=== PATIENT | female | born 1945 | race Caucasian/White ===

== ENCOUNTER → 2018-11-20 | Outpatient (CLI) | payer MEDICARE, BC ==
[~2018-11-20] MED LIST: NAPROXEN500 MG PO
== END ==
LOC: MAMMO 09:15
PROVIDERS: ATTEND Internal Medicine
DX: Z12.31 Encounter for screening mammogram for malignant neoplasm of breast (principal)
CPT/HCPCS: 77067

== ENCOUNTER 2020-04-09 15:13 | Observation (INO) | payer MEDICARE, BC, OTHER ==
[~2020-04-09] VITALS: Ht 154.9 cm; Wt 66.2 kg
[2020-04-09] MEDS ORDERED: HYDROCODONE/APAP 7.5MG-325MG 1 EA TAB PO ONE (15:30)
--- OUTSIDE RECORDS SUMMARY | 2020-04-09 16:25 | XMS REPORT | Clinical Summary ---
Author Author [facility] Address Unknown Phone Unavailable Care Team Providers Care Adobe Flex Developer Name Role Phone Sumaya Vasquez MD PCP Allergies No Known Allergies Medications End Date Status Medication Sig Dispensed Refills Start Date Active fluticasone (FLONASE) 50 USE 2 SPRAYS 0 11/08 mcg/actuation nasal spray IEN BID 9 11/11/2019 omeprazole (PriLOSEC) 10 Take 4 30 capsule 4 0 MG capsule capsules (40 9 mg total) by mouth daily. Active Problems Problem Noted Date Acute pancreatitis 06/10/2018 Diarrhea 05/29/2018 Bronchitis 05/27/2018 Immunizations Name Administration Dates Next Due FLUCELVAX QUAD PF 06/12/2018 Family History Medical History Relation Name Comments Hypertension Father Arthritis Mother Asthma Mother Hyperlipidemia Mother Hypertension Mother Relation Name Status Comments Father Mother Social History Date Tobacco Use Types Packs/Day Years Used Never Smoker Smokeless Tobacco: Never Used Drinks/Week oz/Week Comments Alcohol Use 1 Cans of beer 1.0 maybe one drink a month or 2 Yes Sex Assigned at Date Recorded Not on file Industry Job Start Date Occupation Not on file Not on file Not on file Travel End Travel History Travel Start No recent travel history available. Last Filed Vital Signs Not on file Plan of Treatment Health Maintenance Due Date Last Done Comments BREAST CANCER SCREENING 1996 COLONOSCOPY SCREENING 1996 SHINGLES VACCINES (#1) 1996 65+ PNEUMOCOCCAL VACCINE 2011 (1 of 2 - PCV13) INFLUENZA VACCINE 04/03/2020 06/12/2018 Results Not on fileafter 04/09/2019 Insurance Type Payer Benefit Subscriber ID Effective Phone Address Plan / Dates Group Medicare MEDICARE MEDICARE xxxxxxxxxxx 2011-P CHENG, PART A AND resent [place] B Indemnity BCBS BCBS xxxxxxxxxxxx 2015-P PAR/TRAD resent PLAN [id number] Advance Directives For more information, please contact: [phone] Patient Installations Inspector Explanation Type Date Recorded Advance Directives, 05/27/2018 11:59 AM Living Will and Medical Power of Octave Board Racker Date Inactivated Comments Code Status Date Activated 06/12/2018 7:11 PM Full Code 06/11/2018 7:56 AM Code Status decision reached by: Patient
--- OUTSIDE RECORDS SUMMARY | 2020-04-09 16:26 | XMS REPORT | CCD ---
Author Author [employer] [facility] Address Unknown Phone Unavailable Care Team Providers Care Web Services Manager Name Role Phone Jean Donaldson CP Allergies, Adverse Reactions, Alerts Substance Reaction Status NKDA Active Problem List Condition Effective Dates Status Acute interstitial pneumonia Active HT - Hypertension Active Medications Medication Instructions Start Date End Date Status pneumococcal 0.5 ml, Route: IM, Drug Form: INJ, 02/29/2012 Completed 23-valent vaccine Start date: 02/29/12 9:00:0 0, Stop date: 02/29/12 9:00:00 Flexeril 10 mg, Route: PO, ONCE, Dosing 08/08/2012 08/08/20 12 Completed Weight 69.545, kg, Priority: STAT, Start date: 08/08/12 20:05:00, Stop date: 08/08/12 20:05:00 Flexeril 10 mg oral 10 mg, PO, TID, PRN, 30 tab, Muscle 08/0808/18/2012 Ordered tablet Spasm, Substitution Allowed [place] 5/325 oral 1-2 tab, PO, Q4-6H, PRN, 15 tab, 08/08/2012 1 10/14/2011 Ordered tablet Pain, Substitution Allowed, Maintenance morphine Sulfate 2 mg, 1 mL, Route: IVP, Drug form: 08/08/2012 08/08/2012 Completed INJ, ONCE, Dosing Weight 69.545, kg, Priority: STAT, Start date: 08/08/12 19:14:00, Stop date: 08/08/12 19:14:00 ondansetron 4 mg, 2 mL, Route: IVP, Drug form: 08/08/201202/2012 Completed INJ, ONCE, Dosing Weight 69.545, kg, Priority: STAT, Start date: 08/08/12 19:14:00, Stop date: 08/08/12 19:14:00 Saline Flush 0.9% 5 mL, Route: IVP, Drug Form: INJ, 08/08/2012 08/08/2012 Discontinued Dosing Weight 69.545, kg, PRN, PRN Line Flush, Start date: 08/08/12 19:14:00, Duration: 24 hr, Stop date: 08/09/12 19:13:00 Sodium Chloride 0.9% 500 mL, 500 ml/hr, Route: IV, Drug 08/0808/08/2012 Completed (Bolus) IV Form: INJ, Dosing Weight 69 .545, kg, ONCE, Bolus at 1,000 ml/hr, STAT, Start date: 08/08/12 19:14:00, Stop date: 08/08/12 19:14:00 Immunizations Vaccine Date Status pneumococcal 23-valent vaccine 02/29/2012 Auth (V erified) Vital Signs Most recent to oldest [Reference Range]: 1 Height 154.94 cm (08/08/2012 18:05:00) Weight 69.545 kg (08/08/2012 18:05:00) Results CHEMISTRY Most recent to oldest [Reference Range]: 1 Sodium Lvl [135-145 mEq/L] 142 mEq/L (08/08/2012 20:05:00) Potassium Lvl [3.5-5.1 mEq/L] 4.0 mEq/L (08/08/2012 20:05:00) Chloride Lvl [95-109 mEq/L] 107 mEq/L (08/08/2012 20:05:00) CO2 [24-32 mEq/L] 25 mEq/L (08/08/2012 20:05:00) AGAP [10.0-20.0 mEq/L] 14.0 mEq/L (08/08/2012 20:05:00) Creatinine Lvl [0.5-1.4 mg/dL] 0.6 mg/dL (08/08/2012 20:05:00) eGFR 95 mL/min/1.73m2 1 *NA* (08/08/2012 20:05:00) BUN [7-22 mg/dL] 12 mg/dL (08/08/2012 20:05:00) B/C Ratio [6-25] 20 (08/08/2012 20:05:00) Glucose Lvl [70-99 mg/dL] 104 mg/dL 2 *HI* (08/08/2012:05:00) Total Protein [6.4-8.4 g/dL] 7.6 g/dL (08/08/2012:05:00) Albumin Lvl [3.5-5.0 g/dL] 4.0 g/dL (08/08/2012:05:00) Globulin [2.0-4.0 g/dL] 3.6 g/dL (08/08/2012:05:00) A/G Ratio [0.7-1.6] 1.1 (08/08/2012:05:00) Calcium Lvl [8.5-10.5 mg/dL] 8.6 mg/dL (08/08/2012:05:00) ALT [0-65 unit/L] 32 unit/L (08/08/2012:05:00) AST [0-37 unit/L] 19 unit/L (08/08/2012:05:00) Alk Phos [39-136 unit/L] 91 unit/L (08/08/2012:05:00) Bili Total [0.2-1.3 mg/dL] 0.2 mg/dL (08/08/2012:05:00) Bili Direct [0.0-0.3 mg/dL] <0.1 mg/dL (08/08/2012:05:00) Lipase Lvl [73-393 unit/L] 248 unit/L (08/08/2012:05:00) Total CK [12-191 unit/L] 172 unit/L (08/08/2012:05:00) CK MB [0.5-3.6 ng/mL] 1.2 ng/mL (08/08/2012:05:00) CK MB Index [0.0-2.5] 0.7 (08/08/2012:05:00) Troponin-I [0.00-0.40 ng/mL] <0.02 ng/mL (08/08/2012:05:00) 1Result Comment: The eGFR is calculated using the CKD-EPI formula. In most young, healthy individuals the eGFR will be >90 mL/min/1.73m2. The eGFR declines with age. An eGFR of 60-89 may be normal in some populations, particularly the elderly, for whom the CKD-EPI formula has not been extensively validated. Use of the eGFR is not recommended in the following populations: Individuals with unstable creatinine concentrations, including patients and those with serious co-morbid conditions. Patients with extremes in muscle mass or diet. The data above are obtained from the National Kidney Disease Education Program ( NKDEP) which additionally recommends that when the eGFR is used in patients with extremes of body mass index for purposes of drug dosing, the eGFR should be mul tiplied by the estimated BMI. 2Interpretive Data: Adult reference range values reflect the clinical guidelines of the [place] [employer]. HEMATOLOGY Most recent to oldest [Reference Range]: 1 WBC [3.7-10.4 K/CMM] 7.9 K/CMM (08/08/2012 20:05:00) RBC [4.20-5.40 M/CMM] 4.30 M/CMM (08/08/2012:05:00) Hgb [12.0-16.0 g/dL] 13.1 g/dL (08/08/2012:05:00) Hct [36.0-48.0 %] 38.8 % (08/08/2012:05:00) MCV [81.0-99.0 fL] 90.2 fL (08/08/2012:05:00) MCH [27.0-31.0 pg] 30.5 pg (08/08/2012:05:00) MCHC [32.0-36.0 g/dL] 33.8 g/dL (08/08/2012:05:00) RDW [11.5-14.5 %] 13.8 % (08/08/2012:05:00) Platelet [133-450 K/CMM] 337 K/CMM (08/08/2012:05:00) MPV [7.4-10.4 fL] 7.4 fL (08/08/2012:05:00) Segs [45.0-75.0 %] 57.5 % (08/08/2012 20:05:00) Lymphocytes [20.0-40.0 %] 31.7 % (08/08/2012 20:05:00) Monocytes [2.0-12.0 %] 6.8 % (08/08/2012 20:05:00) Eosinophils [0.0-4.0 %] 2.7 % (08/08/2012 20:05:00) Basophils [0.0-1.0 %] 1.3 % *HI* (08/08/2012 20:05:00) Segs-Bands # [1.5-8.1 K/CMM] 4.5 K/CMM (08/08/2012 20:05:00) Lymphocytes # [1.0-5.5 K/CMM] 2.5 K/CMM (08/08/2012 20:05:00) Monocytes # [0.0-0.8 K/CMM] 0.5 K/CMM (08/08/2012 20:05:00) Eosinophils # [0.0-0.5 K/CMM] 0.2 K/CMM (08/08/2012 20:05:00) Basophils # [0.0-0.2 K/CMM] 0.1 K/CMM (08/08/2012 20:05:00) PT [12.0-14.7 seconds] 12.4 seconds (08/08/2012 20:05:00) INR [0.85-1.17] 0.90 3 (08/08/2012 20:05:00) PTT [22.9-35.8 seconds] 26.1 seconds 4 (08/08/2012 20:05:00) 3Interpretive Data: RECOMMENDED RANGES FOR PROTIME INR: 2.0-3.0 for most medical and surgical thromboembolic states. 2.5-3.5 for artificial heart valves and recurrent embolism. INR SHOULD BE USED ONLY FOR PATIENTS ON STABLE ANTICOAGULANT THERAPY. 4Interpretive Data: Heparin Therapeutic Range: 57 - 92 Seconds
--- OUTSIDE RECORDS SUMMARY | 2020-04-09 16:26 | XMS REPORT | Summary of Care ---
Author Author [facility] Organization [facility] Address Unknown Phone Unavailable Encounter AGUSTINA Frost(TRINY) [id number] Date(s): 12/11/18 - 12/13/18 [facility] [address] [place] [address]- Discharge Disposition: Home or Self Care Attending Physician: Jaden London MD Admitting Physician: Jaden London MD Vital Signs 1 2 3 Most recent to oldest [Reference Range]: 154.94 cm (12/11/18 2:46 PM) Height 97.2 DegF (12/13/18 3:39 PM) 98.1 DegF (12/13/18 11:19 AM) 97.8 DegF (12/13/18 7:15 AM) Temperature Oral [96.4-99.1 DegF] 143/61 mmHg *HI* (12/13/18 3:39 PM) 153/71 mmHg *HI* (12/13/18 11:19 AM) 136/67 mmHg (12/13/18 7:15 AM) Blood Pressure [90-140/60-90 mmHg] 20 BRMIN (12/13/18 11:19 AM) 20 BRMIN (12/13/18 7:15 AM) 20 BRMIN (12/13/18 4:01 AM) Respiratory Rate [14-20 BRMIN] 94 bpm (12/13/18 3:39 PM) 85 bpm (12/13/18 11:19 AM) 80 bpm (12/13/18 7:15 AM) Peripheral Pulse Rate [60-100 bpm] 70.455 kg (12/11/18 2:46 PM) Weight 29.35 m2 (12/11/18 2:46 PM) Body Mass Index Problem List Condition Effective Dates Status Health Status Informan t Acute interstitial Active pneumonia(Confirmed) HT - Active Hypertension(Confirm ed) Allergies, Adverse Reactions, Alerts Substance Reaction Severity Status NKDA Active Medications albuterol 0.083% inhalation solution 2.49 mg, 3 mL, Route: NEB, Drug form: SOLN, PRN, Dosing Weight 71.96, kg, PRN Re spiratory Pathway, Start date: 12/11/18 13:22:00 CDT, Duration: 30 day, Stop kathrine e: 01/10/19 13:21:00 CDT Notes: SEE RT DOCUMENTATION (Same as: Durga) Start Date: 12/11/18 Stop Date: 12/13/18 Status: Discontinued albuterol-ipratropium 2.5-0.5 mg inhalation solution 3 mL, Route: NEB, Drug Form: SOLN, Dosing Weight 71.96, kg, RQ6H, Start date: 14:00:00 CDT, Duration: 30 day, Stop date: 01/10/19 8:00:00 CDT Notes: (Same as: Elaine) Start Date: 12/11/18 Stop Date: 12/13/18 Status: Discontinued Loda Saline Nasal No-Drip [place] 0.65% gel 1 spray, Route: NASAL, QID, Drug form: SOLN, Start date: 12/12/18 9:00:00 CDT, D uration: 30 day, Stop date: 01/10/19 21:00:00 CDT Notes: (Same as: Troy, Deep Sea Nasal [place]). Start Date: 12/12/18 Stop Date: 12/13/18 Status: Discontinued azelastine nasal 0.1% (137 mcg/inh) spray 137 microgram =, INHALER, BID, PRN Congestion | 1-2 sprays, # 1 ea, 0 Refill(s) Start Date: 12/13/18 Status: Ordered benzonatate 200 mg oral capsule 200 mg = 1 cap, PO, TID, # 30 cap, 0 Refill(s) Start Date: 12/11/18 Stop Date: 12/21/18 Status: Ordered codeine-guaiFENesin 10 mg-100 mg/5 mL oral syrup 5 ml, Route: PO, Drug Form: LIQ, Dosing Weight 70.455, kg, Q6H, PRN Cough, Start date: 12/13/18 9:03:00 CDT, Duration: 30 day, Stop date: 01/12/19 9:02:00 CDT Notes: (Same As: Jesse SCOTT) Start Date: 12/13/18 Stop Date: 12/13/18 Status: Discontinued codeine-guaiFENesin 10 mg-100 mg/5 mL oral syrup 5 mL, PO, Q4H, PRN cough, X 8 day, # 120 mL, 0 Refill(s) Start Date: 12/13/18 Stop Date: 12/21/18 Status: Ordered Dextrose 50% Syringe 25 gm, 50 mL, Route: IVP, Drug Form: INJ, Dosing Weight 70.455, kg, PRN, PRN Blo od Glucose Results, Start date: 12/12/18 0:28:00 CDT, Duration: 30 day, Stop kathrine e: 01/11/19 0:27:00 CDT Start Date: 12/12/18 Stop Date: 12/13/18 Status: Discontinued Dextrose 50% Syringe 12.5 gm, 25 mL, Route: IVP, Drug Form: INJ, Dosing Weight 70.455, kg, PRN, PRN B lood Glucose Results, Start date: 12/12/18 0:28:00 CDT, Duration: 30 day, Stop d ate: 01/11/19 0:27:00 CDT Start Date: 12/12/18 Stop Date: 12/13/18 Status: Discontinued Dextrose 50% Syringe 25 gm, 50 mL, Route: IVP, Drug Form: INJ, Dosing Weight 71.96, kg, PRN, PRN Bloo d Glucose Results, Start date: 12/11/18 13:18:00 CDT, Duration: 30 day, Stop kathrine e: 01/10/19 13:17:00 CDT Start Date: 12/11/18 Stop Date: 12/12/18 Status: Discontinued Dextrose 50% Syringe 12.5 gm, 25 mL, Route: IVP, Drug Form: INJ, Dosing Weight 71.96, kg, PRN, PRN Bl ood Glucose Results, Start date: 12/11/18 13:18:00 CDT, Duration: 30 day, Stop d ate: 01/10/19 13:17:00 CDT Start Date: 12/11/18 Stop Date: 12/12/18 Status: Discontinued docusate 100 mg, 1 cap, Route: PO, Drug form: CAP, BID, Dosing Weight 71.96, kg, Start da te: 12/11/18 17:00:00 CDT, Duration: 30 day, Stop date: 01/10/19 9:00:00 CDT Notes: (Same as: Colace) (Do Not Crush) Start Date: 12/11/18 Stop Date: 12/13/18 Status: Discontinued enoxaparin 40 mg, 0.4 mL, Route: SUB-Q, Drug form: INJ, [id number], Dosing Weight 70.455, kg, Start date: 12/12/18 1:00:00 CDT, Duration: 30 day, Stop date: 01/10/19 1:00:00 CDT Notes: (Same as: Lovenox) Start Date: 12/12/18 Stop Date: 12/13/18 Status: Discontinued Flonase 0.05 mg/inh nasal spray 2 spray, Route: Each Affected Nostril, Drug Form: SPRY, Dosing Weight 70.455, kg , Daily, Start date: 12/12/18 9:07:00 CDT, Duration: 30 day, Stop date: 01/11/19 9:00:00 CDT Notes: (Same as: Flonase) Start Date: 12/12/18 Stop Date: 12/13/18 Status: Discontinued glucagon 1 mg, Route: IM, Drug form: PDR/INJ, PRN, Dosing Weight 70.455, kg, PRN Blood Gl ucose Results, Start date: 12/12/18 0:28:00 CDT, Duration: 30 day, Stop date: 0:27:00 CDT Start Date: 12/12/18 Stop Date: 12/13/18 Status: Discontinued glucagon 1 mg, Route: IM, Drug form: PDR/INJ, PRN, Dosing Weight 71.96, kg, PRN Blood Glu cose Results, Start date: 12/11/18 13:18:00 CDT, Duration: 30 day, Stop date: 13:17:00 CDT Start Date: 12/11/18 Stop Date: 12/12/18 Status: Discontinued levothyroxine 25 microgram, 1 tab, Route: PO, Drug form: TAB, Q630AM, Dosing Weight 70.455, kg , Start date: 12/12/18 8:00:00 CDT, Duration: 30 day, Stop date: 01/11/19 6:30:0 0 CDT Notes: Take 1 hour before or 2 hours after meal; Enteral feeds may interefere wi th the absorption of this medication. (Same as:Levothroid) Start Date: 12/12/18 Stop Date: 12/13/18 Status: Discontinued levothyroxine 25 mcg (0.025 mg) oral tablet 25 microgram = 1 tab, PO, Q630AM, 0 Refill(s) Start Date: 12/13/18 Status: Ordered methylPREDNISolone SODium SUCCinate 20 mg, 0.5 mL, Route: IVP, Drug form: INJ, Q12H, Dosing Weight 71.96, kg, Start date: 12/11/18 21:00:00 CDT, Duration: 30 day, Stop date: 01/10/19 9:00:00 CDT Notes: (Same as:Solu-MEDROL, A-Methapred) Start Date: 12/11/18 Stop Date: 12/13/18 Status: Discontinued montelukast 10 mg, 1 tab, Route: PO, Drug form: TAB, Bedtime, Dosing Weight 71.96, kg, Start date: 12/11/18 21:00:00 CDT, Duration: 30 day, Stop date: 01/09/19 21:00:00 CDT Notes: (Same as:Singulair) Start Date: 12/11/18 Stop Date: 12/13/18 Status: Discontinued Mucinex 600 mg, 1 tab, Route: PO, Drug form: ERTAB, Q12H, Dosing Weight 71.96, kg, Start date: 12/11/18 21:00:00 CDT, Duration: 30 day, Stop date: 01/10/19 9:00:00 CDT Notes: (Same as: Guaifenesin LA, Humibid LA, Mucinex)"Do Not Crush" Take medica tion with plenty of water. Start Date: 12/11/18 Stop Date: 12/13/18 Status: Discontinued omeprazole 40 mg oral delayed release capsule 40 mg = 1 cap, PO, Daily, # 30 cap, 0 Refill(s) Start Date: 12/11/18 Status: Ordered predniSONE 20 mg oral tablet 20 mg = 1 tab, PO, Daily, X 7 day, # 7 tab, 0 Refill(s) Start Date: 12/13/18 Stop Date: 12/20/18 Status: Ordered Protonix 40 mg, 1 tab, Route: PO, Drug form: ECTAB, Before Breakfast, Dosing Weight 71.96 , kg, Start date: 12/12/18 7:30:00 CDT, Duration: 30 day, Stop date: 01/10/19 7: 30:00 CDT Notes: Tablet should not be chewed or crushed.(Same as: Protonix) Start Date: 12/12/18 Stop Date: 12/13/18 Status: Discontinued RN- PLs Update Height, Weight & Allergies in Care4 RN- PLs Update Height, Weight & Allergies in Care4, Reminder, Drug form: MISC, Route: MISC, Q2H, 12/11/18 14:38:00 CDT, Duration: 1 day, Stop date: 12/12/18 14:00:00 CDT Start Date: 12/11/18 Stop Date: 12/11/18 Status: Deleted Singulair 10 mg oral tablet 10 mg = 1 tab, PO, Bedtime, # 30 tab, 0 Refill(s) Start Date: 12/13/18 Status: Ordered Zosyn + Sodium Chloride 0.9% IV 100 mL 3.375 gm, Route: IVPB, Q8H, Dosing Weight 71.96, kg, CrCl >= 20 ml/min infuse over 4 hours, Start date: 12/11/18 14:54:00 CDT, Duration: 5 day, Stop date: 12/16/18 8:00:00 CDT, ABX Indication: Pneumonia Notes: (Same as: Zosyn)Dosing based on Piperacillin component MEDICATION WA DIAZ Product Size: 3375 mgProduct Wasted: ___ mg Start Date: 12/11/18 Stop Date: 12/13/18 Status: Discontinued Results ELECTROLYTES Most recent to 1 oldest [Reference Range]: Sodium Lvl [135-145 138 mEq/L mEq/L] (12/11/18 2:51 PM) Potassium Lvl 3.9 mEq/L [3.5-5.1 mEq/L] (12/11/18 2:51 PM) Chloride Lvl [95-109 107 mEq/L mEq/L] (12/11/18 2:51 PM) CO2 [24-32 mEq/L] 25 mEq/L (12/11/18 2:51 PM) AGAP [10.0-20.0 9.9 mEq/L mEq/L] *LOW* (12/11/18 2:51 PM) CHEM PANEL Most recent to 1 oldest [Reference Range]: Creatinine Lvl 0.75 mg/dL [0.50-1.40 mg/dL] (12/11/18 2:51 PM) eGFR 80 mL/min/1.73m2 1 *NA* (12/11/18 2:51 PM) BUN [7-22 mg/dL] 17 mg/dL (12/11/18 2:51 PM) B/C Ratio [6-25] 23 (12/11/18 2:51 PM) Glucose Lvl [70-99 214 mg/dL mg/dL] *HI* (12/11/18 2:51 PM) Total Protein 7.3 g/dL [6.4-8.4 g/dL] (12/11/18 2:51 PM) Albumin Lvl [3.5-5.0 3.8 g/dL g/dL] (12/11/18 2:51 PM) Globulin [2.7-4.2 3.5 g/dL g/dL] (12/11/18 2:51 PM) A/G Ratio [0.7-1.6] 1.1 (12/11/18 2:51 PM) Calcium Lvl 9.2 mg/dL [8.5-10.5 mg/dL] (12/11/18 2:51 PM) Phosphorus [2.5-4.5 3.4 mg/dL mg/dL] (12/11/18 2:51 PM) Magnesium Lvl 2.6 mg/dL [1.8-2.4 mg/dL] *HI* (12/11/18 2:51 PM) ALT [0-65 unit/L] 35 unit/L (12/11/18 2:51 PM) AST [0-37 unit/L] 11 unit/L (12/11/18 2:51 PM) Alk Phos [39-136 101 unit/L unit/L] (12/11/18 2:51 PM) Bili Total [0.2-1.3 0.3 mg/dL mg/dL] (12/11/18 2:51 PM) 1Result Comment: The eGFR is calculated using [...] be mul tiplied by the estimated BMI. SPECIAL CHEMISTRY Most recent to 1 oldest [Reference Range]: Hgb A1C [<=5.6 %] 6.3 % *HI* (12/12/18 5:10 AM) IMMUNOLOGY Most recent to 1 oldest [Reference Range]: Aspergillus 9.9 ug/ml 1 fumigatus IgG *HI* [0.0-1.9 ug/ml] (12/12/18 6:07 PM) IgE Lvl [10.0-100.0 749.0 IU/mL IU/mL] *HI* (12/11/18 2:51 PM) 1Result Comment: Results for this test are for Investigational Purposes Only by the assay's care worker. The performance characteristics of this product have not been established. Results should not be used as a diagnostic procedure without confirmation of the diagnosis by another medically established diagnostic product or procedure. Performed At: [address] [id number] Vikram Prado MD Ph:[phone] HEMATOLOGY Most recent to 1 oldest [Reference Range]: WBC [3.7-10.4 K/CMM] 11.7 K/CMM *HI* (12/11/18 2:51 PM) RBC [4.20-5.40 4.49 M/CMM M/CMM] (12/11/18 2:51 PM) Hgb [12.0-16.0 g/dL] 13.5 g/dL (12/11/18 2:51 PM) Hct [36.0-48.0 %] 40.3 % (12/11/18 2:51 PM) MCV [80.0-98.0 fL] 89.9 fL (12/11/18 2:51 PM) MCH [27.0-31.0 pg] 30.1 pg (12/11/18 2:51 PM) MCHC [32.0-36.0 33.5 g/dL g/dL] (12/11/18 2:51 PM) RDW [11.5-14.5 %] 14.3 % (12/11/18 2:51 PM) MPV [7.4-10.4 fL] 8.0 fL (12/11/18 2:51 PM) Platelet [133-450 359 K/CMM K/CMM] (12/11/18 2:51 PM) Segs [45.0-75.0 %] 69.9 % (12/11/18 2:51 PM) Lymphocytes 22.5 % [20.0-40.0 %] (12/11/18 2:51 PM) Monocytes [2.0-12.0 6.9 % %] (12/11/18 2:51 PM) Eosinophils [0.0-4.0 0.3 % %] (12/11/18 2:51 PM) Basophils [0.0-1.0 0.4 % %] (12/11/18 2:51 PM) Neutrophils # 8.2 K/CMM [1.5-8.1 K/CMM] *HI* (12/11/18 2:51 PM) Lymphocytes # 2.6 K/CMM [1.0-5.5 K/CMM] (12/11/18 2:51 PM) Monocytes # [0.0-0.8 0.8 K/CMM K/CMM] (12/11/18 2:51 PM) Basophils # [0.0-0.2 0.1 K/CMM K/CMM] (12/11/18 2:51 PM) Sed Rate [0-20 13 mm/hr mm/hr] (12/11/18 2:51 PM) Immunizations Given and Recorded Vaccine Date Status Refusal Reason influenza virus vaccine, inactivated 11/08/18 G iven pneumococcal 13-valent vaccine 11/08/18 Given pneumococcal 23-valent vaccine 02/29/12 Given Procedures No data available for this section Social History Social History Type Response Alcohol Past Smoking Status Never smoker; Previous pedro tment: None; Ready to change: No; Concerns about tobacco use in household: No; Exposure to Tobacco Smoke None; Cigarette Smoking Last 365 Days No; Reg Smoking C essation Counseling No entered on: 12/11/18 Assessment and Plan Extracted from: Title: Clinical Document Author: Janessa Vasquez Date: 12/13/18 Mary Jo HOPKINS FINAL DIAGNOSIS ON DISCHARGE Chronic cough Asthma with acute exacerbation Moderate maxillary sinusitis Elevated IGE rule out ABPA Hospital course Patient was admitted with complaints of acute shortness of breath and coughing, she was doing relatively stable not in significant distress hence was started with antibiotics, we did a CT scan of her sinuses as well as chest CT had of the chest did not have any acute infiltrates, doing much stable not a significant distress after improvement with steroids, I am going to give her a course of prednisone not sure she has an acute infection will go ahead and stop antibiotics, she will follow-up with my colleague Dr. London as well as follow up with him She is scheduled for outpatient surgery by Dr. Kumari medications : see reconciliation activity as tolerated Subjective: Patient seen and examined events noted no complaints. Review of Systems CONSTITUTIONAL: no fever. chills. dizziness. weakness. EYES: No pain, erythema, or discharge, blurring of vision. EAR, NOSE AND THROAT: No sore throat, URI symptoms, epistaxis,tinnitus. CARDIOVASCULAR: No chest pain. No palpitations. + lower extremity edema. RESPIRATORY: No shortness of breath, cough, pain with respiration, or pleuritic chest pain. No hemoptysis. No dyspnea. No paroxysmal nocturnal dyspnea. GASTROINTESTINAL: Normal appetite. No dysphagia, nausea, vomiting, diarrhea. No pain. No bleeding. GENITOURINARY: No frequency, urgency, nocturia, hematuria or dysuria. MUSCULOSKELETAL: No arthralgias or myalgias. INTEGUMENTARY: No swelling, bruising, contusions,abrasions, lymphangitis. NEUROLOGIC: No headache, neck pain, numbness or tingling of the extremities. or weakness. METABOLIC:No history of thyroid, diabetes or adrenal problems. HEMATOLOGICAL: No bleeding, petechiae,bruising. ALLERGY: No asthma, urticaria. PSYCHIATRIC: No confusion or depression General Examination Gen: Alert No apparent distress. HEENT: PERRL NECK: No JVD, No Carotid Bruit. Respiratory: No respiratory distress, No evidence of accesory muscle use. Clear to ausculation bilaterally in all zones. No rales or crackles or Wheezes Cardiovascular. S1S2 + No Murmers Regular Rate rythm Abdominal: Soft Non tender. NO organomegaly Extremities: No pedal edema, no cyanosis no clubbing Neurology: Alert No focal deficits Skin: No rash VitalsTmp(F)[id number] 12/13 15:3997.812284/61--97--- 12/13 11:1998.407437/302468--- 12/13 07:1597.184452/709432--- 12/13 07:13 98--- 12/13 04:[id number]--- 24 Hr Tmax: 98.4F (36.89c) at 12/13 00:0 4Vital Signs are the last 5 in the past 48 hours. (all previously charted lines have been discontinued) I/O Intake OutputBalance -3p 585.50 0.00 585.50 3p-11p 0.00 0.00 0. 00As of 16:02 11p-7a 0.00 0.00 0. 00 Totals 585.50 0.00 585.50 -3p 820.50 0.00 820.50 3p-11p 460.50 0.00 460.50 11p-7a 340.00 0.00 340.00 Totals 1621.00 0.00 1621.00 -3p 0.00 0.00 0.00 3p-11p 460.00 0.00 460.00 11p-7a 101.00 0.00 101.00 Totals 561.00 0.00 561.00 12/13/2018 15:39 SpO2 [id number] 12/12/2018 20:18 FIO2 (%)21 Radiology Labs Labs (Last four charted values) WBC H 11.7(DEC 11) Hgb 13.5(DEC 11) Hct 40.3(DEC 11) Plt 359(DEC 11) Na 138(DEC 11) K 3.9(DEC 11) CO2 25(DEC 11) Cl 107(DEC 11) Cr 0.75(DEC 11) BUN 17(DEC 11) Glucose Random H 214(DEC 11) Mg H 2.6(DEC 11) Phos 3.4(DEC 11) Ca 9.2(DEC 11) Medications (16) Active Scheduled: (11) albuterol-ipratropium 2.5 mg-0.5 mg/3 ml TOSHA 3 mL, NEB, RQ6H docusate sodium 100 mg CAP 100 mg 1 cap, PO, BID enoxaparin 40 mg/0.4 ml INJ 40 mg 0.4 mL, SUB-Q, [id number] fluticasone 0.05 mg/inh 16gm SPR nasal 2 spray, Each Affected Nostril, Daily guaiFENesin LA 600 mg ERT 600 mg 1 tab, PO, Q12H levothyroxine 25 microgram TAB 25 microgram 1 tab, PO, Q630AM methylPREDNISolone SOD SUCC 40mg INJ 20 mg 0.5 mL, IVP, Q12H montelukast 10 mg TAB 10 mg 1 tab, PO, Bedtime pantoprazole 40 mg ECT 40 mg 1 tab, PO, Before Breakfast piperacillin-tazobactam INJ + sodium chloride 0.9% INJ 100ml (mini-bag Plus) 100 mL 3.375 gm, IVPB, Q8H sodium chloride 0.65% nasal SPRY 45 ml 1 spray, NASAL, QID Continuous: (0) PRN: (5) albuterol 0.083% 3 ml neb SOLN 2.49 mg 3 mL, NEB, PRN Dextrose 50% 50 ml INJ syringe 12.5 gm 25 mL, IVP, PRN Dextrose 50% 50 ml INJ syringe 25 gm 50 mL, IVP, PRN glucagon recombinant 1 mg PDR 1 mg, IM, PRN guaiFENesin-codeine 100-10mg/5ml LIQ 5 ml, PO, Q6H TOTAL DISCHARGE TIME 35 min Extracted from: Title: Clinical Document Author: Raysa Kumari Date: 12/13/18 ENT Progress Note Raysa Kumari MD Attending: Jaden London MDPhone: Service: Pulmonology/Respiratory Therapy Code status: Full Code Reason for Admission: ASTHMA WITH BRONCHITIS AND STATUS ASTHMATICUS Working DRG: Isolation: No Isolation/Standard Precautions Consulting Physicians: Rocio Oneill MDOffice: Service: Medicine Jaden London MDOffice: Service: Pulmonary, Medicine Raysa Kumari MDOffice: service: Otolaryngology Allergies: NKDA Vitals and Temp: VitalsTmp(F)[id number] 12/13 11:1998.522716/[id number]--- 12/13 07:[id number]/[id number]--- 12/13 07:13 98--- 12/13 04:[id number]/[id number]--- 12/13 00:0498.274866/7020------ 24 Hr Tmax: 98.4F (36.89c) at 12/13 00:0 4Vital Signs are the last 5 in the past 48 hours. Lines, Tubes, and Drains: 12/11/2018 15:17 Peripheral Lines: Wrist Right 22 gauge Over the needle catheter SUBJECTIVE: less cough today EXAM: pale sinus muccosa/ no sinus tenderness. no active coughing while talking as was the case yesteday ASSESSMENT: welsh sinusitis not resolved with maximal medical management. PLAN & TREATMENT: will setup fusion fess while in hospital early next week if cleared and ready per cook station. DIAGNOSES & PROBLEMS: Active Problems (2) Acute interstitial pneumonia HT - Hypertension I/O Intake OutputBalance 12/13/20187a-3p 340.50 0.00 340.50As of 12:17 3p-11p 0.00 0.00 0. 00 11p-7a 0.00 0.00 0. 00 Totals 340.50 0.00 340.50 12/12/20187a-3p 820.50 0.00 820.50 3p-11p 460.50 0.00 460.50 11p-7a 340.00 0.00 340.00 Totals 1621.00 0.00 1621.00 12/11/20187a-3p 0.00 0.00 0.00 3p-11p 460.00 0.00 460.00 11p-7a 101.00 0.00 101.00 Totals 561.00 0.00 561.00 Medications (16) Active Scheduled Meds (11): 12/11/18 albuterol-ipratropium (albutero l-ipratropium 2.5-0.5 mg inhalation solution) 3 mL NEB RQ6H 12/11/18 docusate 100 mg PO BID 12/12/18 enoxaparin 40 mg SUB-Q [id number] 12/12/18 fluticasone nasal (Flonase 0.05 mg/inh nasal spray) 2 spray Each Affected Nostril Daily 12/11/18 guaiFENesin (Mucinex) 600 mg PO Q12H 12/12/18 levothyroxine 25 microgram PO Q 630AM 12/11/18 methylPREDNISolone (methylPREDN ISolone SODium SUCCinate) 20 mg IVP Q12H 12/11/18 montelukast 10 mg PO Bedtime 12/12/18 pantoprazole (Protonix) 40 mg P O Before Breakfast 12/11/18 piperacillin-tazobactam + Sodiu m Chloride 0.9% IV 100 mL (Zosyn + Sodium Chloride 0.9% IV 100 mL) 3.375 gm IVPB Q8H 25 ml/hr 12/12/18 sodium chloride nasal (Loda Sali ne Nasal No-Drip [place] 0.65% gel) 1 spray NASAL QID Unscheduled Meds: None PRN Meds (5): 12/12/18 Dextrose 50% in Water IV (Dextr ose 50% Syringe) 12.5 gm IVP PRN 12/12/18 Dextrose 50% in Water IV (Dextr ose 50% Syringe) 25 gm IVP PRN 12/11/18 albuterol (albuterol 0.083% inh alation solution) 2.49 mg NEB PRN 12/13/18 codeine-guaiFENesin (codeine-gu aiFENesin 10 mg-100 mg/5 mL oral syrup) 5 ml PO Q6H 12/12/18 glucagon 1 mg IM PRN One Time Meds: None Continuous Infusions: None 24hr Labs 12/13 1123 POC Performing LocatioSee Note Glucose ACH300 H 12/13 0720 POC Performing LocatioSee Note Glucose CLM236 H 12/12 2153 POC Performing LocatioSee Note Glucose QXO221 H 12/12 1608 POC Performing LocatioSee Note Glucose PXF027 H Extracted from: Title: Clinical Document Author: Raysa Kumari Date: 12/12/18 ENT Consultation Note Raysa Kumari MD Attending: Jaden London MDPhone: Service: Pulmonology/Respiratory Therapy Code status: Full Code Reason for Admission: ASTHMA WITH BRONCHITIS AND STATUS ASTHMATICUS Working DRG: Isolation: No Isolation/Standard Precautions Consulting Physicians: Rocio Oneill MDOffice: Service: Medicine Jaden London MDOffice: Service: Pulmonary, Medicine Raysa Kumari MDOffice: service: Otolaryngology Allergies: NKDA Vitals and Temp: VitalsTmp(F)[id number] 12/12 08:3097.239882/70--88--- 12/12 06:58 96--- 12/12 06:56 96--- 12/12 04:[id number]/[id number]--- 12/11 23:1697.420913/6816------ 24 Hr Tmax: 98.0F (36.67c) at 12/12 04:0 4Vital Signs are the last 5 in the past 48 hours. SUBJECTIVE wheezing and cough cant catch breath and coughing continuously admitted direct by Dr Lnodon pt was seen in office 12/[address] sinus and allergy testing scheduled but had not completed it. previous sinus film showing sinus inflammation pt has some sinus pressure and congestion but denies any rhinorrhea. pt coughing up colored phlegm. OBJECTIVE rhonchi and wheezing. difficulty talking and taking deep breaths causing coughing nasal- purululence or erythema mild left maxillary tenderness but no overlying erythema. oc/ op clear no erythema neck supple. lungs rhonchi deminished breath sounds diffuse. ASSESSMENT & EXAM wheezing/ coughing with exacerbation of bronchitis/ sinusitis PLAN & TREATMENT pt received ct sinus this am pt has allergy testing scheduled on but needs improved lung function prior. if ct sinus showing extensive dz will consider sinus surgery but not candidate at this time due to severe wheezing/ cough could consider next week but will await clearance. cont flonase/ saline prednisone. DIAGNOSES & PROBLEMS Active Problems (2) Acute interstitial pneumonia HT - Hypertension I/O Intake OutputBalance 12/11/20187a-3p 0.00 0.00 0.00 3p-11p 460.00 0.00 460.00 11p-7a 101.00 0.00 101.00 Totals 561.00 0.00 561.00 12/10/20187a-3p 0.00 0.00 0.00 3p-11p 0.00 0.00 0. 00 11p-7a 0.00 0.00 0. 00 Totals 0.00 0.00 0.00 Medications (15) Active Scheduled Meds (11): 12/11/18 albuterol-ipratropium (albutero l-ipratropium 2.5-0.5 mg inhalation solution) 3 mL NEB RQ6H 12/11/18 docusate 100 mg PO BID 12/12/18 enoxaparin 40 mg SUB-Q [id number] 12/12/18 fluticasone nasal (Flonase 0.05 mg/inh nasal spray) 2 spray Each Affected Nostril Daily 12/11/18 guaiFENesin (Mucinex) 600 mg PO Q12H 12/12/18 levothyroxine 25 microgram PO Q 630AM 12/11/18 methylPREDNISolone (methylPREDN ISolone SODium SUCCinate) 20 mg IVP Q12H 12/11/18 montelukast 10 mg PO Bedtime 12/12/18 pantoprazole (Protonix) 40 mg P O Before Breakfast 12/11/18 piperacillin-tazobactam + [place]od[place] m Chloride 0.9% IV 100 mL (Zosyn + Sodium Chloride 0.9% IV 100 mL) 3.375 gm IVPB Q8H 25 ml/hr 12/12/18 sodium chloride nasal (Loda Sali ne Nasal No-Drip [place] 0.65% gel) 1 spray NASAL QID Unscheduled Meds: None PRN Meds (4): 12/12/18 Dextrose 50% in Water IV (Dextr ose 50% Syringe) 12.5 gm IVP PRN 12/12/18 Dextrose 50% in Water IV (Dextr ose 50% Syringe) 25 gm IVP PRN 12/11/18 albuterol (albuterol 0.083% inh alation solution) 2.49 mg NEB PRN 12/12/18 glucagon 1 mg IM PRN One Time Meds: None Continuous Infusions: None 24hr Labs 12/12 0510 Hgb A1C6.3 H 12/11 1451 Sodium Doc246 Potassium Lvl3.9 Chloride Upr504 CO225 AGAP9.9 L Glucose Hza064 H Creatinine Lvl0.75 BUN17 B/C Ratio23 Total Protein7.3 Albumin Lvl3.8 Globulin3.5 A/G Ratio1.1 Calcium Lvl9.2 ALT35 AST11 Alk Jjad053 Bili Total0.3 eGFR80 Magnesium Lvl2.6 H Phosphorus3.4 TSH1.600 WBC11.7 H RBC4.49 Hgb13.5 Hct40.3 MCV89.9 MCH30.1 MCHC33.5 RDW14.3 Fcmvvxew187 MPV8.0 Segs69.9 Monocytes6.9 Ciqxotgplnx57.5 Eosinophils0.3 Basophils0.4 Neutrophils #8.2 H Lymphocytes #2.6 Monocytes #0.8 Basophils #0.1 Sed Rate13 IgE Ekv693.0 H
--- OUTSIDE RECORDS SUMMARY | 2020-04-09 16:26 | XMS REPORT | Summary of Care ---
Author Author [facility] Organization [facility] Address Unknown Phone Unavailable Encounter HQ Santosh(FIN) [phone] Date(s): 02/25/19 - 02/25/19 [facility] [address] [place] [address]- [phone] Discharge Disposition: Home or Self Care Attending Physician: Jaden London MD Referring Physician: Jaden London MD Vital Signs No data available for this section Problem List Condition Effective Dates Status Health Status Informan t Acute interstitial Active pneumonia(Confirmed) HT - Active Hypertension(Confirm ed) Allergies, Adverse Reactions, Alerts No Known Medication Allergies Medications No data available for this section Results No data available for this section Immunizations Given and Recorded Vaccine Date Status Refusal Reason influenza virus vaccine, inactivated 11/08/18 G iven pneumococcal 13-valent vaccine 11/08/18 Given pneumococcal 23-valent vaccine 02/29/12 Given Procedures Procedure Date Related Diagnosis Body Site Status Colonoscopy Completed Social History Social History Type Response Alcohol Past Smoking Status Never smoker; Previous pedro tment: None; Ready to change: No; Concerns about tobacco use in household: No; Exposure to Tobacco Smoke None; Cigarette Smoking Last 365 Days No; Reg Smoking C essation Counseling No entered on: 12/18/18 Assessment and Plan No data available for this section
--- OUTSIDE RECORDS SUMMARY | 2020-04-09 16:26 | XMS REPORT | Summary of Care ---
Author Author [facility] ospital Organization [facility] Address Unknown Phone Unavailable Encounter HQ Santosh(TRINY) [id number] Date(s): 11/04/18 - 11/08/18 [facility] [address] [place] [address]- [phone] Discharge Disposition: Home or Self Care Attending Physician: Rocio Oneill MD Admitting Physician: Rocio Oneill MD Vital Signs 1 2 3 Most recent to oldest [Reference Range]: 154.94 cm (11/04/18 3:39 PM) Height 98.2 DegF (11/08/18 11:16 AM) 97.8 DegF (11/08/18 7:35 AM) 98.0 DegF (11/08/18 4:45 AM) Temperature Oral [96.4-99.1 DegF] 124/61 mmHg (11/08/18 11:16 AM) 156/79 mmHg *HI* (11/08/18 7:35 AM) 147/73 mmHg *HI* (11/08/18 4:45 AM) Blood Pressure [90-140/60-90 mmHg] 12 BRMIN *LOW* (11/08/18 8:14 AM) 16 BRMIN (11/08/18 7:35 AM) 16 BRMIN (11/08/18 4:45 AM) Respiratory Rate [14-20 BRMIN] 91 bpm (11/08/18 11:16 AM) 69 bpm (11/08/18 7:35 AM) 71 bpm (11/08/18 4:45 AM) Peripheral Pulse Rate [60-100 bpm] 71.96 kg (11/04/18 3:39 PM) Weight 29.98 m2 (11/04/18 3:39 PM) Body Mass Index Problem List Condition Effective Dates Status Health Status Informan t Acute interstitial Active pneumonia(Confirmed) HT - Active Hypertension(Confirm ed) Allergies, Adverse Reactions, Alerts Substance Reaction Severity Status NKDA Active Medications Please update height, weight, allergies on profile Please update height, weight, allergies on profile, ATTN:RN, Drug form: MISC , Route: MISC, Q15Min, 11/04/18 15:45:00 [facility], Duration: 4 hr, Stop date: 9 19:30:00 [facility] Start Date: 11/04/18 Stop Date: 11/04/18 Status: Deleted albuterol 0.042% inhalation solution 1.25 mg, 3 mL, Route: NEB, Drug form: SOLN, RQID, Dosing Weight 69.545, kg, Star t date: 11/04/18 13:00:00 [facility], Duration: 30 day, Stop date: 12/04/18 11:00:00 CD T Notes: SEE RT DOCUMENTATION (Same as: Durga) Start Date: 11/04/18 Stop Date: 11/08/18 Status: Discontinued Ambien 5 mg, 1 tab, Route: PO, Drug form: TAB, Bedtime, Dosing Weight 71.96, kg, PRN as needed for insomnia, Start date: 11/06/18 22:46:00 [facility], Duration: 30 day, Stop date: 12/06/18 22:45:00 CDT Notes: (Same As: Ambien) Start Date: 11/06/18 Stop Date: 11/08/18 Status: Discontinued amLODIPine 5 mg, 1 tab, Route: PO, Drug form: TAB, Daily, Dosing Weight 71.96, kg, Start da te: 11/08/18 9:00:00 [facility], Duration: 30 day, Stop date: 12/07/18 9:00:00 CDT Notes: (Same as: Norvasc) Start Date: 11/08/18 Stop Date: 11/08/18 Status: Discontinued Augmentin 875 mg oral tablet 1 tab, PO, [id number], # 20 tab, 0 Refill(s) Start Date: 11/08/18 Stop Date: 11/18/18 Status: Ordered Augmentin 875 mg oral tablet 1 tab, Route: PO, Drug Form: TAB, Dosing Weight 71.96, kg, [id number], Start date: 11/07/18 18:00:00 [facility], Duration: 7 day, Stop date: 11/14/18 9:00:00 CDT Notes: With food.(Same as: Augmentin 875) Start Date: 11/07/18 Stop Date: 11/08/18 Status: Discontinued cefepime + Sodium Chloride 0.9% IV 100 mL 1 gm, Route: IVPB, [id number], Dosing Weight 69.545, kg, (CrCl >/= 50 ml/min), Start date: 11/04/18 11:00:00 [facility], Duration: 30 day, Stop date: 12/03/18 17:00:00 CDT, ABX Indication: Pneumonia Notes: (Same As: Maxipime) MEDICATION WASTE Product Size: 1000 mgProduc t Wasted: ___ mg Start Date: 11/04/18 Stop Date: 11/07/18 Status: Discontinued cetirizine 10 mg, 2 tab, Route: PO, Drug form: TAB, Daily, Start date: 11/08/18 9:00:00 [facility] , Duration: 30 day, Stop date: 12/07/18 9:00:00 CDT Notes: (Same As: Zyrtec) Start Date: 11/08/18 Stop Date: 11/08/18 Status: Discontinued Cipro 500 mg oral tablet 500 mg = 1 tab, PO, Q12H, # 20 tab, 0 Refill(s) Start Date: 11/04/18 Stop Date: 11/08/18 Status: Discontinued codeine-guaiFENesin 10 mg-100 mg/5 mL oral syrup 5 ml, Route: PO, Drug Form: LIQ, Dosing Weight 69.545, kg, Q6H, PRN Cough, Start date: 11/04/18 10:32:00 [facility], Duration: 30 day, Stop date: 12/04/18 10:31:00 CDT Notes: (Same As: Oliversin AC) Start Date: 11/04/18 Stop Date: 11/08/18 Status: Discontinued Dextrose 50% Syringe 12.5 gm, 25 mL, Route: IVP, Drug Form: INJ, Dosing Weight 71.96, kg, PRN, PRN Bl ood Glucose Results, Start date: 11/04/18 16:03:00 [facility], Duration: 30 day, Stop d ate: 12/04/18 17:02:00 CDT Start Date: 11/04/18 Stop Date: 11/08/18 Status: Discontinued Dextrose 50% Syringe 25 gm, 50 mL, Route: IVP, Drug Form: INJ, Dosing Weight 71.96, kg, PRN, PRN Bloo d Glucose Results, Start date: 11/04/18 16:03:00 [facility], Duration: 30 day, Stop kathrine e: 12/04/18 17:02:00 CDT Start Date: 11/04/18 Stop Date: 11/08/18 Status: Discontinued DuoNeb inhalation solution 3 mL, Route: INHALATION, Drug Form: SOLN, Dosing Weight 69.545, kg, QID, PRN Res piratory Protocol, Start date: 11/04/18 10:32:00 [facility], Duration: 30 day, Stop kathrine e: 12/04/18 10:31:00 CDT Notes: (Same as: Duoneb) Start Date: 11/04/18 Stop Date: 11/08/18 Status: Discontinued Flonase 0.05 mg/inh nasal spray 2 spray, Route: Each Affected Nostril, Drug Form: SPRY, Dosing Weight 71.96, kg, BID, Start date: 11/05/18 17:00:00 [facility], Duration: 30 day, Stop date: 12/05/18 9 :00:00 CDT Notes: (Same as: Flonase) Start Date: 11/05/18 Stop Date: 11/08/18 Status: Discontinued Flonase 0.05 mg/inh nasal spray 100 microgram = 2 spray, Each Affected Nostril, BID, # 10 mL, 0 Refill(s) Start Date: 11/08/18 Status: Ordered glucagon 1 mg, Route: IM, Drug form: PDR/INJ, PRN, Dosing Weight 71.96, kg, PRN Blood Glu cose Results, Start date: 11/04/18 16:03:00 [facility], Duration: 30 day, Stop date: 17:02:00 CDT Start Date: 11/04/18 Stop Date: 11/08/18 Status: Discontinued ibuprofen 600 mg, 1 tab, Route: PO, Drug form: TAB, Q6H, Dosing Weight 71.96, kg, PRN Pain 1-3/Temp > 100.4 F, Start date: 11/07/18 14:27:00 [facility], Duration: 30 day, Stop date: 12/07/18 14:26:00 CDT Notes: (Same as: Motrin)"Do Not Crush" Take with food. Start Date: 11/07/18 Stop Date: 11/08/18 Status: Discontinued levothyroxine 25 microgram, 1 tab, Route: PO, Drug form: TAB, Q630AM, Dosing Weight 71.96, kg, Priority: NOW, Start date: 11/08/18 8:09:00 [facility], Duration: 30 day, Stop date: 0 12/08/18 6:30:00 CDT Notes: Take 1 hour before or 2 hours after meal; Enteral feeds may interefere wi th the absorption of this medication. (Same as:Levothroid) Start Date: 11/08/18 Stop Date: 11/08/18 Status: Discontinued loratadine 10 mg, Route: PO, Daily, Dosing Weight 71.96, kg, Start date: 11/08/18 9:00:[address], Duration: 30 day, Stop date: 12/07/18 9:00:00 CDT Start Date: 11/08/18 Stop Date: 11/08/18 Status: Deleted loratadine 10 mg, PO, Daily, 0 Refill(s) Start Date: 11/04/18 Status: Ordered Pepcid 20 mg oral tablet 20 mg, 1 tab, Route: PO, Drug form: TAB, Q12H, Dosing Weight 71.96, kg, Start da te: 11/05/18 18:00:00 [facility], Duration: 30 day, Stop date: 12/05/18 6:00:00 CDT Notes: (Same as: Pepcid) Start Date: 11/05/18 Stop Date: 11/06/18 Status: Discontinued predniSONE 10 mg oral tablet See Special Instructions, PO, Daily, 12 day regimen: Days 1-4 - 30 mg (3 tabs) d aily Days 5-8 - 20 mg (2 tabs) daily Days 9-12 - 10 mg (1 tab) daily, X 12 day, # 24 tab, 0 Refill(s) Start Date: 11/08/18 Stop Date: 11/20/18 Status: Ordered Pulmicort Respules 0.5 mg/2 mL inhalation suspension 0.5 mg, 2 mL, Route: NEB, Drug form: SUSP, RBID, Dosing Weight 71.96, kg, Start date: 11/05/18 15:45:00 [facility], Duration: 30 day, Stop date: 12/05/18 8:00:00 CDT Notes: (Same As: Pulmicort) Start Date: 11/05/18 Stop Date: 11/08/18 Status: Discontinued simvastatin 10 mg, 1 tab, Route: PO, Drug form: TAB, Bedtime, Dosing Weight 71.96, kg, Start date: 11/08/18 21:00:00 [facility], Duration: 30 day, Stop date: 12/07/18 21:00:00 CDT Notes: (Same as: Zocor) Start Date: 11/08/18 Stop Date: 11/08/18 Status: Canceled Solu-MEDROL 40 mg, 1 mL, Route: IVP, Drug form: INJ, [id number], Dosing Weight 69.545, kg, Star t date: 11/08/18 4:00:00 [facility], Duration: 30 day, Stop date: 12/07/18 16:00:00 CDT Notes: (Same as:Solu-MEDROL, A-Methapred) Start Date: 11/08/18 Stop Date: 11/08/18 Status: Discontinued Solu-MEDROL 40 mg, 1 mL, Route: IVP, Drug form: INJ, Q8H, Dosing Weight 69.545, kg, Start da te: 11/04/18 16:00:00 [facility], Duration: 30 day, Stop date: 12/04/18 8:00:00 CDT Notes: (Same as:Solu-MEDROL, A-Methapred) Start Date: 11/04/18 Stop Date: 11/07/18 Status: Discontinued Vasotec 1.25 mg, 1 mL, Route: IVP, Drug form: INJ, Q6H, Dosing Weight 69.545, kg, PRN Hy pertension, SBP > 160 or DBP > 100, Start date: 11/04/18 12:00:00 [facility], Duration: 30 day, Stop date: 12/04/18 6:00:00 CDT Notes: (Same as: Vasotec-IV) Start Date: 11/04/18 Stop Date: 11/08/18 Status: Discontinued Zofran 4 mg, 2 mL, Route: IV, Drug form: INJ, Q8H, Dosing Weight 69.545, kg, PRN Nausea , Start date: 11/04/18 10:32:00 [facility], Duration: 30 day, Stop date: 12/04/18 10:31 :00 CDT Notes: (Same as: Zofran) MEDICATION WASTE Product Size: 4 mgProduct Was pernell: ___ mg Start Date: 11/04/18 Stop Date: 11/08/18 Status: Discontinued Results ELECTROLYTES 1 2 3 Most recent to oldest [Reference Range]: 140 mEq/L (11/05/18 6:12 AM) Sodium Lvl [135-145 mEq/L] 4.1 mEq/L (11/05/18 6:12 AM) Potassium Lvl [3.5-5.1 mEq/L] 109 mEq/L (11/05/18 6:12 AM) Chloride Lvl [95-109 mEq/L] 24 mEq/L (11/05/18 6:12 AM) CO2 [24-32 mEq/L] 11.1 mEq/L (11/05/18 6:12 AM) AGAP [10.0-20.0 mEq/L] CHEM PANEL 1 2 3 Most recent to oldest [Reference Range]: 0.68 mg/dL (11/05/18 6:12 AM) Creatinine Lvl [0.50-1.40 mg/dL] 88 mL/min/1.73m2 1 *NA* (11/05/18 6:12 AM) eGFR 13 mg/dL (11/05/18 6:12 AM) BUN [7-22 mg/dL] 140 mg/dL *HI* (11/05/18 6:12 AM) Glucose Lvl [70-99 mg/dL] 9.0 mg/dL (11/05/18 6:12 AM) Calcium Lvl [8.5-10.5 mg/dL] <0.05 ng/mL (11/05/18 6:12 AM) Procalcitonin Lvl [0.00-0.10 ng/mL] 1Result Comment: The eGFR is calculated using [...] be mul tiplied by the estimated BMI. HEMATOLOGY 1 2 3 Most recent to oldest [Reference Range]: 17.9 K/CMM *HI* (11/07/18 5:04 AM) 20.1 K/CMM *HI* (11/06/18 5:12 AM) 11.3 K/CMM *HI* (11/05/18 6:12 AM) WBC [3.7-10.4 K/CMM] 4.16 M/CMM *LOW* (11/07/18 5:04 AM) 4.30 M/CMM (11/06/18 5:12 AM) 4.57 M/CMM (11/05/18 6:12 AM) RBC [4.20-5.40 M/CMM] 12.4 g/dL (11/07/18 5:04 AM) 12.6 g/dL (11/06/18 5:12 AM) 13.6 g/dL (11/05/18 6:12 AM) Hgb [12.0-16.0 g/dL] 37.4 % (11/07/18 5:04 AM) 38.1 % (11/06/18 5:12 AM) 40.8 % (11/05/18 6:12 AM) Hct [36.0-48.0 %] 89.9 fL (11/07/18:04 AM) 88.7 fL (11/06/18 5:12 AM) 89.3 fL (11/05/18 6:12 AM) MCV [80.0-98.0 fL] 29.8 pg (11/07/18 5:04 AM) 29.4 pg (11/06/18 5:12 AM) 29.8 pg (11/05/18 6:12 AM) MCH [27.0-31.0 pg] 33.2 g/dL (11/07/18 5:04 AM) 33.1 g/dL (11/06/18 5:12 AM) 33.4 g/dL (11/05/18 6:12 AM) MCHC [32.0-36.0 g/dL] 14.4 % (11/07/18 5:04 AM) 14.2 % (11/06/18 5:12 AM) 13.9 % (11/05/18 6:12 AM) RDW [11.5-14.5 %] 8.3 fL (11/07/18 5:04 AM) 7.9 fL (11/06/18 5:12 AM) 8.2 fL (11/05/18 6:12 AM) MPV [7.4-10.4 fL] 329 K/CMM (11/07/18 5:04 AM) 324 K/CMM (11/06/18 5:12 AM) 324 K/CMM (11/05/18 6:12 AM) Platelet [133-450 K/CMM] 90.8 % *HI* (11/07/18 5:04 AM) Segs [45.0-75.0 %] 7.0 % *LOW* (11/07/18 5:04 AM) Lymphocytes [20.0-40.0 %] 2.1 % (11/07/18 5:04 AM) Monocytes [2.0-12.0 %] 0.1 % (11/07/18 5:04 AM) Basophils [0.0-1.0 %] 16.3 K/CMM *HI* (11/07/18 5:04 AM) Neutrophils # [1.5-8.1 K/CMM] 1.3 K/CMM (11/07/18 5:04 AM) Lymphocytes # [1.0-5.5 K/CMM] 0.4 K/CMM (11/07/18 5:04 AM) Monocytes # [0.0-0.8 K/CMM] Normal (11/07/18 5:04 AM) RBC Morph Normal (11/07/18 5:04 AM) Plt Morph Microbiology Reports TEST: Culture: Respiratory w/Gram Stain STATUS: Auth (Verified) BODY SITE: SOURCE: Sputum COLLECTED DATE/TIME: 11/05/18 7:07 AM FINAL REPORT Normal Respiratory Lilian Isolated STAIN REPORT Gram Stain Performed By: [facility] Immunizations Given and Recorded Vaccine Date Status Refusal Reason influenza virus vaccine, inactivated 11/08/18 G iven pneumococcal 13-valent vaccine 11/08/18 Given pneumococcal 23-valent vaccine 02/29/12 Given Procedures No data available for this section Social History Social History Type Response Smoking Status Never smoker; Previous pedro tment: None; Ready to change: No; Concerns about tobacco use in household: No; Exposure to Tobacco Smoke None; Cigarette Smoking Last 365 Days No; Reg Smoking C essation Counseling No entered on: 11/04/18 Assessment and Plan Extracted from: Title: Clinical Document Author: Nargis Patton MD Date: 11/07/18 Pulmonary and Critical Care Progress Not e [facility] Sujective/overnight events: Chart reviewed. Patient seen and examined. No change in her cough. Plain film reveals moderate maxillary sinusitis on the left and mild on the right. Review of systems: General: No fevers, no chills, no night sweats Respiratory: Cough, dyspnea Cardiac: No chest pain, no palpitations, no lower extremity edema GI: No diarrhea, no nauea, no vomiting, no abdominal pain, no constipation Scheduled Meds (5): 11/04/18 albuterol (albuterol 0.042% inh alation solution) 1.25 mg NEB RQID 11/05/18 budesonide (Pulmicort Respules 0.5 mg/2 mL inhalation suspension) 0.5 mg NEB RBID 11/04/18 cefepime + Sodium Chloride 0.9% IV 100 mL 1 gm IVPB [id number] 25 ml/hr 11/05/18 fluticasone nasal (Flonase 0.05 mg/inh nasal spray) 2 spray Each Affected Nostril BID 11/07/18 methylPREDNISolone (Solu-MEDROL ) 40 mg IVP Q12H Continuous Infusions: None Labs (Last four charted values) WBC H 17.9(NOV 07)H 20.1(NOV 06)H 11.3(NOV 05) Hgb 12.4(NOV 07)12.6(NOV 06)13.6(NOV 05) Hct 37.4(NOV 07)38.1(NOV 06)40.8(NOV 05) Plt 329(NOV 07)324(NOV 06)324(NOV 05) Na 140(NOV 05) K 4.1(NOV 05) CO2 24(NOV 05) Cl 109(NOV 05) Cr 0.68(NOV 05) BUN 13(NOV 05) Glucose Random H 140(NOV 05) Ca 9.0(NOV 05) Objective: I&ORecordInOutBal 11/723hr Tot 864 0 864 11/623hr Tot 2600 0 2600 11/07/2018 15:10 SpO2 [id number] 11/06/2018 21:21 Oxygen Therapy ModeRoom air Vital Signs (last 24 hrs) Last Charted Temp Oral98.3 DegF (NOV 07 15:10) Heart Rate [id number] bpm (NOV 07 15:10) Resp Rate 16 BRMIN (NOV 07 15:10) SBPH 142mmHg (NOV 07 15:10) DBP75 mmHg (NOV 07 15:10) LpB165 % (NOV 07 15:10) Exam: Exam: General: No acute distress HEENT: No pallor, anicteric sclera CV: RRR, no murmur Resp: CTAB Abd: Soft, NTTP, ND, +BS Extremities: No c/c/e Neuro: A&Ox3, non focal Skin: No break down Imaging reviewed. Problems: Chronic cough Asthma with acute exacerbation Moderate maxillary sinusitis on the left Plan: Appreciate ENT evaluation for her chronic cough. Workup was unrevealing for any evidence of reflux. Continue supportive care with Flonase. She does have moderate maxillary sinusitis on the left. I will switch the cefepime to Augmentin to complete a course of antibiotics. No concern for Pseudomonas at this point so I do not think cefepime as indicated. We will decrease her IV Solley Medrol to every 12 hours. Continue bronchodilators and Pulmicort. Further outpatient workup per ENT. Nargis Patton MD Pulmonary and Critical Care Medicine Extracted from: Title: Clinical Document Author: Raysa Kumari Date: 11/06/18 ENT Consultation Note Raysa Kumari MD Attending: Rocio Oneill MDPhone: Service: Internal Medicine Code status: Full Code Reason for Admission: ASTHMA EXACERBATION Working DRG: Isolation: No Isolation/Standard Precautions Consulting Physicians: Rocio Oneill MDOffice: Service: Medicine Raysa Kumari MDOffice: service: Otolaryngology Janessa Vasquez MDOffice: Service: Pulmonary, Medicine Allergies: NKDA Vitals and Temp: VitalsTmp(F)[id number] 11/06 08:11 1698--- 11/06 07:[id number]--- 11/06 05:[id number]--- 11/05 23:[id number]--- 11/05 21:40 1996--- 24 Hr Tmax: 97.9F (36.61c) at 11/05 23:4 4Vital Signs are the last 5 in the past 48 hours. SUBJECTIVE pt states having continued sob/ mostly dry cough for 10 wks. she states it started with bronchitis and was treated with abx, allergy meds, cough meds. The secretions improved but continued sob/ cough now it is predominantly dry. She has occ MEYER but not sinus discomfort. She doesnt blow out mucous from nose and doesnt have a sinus hx She states that yearly she will get a steroid shot for allergy in the spring. She states her ears are mildly plugged causing some preceived hearing loss. Hoarse but not dysphagia. no reflux symptom. 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 didnt think she had pulmonary functions but has had ct chest in past ( report unknown) just recently placed last week on some sort of inhaler but still coughing. pt is very frustrated and doesnt understand why she is not getting better. No hx of asthma. OBJECTIVE occ dry cough/ no stridor. HENT tm wnl no cerumen hearing grossly intact nose no mucous or mucopurulence sinus non tender. not swelling. oc/op no signs of inflammation erythema no mucous in pharynx. dentition intact. nml saliva. neck no palpible thyroid mass ( states has 2 nodules) nontender, no masses. trachea midline. CN intact. mildly hoarse Flex laryngoscopy: consent attained rt nostril place afrin/ lidocaine cottonoid. removed and flex scope place atraumatically. nml nasal anatomy. 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 glottis wnl no pooling no erythema / no swelling. no masses. nml swallowing noted. nml tvc mobility. scope removed atraumatically. PLAN [employer] TREATMENT flexible preformed tvc wnl / no signs of reflux. no signs of sinusitis but will get plain film of sinus to see air fluid level. pt states hearing not as good so recommend f/u in office for eval of hearing. DIAGNOSES & PROBLEMS Active Problems (2) Acute interstitial pneumonia HT - Hypertension I/O Intake OutputBalance 754.75 0.00 754.75As of 11:41 3p-11p 0.00 0.00 0. 00 11p-7a 0.00 0.00 0. 00 Totals 754.75 0.00 754.75 3p 43.08 0.00 43.08 3p-11p 301.00 0.00 301.00 11p-7a 197.25 0.00 197.25 Totals 541.33 0.00 541.33 3p 0.00 0.00 0.00 3p-11p 546.00 0.00 546.00 11p-7a 188.92 0.00 188.92 Totals 734.92 0.00 734.92 Medications (15) Active Scheduled Meds (6): 11/04/18 albuterol (albuterol 0.042% inh alation solution) 1.25 mg NEB RQID 11/05/18 budesonide (Pulmicort Respules 0.5 mg/2 mL inhalation suspension) 0.5 mg NEB RBID 11/04/18 cefepime + Sodium Chloride 0.9% IV 100 mL 1 gm IVPB [id number] 25 ml/hr 11/05/18 famotidine (Pepcid 20 mg oral t ablet) 20 mg PO Q12H 11/05/18 fluticasone nasal (Flonase 0.05 mg/inh nasal spray) 2 spray Each Affected Nostril BID 11/04/18 methylPREDNISolone (Solu-MEDROL ) 40 mg IVP Q8H Unscheduled Meds (2): 11/04/18 influenza virus vaccine, inacti vated (influenza virus vaccine, inactivated high-dose preservative-free intramuscular suspension) 0.5 mL IM ONCALL 11/04/18 pneumococcal 13-valent vaccine 0.5 mL IM ONCALL PRN Meds (7): 11/04/18 Dextrose 50% in Water IV (Dextr ose 50% Syringe) 12.5 gm IVP PRN 11/04/18 Dextrose 50% in Water IV (Dextr ose 50% Syringe) 25 gm IVP PRN 11/04/18 albuterol-ipratropium (DuoNeb i nhalation solution) 3 mL INHALATION QID 11/04/18 codeine-guaiFENesin (codeine-gu aiFENesin 10 mg-100 mg/5 mL oral syrup) 5 ml PO Q6H 11/04/18 enalapril (Vasotec) 1.25 mg IVP Q6H 11/04/18 glucagon 1 mg IM PRN 11/04/18 ondansetron (Zofran) 4 mg IV Q8 H One Time Meds: None Continuous Infusions: None 24hr Labs 11/06 0512 WBC20.1 H RBC4.30 Hgb12.6 Hct38.1 MCV88.7 MCH29.4 MCHC33.1 RDW14.2 Ptgoiotl032 MPV7.9 Extracted from: Title: Clinical Document Author: Janessa Vasquez Date: 11/04/18 [facility] CONSULT NOTE Reason for consult: Acute asthma exacerbation History of presenting illness: Patient is 73-year-old female who follows up with my colleague Dr. London in the office comes in with complaints of acute bronchitis cough and shortness of breath has been ongoing for 10 for close to 2 months, she states she has been unable to breathe, she states she is start multiple medications, the have tried uokn-dhq-qtyxiei medications tried antibiotics p.o., tried steroids without significant relief, she she states she is extremely tired difficult for her to breathe, hence I proceeded towards admitting her directly from the office I also evaluate her while she was in the hospital, chest x-ray done today shows left- sided platelet atelectasis PAST MEDICAL HISTORY asthma FAMILY HISTORY No qualifying data available SURGICAL HISTORY SOCIAL HISTORY Tobacco Details: Use: Never smoker. Previous treatment: None. Ready to change: No. Household tobacco concerns: No. Tobacco smoke exposure: None. Did the Patient Smoke Cigarettes Anytime During the Last 365 Days? No. Cessation Counseling Provided? No. Lines, Tubes, and Drains: 11/04/2018 17:00 Peripheral Lines: Hand Left 22 gauge Over the needle catheter 11/04/2018 16:05 Peripheral Lines: Forea rm, Left 20 gauge Over the needle catheter ALLERGIES Allergies (1) ActiveReaction NKDANone Documented Review of Systems CONSTITUTIONAL: no fever. chills. dizziness. weakness. EYES: No pain, erythema, or discharge, blurring of vision. EAR, NOSE AND THROAT: No sore throat, URI symptoms, epistaxis,tinnitus. CARDIOVASCULAR: No chest pain. No palpitations. + lower extremity edema. RESPIRATORY: +++ shortness of breath,++++ cough, pain with respiration, or pleuritic chest [...] asthma, urticaria. PSYCHIATRIC: No confusion or depression GENERAL EXAMINATION Vitals and Temp: VitalsTmp(F)PxarmZIGKJjA2PDO0 11/04 16:26 1996--- 11/04 15:[id number]--- 11/04 15:40 98--- 24 Hr Tmax: 98F (36.67c) at 11/04 15:48V ital Signs are the last 5 in the past 48 hours. General: Lying in bed awake interactive not in any distress eyes: Sclera anicteric, conjunctiva pink ENT: Tongue moist neck: Supple, no use of accessory muscles, no JVD Heart: Regular rate and rhythm, S1 and S2 heard, no murmurs Lungs: Clear to auscultation bilaterally, no evidence of accessory muscle use Abdomen: Soft, obese, Non tender. BS + : deferred Extremities: no evidence of edema in legs, hands and feet are cool Skin: No rashes,or bruising Neurologic: AO X 3, no focal deficit. Psych : normal mood and affect MEDICATION Medications (12) Active Scheduled: (5) albuterol 0.042% 3 ml neb SOLN 1.25 mg 3 mL, NEB, RQID cefepime 1 gm INJ + sodium chloride 0.9% INJ 100ml (mini-bag Plus) 100 mL 1 gm, IVPB, [id number] influenza virus vaccine (inactivated) trivalent high dose 0.5mL PF syringe 0.5 mL, IM, ONCALL methylPREDNISolone SOD SUCC 40mg INJ 40 mg 1 mL, IVP, Q8H pneumococcal 13-valent conjugate vaccine SUSP 0.5 mL, IM, ONCALL Continuous: (0) PRN: (7) albuterol-ipratropium 2.5 mg-0.5 mg/3 ml TOSHA 3 mL, INHALATION, QID Dextrose 50% 50 ml INJ syringe 12.5 gm 25 mL, IVP, PRN Dextrose 50% 50 ml INJ syringe 25 gm 50 mL, IVP, PRN enalaprilat 1.25 mg/1 ml VL 1.25 mg 1 mL, IVP, Q6H glucagon recombinant 1 mg PDR 1 mg, IM, PRN guaiFENesin-codeine 100-10mg/5ml LIQ 5 ml, PO, Q6H ondansetron 4 mg/2ml INJ VL 4 mg 2 mL, IV, Q8H Home Medications (8) Active amLODipine 5 mg oral tablet 5 mg = 1 tab, PO, Daily Cipro 500 mg oral tablet 500 mg = 1 tab, PO, Q12H Lamisil 250 mg oral tablet 250 mg = 1 tab, PO, Daily levofloxacin 500 mg oral tablet 500 mg = 1 tab, PO, Daily levothyroxine 25 mcg (0.025 mg) oral tablet 25 microgram = 1 tab, PO, Daily loratadine 10 mg, PO, Daily simvastatin 10 mg, PO, QAM TL-Hist DM oral liquid 5 mL, PRN, PO, Q6H LABS No qualifying data available Radiology IMPRESSION: Asthma exacerbation Obesity Resp failure, acute failure of outpatiet therapy PLAN : Patient is seen in the office decided to admit her then divided again hospital, treating for asthma since she was started on steroids and antibiotics, antitussives, albuterol, order respiratory cultures pro calcitonin 2 with chest x-ray showing atelectasis in order, she actually also had a CT as an outpatient which was fairly unrevealing as I would not repeat , consult her primary care Full Code Janessa Vasquez MD MPH [facility]
--- OUTSIDE RECORDS SUMMARY | 2020-04-09 16:26 | XMS REPORT | CCD ---
Author Author Auto Generated, DANIA GREENFIELD 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
--- OUTSIDE RECORDS SUMMARY | 2020-04-09 16:26 | XMS REPORT | Summary of Care ---
Author Author [facility] Organization [facility] Address Unknown Phone Unavailable Encounter AGUSTINA Frost(TRINY) [id number] Date(s): 06/23/19 - 06/23/19 [facility] [address] [place] [address]- Discharge Disposition: Home or Self Care Attending Physician: Jaden London MD Referring Physician: Jaden London MD Vital Signs 1 2 3 Most recent to oldest [Reference Range]: 154.94 cm (06/23/19 10:06 AM) Height 134/56 mmHg (06/23/19 12:10 PM) 142/62 mmHg *HI* (06/23/19 11:55 AM) 143/59 mmHg *HI* (06/23/19 11:40 AM) Blood Pressure [90-140/60-90 mmHg] 19 BRMIN (06/23/19 12:10 PM) 19 BRMIN (06/23/19 11:55 AM) 16 BRMIN (06/23/19 11:40 AM) Respiratory Rate [14-20 BRMIN] 68.182 kg (06/23/19 10:06 AM) Weight 28.4 m2 (06/23/19 10:06 AM) Body Mass Index Problem List Condition Effective Dates Status Health Status Informan t Abnormality of heart Resolved beat(Confirmed) Acute interstitial Active pneumonia(Confirmed) Arthritis(Confirmed) Resolved Asthma(Confirmed) Resolved Cough(Confirmed) Active HT - Active Hypertension(Confirm ed) Hypertension(Confirm Active ed) Pneumonia(Confirmed) Resolved Allergies, Adverse Reactions, Alerts No Known Allergies Medications Advair Diskus 250 mcg-50 mcg inhalation powder 1 puff, INHALATION, BID, # 1 ea, 3 Refill(s) Start Date: 06/09/19 Stop Date: 06/23/19 Status: Completed amitriptyline 10 mg, PO, Bedtime, 0 Refill(s) Start Date: 06/09/19 Status: Ordered flumazenil 0.2 mg, Route: IVP, ONCE, Dosing Weight 68.182, kg, PRN Benzodiazepine Reversal, Start date: 06/23/19 11:50:00 CDT, Initial dose Start Date: 06/23/19 Stop Date: 06/23/19 Status: Discontinued flumazenil 0.1 mg, Route: IVP, Q5Min, Dosing Weight 68.182, kg, PRN Benzodiazepine Reversal , Start date: 06/23/19 11:50:00 CDT, Duration: 30 day, Stop date: 07/23/19 10:49 :00 [employer], Subsequent doses Start Date: 06/23/19 Stop Date: 06/23/19 Status: Discontinued mupirocin topical 2% cream TOP, TID, 0 Refill(s) Start Date: 06/09/19 Status: Ordered naloxone 0.1 mg, Route: IVP, Q2MIN, Dosing Weight 68.182, kg, PRN Narcotic Reversal, Star t date: 06/23/19 11:50:00 CDT, Duration: 4 doses or times, Stop date: Limited # of times Start Date: 06/23/19 Stop Date: 06/23/19 Status: Discontinued Sodium Chloride 0.9% IV 1000 mL 1,000 mL, Rate: 75 ml/hr, Infuse over: 13.3 hr, Route: IV, Dosing Weight 71.364 kg, Total Volume: 1,000, Start date: 06/23/19 10:06:00 CDT, Duration: 30 day, St op date: 07/23/19 10:05:00 [employer]AF INS[employer], 1.78, m2 Start Date: 06/23/19 Stop Date: 06/23/19 Status: Discontinued Ventolin HFA 90 mcg/inh inhalation aerosol with adapter 2 puff, INHALER, Q6H, PRN wheezing, coughing, or shortness of breath, # 8 gm, 1 Refill(s) Start Date: 06/09/19 Status: Ordered Results No data available for this section Immunizations Given and Recorded Vaccine Date Status Refusal Reason influenza virus vaccine, inactivated 11/08/18 G iven pneumococcal 13-valent vaccine 3/8/19 Given pneumococcal 23-valent vaccine 02/29/12 Given Procedures Procedure Date Related Diagnosis Body Site Status Cholecystectomy Completed Colonoscopy Completed Social History Social History Type Response Alcohol Past Substance Abuse Use: None. Smoking Status Former smoker; Previous maria m atment: None; Ready to change: No; Concerns about tobacco use in household: No; Exp osure to Tobacco Smoke None; Cigarette Smoking Last 365 Days No; Reg Smoking Cessation Counseling No entered on: 06/23/19 Assessment and Plan No data available for this section
--- OUTSIDE RECORDS SUMMARY | 2020-04-09 16:26 | XMS REPORT | Summary of Care ---
Author Author [facility] Organization [facility] Address Unknown Phone Unavailable Encounter HQ Santosh(FIN) [id number] Date(s): 05/13/19 - 05/13/19 [facility] [address] [place] [address]- Discharge Disposition: Home or Self Care Attending Physician: Jaden London MD Admitting Physician: Jaden London MD Vital Signs No [...]
--- OUTSIDE RECORDS SUMMARY | 2020-04-09 16:26 | XMS REPORT | Continuity of Care Document ---
Author Author Norberto [id number] [employer]DANIA [employer] Address Unknown Phone Unavailable Care Team Providers Care Instructional Technology Coach Name Role Phone [employer] Unavailable Un available Problems Problem Status Onset Date Classification Date Reported Comments Source UNK Active 0 10/28/2019 [facility] R05 Active 0 05/13/2019 [facility] LANMARX PROTOCOL Active 04/04/2019 [facility] R13.10 DYSPHAGIA, UNSPECIFIED, K21.9 G Active 01/13/2019 [facility] CHRONIC 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 Active 12/13/2018 [facility] BRONCHITIS Active 12/11/2018 [facility] ASTHMA WITH BRONCHITIS AND STATUS ASTHMA Active 12/11/2018 [facility] ASTHMA EXACERBATION Active 11/04/2018 [facility] 241.9 Active 07/24/2013 [facility] ABD/BACK PAIN Active 08/08/2012 [facility] THYROID NODULE Active 04/08/2012 [facility] CHRONIC COUGH/PE/SOB *PE PROTOCOL* STAT STAT * Active 03/22/[address] [facility] [address] SHORTNESS OF BREATH Active 02/28/2012 [facility] PNEUMONIA Active 02/28/2012 [facility] Acute interstitial pneumonia A ctive Problem 04/2012 [facility] HT - Hypertension Active Problem 08/10/2012 [facility] Acute interstitial pneumonia (disorder) Active Problem 10/31/2019 [facility] Hypertensive disorder, systemic arterial (disorder) Active Problem 10/31/2019 [facility] Abnormal heart beat (finding) Resolved Problem [facility] Arthritis (disorder) Resolved Problem 10/31/2019 [facility] Asthma (disorder) Resolved Problem 10/31/2019 [facility] Cough (finding) Active Problem 10/31/2019 [facility] Pneumonia (disorder) Resolved Problem 10/31/2019 [facility] NONTOX NODUL GOITER NOS Active [facility] PAIN Active [place] COUGH Active [facility] UNSPECIFIED ASTHMA WITH (ACUTE) EXACERBA Active [facility] UNSPECIFIED ASTHMA WITH STATUS ASTHMATIC Active [facility] CHRONIC 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 Active [facility] DYSPHAGIA, UNSPECIFIED Active [facility] GASTRO-ESOPHAGEAL REFLUX DISEASE WITHOUT Active [facility] PNEUMONIA, ORGANISM NOS Active [facility] COUGH Active [facility] SHORTNESS OF BREATH Active [facility] Medications Medication Details Route Status Patient Instructions Ordering Provider Order Date Source Naloxone 0.1 mg, Route: IVP, Q 2MIN, Dosing Weight 68.182, kg, PRN Narcotic Reversal, Start date: 06/23/19 11:50:00 CDT, Duration: 4 doses or times, Stop date: Limited # of times Inactive 06/23/2019 [facility] Flumazenil 0.2 mg, Route: IVP, ONCE, Dosing Weight 68.182, kg, PRN Benzodiazepine Reversal, Start date: 06/23/19 11:50:00 CDT, Initial dose Inactive 06/23/2019 [facility] Sodium Chloride 0.9% IV 1000 mL 1,000 mL, Rate: 75 ml/hr, Infuse over: 13.3 hr, Route: IV, Dosing Weight 71.364 kg, Total Volume: 1,000, Start date: 06/23/19 10:06:00 CDT, Duration: 30 day, Stop date: 07/23/19 10:05:00 ELECTROENCEPHALOGRAPHIC TECHNICIAN, 1.78, m2 Inactiv e 06/23/2019 [facility] Mupirocin 20 MG/ML Topical Cream TOP, TID, 0 Refill(s) Active 06/09/2019 [facility] Ventolin HFA 90 mcg/inh inhalation aerosol with adapte r 2 puff, INHALER, Q6H, PRN wheezing, coughing, or shortness of breath, # 8 gm, 1 Refill(s) Active 06/09/2019 [facility] Advair Diskus 250 mcg-50 mcg inhalation powder 1 puff, INHALATION, BID, # 1 ea, 3 Refill(s) No Longer Active 06/09/2019 [facility] Amitriptyline 10 mg, PO, Bedti me, 0 Refill(s) Active 06/09/2019 [facility] 72 HR Scopolamine 0.0139 MG/HR Transdermal Patch 1 patch, Route: TOP, Drug Form: ERFILM, Dosing Weight 69.545, kg, ONCE, Apply behind ear. Avoid use in elderly., Start date: 12/18/18 13:55:00 CDT, Stop date: 12/18/18 13:55:00 CDT Inactive 12/18/2018 [facility] Naloxone 0.1 mg, Route: SUB-Q, Q6H, Dosing Weight 69.545, kg, PRN Itching, Start date: 12/18/18 13:55:00 CDT, Duration: 30 day, Stop date: 01/17/19 13:54:00 CDT No Longer Active 12/18/2018 [facility] Ondansetron 4 mg, Route: IVP, ONCE, Dosing Weight 69.545, kg, PRN Nausea & Vomiting, Start date: 12/18/18 13:55:00 CDT No Longer Active 12/18/2018 [facility] Promethazine 6.25 mg, Route: I VPB, ONCE, Dosing Weight 69.545, kg, PRN Nausea & Vomiting, Start date: 12/18/18 13:55:00 CDT No Longer Active 12/18/2018 [facility] Diphenhydramine 12.5 mg, Route : IVP, Drug form: INJ, Q6H, Dosing Weight 69.545, kg, PRN Itching, Start date: 12/18/18 13:55:00 CDT, Duration: 30 day, Stop date: 01/17/19 13:54:00 CDT No Longer Active 12/18/2018 [facility] Meperidine 12.5 mg, Route: IVP , Q30Min, Dosing Weight 69.545, kg, PRN Other -See Comment, For shivering, Start date: 12/18/18 13:55:00 CDT, Duration: 2 doses or times, Stop date: Limited # of times No Longer Active 12/18/2018 [facility] Albuterol 0.83 MG/ML Inhalant Solution 2.49 mg, Route: NEB, Q20Min, Dosing Weight 69.545, kg, PRN Wheezing, Priority: STAT, Start date: 12/18/18 13:55:00 CDT, Duration: 30 day, Stop date: 01/17/19 13:54:00 CDT No Longer Active 12/18/2018 [facility] Flumazenil 0.2 mg, Route: IVP, PRN, Dosing Weight 69.545, kg, PRN Benzodiazepine Reversal, Initial dose, Start date: 12/18/18 13:55:00 CDT, Duration: 30 day, Stop date: 01/17/19 13:54:00 CDT No Longer Active 12/18/2018 [facility] Oxycodone 10 mg, Route: Dr hi SOUZA form: LIQ, Q4H, Dosing Weight 69.545, kg, PRN Pain Score 7-10, Start date: 12/18/18 13:55:00 CDT, Duration: 30 day, Stop date: 01/17/19 13:54:00 CDT No Longer Active 12/18/2018 [facility] Hydromorphone 0.5 mg, Route: I MANAGER INVESTMENT, Q5Min, Dosing Weight 69.545, kg, PRN Pain Score 7-10, Start date: 12/18/18 13:55:00 CDT, Duration: 4 doses or times, Stop date: Limited # of times No Longer Active 12/18/2018 [facility] Fentanyl 50 microgram, Route: IVP, Q5Min, Dosing Weight 69.545, kg, PRN Pain Score 7-10, Priority: Routine, Start date: 12/18/18 13:55:00 CDT, Duration: 2 doses or times, Stop date: Limited # of times No Longer Active 12/18/2018 [facility] Acetaminophen 1,000 mg, Route: IVPB, Drug form: INJ, ONCE, Dosing Weight 69.545, kg, PRN Pain Score 1-3, Start date: 12/18/18 13:55:00 CDT Inactive 12/18/2018 [facility] neostigmine (ANES) Route: IV, Drug form: INJ, ONCE, Stop date: 12/18/18 12:49:00 CDT Inactive 12/18/2018 [facility] glycopyrrolate (ANES) Route: I V, Drug form: INJ, ONCE, Stop date: 12/18/18 12:49:00 CDT Inactive 12/18/2018 [facility] Oxymetazoline hydrochloride 0.5 MG/ML Na sravan [place] [Afrin] 2 spray, Route: NASAL, Q2H, PRN Bleeding , Start date: 12/18/18 12:37:00 CDT, Duration: 3 day, Stop date: 12/21/18 12:36:00 CDT No Longer Active 12/18/2018 [facility] Acetaminophen 325 MG / Hydrocodone Favian trate 5 MG Oral Tablet 1 tab, Route: PO, Dosing Weight 69.545, kg, Q4H, PRN Pain Score 1-3, Start date: 12/18/18 12:37:00 CDT, Duration: 30 day, Stop date: 01/17/19 12:36:00 CDT No Longer Active 12/18/2018 [facility] Morphine 2 mg, Route: IVP, Q3H , Dosing Weight 69.545, kg, PRN Pain Score 1-3, Start date: 12/18/18 12:37:00 CDT, Duration: 30 day, Stop date: 01/17/19 12:36:00 CDT No Longer Active 12/18/2018 [facility] dexamethasone (ANES) Route: IV , Drug form: INJ, ONCE, Stop date: 12/18/18 12:08:00 CDT Inactive 12/18/2018 [facility] rocuronium (ANES) Route: IV, D rug form: INJ, ONCE, Stop date: 12/18/18 12:08:00 CDT Inactive 12/18/2018 [facility] lidocaine (ANES) Route: IV, Dr ug form: INJ, ONCE, Stop date: 12/18/18 11:53:00 CDT Inactive 12/18/2018 [facility] propofol (ANES) Route: IV, Harvey g form: INJ, ONCE, Stop date: 12/18/18 11:53:00 CDT Inactive 12/18/2018 [facility] fentaNYL (ANES) Route: IV, Harvey g form: INJ, ONCE, Stop date: 12/18/18 11:53:00 CDT Inactive 12/18/2018 [facility] ondansetron (ANES) Route: IV, Drug form: INJ, ONCE, Stop date: 12/18/18 11:53:00 CDT Inactive 12/18/2018 [facility] ceFAZolin (ANES) Route: IV, Dr ug form: INJ, ONCE, Stop date: 12/18/18 11:53:00 CDT Inactive 12/18/2018 [facility] midazolam (ANES) Route: IV, Dr ug form: SOLN, ONCE, Stop date: 12/18/18 11:28:00 CDT Inactive 12/18/2018 [facility] Lactated Ringers Injection IV (ANES) 1000 mL Route: IV, Total Volume: 1,000, Start date: 12/18/18 10:53:00 CDT, Stop date: 12/18/18 11:53:00 CDT Inactive 12/18/2018 [facility] Cefazolin 2 gm, Route: IVPB, O NCALL, Dosing Weight 69.545, kg, Start date: 12/18/18 10:00:00 CDT, Duration: 1 doses or times, ABX Indication: Surgical Prophylaxis No Longer Active 12/18/2018 [facility] Dexamethasone 8 mg, Route: IV, ONCALL, Dosing Weight 69.545, kg, Start date: 12/18/18 10:00:00 CDT, Duration: 30 day, Stop date: 01/17/19 9:59:00 CDT Inactive 12/18/2018 [facility] Calcium Chloride 0.0014 MEQ/ML / Potassi um Chloride 0.004 MEQ/ML / Sodium Chloride 0.103 MEQ/ML / Sodium Lactate 0.028 MEQ/ML Injectable Solution 1,000 mL, Rate: 25 ml/hr, Infuse over: 4 0 hr, Route: IV, Dosing Weight 69.545 kg, Total Volume: 1,000, Start date: 12/18/18 9:52:00 CDT, Duration: 30 day, Stop date: 01/17/19 9:51:00 CDT, 1.76, m2 Inactive 12/18/2018 [facility] Oxymetazoline hydrochloride 0.5 MG/ML Na sravan [place] [Afrin] 2 spray, Route: NASAL, PRE OP, PRN Nasal Congestion, Start date: 12/18/18 9:51:00 CDT, Duration: 3 day, Stop date: 12/21/18 9:50:00 CDT No Longer Active 12/18/2018 [facility] Epinephrine 0.01 MG/ML / Lidocaine [place] chloride 10 MG/ML Injectable Solution Notes: (Same as: Xylocaine w/Epinephrine ) No Longer Active 12/18/2018 [facility] montelukast 10 MG Oral Tablet [Singulair] 10 mg = 1 tab, PO, Bedtime, # 30 tab, 0 Refill(s) Active 12/13/2018 [facility] predniSONE 20 mg oral tablet 2 0 mg = 1 tab, PO, Daily, X 7 day, # 7 tab, 0 Refill(s) Active 12/13/2018 [facility] levothyroxine 25 mcg (0.025 mg) oral tablet 25 microgram = 1 tab, PO, Q630AM, 0 Refill(s) Active 12/13/2018 [facility] Codeine Phosphate 2 MG/ML / Guaifenesin 20 MG/ML Oral Solution 5 mL, PO, Q4H, PRN cough, X 8 day, # 120 mL, 0 Refill(s) Active 12/13/2018 [facility] Azelastine hydrochloride 0.137 MG/ACTUAT Metered Dose Nasal [place] 137 microgram =, INHALER, BID, PRN Conge stion | 1-2 sprays, # 1 ea, 0 Refill(s) Active 12/13/2018 [facility] Codeine Phosphate 2 MG/ML / Guaifenesin 20 MG/ML Oral Solution Notes: (Same As: Robitussin AC) Inactive 12/13/2018 [facility] Fluticasone propionate 0.05 MG/ACTUAT Me tered Dose Nasal [place] [Flonase] Notes: (Same as: Flonase) No Longer Active 12/12/2018 [facility] Castalia Saline Nasal No-Drip [place] 0.65% gel Notes: (Same as: Edgar, Deep Sea Nasal [place]). No Longer Active 12/12/2018 [facility] Thyroxine Notes: Take 1 hour b efore or 2 hours after meal; Enteral feeds may interefere with the absorption of this medication. (Same as:Levothroid) No Longer Active 12/12/2018 [facility] Protonix Notes: Tablet should not be chewed or crushed. (Same as: Protonix) No Longer Active 12/12/2018 [facility] Enoxaparin Notes: (Same as: Lo venox) No Longer Active 12/12/2018 [facility] Glucagon 1 mg, Route: IM, Drug form: PDR/INJ, PRN, Dosing Weight 70.455, kg, PRN Blood Glucose Results, Start date: 12/12/18 0:28:00 CDT, Duration: 30 day, Stop date: 01/11/19 0:27:00 CDT No Longer Active 12/12/2018 [facility] Dextrose 50% Syringe 25 gm, 50 mL, Route: IVP, Drug Form: INJ, Dosing Weight 70.455, kg, PRN, PRN Blood Glucose Results, Start date: 12/12/18 0:28:00 CDT, Duration: 30 day, Stop date: 01/11/19 0:27:00 CDT No Longer Active 12/12/2018 [facility] methylPREDNISolone SODium SUCCinate Notes: (Same as:Solu-MEDROL, A-Methapred) N o Longer Active 12/12/2018 [facility] montelukast Notes: (Same as:Si ngulair) No Longer Active 12/12/2018 [facility] Mucinex Notes: (Same as: Guaif enesin LA, Humibid LA, Mucinex) "Do Not Crush" Take medication with plenty of water. No Longer Active 12/12/2018 [facility] Docusate Notes: (Same as: Cola ce) (Do Not Crush) No Longer Active 12/11/2018 [facility] benzonatate 200 mg oral capsule 200 mg = 1 cap, PO, TID, # 30 cap, 0 Refill(s) Active 12/11/2018 [facility] omeprazole 40 mg oral delayed release capsule 40 mg = 1 cap, PO, Daily, # 30 cap, 0 Refill(s) Active 12/11/2018 [facility] Zosyn Notes: (Same as: Zosyn) Dosing based on Piperacillin component MEDICATION WASTE Product Size: 3375 mg Product Wasted: ___ mg No Longer Active 12/11/2018 [facility] RN- PLs Update Height, Weight & Allergies in Care4 RN- PLs Update Height, Weight & Allergies in Care4, Reminder, Drug form: MISC, Route: MISC, Q2H, 12/11/18 14:38:00 CDT, Duration: 1 day, Stop date: 12/12/18 14:00:00 CDT Inactive 12/11/2018 [facility] Albuterol 0.833 MG/ML / Ipratropium Brom sanjay 0.167 MG/ML Inhalant Solution Notes: (Same as: Duoneb) No Longer Active 12/11/2018 [facility] Albuterol 0.83 MG/ML Inhalant Solution Notes: SEE RT DOCUMENTATION (Same as: Proventil) No Longer Active 12/11/2018 [facility] Glucagon 1 mg, Route: IM, Drug form: PDR/INJ, PRN, Dosing Weight 71.96, kg, PRN Blood Glucose Results, Start date: 12/11/18 13:18:00 CDT, Duration: 30 day, Stop date: 01/10/19 13:17:00 CDT No Longer Active 12/11/2018 [facility] Dextrose 50% Syringe 25 gm, 50 mL, Route: IVP, Drug Form: INJ, Dosing Weight 71.96, kg, PRN, PRN Blood Glucose Results, Start date: 12/11/18 13:18:00 CDT, Duration: 30 day, Stop date: 01/10/19 13:17:00 CDT No Longer Active 12/11/2018 [facility] Simvastatin Notes: (Same as: Lashell ocor) Inactive 11/09/2018 [facility] Loratadine 10 mg, Route: PO, D aily, Dosing Weight 71.96, kg, Start date: 11/08/18 9:00:00 ELECTROENCEPHALOGRAPHIC TECHNICIAN, Duration: 30 day, Stop date: 12/07/18 9:00:00 CDT Inactive 11/08/2018 [facility] Amlodipine Notes: (Same as: No rvasc) Inactive 11/08/2018 [facility] cetirizine Notes: (Same As: Thom rtec) Inactive 11/08/2018 [facility] Thyroxine Notes: Take 1 hour b efore or 2 hours after meal; Enteral feeds may interefere with the absorption of this medication. (Same as:Levothroid) Inactive 11/08/2018 [facility] predniSONE 10 mg oral tablet S ee Special Instructions, PO, Daily, 12 day regimen: Days 1-4 - 30 mg (3 tabs) daily Days 5-8 - 20 mg (2 tabs) daily Days 9-12 - 10 mg (1 tab) daily, X 12 day, # 24 tab, 0 Refill(s) Active 11/08/2018 [facility] Amoxicillin 875 MG / Clavulanate 125 MG Oral Tablet [Augmentin 875-mg] 1 tab, PO, [id number], # 20 tab, 0 Refill(s) Active 11/08/2018 [facility] Fluticasone propionate 0.05 MG/ACTUAT Me tered Dose Nasal [place] [Flonase] 100 microgram = 2 spray, Each Affected N ostril, BID, # 10 mL, 0 Refill(s) Active 11/08/2018 [facility] Solu-Medrol Notes: (Same as:So ronnie-MEDROL, A-Methapred) Inactive 11/08/2018 [facility] Amoxicillin 875 MG / Clavulanate 125 MG Oral Tablet [Augmentin 875-mg] Notes: With food. (Same as: Augmentin 87 5) No Longer Active 11/08/2018 [facility] Ibuprofen Notes: (Same as: Mot rin) "Do Not Crush" Take with food. No Longer Active 11/07/2018 [facility] Ambien Notes: (Same As: Ambien) No Longer Active 11/07/2018 [facility] Famotidine 20 MG Oral Tablet [Pepcid] Notes: (Same as: Pepcid) No Longer Active 11/06/2018 [facility] Fluticasone propionate 0.05 MG/ACTUAT Me tered Dose Nasal [place] [Flonase] Notes: (Same as: Flonase) No Longer Active 11/05/2018 [facility] Budesonide 0.25 MG/ML Inhalant Solution [Pulmicort] Notes: (Same As: Pulmicort) No Longer Active 11/05/2018 [facility] Glucagon 1 mg, Route: IM, Drug form: PDR/INJ, PRN, Dosing Weight 71.96, kg, PRN Blood Glucose Results, Start date: 11/04/18 16:03:00 ELECTROENCEPHALOGRAPHIC TECHNICIAN, Duration: 30 day, Stop date: 12/04/18 17:02:00 CDT No Longer Active 11/04/2018 [facility] Dextrose 50% Syringe 12.5 gm, 25 mL, Route: IVP, Drug Form: INJ, Dosing Weight 71.96, kg, PRN, PRN Blood Glucose Results, Start date: 11/04/18 16:03:00 ELECTROENCEPHALOGRAPHIC TECHNICIAN, Duration: 30 day, Stop date: 12/04/18 17:02:00 CDT No Longer Active 11/04/2018 [facility] Solu-Medrol Notes: (Same as:So ronnie-MEDROL, A-Methapred) No Longer Active 11/04/2018 [facility] Loratadine 10 mg, PO, Daily, 0 Refill(s) Active 11/04/2018 [facility] Ciprofloxacin 500 MG Oral Tablet [Cipro] 500 mg = 1 tab, PO, Q12H, # 20 tab, 0 Refill(s) No Longer Active 11/04/2018 [facility] Please update height, weight, allergies on profile Please update height, weight, allergies on profile, ATTN:RN, Drug form: MISC, Route: MISC, Q15Min, 11/04/18 15:45:00 ELECTROENCEPHALOGRAPHIC TECHNICIAN, Duration: 4 hr, Stop date: 11/04/18 19:30:00 ELECTROENCEPHALOGRAPHIC TECHNICIAN Inactive 11/04/2018 [facility] Albuterol 0.417 MG/ML Inhalant Solution Notes: SEE RT DOCUMENTATION (Same as: Proventil) No Longer Active 11/04/2018 [facility] Vasotec Notes: (Same as: Vasot ec-IV) No Longer Active 11/04/2018 [facility] cefepime Notes: (Same As: Stanislav alvarenga) MEDICATION WASTE Product Size: 1000 mg Product Wasted: ___ mg No Longer Active 11/04/2018 [facility] Albuterol 0.833 MG/ML / Ipratropium Brom sanjay 0.167 MG/ML Inhalant Solution [DuoNeb] Notes: (Same as: Duoneb) No Longer Active 11/04/2018 [facility] Codeine Phosphate 2 MG/ML / Guaifenesin 20 MG/ML Oral Solution Notes: (Same As: Robitussin AC) No Longer Active 11/04/2018 [facility] Zofran Notes: (Same as: Zofran ) MEDICATION WASTE Product Size: 4 mg Product Wasted: ___ mg No Longer Active 11/04/2018 [facility] Flexeril 10 mg oral tablet 10 mg, PO, TID, PRN, 30 tab, Muscle Spasm, Substitution Allowed PO Active Goll a 08/09/2012 [facility] [place] [facility] 5/325 oral tablet 1-2 ta b, PO, Q4-6H, PRN, 15 tab, Pain, Substitution Allowed, Maintenance PO Active Goll a 08/09/2012 [facility] Flexeril 10 mg, Route: PO, ONC E, Dosing Weight 69.545, kg, Priority: STAT, Start date: 08/08/12 20:05:00, Stop date: 08/08/12 20:05:00 PO No Longer Active [facility] 08/09 [facility] morphine Sulfate 2 mg, 1 mL, R oute: IVP, Drug form: INJ, ONCE, Dosing Weight 69.545, kg, Priority: STAT, Start date: 08/08/12 19:14:00, Stop date: 08/08/12 19:14:00 IVP No Longer Active [facility] 08/09/2012 [facility] ondansetron 4 mg, 2 mL, Route: IVP, Drug form: INJ, ONCE, Dosing Weight 69.545, kg, Priority: STAT, Start date: 08/08/12 19:14:00, Stop date: 08/08/12 19:14:00 IVP No Longer Active [facility] 08/09/2012 [facility] Saline Flush 0.9% 5 mL, Route: IVP, Drug Form: INJ, Dosing Weight 69.545, kg, PRN, PRN Line Flush, Start date: 08/08/12 19:14:00, Duration: 24 hr, Stop date: 08/09/12 19:13:00 IVP No Longer Active [facility] 08/09/2012 [facility] Sodium Chloride 0.9% (Bolus) IV 500 mL, 500 ml/hr, Route: IV, Drug Form: INJ, Dosing Weight 69.545, kg, ONCE, Bolus at 1,000 ml/hr, STAT, Start date: 08/08/12 19:14:00, Stop date: 08/08/12 19:14:00 IV No Longer Active Ryan 08/09/2012 [facility] ProAir HFA 90 mcg/inh inhalation aerosol with adapter 2 puff, INHALATION, Q6H, PRN, 9 gm, 1, 1, for wheezing, Substitution Allowed, Soft Stop, AERO INHALATION Active Owens 03/06/2012 [facility] Prilosec 20 mg oral delayed release capsule 20 mg, 1 cap, PO, Daily, 30 cap, Substitution Allowed PO Active Gupt a 03/06/2012 [facility] predniSONE 10 mg oral tablet 1 0 mg, 1 tab, PO, Daily, 10 tab, Substitution Allowed, TAB PO Active Gupt a 03/06/2012 [facility] Mucinex 600 mg oral tablet, extended release 600 mg, 1 tab, PO, Daily, 10 tab, Substitution Allowed, ERTAB PO Active [facility] 03/06/2012 [facility] methylPREDNISolone 20 mg, 0.5 mL, Route: IV, Drug form: INJ, [id number], Start date: 03/01/12 10:00:00, Duration: 30 day, Stop date: 03/30/12 22:00:00 IV No Longer Active Steiner 03/01/2012 [facility] Tessalon Perles 200 mg, 2 cap, Route: PO, Drug form: CAP, Q8H, Start date: 03/01/12 8:00:00, Duration: 30 day, Stop date: 03/31/12 0:00:00 PO No Longer Active Steiner 03/01/2012 [facility] methylPREDNISolone 40 mg, 1 mL , Route: IV, Drug form: INJ, ONCE, Start date: 03/01/12 2:28:00, Stop date: 03/01/12 2:28:00 IV No Longer Active Steiner 03/01 [facility] azithromycin 500 mg, Route: IV PB, [id number], Start date: 02/29/12 21:00:00, Duration: 30 day, Stop date: 03/29/12 21:00:00 IVPB No Longer Active Boccardo 03/01/2012 [facility] enoxaparin 40 mg, 0.4 mL, Rout e: SUB-Q, Drug form: INJ, [id number], Start date: 02/29/12 21:00:00, Duration: 30 day, Stop date: 03/29/12 21:00:00 SUB-Q No Longer Active Steiner 03/01/2012 [facility] ceftriaxone 1 gm, Route: IVPB, Drug form: PDR/INJ, [id number], Start date: 02/29/12 18:00:00, Duration: 30 day, Stop date: 03/29/12 18:00:00 IVPB No Longer Active Boccardo 02/29/2012 [facility] pneumococcal 23-valent vaccine 0.5 ml, Route: IM, Drug Form: INJ, Start date: 02/29/12 9:00:00, Stop date: 02/29/12 9:00:00 Inactive SYSTEM 02/29/2012 [facility] levothyroxine 25 microgram, Ro [place]: PO, Drug form: TAB, [id number], Start date: 02/29/12 9:00:00, Duration: 30 day, Stop date: 03/30/12 6:30:00 PO No Longer Active Boccardo 02/29/2012 [facility] simvastatin 10 mg, 1 tab, Rout e: PO, Drug form: TAB, QAM, Start date: 02/29/12 9:00:00, Duration: 30 day, Stop date: 03/29/12 9:00:00 PO No Longer Active Boccardo 02/29/2012 [facility] amLODipine 5 mg, 1 tab, Route: PO, Drug form: TAB, Daily, Start date: 02/29/12 9:00:00, Duration: 30 day, Stop date: 03/29/12 9:00:00 PO No Longer Active Boccardo 02/29/2012 [facility] Tussionex [employer] oral suspension, extended releas e 5 ml, Route: PO, Drug Form: SUSPER, Q12H, PRN Cough/Congestion, Start date: 02/29/12 8:36:00, Duration: 30 day, Stop date: 03/30/12 8:35:00 PO No Longer Active Boccardo 02/29/2012 [facility] albuterol 0.083% inhalation solution 2.49 mg, 3 mL, Route: NEB, Drug form: SOLN, [id number], Priority: Routine, Start date: 02/29/12 2:00:00, Duration: 30 day, Stop date: 03/29/12 20:00:00 NEB No Longer Active Boccardo 02/29/2012 [facility] ipratropium 0.5 mg, 2.5 mL, Ro [place]: NEB, Drug form: SOLN, RQ6H, Priority: Routine, Start date: 02/29/12 2:00:00, Duration: 30 day, Stop date: 03/29/12 20:00:00 NEB No Longer Active Boccardo 02/29/2012 [facility] DuoNeb inhalation solution 3 m L, Route: NEB, Drug Form: SOLN, RQ6H, Start date: 02/29/12 2:00:00, Duration: 30 day, Stop date: 03/29/12 20:00:00 NEB No Longer Active Boccardo 02/29/2012 [facility] ondansetron 4 mg, 2 mL, Route: IVP, Drug form: INJ, Q6H, PRN Nausea & Vomiting, Start date: 02/28/12 21:39:00, Duration: 30 day, Stop date: 03/29/12 21:38:00 IVP No Longer Active Boccardo 02/29/2012 [facility] acetaminophen 650 mg, 2 tab, R oute: PO, Drug form: TAB, Q4H, PRN Pain/Fever, Start date: 02/28/12 21:39:00, Duration: 30 day, Stop date: 03/29/12 21:38:00 PO No Longer Active Boccardo 02/29/2012 [facility] Saline Flush 0.9% 5 ml, Route: IVP, Drug Form: INJ, PRN, PRN Line Flush, Start date: 02/28/12 21:39:00, Duration: 30 day, Stop date: 03/29/12 21:38:00 IVP No Longer Active Boccardo 02/29/2012 [facility] guaifenesin 100 mg, 5 mL, Rout e: PO, Drug form: LIQ, Q4H, PRN Cough/Congestion, Start date: 02/28/12 21:37:00, Duration: 30 day, Stop date: 03/29/12 21:36:00 PO No Longer Active Boccardo 02/29/2012 [facility] codeine-guaifenesin 10 mg-100 mg/5 mL oral syrup 5 mL, Route: PO, Drug Form: LIQ, Q4H, PRN Cough, Start date: 02/28/12 21:37:00, Duration: 30 day, Stop date: 03/29/12 21:36:00 PO No Longer Active Boccardo 02/29/2012 [facility] Sodium Chloride 0.9% (Bolus) IV 500 mL 500 mL, Rate: 500 ml/hr, Infuse over: 1 hr, Route: IV, Dosing Weight 64.091 kg, Total Volume: 500, Bolus Dose, Priority: STAT, Start date: 02/28/12 20:41:00, Duration: 1 doses or times, Stop date: 02/28/12 21:40:00 IV No Longer Active Steiner 02/29/2012 [facility] acetaminophen 650 mg, Route: P O, Drug form: TAB, ONCE, Priority: STAT, Start date: 02/28/12 20:39:00, Stop date: 02/28/12 20:39:00 PO No Longer Active Steiner 02/28 [facility] TL-Hist DM oral liquid 5 mL, P O, Q6H, PRN, as needed for cough and congestion, Substitution Allowed, Maintenance PO Active 02/29/2012 [facility] levofloxacin 500 mg oral tablet 500 mg, 1 tab, PO, Daily, Substitution Allowed PO Active 02/29/2012 [facility] Lamisil 250 mg oral tablet 250 mg, 1 tab, PO, Daily, Substitution Allowed PO Active 02/29/2012 [facility] simvastatin 10 mg, PO, QAM, Cramer bstitution Allowed PO Active Boccardo 02/29/2012 [facility] levothyroxine 25 mcg (0.025 mg) oral tablet 25 microgram, 1 tab, PO, Daily, Substitution Allowed PO Active Boccardo 02/29/2012 [facility] amLODipine 5 mg oral tablet 5 mg, 1 tab, PO, Daily, Substitution Allowed PO Active Boccardo 02/29/2012 [facility] NS (Bolus) IV 1,000 mL 1,000 m L, Rate: 1,000 ml/hr, Infuse over: 1 hr, Route: IV, Dosing Weight 64.091 kg, Total Volume: 1,000, Priority: STAT, Start date: 02/28/12 18:28:00, Duration: 1 doses or times, Stop date: 02/28/12 19:27:00, Bolus DoseBolus Dose IV No Longer Active Steiner 02/28/2012 [facility] azithromycin 500 mg, 250 mL, R oute: IVPB, Drug form: PDR/INJ, ONCE, Priority: STAT, Start date: 02/28/12 18:26:00, Stop date: 02/28/12 18:26:00 IVPB No Longer Active Steiner 02/28/2012 [facility] albuterol 0.083% inhalation solution 2.49 mg, Route: NEB, Drug form: SOLN, ONCE, Priority: STAT, Start date: 02/28/12 18:26:00, Stop date: 02/28/12 18:26:00 NEB No Longer Active Steiner 02/28/2012 [facility] ipratropium 0.02% inhalation solution 0.5 mg, Route: NEB, ONCE, Priority: STAT, Start date: 02/28/12 18:26:00, Stop date: 02/28/12 18:26:00 NEB No Longer Active Steiner 02/28/2012 [facility] Rocephin 1 gm, Route: IVPB, ON CE, Priority: STAT, Start date: 02/28/12 18:26:00, Stop date: 02/28/12 18:26:00 IVPB No Longer Active Steiner 02/28/2012 [facility] Allergies, Adverse Reactions, Alerts Substance Category Reaction Severity Reaction type Status Date Reported Comments Source No Known Medication Allergies Assertion Drug aller gy [facility] Immunizations Immunization Date Given Site Status Last Updated Comments Source influenza virus vaccine, inactivated 11/08/2018 Left deltoid completed Isabel [facility] pneumococcal 13-valent vaccine 11/08/2018 Right deltoid completed Isabel [facility] pneumococcal 23-valent vaccine 02/29/2012 completed Elodia seo [facility] pneumococcal 23-valent vaccine 02/29/2012 Left deltoid completed Arroyo [facility] Results Order Name Results Value Reference Range Date Interpretation Comments Source HEMATOLOGY PTT 20.0 22.9 - 35.8 12/18/2018 Result Comment: no clot, respun and rera n 12/18/2018 10:58 bp [facility] INR 0.93 0.85 - 1.17 12/18/2018 [facility] PT 12.3 12.0 - 14.7 12/18/2018 [facility] MCHC 32.8 32.0 - 36.0 12/18/2018 [facility] RDW 14.6 11.5 - 14.5 12/18/2018 [facility] MPV 8.2 7.4 - 10.4 12/18/2018 [facility] Platelet 302 133 - 450 12/18/2018 [facility] MCV 90.4 80.0 - 98.0 12/18/2018 [facility] MCH 29.7 27.0 - 31.0 12/18/2018 [facility] Hgb 14.3 12.0 - 16.0 12/18/2018 [facility] Hct 43.5 36.0 - 48.0 12/18/2018 [facility] WBC 13.2 3.7 - 10.4 12/18/2018 [facility] RBC 4.81 4.20 - 5.40 12/18/2018 [facility] Segs 77.5 45.0 - 75.0 12/18/2018 [facility] Basophils 0.4 0.0 - 1.0 12/18/2018 [facility] Monocytes # 0.7 0.0 - 0.8 12/18/2018 [facility] Lymphocytes # 2.2 1.0 - 5.5 12/18/2018 [facility] Neutrophils # 10.2 1.5 - 8.1 12/18/2018 [facility] Basophils # 0.1 0.0 - 0.2 12/18/2018 [facility] Lymphocytes 16.9 20.0 - 40.0 12/18/2018 [facility] HEMATOLOGY Monocytes 5.1 2.0 - 12.0 12/18/2018 [facility] HEMATOLOGY Eosinophils 0.1 0.0 - 4.0 12/18/2018 [facility] IMMUNOLOGY Aspergillus fumigatus IgG 9.9 0.0 - 1.9 12/12/2018 Result Comment: Results for this test ar e for Investigational Purposes Only
by the assay's ambulance attendant. The performance
characteristics of this product have not been establish ed.
Results should not be used as a diagnostic procedure
without confirmation of the diagnosis by another medically
established diagnostic product or procedure.
Performed At: [facility]
[address], [place] [id number]
Vikram Prado MD Ph:[phone] [facility] SPECIAL CHEMISTRY Hgb A1C 6.3 <=5.6 % 12/12/2018 [facility] CHEM PANEL Phosphorus 3.4 2.5 - 4.5 12/11/2018 [facility] CHEM PANEL A/G Ratio 1.1 0.7 - 1.6 12/11/2018 [facility] CHEM PANEL Globulin 3.5 2.7 - 4.2 12/11/2018 [facility] CHEM PANEL B/C Ratio 23 6 - 25 12/11/2018 [facility] CHEM PANEL AGAP 9.9 10.0 - 20.0 12/11/2018 [facility] PANEL eGFR 80 12/11/2018 Result Comment: The eGFR is calculated using the [...] from the National Kidney Disease Education Program (NKDEP) which additionally recommends that when the eGFR is used in patients with extremes of body mass index for purposes of drug dosing, the eGFR should be multiplied by the estimated BMI. [facility] CHEM PANEL Bili Total 0.3 0.2 - 1.3 12/11/2018 [facility] CHEM PANEL Alk Phos 101 39 - 136 12/11/2018 [facility] CHEM PANEL ALT 35 0 - 65 12/11/2018 [facility] CHEM PANEL Albumin Lvl 3.8 3.5 - 5.0 12/11/2018 [facility] CHEM PANEL AST 11 0 - 37 12/11/2018 [facility] CHEM PANEL CO2 25 24 - 32 12/11/2018 [facility] CHEM PANEL Chloride Lvl 107 95 - 109 12/11/2018 [facility] CHEM PANEL Total Protein 7.3 6.4 - 8.4 12/11/2018 [facility] CHEM PANEL Calcium Lvl 9.2 8.5 - 10.5 12/11/2018 [facility] CHEM PANEL Sodium Lvl 138 135 - 145 12/11/2018 [facility] CHEM PANEL Potassium Lvl 3.9 3.5 - 5.1 12/11/2018 [facility] CHEM PANEL Creatinine Lvl 0.75 0.50 - 1.40 12/11/2018 [facility] CHEM PANEL BUN 17 7 - 22 12/11/2018 [facility] CHEM PANEL Glucose Lvl 214 70 - 99 12/11/2018 [facility] CHEM PANEL Magnesium Lvl 2.6 1.8 - 2.4 12/11/2018 [facility] HEMATOLOGY Platelet 359 133 - 450 12/11/2018 [facility] HEMATOLOGY MPV 8.0 7.4 - 10.4 12/11/2018 [facility] HEMATOLOGY RDW 14.3 11.5 - 14.5 12/11/2018 [facility] HEMATOLOGY MCHC 33.5 32.0 - 36.0 12/11/2018 [facility] HEMATOLOGY MCH 30.1 27.0 - 31.0 12/11/2018 [facility] HEMATOLOGY RBC 4.49 4.20 - 5.40 12/11/2018 [facility] HEMATOLOGY Hgb 13.5 12.0 - 16.0 12/11/2018 [facility] HEMATOLOGY WBC 11.7 3.7 - 10.4 12/11/2018 [facility] HEMATOLOGY MCV 89.9 80.0 - 98.0 12/11/2018 [facility] HEMATOLOGY Hct 40.3 36.0 - 48.0 12/11/2018 [facility] HEMATOLOGY Lymphocytes 22.5 20.0 - 40.0 12/11/2018 [facility] HEMATOLOGY Monocytes 6.9 2.0 - 12.0 12/11/2018 [facility] HEMATOLOGY Basophils 0.4 0.0 - 1.0 12/11/2018 [facility] HEMATOLOGY Lymphocytes # 2.6 1.0 - 5.5 12/11/2018 [facility] HEMATOLOGY Neutrophils # 8.2 1.5 - 8.1 12/11/2018 [facility] HEMATOLOGY Eosinophils 0.3 0.0 - 4.0 12/11/2018 [facility] HEMATOLOGY Basophils # 0.1 0.0 - 0.2 12/11/2018 [facility] HEMATOLOGY Monocytes # 0.8 0.0 - 0.8 12/11/2018 [facility] HEMATOLOGY Segs 69.9 45.0 - 75.0 12/11/2018 [facility] HEMATOLOGY Sed Rate 13 0 - 20 12/11/2018 [facility] IMMUNOLOGY IgE Lvl 749.0 10.0 - 100.0 12/11/2018 [facility] Hgb 12.4 12.0 - 16.0 11/07/2018 [facility] Hct 37.4 36.0 - 48.0 11/07/2018 [facility] MCV 89.9 80.0 - 98.0 11/07/2018 [facility] MCH 29.8 27.0 - 31.0 11/07/2018 [facility] MCHC 33.2 32.0 - 36.0 11/07/2018 [facility] RDW 14.4 11.5 - 14.5 11/07/2018 [facility] Platelet 329 133 - 450 11/07/2018 [facility] MPV 8.3 7.4 - 10.4 11/07/2018 [facility] WBC 17.9 3.7 - 10.4 11/07/2018 [facility] RBC 4.16 4.20 - 5.40 11/07/2018 [facility] Basophils 0.1 0.0 - 1.0 11/07/2018 [facility] Lymphocytes # 1.3 1.0 - 5.5 11/07/2018 [facility] Neutrophils # 16.3 1.5 - 8.1 11/07/2018 [facility] Monocytes # 0.4 0.0 - 0.8 11/07/2018 [facility] HEMATOLOGY RBC Morph Bonnie l (11/07/18 5:04 AM) 11/07/2018 [facility] HEMATOLOGY Plt Morph Bonnie l (11/07/18 5:04 AM) 11/07/2018 [facility] HEMATOLOGY Segs 90.8 45.0 - 75.0 11/07/2018 [facility] Lymphocytes 7.0 20.0 - 40.0 11/07/2018 [facility] Monocytes 2.1 2.0 - 12.0 11/07/2018 [facility] MPV 7.9 7.4 - 10.4 11/06/2018 [facility] MCV 88.7 80.0 - 98.0 11/06/2018 [facility] Hct 38.1 36.0 - 48.0 11/06/2018 [facility] Hgb 12.6 12.0 - 16.0 11/06/2018 [facility] MCH 29.4 27.0 - 31.0 11/06/2018 [facility] RDW 14.2 11.5 - 14.5 11/06/2018 [facility] Platelet 324 133 - 450 11/06/2018 [facility] MCHC 33.1 32.0 - 36.0 11/06/2018 [facility] WBC 20.1 3.7 - 10.4 11/06/2018 [facility] RBC 4.30 4.20 - 5.40 11/06/2018 [facility] Gram Stain Report Gram Stain Perf ormed By: [facility] 11/05/2018 [facility] Culture: Respiratory w/Gram Stain N ormal Respiratory Lilian Isolated 11/05/2018 [facility] CHEM PANEL Procalcitonin Lvl <0.05 0.00 - 0.10 11/05/2018 [facility] ELECTROLYTES AGAP 11.1 10.0 - 20.0 11/05/2018 [facility] ELECTROLYTES eGFR 88 11/05/2018 Result Comment: The eGFR is calculated using the [...] from the National Kidney Disease Education Program (NKDEP) which additionally recommends that when the eGFR is used in patients with extremes of body mass index for purposes of drug dosing, the eGFR should be multiplied by the estimated BMI. [facility] ELECTROLYTES CO2 24 24 - 32 11/05/2018 [facility] ELECTROLYTES Calcium Lvl 9.0 8.5 - 10.5 11/05/2018 [facility] ELECTROLYTES Creatinine Lvl 0.6 8 0.50 - 1.40 11/05/2018 [facility] ELECTROLYTES Sodium Lvl 140 135 - 145 11/05/2018 [facility] ELECTROLYTES Glucose Lvl 140 70 - 99 11/05/2018 [facility] ELECTROLYTES BUN 13 7 - 22 11/05/2018 [facility] ELECTROLYTES Chloride Lvl 109 95 - 109 11/05/2018 [facility] ELECTROLYTES Potassium Lvl 4.1 3.5 - 5.1 11/05/2018 [facility] HEMATOLOGY Hct 40.8 36.0 - 48.0 11/05/2018 [facility] HEMATOLOGY MCH 29.8 27.0 - 31.0 11/05/2018 [facility] HEMATOLOGY MCV 89.3 80.0 - 98.0 11/05/2018 [facility] MCHC 33.4 32.0 - 36.0 11/05/2018 [facility] HEMATOLOGY MPV 8.2 7.4 - 10.4 11/05/2018 [facility] HEMATOLOGY Platelet 324 133 - 450 11/05/2018 [facility] HEMATOLOGY RDW 13.9 11.5 - 14.5 11/05/2018 [facility] HEMATOLOGY WBC 11.3 3.7 - 10.4 11/05/2018 [facility] RBC 4.57 4.20 - 5.40 11/05/2018 [facility] Hgb 13.6 12.0 - 16.0 11/05/2018 [facility] CHEMISTRY Bili Direct <0.1 0.0 - 0.3 08/09/2012 Normal [facility] CHEMISTRY CK MB Index 0.7 0.0 - 2.5 08/09/2012 Normal [facility] CHEMISTRY Total CK 172 12 - 191 08/09/2012 Normal [facility] CHEMISTRY CK MB 1.2 0.5 - 3.6 08/09/2012 Normal [facility] CHEMISTRY Troponin-I <0.02 0.00 - 0.40 08/09/2012 Normal [facility] CHEMISTRY eGFR 95 08/09/2012 NA <sup>1</sup>Result Comment: The eGFR is calculated using the CKD-EPI formula. In most young, healthy individuals the eGFR will be >90 mL/min/1.73m2. The eGFR declines with age. An eGFR of 60-89 may be normal in some populations, particularly the elderly, for whom the CKD-EPI formula has not been extensively validated. Use of the eGFR is not recommended in the following populations:& lt;br/>
Individuals with unstable creatinine concentrations, including patients and those with serious co-morbid conditions.

Patients with extremes in muscle mass or diet.

The data above are obtained from the National Kidney Disease Education Program (NKDEP) which additionally recommends that when the eGFR is used in patients with extremes of body mass index for purposes of drug dosing, the eGFR should be multiplied by the estimated BMI. [facility] CHEMISTRY Albumin Lvl 4.0 3.5 - 5.0 08/09/2012 Normal [facility] CHEMISTRY AGAP 14.0 10.0 - 20.0 08/09/2012 Normal [facility] CHEMISTRY Potassium Lvl 4.0 3.5 - 5.1 08/09/2012 Normal [facility] CHEMISTRY Sodium Lvl 142 135 - 145 08/09/2012 Normal [facility] CHEMISTRY CO2 25 24 - 32 08/09/2012 Normal [facility] CHEMISTRY Chloride Lvl 107 95 - 109 08/09/2012 Normal [facility] CHEMISTRY Calcium Lvl 8.6 8.5 - 10.5 08/09/2012 Normal [facility] CHEMISTRY Creatinine Lvl 0.6 0.5 - 1.4 08/09/2012 Normal [facility] CHEMISTRY Glucose Lvl 104 70 - 99 08/09/2012 [place] <sup>2</sup>Interpretive Data: Adult ref erence range values reflect the clinical guidelines
of the [place] [employer]. [facility] CHEMISTRY Alk Phos 91 39 - 136 08/09/2012 Normal [facility] CHEMISTRY Bili Total 0.2 0.2 - 1.3 08/09/2012 Normal [facility] CHEMISTRY BUN 12 7 - 22 08/09/2012 Normal [facility] CHEMISTRY A/G Ratio 1.1 0.7 - 1.6 08/09/2012 Normal [facility] CHEMISTRY B/C Ratio 20 6 - 25 08/09/2012 Normal [facility] CHEMISTRY Globulin 3.6 2.0 - 4.0 08/09/2012 Normal [facility] CHEMISTRY ALT 32 0 - 65 08/09/2012 Normal [facility] CHEMISTRY AST 19 0 - 37 08/09/2012 Normal [facility] CHEMISTRY Total Protein 7.6 6.4 - 8.4 08/09/2012 Normal [facility] CHEMISTRY Lipase Lvl 248 73 - 393 08/09/2012 Normal [facility] HEMATOLOGY Monocytes # 0.5 0.0 - 0.8 08/09/2012 Normal [facility] HEMATOLOGY Eosinophils # 0.2 0.0 - 0.5 08/09/2012 Normal [facility] HEMATOLOGY Basophils # 0.1 0.0 - 0.2 08/09/2012 Normal [facility] HEMATOLOGY Monocytes 6.8 2.0 - 12.0 08/09/2012 Normal [facility] HEMATOLOGY Basophils 1.3 0.0 - 1.0 08/09/2012 HI [facility] HEMATOLOGY Eosinophils 2.7 0.0 - 4.0 08/09/2012 Normal [facility] HEMATOLOGY Lymphocytes # 2.5 1.0 - 5.5 08/09/2012 Normal [facility] HEMATOLOGY Segs-Bands # 4.5 1.5 - 8.1 08/09/2012 Normal [facility] HEMATOLOGY Lymphocytes 31.7 20.0 - 40.0 08/09/2012 Normal [facility] HEMATOLOGY Segs 57.5 45.0 - 75.0 08/09/2012 Normal [facility] HEMATOLOGY INR 0.90 0.85 - 1.17 08/09/2012 Normal <sup>3</sup>Interpretive Data: RECOMMEND ED RANGES FOR PROTIME INR:
2.0-3.0 for most medical and surgical thromboembolic states.
2.5-3.5 for artificial heart valves and recurrent embolism.

INR SHOULD BE USED ONLY FOR PATIENTS ON STABLE ANTICOAGULANT THERAPY. [facility] HEMATOLOGY PTT 26.1 22.9 - 35.8 08/09/2012 Normal <sup>4</sup>Interpretive Data: Heparin T herapeutic Range: 57 - 92 Seconds [facility] HEMATOLOGY PT 12.4 12.0 - 14.7 08/09/2012 Normal [facility] HEMATOLOGY Platelet 337 133 - 450 08/09/2012 Normal [facility] HEMATOLOGY MPV 7.4 7.4 - 10.4 08/09/2012 Normal [facility] HEMATOLOGY MCV 90.2 81.0 - 99.0 08/09/2012 Normal [facility] HEMATOLOGY Hct 38.8 36.0 - 48.0 08/09/2012 Normal [facility] HEMATOLOGY MCHC 33.8 32.0 - 36.0 08/09/2012 Normal [facility] HEMATOLOGY MCH 30.5 27.0 - 31.0 08/09/2012 Normal [facility] HEMATOLOGY RDW 13.8 11.5 - 14.5 08/09/2012 Normal [facility] HEMATOLOGY RBC 4.30 4.20 - 5.40 08/09/2012 Normal [facility] HEMATOLOGY Hgb 13.1 12.0 - 16.0 08/09/2012 Normal [facility] HEMATOLOGY WBC 7.9 3.7 - 10.4 08/09/2012 Normal [facility] CHEMISTRY AGAP 13.0 10.0 - 20.0 03/22/2012 Normal [facility] CHEMISTRY Calcium Lvl 9.0 8.5 - 10.5 03/22/2012 Normal [facility] CHEMISTRY CO2 26 24 - 32 03/22/2012 Normal [facility] CHEMISTRY Chloride Lvl 106 95 - 109 03/22/2012 Normal [facility] CHEMISTRY Potassium Lvl 4.0 3.5 - 5.1 03/22/2012 Normal [facility] CHEMISTRY Creatinine Lvl 0.6 0.5 - 1.4 03/22/2012 Normal [facility] CHEMISTRY Sodium Lvl 141 135 - 145 03/22/2012 Normal [facility] CHEMISTRY Glucose Lvl 79 70 - 99 03/22/2012 Normal <sup>1</sup>Interpretive Data: Adult ref erence range values reflect the clinical guidelines
of the [place] [employer]. [facility] CHEMISTRY BUN 12 7 - 22 03/22/2012 Normal [facility] CHEMISTRY AGAP 15.6 10.0 - 20.0 03/06/2012 Normal [facility] CHEMISTRY Glucose Lvl 122 70 - 99 03/06/2012 HI <sup>1</sup>Interpretive Data: Adult ref erence range values reflect the clinical guidelines
of the [place] [employer]. [facility] CHEMISTRY BUN 15 7 - 22 03/06/2012 Normal [facility] CHEMISTRY Creatinine Lvl 0.7 0.5 - 1.4 03/06/2012 Normal [facility] CHEMISTRY CO2 23 24 - 32 03/06/2012 LOW [facility] CHEMISTRY Calcium Lvl 9.0 8.5 - 10.5 03/06/2012 Normal [facility] CHEMISTRY Sodium Lvl 138 135 - 145 03/06/2012 Normal [facility] CHEMISTRY Potassium Lvl 4.6 3.5 - 5.1 03/06/2012 Normal [facility] CHEMISTRY Chloride Lvl 104 95 - 109 03/06/2012 Normal [facility] HEMATOLOGY Basophils # 0.0 0.0 - 0.2 03/06/2012 Normal [facility] HEMATOLOGY Eosinophils 0.0 0.0 - 4.0 03/06/2012 Normal [facility] HEMATOLOGY Monocytes 3.0 2.0 - 12.0 03/06/2012 Normal [facility] HEMATOLOGY Lymphocytes 13.9 20.0 - 40.0 03/06/2012 LOW [facility] HEMATOLOGY Segs 83.1 45.0 - 75.0 03/06/2012 [facility] HEMATOLOGY Eosinophils # 0.0 0.0 - 0.5 03/06/2012 Normal [facility] HEMATOLOGY Lymphocytes # 1.9 1.0 - 5.5 03/06/2012 Normal [facility] HEMATOLOGY Monocytes # 0.4 0.0 - 0.8 03/06/2012 Normal [facility] HEMATOLOGY Basophils 0.0 0.0 - 1.0 03/06/2012 Normal [facility] HEMATOLOGY Segs-Bands # 11.0 1.5 - 8.1 03/06/2012 [facility] HEMATOLOGY WBC 13.3 3.7 - 10.4 03/06/2012 [facility] HEMATOLOGY RBC 4.35 4.20 - 5.40 03/06/2012 Normal [facility] HEMATOLOGY RDW 13.2 11.5 - 14.5 03/06/2012 Normal [facility] HEMATOLOGY Hct 39.7 36.0 - 48.0 03/06/2012 Normal [facility] HEMATOLOGY Hgb 13.2 12.0 - 16.0 03/06/2012 Normal [facility] HEMATOLOGY MCV 91.3 81.0 - 99.0 03/06/2012 Normal [facility] HEMATOLOGY MCHC 33.2 32.0 - 36.0 03/06/2012 Normal [facility] HEMATOLOGY MCH 30.3 27.0 - 31.0 03/06/2012 Normal [facility] HEMATOLOGY Platelet 413 133 - 450 03/06/2012 Normal [facility] HEMATOLOGY MPV 7.9 7.4 - 10.4 03/06/2012 Normal [facility] CHEMISTRY Potassium Lvl 4.5 3.5 - 5.1 03/05/2012 Normal [facility] CHEMISTRY Sodium Lvl 140 135 - 145 03/05/2012 Normal [facility] CHEMISTRY Chloride Lvl 105 95 - 109 03/05/2012 Normal [facility] CHEMISTRY BUN 14 7 - 22 03/05/2012 Normal [facility] CHEMISTRY CO2 23 24 - 32 03/05/2012 LOW [facility] CHEMISTRY Calcium Lvl 9.0 8.5 - 10.5 03/05/2012 Normal [facility] CHEMISTRY AGAP 16.5 10.0 - 20.0 03/05/2012 Normal [facility] CHEMISTRY Glucose Lvl 125 70 - 99 03/05/2012 HI <sup>2</sup>Interpretive Data: Adult ref erence range values reflect the clinical guidelines
of the [place] [employer]. [facility] CHEMISTRY Creatinine Lvl 0.8 0.5 - 1.4 03/05/2012 Normal [facility] HEMATOLOGY MPV 7.9 7.4 - 10.4 03/05/2012 Normal [facility] HEMATOLOGY MCV 90.6 81.0 - 99.0 03/05/2012 Normal [facility] HEMATOLOGY MCH 30.9 27.0 - 31.0 03/05/2012 Normal [facility] HEMATOLOGY MCHC 34.1 32.0 - 36.0 03/05/2012 Normal [facility] HEMATOLOGY RDW 13.4 11.5 - 14.5 03/05/2012 Normal [facility] HEMATOLOGY Platelet 414 133 - 450 03/05/2012 Normal [facility] HEMATOLOGY Hgb 12.9 12.0 - 16.0 03/05/2012 Normal [facility] HEMATOLOGY Hct 37.9 36.0 - 48.0 03/05/2012 Normal [facility] HEMATOLOGY WBC 12.5 3.7 - 10.4 03/05/2012 [facility] HEMATOLOGY RBC 4.18 4.20 - 5.40 03/05/2012 LOW [facility] HEMATOLOGY Lymphocytes # 2.0 1.0 - 5.5 03/05/2012 Normal [facility] HEMATOLOGY Eosinophils # 0.0 0.0 - 0.5 03/05/2012 Normal [facility] HEMATOLOGY Monocytes # 0.5 0.0 - 0.8 03/05/2012 Normal [facility] HEMATOLOGY Basophils 0.1 0.0 - 1.0 03/05/2012 Normal [facility] HEMATOLOGY Basophils # 0.0 0.0 - 0.2 03/05/2012 Normal [facility] HEMATOLOGY Segs-Bands # 9.9 1.5 - 8.1 03/05/2012 [facility] HEMATOLOGY Eosinophils 0.1 0.0 - 4.0 03/05/2012 Normal [facility] HEMATOLOGY Monocytes 3.7 2.0 - 12.0 03/05/2012 Normal [facility] HEMATOLOGY Lymphocytes 16.3 20.0 - 40.0 03/05/2012 LOW [facility] HEMATOLOGY Segs 79.8 45.0 - 75.0 03/05/2012 [facility] CHEMISTRY AGAP 15.4 10.0 - 20.0 03/03/2012 Normal [facility] CHEMISTRY BUN 13 7 - 22 03/03/2012 Normal [facility] CHEMISTRY CO2 25 24 - 32 03/03/2012 Normal [facility] CHEMISTRY Calcium Lvl 8.8 8.5 - 10.5 03/03/2012 Normal [facility] CHEMISTRY Glucose Lvl 107 70 - 99 03/03/2012 HI <sup>3</sup>Interpretive Data: Adult ref erence range values reflect the clinical guidelines
of the [place] [employer]. [facility] CHEMISTRY Sodium Lvl 143 135 - 145 03/03/2012 Normal [facility] CHEMISTRY Creatinine Lvl 0.6 0.5 - 1.4 03/03/2012 Normal [facility] CHEMISTRY Potassium Lvl 4.4 3.5 - 5.1 03/03/2012 Normal [facility] CHEMISTRY Chloride Lvl 107 95 - 109 03/03/2012 Normal [facility] HEMATOLOGY Monocytes # 0.5 0.0 - 0.8 03/03/2012 Normal [facility] HEMATOLOGY Eosinophils # 0.0 0.0 - 0.5 03/03/2012 Normal [facility] HEMATOLOGY Basophils # 0.0 0.0 - 0.2 03/03/2012 Normal [facility] HEMATOLOGY Segs-Bands # 11.4 1.5 - 8.1 03/03/2012 [facility] HEMATOLOGY Basophils 0.3 0.0 - 1.0 03/03/2012 Normal [facility] HEMATOLOGY Eosinophils 0.0 0.0 - 4.0 03/03/2012 Normal [facility] HEMATOLOGY Segs 82.1 45.0 - 75.0 03/03/2012 [facility] HEMATOLOGY Monocytes 3.7 2.0 - 12.0 03/03/2012 Normal [facility] HEMATOLOGY Lymphocytes # 1.9 1.0 - 5.5 03/03/2012 Normal [facility] HEMATOLOGY Lymphocytes 13.9 20.0 - 40.0 03/03/2012 LOW [facility] HEMATOLOGY RDW 13.5 11.5 - 14.5 03/03/2012 Normal [facility] HEMATOLOGY Platelet 402 133 - 450 03/03/2012 Normal [facility] HEMATOLOGY MCHC 33.8 32.0 - 36.0 03/03/2012 Normal [facility] HEMATOLOGY MPV 7.9 7.4 - 10.4 03/03/2012 Normal [facility] HEMATOLOGY Hgb 12.2 12.0 - 16.0 03/03/2012 Normal [facility] HEMATOLOGY RBC 3.96 4.20 - 5.40 03/03/2012 LOW [facility] HEMATOLOGY MCV 91.2 81.0 - 99.0 03/03/2012 Normal [facility] HEMATOLOGY Hct 36.1 36.0 - 48.0 03/03/2012 Normal [facility] HEMATOLOGY WBC 13.9 3.7 - 10.4 03/03/2012 HI [facility] HEMATOLOGY MCH 30.8 27.0 - 31.0 03/03/2012 Normal [facility] HEMATOLOGY Bands 3.0 0.0 - 11.0 03/02/2012 Normal [facility] HEMATOLOGY Elliptocyte Sligh t *ABN* (03/02/2012 04:41:00) None S een 03/02/2012 ABN [facility] HEMATOLOGY Anisocyte 1+ *ABN* (03/02/2012 04:41:00) None S een 03/02/2012 ABN [facility] HEMATOLOGY Plt Morph Bonnie l (03/02/2012 04:41:00) 03/02/2012 Normal [facility] HEMATOLOGY Atypical Lymphs 0.0 <=0.0 03/02/2012 Normal [facility] HEMATOLOGY RBC Morph See N ote (03/02/2012 04:41:00) 03/02/2012 Normal [facility] HEMATOLOGY Metamyelocytes 1.0 0.0 - 1.0 03/02/2012 Normal [facility] Microbiology Culture: Blood 02/28/2012 [facility] Microbiology Culture: Blood 02/28/2012 [facility] CHEMISTRY Albumin Lvl 3.6 3.5 - 5.0 02/28/2012 Normal [facility] CHEMISTRY ALT 25 0 - 65 02/28/2012 Normal [facility] CHEMISTRY Alk Phos 97 39 - 136 02/28/2012 Normal [facility] CHEMISTRY Bili Total 0.4 0.2 - 1.3 02/28/2012 Normal [facility] CHEMISTRY Total Protein 8.1 6.4 - 8.4 02/28/2012 Normal [facility] CHEMISTRY AST 14 0 - 37 02/28/2012 Normal [facility] CHEMISTRY A/G Ratio 0.8 0.7 - 1.6 02/28/2012 Normal [facility] CHEMISTRY B/C Ratio 20 6 - 25 02/28/2012 Normal [facility] CHEMISTRY Globulin 4.5 2.0 - 4.0 02/28/2012 HI [facility] CHEMISTRY Lactic Acid Lvl 1.3 0.5 - 2.2 02/28/2012 Normal [facility] Pathology Reports No Data Provided for This Section Diagnostic Reports Report Value Date Source Chest 2 views DX PROCEDURE INF ORMATION: Exam: XR Chest, 2 Views Exam date and time: 10/28/2019 10:11 AM Age: 74 years old Clinical indication: Cough; Additional info: /r05 cough. Patient here for cough for about 10+ months; Denies history of pulmonary issues. TECHNIQUE: Imaging protocol: XR of the chest Views: 2 views. COMPARISON: CHEST 2 VIEWS DX 05/13/2019 1:48 PM Lungs: There are normal lung volumes without interstitial or airspace opacities. Pleural space: There are no pleural effusions or pneumothorax. Heart/Mediastinum: The heart size is normal. The pulmonary vasculature is normal. The mediastinal contour is normal. The trachea is in the midline. Bones/joints: No acute abnormalities. IMPRESSION: No chest radiographic evidence of acute cardiopulmonary disease. Michele Blount MD On 10/28/2019 14:56:36; [id number] 10/28/2019 [facility] Chest 2 views DX PROCEDURE: CH EST TWO VIEW INDICATION: Cough, reflux, hiatal hernia COMPARISON: 12/11/2018 FINDINGS: No consolidation is present. The pleura, cardiac silhouette and bony thorax are normal. No vascular congestion is present. Aortic arch is prominent. IMPRESSION: No acute cardiopulmonary process. SL: TINO 05/13/2019 [facility] Sinus wo contrast CT Clinical Indication: - R05 Cough, J31.0 Chronic rhinitis, R49.0 Dysphonia Comparison: Comparison is made to the 12/12/2018 exam Technique: CT of the sinuses is performed without contrast on a multi-detector CT. Coronal and sagittal reconstructions were obtained. CT Radiation Dose DLP 367 mGy-cm FINDINGS: PARANASAL SINUSES: The maxillary sinuses are clear and the osteomeatal complexes are patent. The ethmoid complex is clear and the sphenoethmoidal recesses are patent. The sphenoid sinus is clear. The frontal sinuses are clear and the frontal recesses are patent. SOFT TISSUES: There is no soft tissue swelling seen. There is no significant lymphadenopathy noted. There are no fluid collections. NASAL CAVITY: There is a partial bilateral ethmoidectomy. The mucosal inflammatory changes in the left mid and posterior ethmoid air cells is no longer present. There is persistent mucosal thickening in the posterior dependent left sphenoid sinus. Mucosal inflammatory changes in the base of the right maxillary sinus has remitted. There is persistent mucosal thickening along the bilateral medial wall extending to the ostium. Minimal mucosal thickening in the frontal ethmoid recesses the medial right frontal sinus is present. The nasal septum is in midline position. The turbinates are normal. There is no nasal polyposis. There is either postsurgical or posttraumatic dehiscence of the superior left lateral nasal bone. The evaluation of the brain parenchyma is technically limited as a study is performed in a bone algorithm. ORBITS: The globes and extraocular muscles appear unremarkable. The orbital apex regions appear unremarkable. The orbital roof, floor, superior, inferior, medial and lateral olvera are intact. FACIAL BONES: There are no facial bone fractures noted. The pterygoid plates are intact. The zygomatic arches are intact. The cribriform plate and tom kathie regions are unremarkable. The maxilla is intact. The mandible is intact with intact mandibular condyles and coronoid processes. IMPRESSION: There is an interval partial ethmoidectomy, with resolution of the previous mucosal inflammatory changes within the left mid and posterior ethmoid air cells. Diminished mucosal inflammatory changes in the base of the right maxillary sinus is noted. There is persistent mucosal thickening along the bilateral medial wall extending to the ostium as well as in the posterior dependent left sphenoid sinus. The nasal septum is in midline position. The turbinates are normal. There is no nasal polyposis. There is either postsurgical or posttraumatic dehiscence of the superior left lateral nasal bone. SL: LORRIE 04/08/2019 [facility] Barium swallow DX Patient Name : DANIA LUCIO : 1945; Age: 73 years y/o Female MR: [id number] Barium swallow DX COMPARISON: CT chest 12/12/2018, CT abdomen pelvis 08/08/2012 CLINICAL HISTORY: - Dysphagia; GERD. The patient states she has a chronic cough for at least 4 months along with a history of bronchitis, prior sinus surgery, and allergy shots. She states she has difficulty when eating solids like bread and feels like she is choking. Reportedly she has had a negative EGD approximately 7 years ago. Also states she has had a prior cholecystectomy FLUOROSCOPY TIME: 2.5 minutes REFERENCE AIR KERMA: 63.32 mGy TECHNIQUE: Thin barium was utilized for recumbent prone oblique and LPO images. Thick barium was utilized for upright imaging of the esophagus and pharynx. Granola bar mixed with barium was given to evaluate motility with solids. FINDINGS: The examination was slightly limited secondary to significant chronic coughing with resultant motion throughout the exam. There is no delay in passage of the barium bolus from the pharynx into the esophagus. The cricopharyngeus relaxes normally. There is no evidence for cricopharyngeal bar or Zenker's diverticulum. Prone and LPO images of the esophagus reveal a small 1-2 cm sliding hiatal hernia at the GE junction. There is mild delay in contrast passage. No significant dysmotility is appreciated. No reflux is identified. Upright images with thick barium reveal no significant delay or dysmotility. No mass lesions or strictures are visualized. The aforementioned hernia reduces on the upright views. Subsequently 2 separate swallows of a small piece of granola bar and barium were fluoroscopically followed through the length of the esophagus. There is no significant delay in passage of both solid boluses through the esophagus and subsequently into the stomach. Overhead image performed at the conclusion of the procedure reveals prompt passage of the barium from the stomach into the small bowel. Right upper quadrant surgical clips consistent with prior cholecystectomy are noted. IMPRESSION: The exam is slightly limited secondary to chronic coughing with resultant motion. 1-2 cm sliding hiatal hernia at the GE j unction which reduces on the upright views. Mild delay in contrast passage on the recumbent views. SL: [id number] Thank you for allowing [facility] to participate in the care of your patient. 02/25/2019 [facility] Chest wo contrast CT Clinical Indication: - Pneumonia Comparison: None TECHNIQUE: Sequential trans-axial images were obtained thru the chest and upper abdomen without iodinated contrast. Oral contrast has been administered. Coronal and sagittal reconstructions were obtained. Dose: DLP = 295 mGy-cm FINDINGS: LUNG PARENCHYMA AND PLEURA: There are no lung nodules. There is no significant interstitial lung disease. There are no pleural effusions. There is no pneumothorax. AIRWAY: The central airway is normal. . MEDIASTINUM: No significant mediastinal lymphadenopathy. HEART: The cardiac chambers are unremarkable. There is no pericardial effusion. VASCULAR STRUCTURES: The pulmonary arteries and great vessels are unremarkable. The thoracic aorta is grossly within normal limits.. The superior vena cava is unremarkable. OSSEOUS STRUCTURES: There are no significant osseous abnormalities seen. SOFT TISSUE: The subcutaneous soft tissues are unremarkable. VISUALIZED UPPER ABDOMEN: The visualized upper abdomen is within normal limits. ESOPHAGUS: No gross abnormalities. IMPRESSION: 1. Chest CT without contrast within nor mal limits. SL: [id number] 12/12/2018 [facility] Sinus wo contrast CT CT PARANA SRAVAN SINUSES WITHOUT CONTRAST WITH SAGITTAL AND CORONAL REFORMATTED IMAGES HISTORY: ; - cough; COMPARISON: Paranasal sinus radiography dated 11/06/2018 FINDINGS: Moderate mucosal thickening in the right maxillary sinus. Mild mucosal thickening in the left maxillary sinus. No right or left maxillary sinus air- fluid level. Occlusion of the infundibulum of the right ostiomeatal unit secondary to mucosal thickening. Left ostiomeatal unit remains patent. Moderate mucosal thickening in the left ethmoid air cells and mild mucosal thickening in the right ethmoid air cells. Frontal sinus is clear. Air-fluid level within the small left-sided loculation of the sphenoid sinus. The right loculation of the sphenoid sinus is clear. The nasal passages are clear. No evidence of nasal polyposis. Mastoid air cells are clear bilaterally. Middle ear is clear bilaterally. There is no sinus atrophy or expansion. There is no osseous erosion. IMPRESSION: Moderate sinus disease. SL: VADIM 12/12/2018 [facility] Chest 2 views DX Patient Name: DANIA LUCIO : 1945; Age: 73 years y/o Female MR: [id number] * CHEST, 2 views HISTORY: Bilateral wheezing, asthma exacerbation. COMPARISON: 11/04/2018. A chest CT scan of 03/22/2012 was reviewed. TECHNIQUE: Frontal and lateral radiographs of the chest were obtained. FINDINGS: There is no evidence of an active or acute process within the chest. The lungs are clear. There are no pleural effusions. The heart and pulmonary vasculature are within normal limits. The regional skeleton is unremarkable. There are surgical clips in the right upper quadrant consistent with a prior cholecystectomy. IMPRESSION: 1. No active disease. 2. Status post cholecystectomy. SL: TIO 12/11/2018 [facility] Thyroid US EXAM: THYROID ULTRA SOUND INDICATION: Thyroid goiter. Chronic cough. COMPARISON: 07/28/2013 thyroid ultrasound. TECHNIQUE: Multiplanar grayscale and color Doppler ultrasound of the neck were obtained in the area of the thyroid. FINDINGS: Thyroid parenchyma: Smooth echotexture Size: Isthmus thickness: 0.2 cm Right thyroid: 3.8 x 2.3 x 1.9 cm Left thyroid: 3.6 x 1.5 x 1.2 cm Thyroid nodules: NODULE # 1 - Size: 1.8 x 1.9 x 1.4 cm, previously m easuring 1.4 x 1.4 x 1.2 cm on the prior study with lack of cystic foci on the prior study. - Location: Right inferior - Composition: mixed cystic/solid: 1 poi nt - Echogenicity: hyper or isoechoic: 1 po int - Shape: wider than tall: 0 points - Margin: smooth: 0 points - Echogenic foci?: none: 0 points ACR TI-RADS Category: TR2: 2 points. Not suspicious. No FNA required. NODULE # 2 - Size: 0.4 x 0.3 x 0.3 cm - Location: Right inferior - Composition: solid or almost completel y solid: 2 points - Echogenicity: hyper or isoechoic: 1 po int - Shape: wider than tall: 0 points - Margin: smooth: 0 points - Echogenic foci?: none: 0 points ACR TI-RADS Category: TR3: 3 points. Mildly suspicious. If >= 1.5 cm follow up at 1,3 and 5 years. If >=2.5 cm FNA Cervical lymph nodes: No adenopathy on the submitted images. IMPRESSION: 1. Multinodular thyroid gland. 2. Thyroid nodule(s) detailed above do( es) not meet QUINCY criteria for fine needle aspiration or sonographic follow-up at this time. REFERENCE: [place] BR et al. 2015 [place] [employer] Management Guidelines for Adult Patients with Thyroid Nodules and Differentiated Thyroid Cancer. Thyroid. 2016; 26(1):1-133. SL: [id number] 11/07/2018 [facility] Sinus paranasal series DX Para nasal sinuses 4 views 11/06/2018 HISTORY: Cough FINDINGS: There is an air-fluid level in the left maxillary sinus. Small air- fluid level in the right maxillary sinus is noted. The frontal sinuses, ethmoid air cells, and sphenoid sinuses are well pneumatized. The visualized mastoid air cells are clear IMPRESSION: 1. Moderate left maxillary sinusitis. 2. Mild right maxillary sinusitis. SL: TINO 11/06/2018 [facility] Chest 1view DX Clinical Indica tion: Absent of breath sounds - pnuemonia; Comparison: 03/04/2012 FINDINGS: AP chest radiographs shows normal lung volumes with left basilar platelike atelectasis. There is no effusion or pneumothorax. The heart size and pulmonary vasculature are normal. The trachea is midline. There are no clinically significant osseous abnormalities noted. IMPRESSION: 1. Left basilar platelike atelectasis. SL: [id number] 11/04/2018 [facility] Thyroid US HISTORY: Goiter. Thyroid ultrasound exam. Comparison 04/08/2012. Right lobe 4 x 1.6 x 2.1 cm. Left lobe 3.8 x 1.7 x 1.9 cm. Isthmus 2 mm. In the inferior pole the right lobe there is a 1.4 x 1.4 x 1.2 cm solid nodule. It is stable or slightly smaller since previous study. No new nodule or lesion appreciated. IMPRESSION: Solid nodule right lobe lower pole, stable from 04/08/2012. SL:13 07/28/2013 [facility] Consultation Notes No Data Provided for This Section Discharge Summaries No Data Provided for This Section History and Physicals No Data Provided for This Section Vital Signs Vital Sign Value Date Comments Source Respitory Rate 19 06/23/2019 [facility] Systolic (mm Hg) 134 06/23/2019 [facility] Diastolic (mm Hg) 56 06/23/2019 [facility] Respitory Rate 19 06/23/2019 [facility] Systolic (mm Hg) 142 06/23/2019 [facility] Diastolic (mm Hg) 62 06/23/2019 [facility] Respitory Rate 16 06/23/2019 [facility] Systolic (mm Hg) 143 06/23/2019 [facility] Diastolic (mm Hg) 59 06/23/2019 [facility] Height 154.94 cm 06/23/2019 [facility] Weight 68.182 06/23/2019 [facility] BMI Calculated 28.4 06/23/2019 [facility] Systolic (mm Hg) 133 12/18/2018 [facility] Diastolic (mm Hg) 57 12/18/2018 [facility] Systolic (mm Hg) 125 12/18/2018 [facility] Diastolic (mm Hg) 55 12/18/2018 [facility] Systolic (mm Hg) 137 12/18/2018 [facility] Diastolic (mm Hg) 52 12/18/2018 [facility] Respitory Rate 18 12/18/2018 [facility] Respitory Rate 16 12/18/2018 [facility] Respitory Rate 17 12/18/2018 [facility] Temperature Oral (F) 97.9 F 12/18/2018 [facility] Heart Rate 68 12/18/2018 [facility] Height 154.94 cm 12/18/2018 [facility] BMI Calculated 28.97 12/18/2018 [facility] Weight 69.545 12/18/2018 [facility] Heart Rate 94 12/13/2018 [facility] Systolic (mm Hg) 143 12/13/2018 [facility] Diastolic (mm Hg) 61 12/13/2018 [facility] Temperature Oral (F) 97.2 F 12/13/2018 [facility] Systolic (mm Hg) 153 12/13/2018 [facility] Diastolic (mm Hg) 71 12/13/2018 [facility] Respitory Rate 20 12/13/2018 [facility] Heart Rate 85 12/13/2018 [facility] Temperature Oral (F) 98.1 F 12/13/2018 [facility] Temperature Oral (F) 97.8 F 12/13/2018 [facility] Systolic (mm Hg) 136 12/13/2018 [facility] Diastolic (mm Hg) 67 12/13/2018 [facility] Heart Rate 80 12/13/2018 [facility] Respitory Rate 20 12/13/2018 [facility] Respitory Rate 20 12/13/2018 [facility] Height 154.94 cm 12/11/2018 [facility] Weight 70.455 12/11/2018 [facility] BMI Calculated 29.35 12/11/2018 [facility] Systolic (mm Hg) 124 11/08/2018 [facility] Diastolic (mm Hg) 61 11/08/2018 [facility] Heart Rate 91 11/08/2018 [facility] Temperature Oral (F) 98.2 F 11/08/2018 [facility] Respitory Rate 12 11/08/2018 [facility] Temperature Oral (F) 97.8 F 11/08/2018 [facility] Heart Rate 69 11/08/2018 [facility] Systolic (mm Hg) 156 11/08/2018 [facility] Diastolic (mm Hg) 79 11/08/2018 [facility] Respitory Rate 16 11/08/2018 [facility] Respitory Rate 16 11/08/2018 [facility] Temperature Oral (F) 98.0 F 11/08/2018 [facility] Heart Rate 71 11/08/2018 [facility] Systolic (mm Hg) 147 11/08/2018 [facility] Diastolic (mm Hg) 73 11/08/2018 [facility] BMI Calculated 29.98 11/04/2018 [facility] Height 154.94 cm 11/04/2018 [facility] Weight 71.96 11/04/2018 [facility] Height 154.94 cm 08/09/2012 [facility] Weight 69.545 08/09/2012 [facility] Heart Rate 80 03/06/2012 [facility] Systolic (mm Hg) 145 03/06/2012 [facility] Respitory Rate 16 03/06/2012 [facility] Temperature Oral (F) 97.8 F 03/06/2012 [facility] Diastolic (mm Hg) 65 03/06/2012 [facility] Diastolic (mm Hg) 69 03/06/2012 [facility] Respitory Rate 16 03/06/2012 [facility] Systolic (mm Hg) 109 03/06/2012 [facility] Heart Rate 78 03/06/2012 [facility] Temperature Oral (F) 98.5 F 03/06/2012 [facility] Systolic (mm Hg) 126 03/06/2012 [facility] Respitory Rate 18 03/06/2012 [facility] Diastolic (mm Hg) 65 03/06/2012 [facility] Heart Rate 77 03/06/2012 [facility] Temperature Oral (F) 97.9 F 03/06/2012 [facility] Weight 64.091 02/28/2012 [facility] Height 154.94 cm 02/28/2012 [facility] Encounters Location Location Details Encounter Type Encounter Number Reason For Visit Attending Provider ADM Date DC Date Status Source [facility] Inpatient [id number] PNEUMONIA TASH PASCUAL 02/28/2012 03/06/2012 Active [facility] Out[facility] [id number] CHRONIC COUGH/PE/ SOB *PE PROTOCOL* STAT STAT* ALBERTO GRACIELA 03/22/2012 03/22/2012 Active [facility] Outpatient [id number] THYROID NODULE ALBERTO OWENS 04/08/2012 04/08/2012 Active [facility] Outpatient [id number] PAIN ALBERTO OWENS 05/03/2012 05/03/2012 Active [facility] Emergency [id number] HUMERA SEN 08/08/2012 08/08/2012 Discharged [facility] Inpatient [id number] Tashjess Oneill 11/04/2018 11/08/2018 [facility] Inpatient [id number] Alberto Owens 12/11/2018 12/13/2018 [facility] Day Surgery [id number] Raysa Quoc 12/18/2018 12/18/2018 [facility] Outpatient [id number] Alberto Owens 02/25/2019 02/26/2019 [facility] Outpatient [id number] Raysa Kumari 04/08/2019 04/09/2019 [facility] Outpatient [id number] Alberto Owens 05/13/2019 05/14/2019 [facility] Bedded Outpatient [id number] Alberto Owens 06/23/2019 06/23/2019 [facility] Outpatient [id number] Alberto Owens 10/28/2019 10/29/2019 [facility] Outpatient [id number] THYROID NODULE ALBERTO OWENS Cancel [facility] Outpatient [id number] 241.9 ALBERTO OWENS [facility] [facility] Procedures Procedure Code Date Perfomer Comments Source Colonoscopy [id number] [facility] st Cholecystectomy [id number] [facility] Assessment and Plan Assessment and Plan Date Source Extracted from:Title: Clinical Document Author: Janessa Vasquez MD Date: 12/13/18 FINAL DIAGNOSIS ON DISCHARGE Chronic cough Asthma [...] she will follow-up with my colleague Dr. Owens as well as follow up with him [...] Alert No focal deficits Skin: No rash Vitals Tmp(F) Pulse BP RR SpO2 FIO2 12/13 15:39 97.2 94 143/61 - - 97 --- 12/13 11:19 98.1 85 153/71 2 0 97 --- 12/13 07:15 97.8 80 136/67 2 0 95 --- 12/13 07:13 ---- --- ----- - - 98 --- 12/13 04:01 97.8 94 122/66 2 0 93 --- 24 Hr Tmax: 98.4F (36.89c) at 12/13 00:0 4 Vital Signs are the last 5 in the past 48 hours. (all previously charted lines have been discontinued) I/O Intake Output Balance 12/13/2018 7a-3p 585.50 0.00 585.50 3p-11p 0.00 0.00 0.00 As of 16:02 11p-7a 0.00 0.00 0.00 Totals 585.50 0.00 585.50 12/12/2018 7a-3p 820.50 0.00 820.50 3p-11p 460.50 0.00 460.50 11p-7a 340.00 0.00 340.00 Totals 1621.00 0.00 1621.00 12/11/2018 7a-3p 0.00 0.00 0.00 3p-11p 460.00 0.00 460.00 11p-7a 101.00 0.00 101.00 Totals 561.00 0.00 561.00 12/13/2018 15:39 SpO2 percent 97 12/12/2018 20:18 FIO2 (%) 21 Radiology Labs Labs (Last four charted values) WBC H 11.7 (DEC 11) Hgb 13.5 (DEC 11) Hct 40.3 (DEC 11) Plt 359 (DEC 11) Na 138 (DEC 11) K 3.9 (DEC 11) CO2 25 (DEC 11) Cl 107 (DEC 11) Cr 0.75 (DEC 11) BUN 17 (DEC 11) Glucose Random H 214 (DEC 11) Mg H 2.6 (DEC 11) Phos 3.4 (DEC 11) Ca 9.2 (DEC 11) Medications (16) Active Scheduled: (11) albuterol-ipratropium 2.5 mg-0.5 mg/3 ml TOSHA 3 mL, NEB, RQ6H docusate sodium 100 mg CAP 100 mg 1 cap, PO, BID enoxaparin 40 mg/0.4 ml INJ 40 mg 0.4 mL, SUB-Q, [id number] fluticasone 0.05 mg/inh 16gm SPR nasal 2 [...] Q6H TOTAL DISCHARGE TIME 35 min Extracted from:Title: Clinical Document Author: Raysa Kumari MD Date: 12/13/18 ENT Progress Note Raysa Kumari MD Attending: Alberto Owens MD Service: Pulmonology/Respiratory Therapy Code status: Full Code Reason for Admission: ASTHMA WITH BRONCHITIS AND STATUS ASTHMATICUS Working DRG: Isolation: No Isolation/Standard Precautions Consulting Physicians: Tash Oneill MD Office: Service: Medicine Alberto Owens MD Office: Service: Pulmonary, Medicine Raysa Kumari MD Office: Service: Otolaryngology Allergies: NKDA Vitals and Temp: Vitals Tmp(F) Pulse BP RR SpO2 FIO2 12/13 11:19 98.1 85 153/71 2 0 97 --- 12/13 07:15 97.8 80 136/67 2 0 95 --- 12/13 07:13 ---- --- ----- - - 98 --- 12/13 04:01 97.8 94 122/66 2 0 93 --- 12/13 00:04 98.4 91 127/70 2 0 --- --- 24 Hr Tmax: 98.4F (36.89c) at 12/13 00:0 4 Vital Signs are the last 5 in the past 48 hours. Lines, Tubes, and Drains: 12/11/2018 15:17 Peripheral Lines: Wrist Right 22 gauge Over the needle catheter SUBJECTIVE: less cough today EXAM: pale sinus muccosa/ no sinus tenderness. no active coughing while talking as was the case yesteday ASSESSMENT: welsh sinusitis not resolved with maximal medical management. PLAN and TREATMENT: will setup fusion fess while in hospital early next week if cleared and ready per operations planner. DIAGNOSES and PROBLEMS: Active Problems (2) Acute interstitial pneumonia HT - Hypertension I/O Intake Output Balance 12/13/2018 7a-3p 340.50 0.00 340.50 As of 12:17 3p-11p 0.00 0.00 0.00 11p-7a 0.00 0.00 0.00 Totals 340.50 0.00 340.50 12/12/2018 7a-3p 820.50 0.00 820.50 3p-11p 460.50 0.00 460.50 11p-7a 340.00 0.00 340.00 Totals 1621.00 0.00 1621.00 12/11/2018 7a-3p 0.00 0.00 0.00 3p-11p 460.00 0.00 460.00 11p-7a 101.00 0.00 101.00 Totals 561.00 0.00 561.00 Medications (16) Active Scheduled Meds (11): 12/11/18 albuterol-ipratropium (albutero l-ipratropium 2.5-0.5 mg inhalation solution) 3 mL NEB RQ6H 12/11/18 docusate 100 mg PO BID 12/12/18 enoxaparin 40 mg SUB-Q [id number] 12/12/18 fluticasone nasal (Flonase 0.05 mg/inh nasal [...] Q8H 25 ml/hr 12/12/18 sodium chloride nasal (Castalia Sali ne Nasal No-Drip [place] 0.65% gel) 1 spray NASAL QID Unscheduled [...] None 24hr Labs 12/13 1123 POC Performing Locatio See Note Glucose POC 134 H 12/13 0720 POC Performing Locatio See Note Glucose POC 114 H 12/12 2153 POC Performing Locatio See Note Glucose POC 131 H 12/12 1608 POC Performing Locatio See Note Glucose POC 185 H Extracted from:Title: Clinical Document Author: Raysa Kumari MD Date: 12/12/18 ENT Consultation Note Raysa Kumari MD Attending: Alberto Owens MD Service: Pulmonology/Respiratory Therapy Code status: Full Code Reason for Admission: ASTHMA WITH BRONCHITIS AND STATUS ASTHMATICUS Working DRG: Isolation: No Isolation/Standard Precautions Consulting Physicians: Tash Oneill MD Office: Service: Medicine Alberto Owens MD Office: Service: Pulmonary, Medicine Raysa Kumari MD Office: Service: Otolaryngology Allergies: NKDA Vitals and Temp: Vitals Tmp(F) Pulse BP RR SpO2 FIO2 12/12 08:30 97.7 87 133/70 - - 88 --- 12/12 06:58 ---- --- ----- - - 96 --- 12/12 06:56 ---- --- ----- - - 96 --- 12/12 04:04 98.0 91 123/66 1 6 94 --- 12/11 23:16 97.5 69 130/68 1 6 --- --- 24 Hr Tmax: 98.0F (36.67c) at 12/12 04:0 4 Vital Signs are the last 5 in the past 48 hours. SUBJECTIVE wheezing and cough cant catch breath and coughing continuously admitted direct by Dr Owens pt was seen in office /[address] sinus and allergy testing scheduled [...] lungs rhonchi deminished breath sounds diffuse. ASSESSMENT and EXAM wheezing/ coughing with exacerbation of bronchitis/ sinusitis PLAN and TREATMENT pt received ct sinus this am pt has allergy testing scheduled on but needs improved lung function prior. if ct sinus showing extensive dz will consider sinus surgery but not candidate at this time due to severe wheezing/ cough could consider next week but will await clearance. cont flonase/ saline prednisone. DIAGNOSES and PROBLEMS Active Problems (2) Acute interstitial pneumonia HT - Hypertension I/O Intake Output Balance 12/11/2018 7a-3p 0.00 0.00 0.00 3p-11p 460.00 0.00 460.00 11p-7a 101.00 0.00 101.00 Totals 561.00 0.00 561.00 12/10/2018 7a-3p 0.00 0.00 0.00 3p-11p 0.00 0.00 0.00 11p-7a 0.00 0.00 0.00 Totals 0.00 0.00 0.00 Medications (15) Active Scheduled Meds (11): 12/11/18 albuterol-ipratropium (albutero l-ipratropium 2.5-0.5 mg inhalation solution) 3 mL NEB RQ6H 12/11/18 docusate 100 mg PO BID 12/12/18 enoxaparin 40 mg SUB-Q [id number] 12/12/18 fluticasone nasal (Flonase 0.05 mg/inh nasal [...] Q8H 25 ml/hr 12/12/18 sodium chloride nasal (Castalia Sali ne Nasal No-Drip [place] 0.65% gel) 1 spray NASAL QID Unscheduled [...] Infusions: None 24hr Labs 12/12 0510 Hgb A1C 6.3 H 12/11 1451 Sodium Lvl 138 Potassium Lvl 3.9 Chloride Lvl 107 CO2 25 AGAP 9.9 L Glucose Lvl 214 H Creatinine Lvl 0.75 BUN 17 B/C Ratio 23 Total Protein 7.3 Albumin Lvl 3.8 Globulin 3.5 A/G Ratio 1.1 Calcium Lvl 9.2 ALT 35 AST 11 Alk Phos 101 Bili Total 0.3 eGFR 80 Magnesium Lvl 2.6 H Phosphorus 3.4 TSH 1.600 WBC 11.7 H RBC 4.49 Hgb 13.5 Hct 40.3 MCV 89.9 MCH 30.1 MCHC 33.5 RDW 14.3 Platelet 359 MPV 8.0 Segs 69.9 Monocytes 6.9 Lymphocytes 22.5 Eosinophils 0.3 Basophils 0.4 Neutrophils # 8.2 H Lymphocytes # 2.6 Monocytes # 0.8 Basophils # 0.1 Sed Rate 13 IgE Lvl 749.0 H 12/13/2018 [facility] Extracted from:Title: Clinical Document Author: Nargis Patton MD Date: 11/07/18 Pulmonary and Critical Care Progress Note [facility] Sujective/overnight events: Chart reviewed. Patient [...] 0.9% IV 100 mL 1 gm IVPB [id number] 25 ml/hr 11/05/18 fluticasone nasal (Flonase 0.05 mg/inh nasal spray) 2 spray Each Affected Nostril BID 11/07/18 methylPREDNISolone (Solu-MEDROL ) 40 mg IVP Q12H Continuous Infusions: None Labs (Last four charted values) WBC H 17.9 (NOV 07) H 20.1 (NOV 06) H 11.3 (NOV 05) Hgb 12.4 (NOV 07) 12.6 (NOV 06) 13.6 (NOV 05) Hct 37.4 (NOV 07) 38.1 (NOV 06) 40.8 (NOV 05) Plt 329 (NOV 07) 324 (NOV 06) 324 (NOV 05) Na 140 (NOV 05) K 4.1 (NOV 05) CO2 24 (NOV 05) Cl 109 (NOV 05) Cr 0.68 (NOV 05) BUN 13 (NOV 05) Glucose Random H 140 (NOV 05) Ca 9.0 (NOV 05) Objective: I&O Record In Out Bal 11/07 24hr Tot 864 0 864 11/06 24hr Tot 2600 0 2600 11/07/2018 15:10 SpO2 percent 97 11/06/2018 21:21 Oxygen Therapy Mode Room air Vital Signs (last 24 hrs) Last Charted Temp Oral 98.3 DegF (NOV 07 15:10) Heart Rate Peripheral 81 bpm (NOV 07:10) Resp Rate 16 BRMIN (NOV 07 15:10) SBP H 142mmHg (NOV 07 15:10) DBP 75 mmHg (NOV 07 15:10) SpO2 97 % (NOV 07:) Exam: Exam: General: No acute distress HEENT: [...] MD Pulmonary and Critical Care Medicine Extracted from:Title: Clinical Document Author: Raysa Kumari MD Date: 11/06/18 ENT Consultation Note Raysa Kumari MD Attending: Tash Oneill MD Service: Internal Medicine Code status: Full Code Reason for Admission: ASTHMA EXACERBATION Working DRG: Isolation: No Isolation/Standard Precautions Consulting Physicians: Tash Oneill MD Office: Service: Medicine Raysa Kumari MD Office: Service: Otolaryngology Janessa Vasquez MD Office: Service: Pulmonary, Medicine Allergies: NKDA Vitals and Temp: Vitals Tmp(F) Pulse BP RR SpO2 FIO2 11/06 08:11 ---- --- ----- 1 6 98 --- 11/06 07:42 97.8 90 154/78 1 6 97 --- 11/06 05:01 97.6 85 133/75 1 8 96 --- 11/05 23:44 97.9 86 114/62 1 8 96 --- 11/05 21:40 ---- --- ----- 1 9 97 --- 24 Hr Tmax: 97.9F (36.61c) at 11/05 23:4 4 Vital Signs are the last 5 in the [...] but not dysphagia. no reflux symptom. Seeing operations planner Dr Owens. didnt think she had pulmonary functions but [...] flex scope place atraumatically. nml nasal anatomy. cupola charger insulation wnl. glottis wnl no pooling no erythema / no swelling. no masses. nml swallowing noted. nml tvc mobility. scope removed atraumatically. PLAN and TREATMENT flexible preformed tvc wnl / no signs of reflux. no signs of sinusitis but will get plain film of sinus to see air fluid level. pt states hearing not as good so recommend f/u in office for eval of hearing. DIAGNOSES and PROBLEMS Active Problems (2) Acute interstitial pneumonia HT - Hypertension I/O Intake Output Balance 11/06/2018 7a-3p 754.75 0.00 754.75 As of 11:41 3p-11p 0.00 0.00 0.00 11p-7a 0.00 0.00 0.00 Totals 754.75 0.00 754.75 11/05/2018 7a-3p 43.08 0.00 43.08 3p-11p 301.00 0.00 301.00 11p-7a 197.25 0.00 197.25 Totals 541.33 0.00 541.33 11/04/2018 7a-3p 0.00 0.00 0.00 3p-11p 546.00 0.00 546.00 11p-7a 188.92 0.00 188.92 Totals 734.92 0.00 734.92 Medications (15) Active Scheduled Meds (6): 11/04/18 albuterol (albuterol 0.042% inh alation solution) 1.25 mg NEB RQID 11/05/18 budesonide (Pulmicort Respules 0.5 mg/2 mL inhalation suspension) 0.5 mg NEB RBID 11/04/18 cefepime + Sodium Chloride 0.9% IV 100 mL 1 gm IVPB [id number] 25 ml/hr 11/05/18 famotidine (Pepcid 20 mg [...] Continuous Infusions: None 24hr Labs 11/06 0512 WBC 20.1 H RBC 4.30 Hgb 12.6 Hct 38.1 MCV 88.7 MCH 29.4 MCHC 33.1 RDW 14.2 Platelet 324 MPV 7.9 Extracted from:Title: Clinical Document Author: Janessa Vasquez MD Date: 11/04/18 PULMONARY AND CRITICAL CARE CONSULT NOTE Reason for consult: Acute asthma exacerbation History of presenting illness: Patient is 73-year-old female who follows up with my colleague Dr. Owens in the office comes in with complaints of acute bronchitis cough and shortness of breath has been ongoing for 10 for close to 2 months, she states she has been unable to breathe, she states she is start multiple medications, the have tried [id number] medications tried antibiotics p.o., tried steroids without [...] Over the needle catheter ALLERGIES Allergies (1) Active Reaction NKDA None Documented Review of Systems CONSTITUTIONAL: no fever. [...] or depression GENERAL EXAMINATION Vitals and Temp: Vitals Tmp(F) Pulse BP RR SpO2 FIO2 11/04 16:26 ---- --- ----- 1 9 97 --- 11/04 15:48 98 81 149/78 18 97 --- 11/04 15:40 ---- --- ----- - - 98 --- 24 Hr Tmax: 98F (36.67c) at 11/04 15:48 Vital Signs are the last 5 in the [...] (mini-bag Plus) 100 mL 1 gm, IVPB, [id number] influenza virus vaccine (inactivated) trivalent high dose [...] MD MPH Pulmonary and Critical Care Medicine 11/08/2018 [facility] Plan of Care No Data Provided for This Section Social History Social History Date Source Social History TypeResponse Alcohol Past Substance Abuse Use: None. Smoking Status Former smoker; Previous treatment: None; Ready to change: No; Concerns about tobacco use in household: No; Exposure to Tobacco Smoke None; Cigarette Smoking Last 365 Days No; Reg Smoking Cessation Counseling No entered on: 06/23/19 06/23/2019 [facility] Family History No Data Provided for This Section Advance Directives No Data Provided for This Section Functional Status No Data Provided for This Section
--- OUTSIDE RECORDS SUMMARY | 2020-04-09 16:26 | XMS REPORT | Summary of Care ---
Author Author [facility] Organization [facility] Address Unknown Phone Unavailable Encounter HQ Santosh(FIN) [id number] Date(s): 04/08/19 - 04/08/19 [facility] [address] [place] [address]- [phone] Discharge Disposition: Home or Self Care Attending Physician: Raysa Kumari MD Admitting Physician: Raysa Kumari MD Referring Physician: Raysa Kumari MD Vital Signs No data available for [...]
--- OUTSIDE RECORDS SUMMARY | 2020-04-09 16:26 | XMS REPORT | CCD ---
Author Author Auto Generated, DANIA [place] [facility] Address Unknown Phone Unavailable Care Team Providers Care Solderer Barrel Ribs Name Role Phone Jaden London RP Allergies, [...]
--- OUTSIDE RECORDS SUMMARY | 2020-04-09 16:26 | XMS REPORT | Summary of Care ---
Author Author [facility] Organization [facility] Address Unknown Phone Unavailable Encounter AGUSTINA Frost(TRINY) [id number] Date(s): 12/18/18 - 12/18/18 [facility] [address] [place] [address]- [phone] Discharge Disposition: Home or Self Care Attending Physician: Raysa Kumari MD Referring Physician: Raysa Kumari MD Vital Signs 1 2 3 Most recent to oldest [Reference Range]: 154.94 cm (12/18/18 9:11 AM) Height 97.9 DegF (12/18/18 9:37 AM) Temperature Oral [96.4-99.1 DegF] 133/57 mmHg (12/18/18 3:30 PM) 125/55 mmHg (12/18/18 3:15 PM) 137/52 mmHg (12/18/18 3:00 PM) Blood Pressure [90-140/60-90 mmHg] 18 BRMIN (12/18/18 1:15 PM) 16 BRMIN (12/18/18 1:00 PM) 17 BRMIN (12/18/18 12:48 PM) Respiratory Rate [14-20 BRMIN] 68 bpm (12/18/18 9:37 AM) Peripheral Pulse Rate [60-100 bpm] 69.545 kg (12/18/18 9:11 AM) Weight 28.97 m2 (12/18/18 9:11 AM) Body Mass Index Problem List Condition Effective Dates Status Health Status Informan t Acute interstitial Active pneumonia(Confirmed) HT - Active Hypertension(Confirm ed) Allergies, Adverse Reactions, Alerts Substance Reaction Severity Status NKDA Active Medications acetaminophen-hydrocodone 325 mg-5 mg oral tablet 1 tab, Route: PO, Dosing Weight 69.545, kg, Q4H, PRN Pain Score 1-3, Start date: 12/18/18 12:37:00 CDT, Duration: 30 day, Stop date: 01/17/19 12:36:00 CDT Start Date: 12/18/18 Stop Date: 12/19/18 Status: Discontinued acetaminophen-hydrocodone 325 mg-5 mg oral tablet 2 tab, Route: PO, Dosing Weight 69.545, kg, Q4H, PRN Pain Score 4-6, Start date: 12/18/18 12:37:00 CDT, Duration: 30 day, Stop date: 01/17/19 12:36:00 CDT Start Date: 12/18/18 Stop Date: 12/19/18 Status: Discontinued Afrin 0.05% nasal spray 2 spray, Route: NASAL, Q2H, PRN Bleeding, Start date: 12/18/18 12:37:00 CDT, Dur ation: 3 day, Stop date: 12/21/18 12:36:00 CDT Start Date: 12/18/18 Stop Date: 12/19/18 Status: Discontinued Afrin 0.05% nasal spray 2 spray, Route: NASAL, PRE OP, PRN Nasal Congestion, Start date: 12/18/18 9:51:0 0 CDT, Duration: 3 day, Stop date: 12/21/18 9:50:00 CDT Start Date: 12/18/18 Stop Date: 12/19/18 Status: Discontinued ANES acetaminophen 1,000 mg, Route: IVPB, Drug form: INJ, ONCE, Dosing Weight 69.545, kg, PRN Pain Score 1-3, Start date: 12/18/18 13:55:00 CDT Start Date: 12/18/18 Stop Date: 12/18/18 Status: Completed ANES albuterol 0.083% inhalation solution 2.49 mg, Route: NEB, Q20Min, Dosing Weight 69.545, kg, PRN Wheezing, Priority: S TAT, Start date: 12/18/18 13:55:00 CDT, Duration: 30 day, Stop date: 01/17/19 13 :54:00 CDT Start Date: 12/18/18 Stop Date: 12/19/18 Status: Discontinued ANES diphenhydrAMINE 12.5 mg, Route: IVP, Drug form: INJ, Q6H, Dosing Weight 69.545, kg, PRN Itching, Start date: 12/18/18 13:55:00 CDT, Duration: 30 day, Stop date: 01/17/19 13:54: 00 CDT Start Date: 12/18/18 Stop Date: 12/19/18 Status: Discontinued ANES fentaNYL 50 microgram, Route: IVP, Q5Min, Dosing Weight 69.545, kg, PRN Pain Score 7-10, Priority: Routine, Start date: 12/18/18 13:55:00 CDT, Duration: 2 doses or times , Stop date: Limited # of times Start Date: 12/18/18 Stop Date: 12/19/18 Status: Discontinued ANES fentaNYL 25 microgram, Route: IVP, Q5Min, Dosing Weight 69.545, kg, PRN Pain Score 4-6, P riority: Routine, Start date: 12/18/18 13:55:00 CDT, Duration: 4 doses or times, Stop date: Limited # of times Start Date: 12/18/18 Stop Date: 12/19/18 Status: Discontinued ANES flumazenil 0.2 mg, Route: IVP, PRN, Dosing Weight 69.545, kg, PRN Benzodiazepine Reversal, Initial dose, Start date: 12/18/18 13:55:00 CDT, Duration: 30 day, Stop date: 13:54:00 CDT Start Date: 12/18/18 Stop Date: 12/19/18 Status: Discontinued ANES HYDROmorphone 0.5 mg, Route: IVP, Q5Min, Dosing Weight 69.545, kg, PRN Pain Score 7-10, Start date: 12/18/18 13:55:00 CDT, Duration: 4 doses or times, Stop date: Limited # of times Start Date: 12/18/18 Stop Date: 12/19/18 Status: Discontinued ANES meperidine 12.5 mg, Route: IVP, Q30Min, Dosing Weight 69.545, kg, PRN Other -See Comment, F or shivering, Start date: 12/18/18 13:55:00 CDT, Duration: 2 doses or times, Sto p date: Limited # of times Start Date: 12/18/18 Stop Date: 12/19/18 Status: Discontinued ANES naloxone 0.1 mg, Route: SUB-Q, Q6H, Dosing Weight 69.545, kg, PRN Itching, Start date: 13:55:00 CDT, Duration: 30 day, Stop date: 01/17/19 13:54:00 CDT Start Date: 12/18/18 Stop Date: 12/19/18 Status: Discontinued ANES naloxone 0.4 mg, Route: IVP, Q2MIN, Dosing Weight 69.545, kg, PRN Narcotic Reversal, Star t date: 12/18/18 13:55:00 CDT, Duration: 8 doses or times, Stop date: Limited # of times Start Date: 12/18/18 Stop Date: 12/19/18 Status: Discontinued ANES ondansetron 4 mg, Route: IVP, ONCE, Dosing Weight 69.545, kg, PRN Nausea & Vomiting, Start date: 12/18/18 13:55:00 CDT Start Date: 12/18/18 Stop Date: 12/19/18 Status: Discontinued ANES oxyCODONE 10 mg, Route: NG, Drug form: LIQ, Q4H, Dosing Weight 69.545, kg, PRN Pain Score 7-10, Start date: 12/18/18 13:55:00 CDT, Duration: 30 day, Stop date: 01/17/19 1 3:54:00 CDT Start Date: 12/18/18 Stop Date: 12/19/18 Status: Discontinued ANES oxyCODONE 10 mg, Route: PO, Drug form: TAB, Q4H, Dosing Weight 69.545, kg, PRN Pain Score 7-10, Start date: 12/18/18 13:55:00 CDT, Duration: 30 day, Stop date: 01/17/19 1 3:54:00 CDT Start Date: 12/18/18 Stop Date: 12/19/18 Status: Discontinued ANES oxyCODONE 5 mg, Route: NG, Drug form: LIQ, Q4H, Dosing Weight 69.545, kg, PRN Pain Score 4 -6, Start date: 12/18/18 13:55:00 CDT, Duration: 30 day, Stop date: 01/17/19 13: 54:00 CDT Start Date: 12/18/18 Stop Date: 12/19/18 Status: Discontinued ANES oxyCODONE 5 mg, Route: PO, Drug form: TAB, Q4H, Dosing Weight 69.545, kg, PRN Pain Score 4 -6, Start date: 12/18/18 13:55:00 CDT, Duration: 30 day, Stop date: 01/17/19 13: 54:00 CDT Start Date: 12/18/18 Stop Date: 12/19/18 Status: Discontinued ANES promethazine 6.25 mg, Route: IVPB, ONCE, Dosing Weight 69.545, kg, PRN Nausea & Vomiting, Start date: 12/18/18 13:55:00 CDT Start Date: 12/18/18 Stop Date: 12/19/18 Status: Discontinued ANES scopolamine 1.5 mg transdermal film 1 patch, Route: TOP, Drug Form: ERFILM, Dosing Weight 69.545, kg, ONCE, Apply be hind ear. Avoid use in elderly., Start date: 12/18/18 13:55:00 CDT, Stop date: 12/18/18 13:55:00 CDT Start Date: 12/18/18 Stop Date: 12/18/18 Status: Ordered ceFAZolin 2 gm, Route: IVPB, ONCALL, Dosing Weight 69.545, kg, Start date: 12/18/18 10:00: 00 CDT, Duration: 1 doses or times, ABX Indication: Surgical Prophylaxis Start Date: 12/18/18 Stop Date: 12/19/18 Status: Discontinued ceFAZolin (ANES) Route: IV, Drug form: INJ, ONCE, Stop date: 12/18/18 11:53:00 CDT Start Date: 12/18/18 Stop Date: 12/18/18 Status: Completed dexamethasone 8 mg, Route: IV, ONCALL, Dosing Weight 69.545, kg, Start date: 12/18/18 10:00:00 CDT, Duration: 30 day, Stop date: 01/17/19 9:59:00 CDT Start Date: 12/18/18 Stop Date: 12/18/18 Status: Completed dexamethasone (ANES) Route: IV, Drug form: INJ, ONCE, Stop date: 12/18/18 12:08:00 CDT Start Date: 12/18/18 Stop Date: 12/18/18 Status: Completed fentaNYL (ANES) Route: IV, Drug form: INJ, ONCE, Stop date: 12/18/18 11:53:00 CDT Start Date: 12/18/18 Stop Date: 12/18/18 Status: Completed glycopyrrolate (ANES) Route: IV, Drug form: INJ, ONCE, Stop date: 12/18/18 12:49:00 CDT Start Date: 12/18/18 Stop Date: 12/18/18 Status: Completed Lactated Ringers Injection IV (ANES) 1000 mL Route: IV, Total Volume: 1,000, Start date: 12/18/18 10:53:00 CDT, Stop date: 11:53:00 CDT Start Date: 12/18/18 Stop Date: 12/18/18 Status: Completed Lactated Ringers Injection IV 1000 mL 1,000 mL, Rate: 25 ml/hr, Infuse over: 40 hr, Route: IV, Dosing Weight 69.545 kg , Total Volume: 1,000, Start date: 12/18/18 9:52:00 CDT, Duration: 30 day, Stop date: 01/17/19 9:51:00 CDT, 1.76, m2 Start Date: 12/18/18 Stop Date: 12/18/18 Status: Discontinued lidocaine (ANES) Route: IV, Drug form: INJ, ONCE, Stop date: 12/18/18 11:53:00 CDT Start Date: 12/18/18 Stop Date: 12/18/18 Status: Completed lidocaine-epi 1%-1:[id number] 20 mL, Route: InFILtration(local), Drug Form: INJ, Dosing Weight 70.455, kg, ONC ALL, Start date: 12/18/18 8:00:00 CDT, Duration: 1 day, Stop date: 12/19/18 7:59 :00 CDT Notes: (Same as: Xylocaine w/Epinephrine) Start Date: 12/18/18 Stop Date: 12/19/18 Status: Completed midazolam (ANES) Route: IV, Drug form: SOLN, ONCE, Stop date: 12/18/18 11:28:00 CDT Start Date: 12/18/18 Stop Date: 12/18/18 Status: Completed morphine Sulfate 2 mg, Route: IVP, Q3H, Dosing Weight 69.545, kg, PRN Pain Score 1-3, Start date: 12/18/18 12:37:00 CDT, Duration: 30 day, Stop date: 01/17/19 12:36:00 CDT Start Date: 12/18/18 Stop Date: 12/19/18 Status: Discontinued neostigmine (ANES) Route: IV, Drug form: INJ, ONCE, Stop date: 12/18/18 12:49:00 CDT Start Date: 12/18/18 Stop Date: 12/18/18 Status: Completed ondansetron (ANES) Route: IV, Drug form: INJ, ONCE, Stop date: 12/18/18 11:53:00 CDT Start Date: 12/18/18 Stop Date: 12/18/18 Status: Completed propofol (ANES) Route: IV, Drug form: INJ, ONCE, Stop date: 12/18/18 11:53:00 CDT Start Date: 12/18/18 Stop Date: 12/18/18 Status: Completed rocuronium (ANES) Route: IV, Drug form: INJ, ONCE, Stop date: 12/18/18 12:08:00 CDT Start Date: 12/18/18 Stop Date: 12/18/18 Status: Completed Results HEMATOLOGY Most recent to 1 oldest [Reference Range]: WBC [3.7-10.4 K/CMM] 13.2 K/CMM *HI* (12/18/18 9:18 AM) RBC [4.20-5.40 4.81 M/CMM M/CMM] (12/18/18 9:18 AM) Hgb [12.0-16.0 g/dL] 14.3 g/dL (12/18/18 9:18 AM) Hct [36.0-48.0 %] 43.5 % (12/18/18 9:18 AM) MCV [80.0-98.0 fL] 90.4 fL (12/18/18 9:18 AM) MCH [27.0-31.0 pg] 29.7 pg (12/18/18 9:18 AM) MCHC [32.0-36.0 32.8 g/dL g/dL] (12/18/18 9:18 AM) RDW [11.5-14.5 %] 14.6 % *HI* (12/18/18 9:18 AM) MPV [7.4-10.4 fL] 8.2 fL (12/18/18 9:18 AM) Platelet [133-450 302 K/CMM K/CMM] (12/18/18:18 AM) Segs [45.0-75.0 %] 77.5 % *HI* (12/18/18 9:18 AM) Lymphocytes 16.9 % [20.0-40.0 %] *LOW* (12/18/18:18 AM) Monocytes [2.0-12.0 5.1 % %] (12/18/18 9:18 AM) Eosinophils [0.0-4.0 0.1 % %] (12/18/18 9:18 AM) Basophils [0.0-1.0 0.4 % %] (12/18/18 9:18 AM) Neutrophils # 10.2 K/CMM [1.5-8.1 K/CMM] *HI* (12/18/18 9:18 AM) Lymphocytes # 2.2 K/CMM [1.0-5.5 K/CMM] (12/18/18 9:18 AM) Monocytes # [0.0-0.8 0.7 K/CMM K/CMM] (12/18/18 9:18 AM) Basophils # [0.0-0.2 0.1 K/CMM K/CMM] (12/18/18 9:18 AM) PT [12.0-14.7 12.3 seconds seconds] (12/18/18 9:18 AM) INR [0.85-1.17] 0.93 (12/18/18 9:18 AM) PTT [22.9-35.8 20.0 seconds 1 seconds] *LOW* (12/18/18 9:18 AM) 1Result Comment: no clot, respun and reran 12/18/2018 10:58 bp Immunizations Given and Recorded Vaccine Date Status [...]
--- OUTSIDE RECORDS SUMMARY | 2020-04-09 16:26 | XMS REPORT | CCD ---
Author Author [facility] Address Unknown Phone Unavailable Care Team Providers Care Can Maker Name Role Phone Jaden London RP Allergies, [...] pneumococcal 23-valent vaccine 02/29/2012 Auth (V erified) Results CHEMISTRY Most recent to oldest [Reference Range]: 1 Sodium Lvl [135-145 mEq/L] 141 mEq/L (03/22/2012 11:45:00) Potassium Lvl [3.5-5.1 mEq/L] 4.0 mEq/L (03/22/2012 11:45:00) Chloride Lvl [95-109 mEq/L] 106 mEq/L (03/22/2012 11:45:00) CO2 [24-32 mEq/L] 26 mEq/L (03/22/2012 11:45:00) AGAP [10.0-20.0 mEq/L] 13.0 mEq/L (03/22/2012 11:45:00) Creatinine Lvl [0.5-1.4 mg/dL] 0.6 mg/dL (03/22/2012 11:45:00) BUN [7-22 mg/dL] 12 mg/dL (03/22/2012 11:45:00) Glucose Lvl [70-99 mg/dL] 79 mg/dL 1 (03/22/2012 11:45:00) Calcium Lvl [8.5-10.5 mg/dL] 9.0 mg/dL (03/22/2012 11:45:00) 1Interpretive Data: Adult reference range values reflect the clinical guidelines of the [place] [employer].
--- OUTSIDE RECORDS SUMMARY | 2020-04-09 16:26 | XMS REPORT | Summary of Care ---
Author Author [facility] Organization [facility] Address Unknown Phone Unavailable Encounter AGUSTINA Frost(FIN) [id number] Date(s): 10/28/19 - 10/28/[address] [facility] [address] [place] [address]- Discharge Disposition: Home or Self Care Attending [...] Adverse Reactions, Alerts No Known Allergies Medications No data available for this [...]
--- OUTSIDE RECORDS SUMMARY | 2020-04-09 16:26 | XMS REPORT | CCD ---
Author Author Auto Generated, DANIA [place] [facility] Address Unknown Phone Unavailable Care Team Providers Care Imaging Science Professor Name Role Phone Jaden London RP Allergies, [...]
--- OUTSIDE RECORDS SUMMARY | 2020-04-09 16:27 | XMS REPORT | Continuity of Care Document ---
Author Author [facility] t Organization [facility] Address [address] [place] [address] Phone Unavailable Care Team Providers Care Vendette Name Role Phone Christina HOPKINS, Maricarmen Shell PCP Surya, Jaden Attphys Shruti Kumari Attphys BOCCARDO, TASH Attphys Unavailable Boccardo-Guerita, Tash Attphys REDDYEMILY GIBBS Attphys Unavailable [place], Jaden Admphys Shruti Kumari Admphys Boccardo-Guerita, Tash Admphys Problems Condition Name Condition Details Condition Category Status Onset Date Resolution Date Last Treatment Date Treating Clinician Comments Source SIVAN UNK Active 10/28/2019 [facility] Active 2019-10-28 00:00:00 2019-10-28 09:45:00 reese Chirinos R05 R05 Active 05/13/2019 [facility] Active 2019-05-13 13:23:00 2019-05-22 07:03:00 reese Chirinos LANMARX PROTOCOL LANM ARX PROTOCOL Active 04/04/2019 [facility] Active 2019-04-04 00:00:00 2019-04-08 14:25:00 Norberto Chirinos R13.10 DYSPHAGIA, UNSPECIFIED, K21.9 G R13.10 DYSPHAGIA, UNSPECIFIED, K21.9 G Active 01/13/2019 [facility] Ac tive 2019-01-13 00:00:00 2019-02-25 13:23:00 [facility] CHRONIC 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 Active 12/13/2018 [facility] Active 2018-12-13 00:00:00 2019-01-15 15:34:00 [facility] BRONCHITIS BRON CHITIS Active 12/11/2018 [facility] Diagnosis Active 2018-12-11 00:00:00 2018-12-11 10:19:00 [facility] ASTHMA WITH BRONCHITIS AND STATUS ASTHMA ASTHMA WITH BRONCHITIS AND STATUS ASTHMA Active 12/11/2018 [facility] Diagnosis A ctive 2018-12-11 00:00:00 2018-12-12 15:27:00 [facility] ASTHMA EXACERBATION ASTH MA EXACERBATION Active 11/04/2018 [facility] Diagnosis Active 2018-11-04 00:00:00 2018-11-19 22:15:00 [facility] Acute pancreatitis Acute pancreatitis Disease Active 2018-06-10 00:00:0 0 Geraldo Martinez Diarrhea Diarrhea Disease Active 2018-05-29 00:00:00 Geraldo Martinez Bronchitis Bronchitis Disease Active 2018-05-27 00:00:00 Geraldo Martinez 241.9 241. 9 Active 07/24/2013 [facility] Diagnosis Active 2013-07-24 00:00:00 2013-07-28 13:43:00 [facility] ABD/BACK PAIN ABD/ BACK PAIN Active 08/08/2012 [facility] Diagnosis Active 2012-08-08 09:00:00 2012-08-08 20:09:00 [facility] THYROID NODULE THYR OID NODULE Active 04/08/2012 [facility] Diagnosis Active 2012-04-08 00:00:00 2012-06-03 15:25:00 [facility] CHRONIC COUGH/PE/SOB *PE PROTOCOL* STAT STAT* CHRONIC COUGH/PE/SOB *PE PROTOCOL* STAT STAT* Active 03/22/2012 [facility] Diagnosis Active 2012-03-22 00:00:00 2012-06-03 15:25:00 [facility] SHORTNESS OF BREATH SHOR TNESS OF BREATH Active 02/28/2012 [facility] Active 2012-02-28 15:30:00 2012-02-28 20:06:00 [facility] PNEUMONIA PNEU MONIA Active 02/28/2012 [facility] Active 2012-02-28 15:30:00 2012-05-07 16:38:00 Norberto Chirinos Abnormal heart beat (finding) Abnormal heart beat (finding) Resolved Problem 10/31/2019 [facility] Resolved 2019-10-31 00:11:53 Norberto Chirinos Arthritis (disorder) Arth ritis (disorder) Resolved Problem 10/31/2019 [facility] Resolved 2019-10-31 00:11: 53 Norberto Chirinos Asthma (disorder) Asth ma (disorder) Resolved Problem 10/31/2019 [facility] Resolved 2019-10-31 00:11:53 Norberto Chirinos Pneumonia (disorder) Pneu monia (disorder) Resolved Problem 10/31/2019 [facility] Problem Resolved 2019-10-31 00:11: 53 Norberto Chirinos Acute interstitial pneumonia A cute interstitial pneumonia Active Problem 08/10/2012 [facility] Active 2012-08-10 10:55:37 Norberto Chirinos HT - Hypertension HT - Hypertension Active Problem 08/10/2012 [facility] Active 2012-08-10 10:55:37 Norberto Chirinos Acute interstitial pneumonia (disorder) Acute interstitial pneumonia (disorder) Active Problem 10/31/2019 [facility] Active 2019-10-31 00:11:53 Sofía Chirinos Hypertensive disorder, systemic arterial (disorder) Hypertensive disorder, systemic arterial (disorder) Active Problem 10/31/2019 [facility] Active 2019-10-31 00:11:53 Norberto Chirinos Cough (finding) Coug h (finding) Active Problem 10/31/2019 [facility] Active 2019-10-31 00:11:53 Norberto Chirinos NONTOX NODUL GOITER NOS NONT OX NODUL GOITER NOS Active [facility] Active 2013-07-28 13:43:00 Norberto Chirinos PAIN PAIN Active [facility] Active 2012-06-03 15:25:00 Norberto Chirinos COUGH COUG H Active [facility] Active 2019-10-28 09:45:00 Norberto Chirinos UNSPECIFIED ASTHMA WITH (ACUTE) EXACERBA UNSPECIFIED ASTHMA WITH (ACUTE) EXACERBA Active [facility] Active 2018-11-19 22:15:00 Norberto Chirinos UNSPECIFIED ASTHMA WITH STATUS ASTHMATIC UNSPECIFIED ASTHMA WITH STATUS ASTHMATIC Active [facility] Active 2018-12-12 15:27:00 Norberto Chirinos DYSPHAGIA, UNSPECIFIED DYSP HAGIA, UNSPECIFIED Active [facility] Active 2019-02-25 13:23:00 [facility] GASTRO-ESOPHAGEAL REFLUX DISEASE WITHOUT GASTRO- ESOPHAGEAL REFLUX DISEASE WITHOUT Active [facility] Diagnosis Active 2019-02-25 13:23:00 Norberto Chirinos PNEUMONIA, ORGANISM NOS PNEU MONIA, ORGANISM NOS Active [facility] Active 2012-05-07 16:38:00 Norberto Chirinos COUGH COUG H Active [facility] Diagnosis Active 2012-06-03 15:25:00 [facility] [place] SHORTNESS OF BREATH SHOR TNESS OF BREATH Active [facility] Active 2012-06-03 15:25:00 [facility] [place] Allergies, Adverse Reactions, Alerts Allergy Name Allergy Type Status Severity Reaction(s) Onset Date Inacti ve Date Treating Clinician Comments Source No Known Medication Allergies No Known Medication Allergies Active [facility] Family History Family Member Diagnosis Comments Start Date Stop Date Source Natural father Hypertension [place] [facility] Natural mother Arthritis [place] [facility] Natural mother Asthma [facility] Natural mother Hyperlipidemia [place] [facility] Natural mother Hypertension Geraldo Martinez Social History Social Habit Start Date Stop Date Quantity Comments Source Sex Assigned At Patience penalozajuju Martinez Social History 2019-06-23 15:11:40 2019-06-23 15:11:40 [facility] Alcohol intake 2018-11-11 00:00:00 2018-11-11 00:00:00 Current drinker of alcohol (finding) Geraldo Martinez Alcohol Comment 2018-05-27 00:00:00 2018-05-27 00:00:00 maybe on e drink a month or 2 Geraldo Martinez Smoking Status Start Date Stop Date Source Never smoker Geraldo ramirez Medications Ordered Medication Name Filled Medication Name Start Date Stop Da te Current Medication? Ordering Clinician Indication Dosage Frequency Signature (SIG) Comments Components Source Naloxone 2019-06-23 16:50:00 No 0.1 mg, Route: IVP, Q2MIN, Dosing Weight 68.182, kg, PRN Narcotic Reversal, Start date: 06/23/19 11:50:00 CDT, Duration: 4 doses or times, Stop date: Limited # of times Nor[facility]to [facility] Flumazenil 2019-06-23 16:50:00 No 0.2 mg, Route: IVP, ONCE, Dosing Weight 68.182, kg, PRN Benzodiazepine Reversal, Start date: 06/23/19 11:50:00 CDT, Initial dose [facility]to [facility] Sodium Chloride 0.9% IV 1000 mL 2019-06-23 15:06:00 No 1,000 mL, Rate: 75 ml/hr, Infuse over: 13.3 hr, Route: IV, Dosing Weight 71.364 kg, Total Volume: 1,000, Start date: 06/23/19 10:06:00 CDT, Duration: 30 day, Stop date: 07/23/19 10:05:00 LAB INTERN, 1.78, m2 Norberto Chirinos Mupirocin 20 MG/ML Topical Cream 2019-06-09 18:23:00 Yes TOP, TID, 0 Refill(s) Norberto Chirinos Ventolin HFA 90 mcg/inh inhalation aerosol with adapter 2019-06-09 18:22:00 Yes 2 puff, INHALER , Q6H, PRN wheezing, coughing, or shortness of breath, # 8 gm, 1 Refill(s) Norberto macario Advair Diskus 250 mcg-50 mcg inhalation powder 2019-06-09 18:22: 00 No 1 puff, INHALATION, BID, # 1 ea, 3 Refill(s) Norberto Chirinos Amitriptyline 2019-06-09 18:21:00 Yes 10 mg, PO, Bedtime, 0 Refill(s) Norberto Chirinos 72 HR Scopolamine 0.0139 MG/HR Transdermal Patch 2018-12-18 18:55:00 Yes 1 patch, Route: TOP, Drug Form: ERFILM, Dosing Weight 69.545, kg, ONCE, Apply behind ear. Avoid use in elderly., Start date: 12/18/18 13:55:00 CDT, Stop date: 12/18/18 13:55:00 CDT [facility] Naloxone 2018-12-18 18:55:00 No 0.1 mg, Route: SUB-Q, Q6H, Dosing Weight 69.545, kg, PRN Itching, Start date: 12/18/18 13:55:00 CDT, Duration: 30 day, Stop date: 01/17/19 13:54:00 CDT Me cesar Chirinos Ondansetron 2018-12-18 18:55:00 No 4 mg, Route: IVP, ONCE, Dosing Weight 69.545, kg, PRN Nausea & Vomiting, Start date: 12/18/18 13:55:00 CDT Norberto Chirinos Promethazine 2018-12-18 18:55:00 No 6.25 mg, Route: IVPB, ONCE, Dosing Weight 69.545, kg, PRN Nausea & Vomiting, Start date: 12/18/18 13:55:00 CDT [facility] Diphenhydramine 2018-12-18 18:55:00 No 12.5 mg, Route: IVP, Drug form: INJ, Q6H, Dosing Weight 69.545, kg, PRN Itching, Start date: 12/18/18 13:55:00 CDT, Duration: 30 day, Stop date: 01/17/19 13:54:00 CDT [facility] Meperidine 2018-12-18 18:55:00 No 12.5 mg, Route: IVP, Q30Min, Dosing Weight 69.545, kg, PRN Other -See Comment, For shivering, Start date: 12/18/18 13:55:00 CDT, Duration: 2 doses or times, Stop date: Limited # of times [facility] Albuterol 0.83 MG/ML Inhalant Solution 2018-12-18 18:55:00 No 2.49 mg, Route: NEB, Q20Min, Dosing Weight 69.545, kg, PRN Wheezing, Priority: STAT, Start date: 12/18/18 13:55:00 CDT, Duration: 30 day, Stop date: 01/17/19 13:54:00 CDT [facility] Flumazenil 2018-12-18 18:55:00 No 0.2 mg, Route: IVP, PRN, Dosing Weight 69.545, kg, PRN Benzodiazepine Reversal, Initial dose, Start date: 12/18/18 13:55:00 CDT, Duration: 30 day, Stop date: 01/17/19 13:54:00 CDT [facility] Oxycodone 2018-12-18 18:55:00 No 10 mg, Route: NG, Drug form: LIQ, Q4H, Dosing Weight 69.545, kg, PRN Pain Score 7-10, Start date: 12/18/18 13:55:00 CDT, Duration: 30 day, Stop date: 01/17/19 13:54:00 CDT [facility] Hydromorphone 2018-12-18 18:55:00 No 0.5 mg, Route: IVP, Q5Min, Dosing Weight 69.545, kg, PRN Pain Score 7-10, Start date: 12/18/18 13:55:00 CDT, Duration: 4 doses or times, Stop date: Limited # of times [facility] Fentanyl 2018-12-18 18:55:00 No 50 microgram, Route: IVP, Q5Min, Dosing Weight 69.545, kg, PRN Pain Score 7-10, Priority: Routine, Start date: 12/18/18 13:55:00 CDT, Duration: 2 doses or times, Stop date: Limited # of times [facility] Acetaminophen 2018-12-18 18:55:00 No 1,000 mg, Route: IVPB, Drug form: INJ, ONCE, Dosing Weight 69.545, kg, PRN Pain Score 1-3, Start date: 12/18/18 13:55:00 CDT [facility] neostigmine (ANES) 2018-12-18 17:49:00 No Route: IV, Drug form: INJ, ONCE, Stop date: 12/18/18 12:49:00 [facility] glycopy[facility]rol[facility] (HUGOS) 2018-12-18 17:49:00 No Route: IV, Drug form: INJ, ONCE, Stop date: 12/18/18 12:49:00 CDT [facility] Oxymetazoline hydrochloride 0.5 MG/ML Nasal [place] [Afrin] 2018-12-18 17:37:00 No 2 spray, Route : NASAL, Q2H, PRN Bleeding, Start date: 12/18/18 12:37:00 CDT, Duration: 3 day, Stop date: 12/21/18 12:36:00 CDT [facility] Acetaminophen 325 MG / Hydrocodone Bitartrate 5 MG Oral Tabl et 2018-12-18 17:37:00 No 1 tab, Rou te: PO, Dosing Weight 69.545, kg, Q4H, PRN Pain Score 1-3, Start date: 12/18/18 12:37:00 CDT, Duration: 30 day, Stop date: 01/17/19 12:36:00 CDT [facility] Morphine 2018-12-18 17:37:00 No 2 mg, Route: IVP, Q3H, Dosing Weight 69.545, kg, PRN Pain Score 1-3, Start date: 12/18/18 12:37:00 CDT, Duration: 30 day, Stop date: 01/17/19 12:36:00 [facility]T [facility] dexamethasone (HUGOS) 2018-12-18 17:08:00 No Route: IV, Drug form: INJ, ONCE, Stop date: 12/18/18 12:08:00 CDT [facility] rocuronium (ANES) 2018-12-18 17:08:00 No Route: IV, Drug form: INJ, ONCE, Stop date: 12/18/18 12:08:00 [facility] 2018-12-18 16:53:00 No Route: IV, Drug form: INJ, ONCE, Stop date: 12/18/18 11:53:00 CD[facility] propofol (HUGOS) 2018-12-18 16:53:00 No Route: IV, Drug form: INJ, ONCE, Stop date: 12/18/18 11:53:00 CDT [facility] fentaNYL (ANES) 2018-12-18 16:53:00 No Route: IV, Drug form: INJ, ONCE, Stop date: 12/18/18 11:53:00 CDT [facility] ondansetron (ANES) 2018-12-18 16:53:00 No Route: IV, Drug form: INJ, ONCE, Stop date: 12/18/18 11:53:00 CDT [facility] ceFAZolin (HUGOS) 2018-12-18 16:53:00 No Route: IV, Drug form: INJ, ONCE, Stop date: 12/18/18 11:53:00 CDT [facility] midazolam (ANES) 2018-12-18 16:28:00 No Route: IV, Drug form: SOLN, ONCE, Stop date: 12/18/18 11:28:00 CDT [facility] Lactated Ringers Injection IV (HUGOS) 1000 mL 2018-12-18 15:53:00 No Route: IV, Total Volume: 1,000, Start date: 12/18/18 10:53:00 CDT, Stop date: 12/18/18 11:53:[address] [facility] Cefazolin 2018-12-18 15:00:00 No 2 gm, Route: IVPB, ONCALL, Dosing Weight 69.545, kg, Start date: 12/18/18 10:00:00 CDT, Duration: 1 doses or times, ABX Indication: Surgical Prophylaxis Norberto Chirinos Dexamethasone 2018-12-18 15:00:00 No 8 mg, Route: IV, ONCALL, Dosing Weight 69.545, kg, Start date: 12/18/18 10:00:00 CDT, Duration: 30 day, Stop date: 01/17/19 9:59:[address] [facility] Steffanie ford Calcium Chloride 0.0014 MEQ/ML / Potassi um Chloride 0.004 MEQ/ML / Sodium Chloride 0.103 MEQ/ML / Sodium Lactate 0.028 MEQ/ML Injectable Solution 2018-12-18 14:52:00 No 1,000 mL, Rate: 25 ml/hr, Infuse over: 40 hr, Route: IV, Dosing Weight 69.545 kg, Total Volume: 1,000, Start date: 12/18/18 9:52:00 CDT, Duration: 30 day, Stop date: 01/17/19 9:51:00 CDT, 1.76, m2 [facility] Oxymetazoline hydrochloride 0.5 MG/ML Nasal [place] [Afrin] 2018-12-18 14:51:00 No 2 spray, Route : NASAL, PRE OP, PRN Nasal Congestion, Start date: 12/18/18 9:51:00 CDT, Duration: 3 day, Stop date: 12/21/18 9:50:00 CDT [facility] Epinephrine 0.01 MG/ML / Lidocaine Hydrochloride 10 MG/ML In jectable Solution 2018-12-18 13:00:00 No Notes: (Same as: X ylocaine w/Epinephrine) [facility] montelukast 10 MG Oral Tablet [Singulair] 2018-12-13 20:12:00 Yes 10 mg = 1 tab, PO, Bedtime, # 30 tab, 0 Refill(s) [facility] predniSONE 20 mg oral tablet 2018-12-13 20:12:00 Yes 20 mg = 1 tab, PO, Daily, X 7 day, # 7 tab, 0 Refill(s) Norberto Chirinos levothyroxine 25 mcg (0.025 mg) oral tablet 2018-12-13 20:12:00 Yes 25 microgram = 1 tab, PO, Q630AM, 0 Refill(s) Norberto Chirinos Codeine Phosphate 2 MG/ML / Guaifenesin 20 MG/ML Oral Soluti on 2018-12-13 20:12:00 Yes 5 mL, PO, Q4H, PRN coug h, X 8 day, # 120 mL, 0 Refill(s) Norberto Chirinos Azelastine hydrochloride 0.137 MG/ACTUAT Metered Dose Nasal Patterson 2018-12-13 20:12:00 Yes 137 microg charu =, INHALER, BID, PRN Congestion | 1-2 sprays, # 1 ea, 0 Refill(s) Norberto macario Codeine Phosphate 2 MG/ML / Guaifenesin 20 MG/ML Oral Soluti on 2018-12-13 14:03:00 No Notes: (Same As: Jesse Orozco) [facility] Fluticasone propionate 0.05 MG/ACTUAT Metered Dose Nasal Spr ay [Flonase] 2018-12-12 14:07:00 No Notes: (Same as: Liu phillips) [facility] [place] Saline Nasal No-Drip Patterson 0.65% gel 2018-12-12 14:00:00 No Notes: (Same as: [place], Deep Sea Nasal Patterson). Norberto Chirinos Thyroxine 2018-12-12 13:00:00 No Notes: Take 1 hour before or 2 hours after meal; Enteral feeds may interefere with the absorption of this medication. (Same as:Levothroid) Jameel l [facility] Protonix 2018-12-12 12:30:00 No Notes: Tablet should not be chewed or crushed. (Same as: Protonix) [facility] [place] Enoxaparin 2018-12-12 06:00:00 No Notes: (S demetrius as: Lovenox) Nor[facility] Glucagon 2018-12-12 05:28:00 No 1 mg, Route: IM, Drug form: PDR/INJ, PRN, Dosing Weight 70.455, kg, PRN Blood Glucose Results, Start date: 12/12/18 0:28:00 CDT, Duration: 30 day, Stop date: 01/11/19 0:27:[address] [facility] Dextrose 50% Syringe 2018-12-12 05:28:00 No 25 gm, 50 mL, Route: IVP, Drug Form: INJ, Dosing Weight 70.455, kg, PRN, PRN Blood Glucose Results, Start date: 12/12/18 0:28:00 CDT, Duration: 30 day, Stop date: 01/11/19 0:27:[address] [facility] methylPREDNISolone SODium SUCCinate 2018-12-12 02:00:00 No Notes: (Same as:Solu-MEDROL, A-Methapred) [facility] ial [facility] montelukast 2018-12-12 02:00:00 No Notes: ( Same as:Singulair) [facility] Mucinex 2018-12-12 02:00:00 No Notes: (Same as: Guaifenesin [place], Humibid [place], Mucinex) "Do Not Crush" Take medication with plenty of water. [facility] Docusate 2018-12-11 22:00:00 No Notes: (Same as: Colace) (Do Not Crush) [facility] benzonatate 200 mg oral capsule 2018-12-11 20:14:00 Yes 200 mg = 1 cap, PO, TID, # 30 cap, 0 Refill(s) Ankitmandy abbott [facility] omeprazole 40 mg oral delayed release capsule 2018-12-11 20:14:0 0 Yes 40 mg = 1 cap, PO, Daily, # 30 cap, 0 Refill(s) Norberto Chirinos Zosyn 2018-12-11 19:54:00 No Notes: (Same as: Zosyn) Dosing based on Piperacillin component MEDICATION WASTE Product Size: 3375 mg Product Wasted: ___ mg Norberto Chirinos RN- PLs Update Height, Weight & Allergies in Care4 2018-12-02 0 19:38:00 No RN- PLs Update Heigh t, Weight & Allergies in Care4, Reminder, Drug form: MISC, Route: MISC, Q2H, 12/11/18 14:38:00 CDT, Duration: 1 day, Stop date: 12/12/18 14:00:[address] [facility] Albuterol 0.833 MG/ML / Ipratropium Decker 0.167 MG/ML Inha lant Solution 2018-12-11 19:00:00 No Notes: (Same as: Phyllis galaviz) [facility] Albuterol 0.83 MG/ML Inhalant Solution 2018-12-11 18:22:00 No Notes: SEE RT DOCUMENTATION (Same as: Durga) [facility] Glucagon 2018-12-11 18:18:00 No 1 mg, Route: IM, Drug form: PDR/INJ, PRN, Dosing Weight 71.96, kg, PRN Blood Glucose Results, Start date: 12/11/18 13:18:00 CDT, Duration: 30 day, Stop date: 01/10/19 13:17:00 CDT [facility] Dextrose 50% Syringe 2018-12-11 18:18:00 No 25 gm, 50 mL, Route: IVP, Drug Form: INJ, Dosing Weight 71.96, kg, PRN, PRN Blood Glucose Results, Start date: 12/11/18 13:18:00 CDT, Duration: 30 day, Stop date: 01/10/19 13:17:00 CDT [facility] omeprazole (PriLOSEC) 10 MG capsule 2018-11-11 00:00:0 0 2019-11-11 23:59:00 No 40mg QD Take 4 capsules (40 mg total) by mouth phyllis Chow [facility] Simvastatin 2018-11-09 03:00:00 No Notes: ( Same as: Zocor) [facility] Loratadine 2018-11-08 15:00:00 No 10 mg, Route: PO, Daily, Dosing Weight 71.96, kg, Start date: 11/08/18 9:00:00 LAB INTERN, Duration: 30 day, Stop date: 12/07/18 9:00:00 CDT [facility] Amlodipine 2018-11-08 15:00:00 No Notes: (S demetrius as: Norvasc) [facility] cetirizine 2018-11-08 15:00:00 No Notes: (S demetrius As: Zyrtec) [facility] Thyroxine 2018-11-08 14:09:00 No Notes: Take 1 hour before or 2 hours after meal; Enteral feeds may interefere with the absorption of this medication. (Same as:Levothroid) Jameel Chirinos predniSONE 10 mg oral tablet 2018-11-08 13:44:00 Yes See Special Instructions, PO, Daily, 12 day regimen: Days 1-4 - 30 mg (3 tabs) daily Days 5- 8 - 20 mg (2 tabs) daily Days 9-12 - 10 mg (1 tab) daily, X 12 day, # 24 tab, 0 Refill(s) Norberto Chirinos Amoxicillin 875 MG / Clavulanate 125 MG Oral Tablet [Augment in 875-mg] 2018-11-08 13:42:00 Yes 1 tab, PO, [id number] , # 20 tab, 0 Refill(s) Norberto Chirinos Fluticasone propionate 0.05 MG/ACTUAT Metered Dose Nasal Spr ay [Flonase] 2018-11-08 13:42:00 Yes 100 microgram = 2 spray, Each Affected Nostril, BID, # 10 mL, 0 Refill(s) Sofía Chirinos Solu-Medrol 2018-11-08 10:00:00 No Notes: (Same as:Solu-MEDROL, A-Methapred) Norberto Chirinos fluticasone (FLONASE) 50 mcg/actuation nasal spray 2018-11 00:00:00 Yes USE 2 SPRAYS IEN BID Geraldo Martinez Amoxicillin 875 MG / Clavulanate 125 MG Oral Tablet [Augment in 875-mg] 2018-11-08 00:00:00 No Notes: With food. (Same as: Augmentin 875) Norberto Chirinos Ibuprofen 2018-11-07 20:27:00 No Notes: (Same as: Radha) "Do Not Crush" Take with food. Norberto Chirinos Ambien 2018-11-07 04:46:00 No Notes: (Same As: Nuviaien) Norberto Chirinos Famotidine 20 MG Oral Tablet [Pepcid] 2018-11-06 00:00:00 N o Notes: (Same as: Pepcid) Norberto Chirinos Fluticasone propionate 0.05 MG/ACTUAT Metered Dose Nasal Spr ay [Flonase] 2018-11-05 23:00:00 No Notes: (Same as: Liu phillips) Norberto Chirinos Budesonide 0.25 MG/ML Inhalant Solution [Pulmicort] 2019-0 3-05 21:45:00 No Notes: (Same As: Pulmicort) Norberto Chirinos Glucagon 2018-11-04 22:03:00 No 1 mg, Route: IM, Drug form: PDR/INJ, PRN, Dosing Weight 71.96, kg, PRN Blood Glucose Results, Start date: 11/04/18 16:03:00 LAB INTERN, Duration: 30 day, Stop date: 12/04/18 17:02:00 CDT Norberto Chirinos Dextrose 50% Syringe 2018-11-04 22:03:00 No 12.5 gm, 25 mL, Route: IVP, Drug Form: INJ, Dosing Weight 71.96, kg, PRN, PRN Blood Glucose Results, Start date: 11/04/18 16:03:00 LAB INTERN, Duration: 30 day, Stop date: 12/04/18 17:02:00 CDT Norberto Chirinos Solu-Medrol 2018-11-04 22:00:00 No Notes: (Same as:Solu-MEDROL, A-Methapred) [facility] [place] Loratadine 2018-11-04 21:51:00 Yes 1 0 mg, PO, Daily, 0 Refill(s) [facility] Ciprofloxacin 500 MG Oral Tablet [Cipro] 2018-11-04 21:51:00 No 500 mg = 1 tab, PO, Q12H, # 20 tab, 0 Refill(s) [facility] [place] Please update height, weight, allergies on profile 2018-11-04 21:45:00 No Please update height, weight, allergies on profile, ATTN:RN, Drug form: MISC, Route: MISC, Q15Min, 11/04/18 15:45:00 LAB INTERN, Duration: 4 hr, Stop date: 11/04/18 19:30:[address] [facility] Albuterol 0.417 MG/ML Inhalant Solution 2018-11-04 19:00:00 No Notes: SEE RT DOCUMENTATION (Same as: Proventil) Norberto [facility] Vasotec 2018-11-04 18:00:00 No Notes: (Same as: Vasotec-IV) Norberto [facility] cefepime 2018-11-04 17:00:00 No Notes: (Same As: Maxipime) MEDICATION WASTE Product Size: 1000 mg Product Wasted: ___ mg [facility] Albuterol 0.833 MG/ML / Ipratropium Brom sanjay 0.167 MG/ML Inhalant Solution [DuoNeb] 2018-11-04 16:32:00 No Notes: (S demetrius as: Duoneb) [facility] Codeine Phosphate 2 MG/ML / Guaifenesin 20 MG/ML Oral Soluti on 2018-11-04 16:32:00 No Notes: (Same As: Jesse Orozco) [facility] Zofran 2018-11-04 16:32:00 No Notes: (Same as: Frankie) MEDICATION WASTE Product Size: 4 mg Product Wasted: ___ mg [facility] Flexeril 10 mg oral tablet 2012-08-09 02:59:49 Yes Prade ep Ryan 10 mg, PO, TID, PRN, 30 tab, Muscle Spasm, Substitution Allowed [facility] Salyer 5/325 oral tablet 2012-08-09 02:59:41 Yes Norm Ryan 1-2 tab, PO, Q4-6H, PRN, 15 tab, Pain, Substitution Allowed, Maintenance [facility] Flexeril 2012-08-09 02:05:00 No Norm Ryan 10 mg, Route: PO, ONCE, Dosing Weight 69.545, kg, Priority: STAT, Start date: 08/08/12 20:05:00, Stop date: 08/08/12 20:05:00 [facility] morphine Sulfate 2012-08-09 01:14:00 No Norm Ryan 2 mg, 1 mL, Route: IVP, Drug form: INJ, ONCE, Dosing Weight 69.545, kg, Priority: STAT, Start date: 08/08/12 19:14:00, Stop date: 08/08/12 19:14:00 [facility] ondansetron 2012-08-09 01:14:00 No Norm Ryan 4 mg, 2 mL, Route: IVP, Drug form: INJ, ONCE, Dosing Weight 69.545, kg, Priority: STAT, Start date: 08/08/12 19:14:00, Stop date: 08/08/12 19:14:00 [facility] Saline Flush 0.9% 2012-08-09 01:14:00 No Norm Ryan 5 mL, Route: IVP, Drug Form: INJ, Dosing Weight 69.545, kg, PRN, PRN Line Flush, Start date: 08/08/12 19:14:00, Duration: 24 hr, Stop date: 08/09/12 19:13:00 Norberto Chirinos Sodium Chloride 0.9% (Bolus) IV 2012-08-09 01:14:00 No Norm Ryan 500 mL, 500 ml/hr, Route: IV, Drug Form: INJ, Dosing Weight 69.545, kg, ONCE, Bolus at 1,000 ml/hr, STAT, Start date: 08/08/12 19:14:00, Stop date: 08/08/12 19:14:00 [facility] ProAir HFA 90 mcg/inh inhalation aerosol with adapter 2012-03-06 15:53:47 Yes Jaden [place] 2 puff, INHALA TION, Q6H, PRN, 9 gm, 1, 1, for wheezing, Substitution Allowed, Soft Stop, AERO Me morial [place] Prilosec 20 mg oral delayed release capsule 2012-03-06 15: 53:17 Yes Jaden London 20 mg, 1 cap, PO, Daily, 30 cap, Substit ution Allowed [facility] predniSONE 10 mg oral tablet 2012-03-06 15:52:58 Yes Piedra deep [place] 10 mg, 1 tab, PO, Daily, 10 tab, Substitution Allowed, TAB [facility] Mucinex 600 mg oral tablet, extended release 2012-03-06 15 :52:37 Yes Jaden London 600 mg, 1 tab, PO, Daily, 10 tab, Substi tution Allowed, ERTAB [facility] methylPREDNISolone 2012-03-01 15:00:00 No Floyd Ricardo rebecca Steiner 20 mg, 0.5 mL, Route: IV, Drug form: INJ, [id number], Start date: 03/01/12 10:00:00, Duration: 30 day, Stop date: 03/30/12 22:00:00 [facility] Tessalon Perles 2012-03-01 13:00:00 No Floyd Chandulal Steiner 200 mg, 2 cap, Route: PO, Drug form: CAP, Q8H, Start date: 03/01/12 8:00:00, Duration: 30 day, Stop date: 03/31/12 0:00:00 Ankit milena [place] methylPREDNISolone 2012-03-01 07:28:00 No Floyd Ricardo rebecca Steiner 40 mg, 1 mL, Route: IV, Drug form: INJ, ONCE, Start date: 03/01/12 2:28:00, Stop date: 03/01/12 2:28:00 [facility] azithromycin 2012-03-01 02:00:00 No Tash Boccardo 500 mg, Route: IVPB, [id number], Start date: 02/29/12 21:00:00, Duration: 30 day, Stop date: 03/29/12 21:00:00 [facility] enoxaparin 2012-03-01 02:00:00 No Floyd Chandulal Linares l 40 mg, 0.4 mL, Route: SUB-Q, Drug form: INJ, [id number], Start date: 02/29/12 21:00:00, Duration: 30 day, Stop date: 03/29/12 21:00:00 [facility] ceftriaxone 2012-02-29 23:00:00 No Tash Boccardo 1 gm, Route: IVPB, Drug form: PDR/INJ, [id number], Start date: 02/29/12 18:00:00, Duration: 30 day, Stop date: 03/29/12 18:00:00 [facility] pneumococcal 23-valent vaccine 2012-02-29 14:00:00 No S YSTEM SYSTEM 0.5 ml, Route: IM, Drug Form: INJ, Start date: 02/29/12 9:00:00, Stop date: 02/29/12 9:00:00 [facility] levothyroxine 2012-02-29 14:00:00 No Tash Boccardo 25 microgram, Route: PO, Drug form: TAB, [id number], Start date: 02/29/12 9:00:00, Duration: 30 day, Stop date: 03/30/12 6:30:00 [facility] [place] simvastatin 2012-02-29 14:00:00 No Tash Boccardo 10 mg, 1 tab, Route: PO, Drug form: TAB, QAM, Start date: 02/29/12 9:00:00, Duration: 30 day, Stop date: 03/29/12 9:00:00 [facility] amLODipine 2012-02-29 14:00:00 No Tash Boccardo 5 mg, 1 tab, Route: PO, Drug form: TAB, Daily, Start date: 02/29/12 9:00:00, Duration: 30 day, Stop date: 03/29/12 9:00:00 [facility] Tussionex [employer] oral suspension, extended release 2012-02-29 13:36:00 No Tash Boccardo 5 ml, Route: PO, Drug Form: SUSPER, Q12H, PRN Cough/Congestion, Start date: 02/29/12 8:36:00, Duration: 30 day, Stop date: 03/30/12 8:35:00 [facility] albuterol 0.083% inhalation solution 2012-02-29 07:00:00 No Tash Boccardo 2.49 mg, 3 mL, Route : NEB, Drug form: SOLN, RQ6H, Priority: Routine, Start date: 02/29/12 2:00:00, Duration: 30 day, Stop date: 03/29/12 20:00:00 [facility] ipratropium 2012-02-29 07:00:00 No Tash Boccardo 0.5 mg, 2.5 mL, Route: NEB, Drug form: SOLN, RQ6H, Priority: Routine, Start date: 02/29/12 2:00:00, Duration: 30 day, Stop date: 03/29/12 20:00:00 [facility] DuoNeb inhalation solution 2012-02-29 07:00:00 No Criss a Boccardo 3 mL, Route: NEB, Drug Form: SOLN, RQ6H, Start date: 02/29/12 2:00:00, Duration: 30 day, Stop date: 03/29/12 20:00:00 [facility] ondansetron 2012-02-29 02:39:00 No Tash Boccardo 4 mg, 2 mL, Route: IVP, Drug form: INJ, Q6H, PRN Nausea & Vomiting, Start date: 02/28/12 21:39:00, Duration: 30 day, Stop date: 03/29/12 21:38:00 [facility] acetaminophen 2012-02-29 02:39:00 No Tash Boccardo 650 mg, 2 tab, Route: PO, Drug form: TAB, Q4H, PRN Pain/Fever, Start date: 02/28/12 21:39:00, Duration: 30 day, Stop date: 03/29/12 21:38:00 [facility] Saline Flush 0.9% 2012-02-29 02:39:00 No Tash Boccard o 5 ml, Route: IVP, Drug Form: INJ, PRN, PRN Line Flush, Start date: 02/28/12 21:39:00, Duration: 30 day, Stop date: 03/29/12 21:38:00 [facility] guaifenesin 2012-02-29 02:37:00 No Tash Boccardo 100 mg, 5 mL, Route: PO, Drug form: LIQ, Q4H, PRN Cough/Congestion, Start date: 02/28/12 21:37:00, Duration: 30 day, Stop date: 03/29/12 21:36:00 [facility] codeine-guaifenesin 10 mg-100 mg/5 mL oral syrup 2012-02-03 02:37:00 No Tash Boccardo 5 mL, Route: PO, Drug Form: LIQ, Q4H, PRN Cough, Start date: 02/28/12 21:37:00, Duration: 30 day, Stop date: 03/29/12 21:36:00 [facility] Sodium Chloride 0.9% (Bolus) IV 500 mL 2012-02-29 01:41:00 No Koby A Steiner 500 mL, Rate: 50 0 ml/hr, Infuse over: 1 hr, Route: IV, Dosing Weight 64.091 kg, Total Volume: 500, Bolus Dose, Priority: STAT, Start date: 02/28/12 20:41:00, Duration: 1 doses or times, Stop date: 02/28/12 21:40:00 [facility] acetaminophen 2012-02-29 01:39:00 No Koby A Steiner 650 mg, Route: PO, Drug form: TAB, ONCE, Priority: STAT, Start date: 02/28/12 20:39:00, Stop date: 02/28/12 20:39:00 [facility] TL-Hist DM oral liquid 2012-02-29 00:39:15 Yes 5 mL, PO, Q6H, PRN, as needed for cough and congestion, Substitution Allowed, Maintenance [facility] levofloxacin 500 mg oral tablet 2012-02-29 00:39:12 Yes 500 mg, 1 tab, PO, Daily, Substitution Allowed Mem orijaydon Chir[facility] Lamisil 250 mg oral tablet 2012-02-29 00:39:07 Yes 250 mg, 1 tab, PO, Daily, Substitution Allowed [facility] simvastatin 2012-02-29 00:39:04 Yes Tash Boccardo 10 mg, PO, QAM, Substitution Allowed [facility] levothyroxine 25 mcg (0.025 mg) oral tablet 2012-02-29 00: 38:59 Yes Tash Boccardo 25 microgram, 1 tab, PO, Daily, Substitu tion Allowed [facility] amLODipine 5 mg oral tablet 2012-02-29 00:38:54 Yes Silv ia Boccardo 5 mg, 1 tab, PO, Daily, Substitution Allowed [facility] NS (Bolus) IV 1,000 mL 2012-02-28 23:28:00 No Koby A Steiner 1,000 mL, Rate: 1,000 ml/hr, Infuse over: 1 hr, Route: IV, Dosing Weight 64.091 kg, Total Volume: 1,000, Priority: STAT, Start date: 02/28/12 18:28:00, Duration: 1 doses or times, Stop date: 02/28/12 19:27:00, Bolus DoseBolus Dose [facility] azithromycin 2012-02-28 23:26:00 No Koby A Steiner 500 mg, 250 mL, Route: IVPB, Drug form: PDR/INJ, ONCE, Priority: STAT, Start date: 02/28/12 18:26:00, Stop date: 02/28/12 18:26:00 M emomilena Chirinos albuterol 0.083% inhalation solution 2012-02-28 23:26:00 No Koby A Steiner 2.49 mg, Route: NEB, Drug form: SOLN, ONCE, Priority: STAT, Start date: 02/28/12 18:26:00, Stop date: 02/28/12 18:26:00 [facility] ipratropium 0.02% inhalation solution 2012-02-28 23:26:00 No Koby A Steiner 0.5 mg, Route: N EB, ONCE, Priority: STAT, Start date: 02/28/12 18:26:00, Stop date: 02/28/12 18:26:00 tomrijaydon Chirinos Dmitriephin 2012-02-28 23:26:00 No Koby A Steiner 1 gm, Route: IVPB, ONCE, Priority: STAT, Start date: 02/28/12 18:26:00, Stop date: 02/28/12 18:26:00 [facility] Immunizations Ordered Immunization Name Filled Immunization Name Date Status Comments Source FLUCELVAX QUAD PF 2018-06-12 00:00:00 Completed [facility] Vital Signs Vital Name Observation Time Observation Value Comments Source Respitory Rate 2019-06-23 17:10:00 [facility] [place] Systolic (mm Hg) 2019-06-23 17:10:00 Ankit rial [place] Diastolic (mm Hg) 2019-06-23 17:10:00 Mem [facility] [place] Respitory Rate 2019-06-23 16:55:00 [facility] [place] Systolic (mm Hg) 2019-06-23 16:55:00 Ankit rial [place] Diastolic (mm Hg) 2019-06-23 16:55:00 Mem [facility] [place] Respitory Rate 2019-06-23 16:40:00 [facility] [place] Systolic (mm Hg) 2019-06-23 16:40:00 Ankit rial [place] Diastolic (mm Hg) 2019-06-23 16:40:00 Mem [facility] [place] Height 2019-06-23 15:06:00 154.94 cm [facility] Weight 2019-06-23 15:06:00 [facility] BMI Calculated 2019-06-23 15:06:00 [facility] [place] Systolic (mm Hg) 2018-12-18 20:30:00 Ankit rial [place] Diastolic (mm Hg) 2018-12-18 20:30:00 Mem [facility] [place] Systolic (mm Hg) 2018-12-18 20:15:00 Ankit rial [place] Diastolic (mm Hg) 2018-12-18 20:15:00 [facility] [place] Systolic (mm Hg) 2018-12-18 20:00:00 Ankit rial [place] Diastolic (mm Hg) 2018-12-18 20:00:00 [facility] [place] Respitory Rate 2018-12-18 18:15:00 [facility] [place] Respitory Rate 2018-12-18 18:00:00 [facility] [place] Respitory Rate 2018-12-18 17:48:00 [facility] [place] Temperature Oral (F) 2018-12-18 14:37:00 97.9 F [facility] [place] Heart Rate 2018-12-18 14:37:00 [facility] Height 2018-12-18 14:11:00 154.94 cm [facility] [place] BMI Calculated 2018-12-18 14:11:00 [facility] [place] Weight 2018-12-18 14:11:00 [facility] [place] Heart Rate 2018-12-13 20:39:00 [facility] [place] Systolic (mm Hg) 2018-12-13 20:39:00 Ankit rial [place] Diastolic (mm Hg) 2018-12-13 20:39:00 [facility] [place] Temperature Oral (F) 2018-12-13 20:39:00 97.2 F [facility] Systolic (mm Hg) 2018-12-13 16:19:00 Ankit rial [place] Diastolic (mm Hg) 2018-12-13 16:19:00 [facility] [place] Respitory Rate 2018-12-13 16:19:00 [facility] [place] Heart Rate 2018-12-13 16:19:00 [facility] [place] Temperature Oral (F) 2018-12-13 16:19:00 98.1 F [facility] Temperature Oral (F) 2018-12-13 12:15:00 97.8 F [facility] Systolic (mm Hg) 2018-12-13 12:15:00 Ankit rial [place] Diastolic (mm Hg) 2018-12-13 12:15:00 Mem [facility] [place] Heart Rate 2018-12-13 12:15:00 [facility] [place] Respitory Rate 2018-12-13 12:15:00 [facility] [place] Respitory Rate 2018-12-13 09:01:00 [facility] [place] Height 2018-12-11 19:46:00 154.94 cm [facility] Weight 2018-12-11 19:46:00 [facility] BMI Calculated 2018-12-11 19:46:00 [facility] [place] Systolic (mm Hg) 2018-11-08 17:16:00 Ankit rial [place] Diastolic (mm Hg) 2018-11-08 17:16:00 [facility] [place] Heart Rate 2018-11-08 17:16:00 [facility] [place] Temperature Oral (F) 2018-11-08 17:16:00 98.2 F [facility] [place] Respitory Rate 2018-11-08 14:14:00 [facility] [place] Temperature Oral (F) 2018-11-08 13:35:00 97.8 F [facility] Heart Rate 2018-11-08 13:35:00 [facility] [place] Systolic (mm Hg) 2018-11-08 13:35:00 Ankit rial [place] Diastolic (mm Hg) 2018-11-08 13:35:00 Mem [facility] [place] Respitory Rate 2018-11-08 13:35:00 [facility] [place] Respitory Rate 2018-11-08 10:45:00 [facility] [place] Temperature Oral (F) 2018-11-08 10:45:00 98.0 F [facility] [place] Heart Rate 2018-11-08 10:45:00 [facility] [place] Systolic (mm Hg) 2018-11-08 10:45:00 Ankit rial [place] Diastolic (mm Hg) 2018-11-08 10:45:00 Mem [facility] [place] BMI Calculated 2018-11-04 21:39:00 [facility] [place] Height 2018-11-04 21:39:00 154.94 cm [facility] Weight 2018-11-04 21:39:00 [facility] [place] Height 2012-08-09 00:05:00 154.94 cm [facility] Weight 2012-08-09 00:05:00 [facility] Heart Rate 2012-03-06 16:08:00 [facility] [place] Systolic (mm Hg) 2012-03-06 16:08:00 Ankit rial [place] Respitory Rate 2012-03-06 16:08:00 [facility] [place] Temperature Oral (F) 2012-03-06 16:08:00 97.8 F [facility] Diastolic (mm Hg) 2012-03-06 16:08:00 [facility] [place] Diastolic (mm Hg) 2012-03-06 12:20:00 [facility] [place] Respitory Rate 2012-03-06 12:20:00 [facility] [place] Systolic (mm Hg) 2012-03-06 12:20:00 Ankit rial [place] Heart Rate 2012-03-06 12:20:00 [facility] [place] Temperature Oral (F) 2012-03-06 12:20:00 98.5 F [facility] [place] Systolic (mm Hg) 2012-03-06 09:00:00 Ankit rial [place] Respitory Rate 2012-03-06 09:00:00 [facility] [place] Diastolic (mm Hg) 2012-03-06 09:00:00 [facility] [place] Heart Rate 2012-03-06 09:00:00 [facility] Temperature Oral (F) 2012-03-06 09:00:00 97.9 F [facility] [place] Weight 2012-02-28 21:05:00 [facility] Height 2012-02-28 21:05:00 154.94 cm [facility] Procedures Procedure Date / Time Performed Performing Clinician Sourc e Colonoscopy [facility] [place] Cholecystectomy [facility] [place] Plan of Care Planned Activity Planned Date Details Comments Source Future Scheduled Test 2020-04-03 00:00:00 INFLUENZA VACCINE [code = INFLUENZA VACCINE] [facility] Future Scheduled Test 2011 00:00:00 65+ PNEUMOCOCCAL V ACCINE (1 of 2 - PCV13) [code = 65+ PNEUMOCOCCAL VACCINE (1 of 2 - PCV13)] [facility] Future Scheduled Test 1996 00:00:00 BREAST CANCER SCRE ENING [code = BREAST CANCER SCREENING] [facility] Future Scheduled Test 1996 00:00:00 COLONOSCOPY SCREEN ING [code = COLONOSCOPY SCREENING] [facility] Future Scheduled Test 1996 00:00:00 SHINGLES VACCINES (#1) [code = SHINGLES VACCINES (#1)] [facility] Encounters Start Date/Time End Date/Time Encounter Type Admission Type Att[facility] Facility Care Department Encounter ID Source 2019-04-07 09:54:46 Outpatient [facility] [id number] 2019-10-28 09:38:00 2019-10-28 23:59:00 Outpatient Vianney London [facility] [id number] 2019-10-28 09:38:00 2019-10-28 09:38:00 Outpatient [id number] 2019-06-23 09:24:00 2019-06-23 12:35:00 Outpatient Vianney London [facility] [id number] 2019-06-23 09:24:00 2019-06-23 09:24:00 Outpatient [facility] PUL [id number] 2019-05-13 13:23:00 2019-05-13 23:59:00 Outpatient Vianney London [facility] [id number] 2019-05-13 13:23:00 2019-05-13 13:23:00 Outpatient [facility] PUL [id number] 2019-04-08 14:25:00 2019-04-08 23:59:00 Outpatient Raysa Vilchis [facility] [id number] 2019-02-25 13:13:00 2019-02-25 23:59:00 Outpatient Vianney London [facility] [id number] 2019-02-25 13:13:00 2019-02-25 13:13:00 Outpatient [facility] PUL [id number] 2018-12-18 08:24:00 2018-12-18 16:15:00 Outpatient Raysa Vilchis [facility] [id number] 2018-12-18 08:24:00 2018-12-18 08:24:00 Outpatient [id number] 2018-12-11 14:24:00 2018-12-13 16:07:00 Outpatient Vianney London [facility] [id number] 2018-11-04 15:26:00 2018-11-08 13:20:00 Outpatient Tash Fox [facility] [id number] 2013-07-28 13:43:00 2013-07-28 23:59:00 Outpatient [facility]IE [facility]IE [id number] [facility] Results Test Description Test Time Test Comments Results Result Comments Source HEMATOLOGY 2018-12-18 14:18:00 Test Item PTT (test code = PTT) 20.0 s 22.9-35.8 [facility]JKKVETWY7181-[facility]-65 14:18:00* Test Item Value Reference Range Interpretation Comments INR (test code = INR) 0.93 1 0.85-1.17 [facility] YduwqwwPHHZGUJOML5130-73-95 14:18:00* Test Item Value Reference Range Interpretation Comments PT (test code = PT) 12.3 s 12.0-14.7 [facility] IgxpznfYYMOEFCFHN4640-42-55 14:18:0032.8[facility]ann[facility]OLOG[facility] 2018-12-18 14:18:0014.6[facility] QqplnxvQGITBQSARE3720-02-61 14:18:008.2[facility] PvywtctVUHSKNPHWD8712-12-66 14:18:15518Pgfdfpjb DcphryuCXINNYRGCX7410-07-83 14:18:0090.4[facility] PaegqnqNCBUZGBBHG7506-84-41 14:18:00* Test Item Value Reference Range Interpretation Comments MCH (test code = MCH) 29.7 pg 27.0-31.0 [facility] QdbzbuhGGKNPLXTCE5111-36-10 14:18:0014.3[facility]annHEMATOLOGY 2018-12-18 14:18:0043.5[facility] VhxdbhxJIRGPKQHTB1509-72-62 14:18:0013.2[facility] VhiipocJAVVVFEOJD2065-18-41 14:18:004.81[facility] PyrceojKJBPILLKQH8817-66-99 14:18:0077.5[facility] XmmlpmpIXYFGBERVN5448-65-12 14:18:000.4[facility] [place] ELEVEBBDHI6781-03-03 14:18:000.7[facility] CxsfiwmCSVDRNFUIY8294-37-41 14:18:002.2 [facility] GlwontqWCNCAZZOGX6518-22-71 14:18:0010.2[facility]annHEMATOLOGY 2018-12-18 14:18:000.1[facility] OjdlllmLZPCZZJBLV3166-20-87 14:18:0016.9[facility] UnyoigmJCIKFTSGRT6651-30-16 14:18:005.1[facility] OayqzhnXNNQZVMDJY2909-53-88 14:18:000.1[facility] PlknklvWNHYMXGPAZ6459-89-21 23:07:009.9[facility] [place] SPECIAL RKEUYFLFP6668-13-34 10:10:006.3[facility] HermannCHEM DPDHY0557-75-19 19:51:003.4[facility] HermannCHEM JDERC1025-36-97 19:51:00* Test Item Value Reference Range Interpretation Comments A/G Ratio (test code = A/G Ratio) 1.1 1 0.7-1.6 [facility]annCHEM SZTVV6550-15-73 19:51:003.5[facility] HermannCHEM PANEL 2018-12-11 19:51:00* Test Item Value Reference Range Interpretation Comments B/C Ratio (test code = B/C Ratio) 23 1 6-25 [facility]annCHEM RYYCF2790-94-93 19:51:009.9[facility] HermannCHEM PANEL 2018-12-11 19:51:0080[facility] HermannCHEM AAHSA7142-70-83 19:51:000.3[facility] HermannCHEM EZFWO6324-35-04 19:51:18948Ggxcnlil HermannCHEM FVCXR1548-91-24 19:51:0035[facility] HermannCHEM XGZIN5539-46-58 19:51:003.8[facility] HermannCHEM TXHDA5807-21-24 19:51:0011[facility] HermannCHEM QDWMN8884-67-48 19:51:0025 [facility]annCHEM ZDLFY5887-09-71 19:51:15342Aviylyao HermannCHEM PANEL 2018-12-11 19:51:007.3[facility] HermannCHEM QEXCM2781-91-12 19:51:009.2[facility] HermannCHEM GGYNN7088-17-86 19:51:24031Ipyexinn HermannCHEM DFRQO7536-40-28 19:51:003.9[facility] HermannCHEM ENINS9650-44-90 19:51:000.75[facility] HermannCHEM ZUGLM7756-05-92 19:51:0017[facility] HermannCHEM HKXZA2855-64-76 19:51:26919 [facility]annCHEM KLSDS9932-90-44 19:51:002.6[facility]annHEMATOLOGY 2018-12-11 19:51:63035Lycaqniu OpxslfrSLXOZOXRVO9200-39-53 19:51:008.0[facility] VtdaljdCWFVUQCFHX8229-86-92 19:51:0014.3[facility] KlklidaMJEOCKNMLG7868-11-72 19:51:0033.5[facility] ClkqpabXNFNHXRAHG7298-76-88 19:51:00* Test Item Value Reference Range Interpretation Comments MCH (test code = MCH) 30.1 pg 27.0-31.0 [facility] RuzkswfZNKSMOSOGP8159-36-72 19:51:004.49[facility] HermannHEMATOLOGY 2018-12-11 19:51:0013.5[facility] WanodvdGHHVKOPAZD6631-09-67 19:51:0011.7[facility] UvfyhtaKNWVADVYOY9446-84-58 19:51:0089.9[facility] ZiilldbIMYILWNVHZ0064-64-65 19:51:0040.3[facility] CfipzbyTLNJOXBPQV4622-60-23 19:51:0022.5[facility] [place] VOQBRUTHQA6899-30-71 19:51:006.9[facility] QvoqwpuUZXVBFMCTM0954-74-94 19:51:000.4 [facility] WhgdizhXQLOQOUNYD5863-56-37 19:51:002.6[facility]annHEMATOLOGY 2018-12-11 19:51:008.2[facility] UamszbwKEXUWXYEQZ5487-36-82 19:51:000.3[facility] OfwgskzRNDOBVXHTI8870-70-54 19:51:000.1[facility] NjrhigwAPVCVNCBGJ0693-67-52 19:51:000.8[facility] JvutepmTXSLQUQDDD8720-94-05 19:51:0069.9[facility] XDTRUJYXKJ9440-10-78 19:51:0013[facility] OrposjzHHCJKGJEYI4311-37-89 19:51:00 749.0[facility] HermannMAMMOGRAPHY DIGITAL SCR CKWGX4921-30-68 09:48:00 [place] [address] Patient Name: DANIA LUCIO MR #: [id number] : 1945 Age/Sex: 73/F Req #: [id number] [facility] Physician: Ordered by: TASH PASCUAL MD Report #: [id number] Location: MAMMO Room/Bed: Procedure: [id number] MG/MAMMOGRAPHY DIGITAL SCR BILAT Exam Date: 11/20/18 Exam Time: 932 REPORT STATUS: Sig dao #[id number] - MGSCRBIL #BILATERAL DIGITAL SCREENING MAMMOGRAM WIT H CAD: 11/20/2018 CLINICAL: Routine screening. Comparison is made to nolberto caba dated: 12/11/2016 mammogram - [facility]. Current study contains 4 films. There are scattered fibroglandular elements in both breasts. Current study was also evaluated with a Computer Aided Detection (C AD) system. There are benign vascular calcifications in both breasts. No significant masses, calcifications, or other findings are seen in either breast. There has been no significant interval change. IMPRESSION: BENIGN T here is no mammographic evidence of malignancy. A 1 year screening mammogram is recommended. The patient will be notified by letter of the results. Porter perez/jenn:11/28/2018 13:26:07 Revenue Research Analyst: Kaleigh NYE(R)(M), [facility] let ter sent: Compared to Prior B9 Mammogram BI-RADS: 2 Benign Dictated By: PORTER ROSS DO 1326 T ranscribed By: JENN on 11/28/18 1326 COPY TO: TASH PASCUAL MD WBXGLXRPFB5586-45-04 11:04:0012.4[facility] HgxofffBBGHBKBJFR3027-32-50 11:04:00 37.4[facility] AniaateJDRGRHZTIW3696-68-08 11:04:0089.9[facility]annHEMATOLOGY 2018-11-07 11:04:00* Test Item Value Reference Range Interpretation Comments MCH (test code = MCH) 29.8 pg 27.0-31.0 [facility] IztopyeLBQFGSPDWZ0320-29-21 11:04:0033.2[facility] HermannHEMATOLOGY 2018-11-07 11:04:0014.4[facility] LjjxxfyOIRVXBQVVL8322-81-42 11:04:15046Hvuryeid EstfnhbXLGKBGMZJO2758-63-40 11:04:008.3[facility] AuzlgixAAHUKCYHJU6644-99-97 11:04:0017.9[facility] ZqfyamwSOSGNJYBBU6455-25-66 11:04:004.16[facility] GOMGLMDPRD0850-62-37 11:04:000.1[facility] AhumnixHLBDEJPEWL8979-78-07 11:04:001.3 [facility] DcmpiftDVWWIFTFYL7753-20-59 11:04:0016.3[facility] HermannHEMATOLOGY 2018-11-07 11:04:000.4[facility] ChvsmjgNOHNQVXDUV6751-31-15 11:04:00Normal (11/07/18 5:04 AM)[facility] AqfrofrJPPWKQUCCH2728-40-15 11:04:00Normal (11/07/18 5:04 AM)[facility] QoapcrdFFUZOJQCBK4930-73-63 11:04:0090.8[facility] HermannHEMATOLOGY 2018-11-07 11:04:007.0[facility] EengatjNOYJNHGCUL7469-53-75 11:04:002.1[facility] QmweoomOPQHZKNVYQ4209-38-85 11:12:007.9[facility] YzpqbkpTNJXVMJHHC5390-58-07 11:12:0088.7[facility] QmhwkkvWZPPMZIOIG4829-69-52 11:12:0038.1[facility] QANDLGYLNQ9759-39-51 11:12:0012.6[facility] IwtlkptJJTJULSXKI6705-63-74 11:12:00* Test Item Value Reference Range Interpretation Comments MCH (test code = MCH) 29.4 pg 27.0-31.0 [facility] PecawurBWHNHYXOEE0952-61-63 11:12:0014.2[facility]annHEMATOLOGY 2018-11-06 11:12:25909Tnbsybih QywyvdtZVAPCAQLON8565-03-08 11:12:0033.1[facility] WfggfquAJRYNGMJXT5536-60-15 11:12:0020.1[facility] OsigrozDHIXAJOFXO3396-83-73 11:12:004.30[facility]annCHEM GKRSH3984-79-05 12:12:00<0.05[facility] QPWPSRKFHLBC9253-48-42 12:12:0011.1[facility] ZtuyynwMBGWWQHDJONF5200-55-40 12:12:0088[facility] IyjbzxxLDYWNEPOQBSH1785-98-20 12:12:0024[facility] [place] UWALBXBAMAVB9102-26-05 12:12:009.0[facility] HauplmwKXKPJMANNEXD7046-57-05 12:12:000.68[facility] IvqvztpMYWGXQVJUZTZ8561-79-75 12:12:50297Nxcpcbcg [place] IANBBYDMYSJR7044-41-08 12:12:70544Yimkgblq DrufsrfVSPIQJMWTUKS0053-75-74 12:12:0013[facility] LsdbxaoZNTSRKYFYIVP5765-24-92 12:12:20469Ptrkligp [place] UTYSNRMXHUCP4247-81-95 12:12:004.1[facility] SgxwvkoSSYUWTXWYO2041-00-11 12:12:00 40.8[facility] XpqkovzJAIAVOWUGX4448-56-61 12:12:00* Test Item Value Reference Range Interpretation Comments [facility] (test code = MCH) 29.8 pg 27.0-31.0 [facility] ZpsbhabZREHYXTDAQ5167-90-17 12:12:0089.3[facility]annHEMATOLOGY 2018-11-05 12:12:0033.4[facility] RisiacvOQYSYWEYNU3127-44-51 12:12:008.2[facility] BvhrnuzDHJFURCJTE6042-75-20 12:12:92084Qmvoblfy PxmjblwORTKFCIKZJ4273-53-13 12:12:0013.9[facility] GydjdtyYSYEJYMYGH7079-99-09 12:12:0011.3[facility] OZIKCCBEFB6036-33-48 12:12:004.57[facility] DbohoynUSLZJRVKOW1384-60-28 12:12:00 13.6[facility] RnmxqwuOTTTMAJAA9522-86-26 02:05:00<0.1[facility]annCHEMISTRY 2012-08-09 02:05:000.7[facility] WmuiiwkYWJHUJGTD6883-12-02 02:05:14257Edyjigvi BhvphncUGZXQSMLR1169-72-95 02:05:001.2[facility] HjdkvgqDCSAKJLIF3276-47-07 02:05:00<0.02[facility] RvktbdfGXSPUXAOV0512-90-29 02:05:0095[facility] BKICCGCQI6487-79-50 02:05:004.0[facility] RshnfhkSBIKDDKNP9921-44-33 02:05:0014.0 [facility] WivywovIYVEBTAIW4919-14-17 02:05:004.0[facility]annCHEMISTRY 2012-08-09 02:05:74139Tnqaslqh QrslkunDAHOJMXKT0511-78-39 02:05:0025[facility] OvwzbioUHARLKSDM1254-90-68 02:05:85223Kpnthpcw BnjsfzxWWBJQJLRX1607-50-27 02:05:008.6[facility] UrulaxuWBEQZFVJS9122-84-18 02:05:000.6[facility] CIUKMCBMY7921-93-79 02:05:02736Kwueqeat YcywbsiVOYEJGGPA7611-80-06 02:05:0091 [facility] YluthkuATVGVDEBS7231-18-04 02:05:000.2[facility] HermannCHEMISTRY 2012-08-09 02:05:0012[facility] NfmdrkqBRYTJONCW5023-25-59 02:05:001.1[facility] EeqtyixQKTRCIABI4507-47-99 02:05:0020[facility] TyzzcqxLFVFJUJXJ8631-69-36 02:05:003.6[facility] IpumludZKHFZWBJV2842-17-50 02:05:0032[facility] LMTYHYCIJ1021-14-93 02:05:0019[facility] MllonquAIIGKKYRK9929-89-51 02:05:007.6 [facility] KqrfkhePWZXNIOIT7898-16-20 02:05:24839Zzstrxhg HermannHEMATOLOGY 2012-08-09 02:05:000.5[facility] UrjrtlqATAQQAECLZ5791-10-65 02:05:000.2[facility] IrcwnncFHTWLWPLIL1681-71-91 02:05:000.1[facility] HaeldttULSLQQLNBO3174-20-11 02:05:006.8[facility] EcaknzaGQEZQDHIKG0608-58-32 02:05:001.3[facility] VHKPTMDEVD8356-09-18 02:05:002.7[facility] XcokvxpGBPSKTXSIA7581-01-59 02:05:002.5 [facility] ZrmvrfsHSANQHGMIP2595-18-53 02:05:004.5[facility] HermannHEMATOLOGY 2012-08-09 02:05:0031.7[facility] SpyfapfUHTNZPVCDQ3189-81-26 02:05:0057.5[facility] EdnrflhEJTGDBGUXK2263-85-91 02:05:000.90[facility] WoyrpkqTVKOUEXODU2975-49-77 02:05:00* Test Item Value Reference Range Interpretation Comments PTT (test code = PTT) 26.1 s 22.9-35.8 N [facility] QroxfsvUINEUUUJXR8691-80-72 02:05:00* Test Item Value Reference Range Interpretation Comments PT (test code = PT) 12.4 s 12.0-14.7 N [facility] ScgvllfEHEKQPPQRT6095-98-70 02:05:49510Pesgxrmu HermannHEMATOLOGY 2012-08-09 02:05:007.4[facility] KgubesiMEXEOVVZQS2277-44-07 02:05:0090.2[facility] MhabsjjLOMCIMXDPN2178-01-21 02:05:0038.8[facility] HapqfyhXMEOMSGOKG3101-31-21 02:05:0033.8[facility] UdyqbreCZWZZIBPQK2205-81-70 02:05:00* Test Item Value Reference Range Interpretation Comments MCH (test code = MCH) 30.5 pg 27.0-31.0 N [facility] DiywxzvIBUQDFVKRK8405-77-52 02:05:0013.8[facility] HermannHEMATOLOGY 2012-08-09 02:05:004.30[facility] WppeduwAXZQBWYXOI2572-71-57 02:05:0013.1[facility] RcqstodWLGRMTBGGG7899-59-60 02:05:007.9[facility] DxaexfsQMTFDZWLA0147-69-77 16:45:0013.0[facility] UpdwtkjIRBJPGSXZ7014-57-63 16:45:009.0[facility] [place] QQEEMMWDP7631-75-26 16:45:0026[facility] HdvszyaBZXEOPAOV7792-50-23 16:45:06408 [facility] RbnwhefDQPKBPHQV4198-71-17 16:45:004.0[facility] HermannCHEMISTRY 2012-03-22 16:45:000.6[facility] QxfpypyODCFIJLLT8225-93-85 16:45:67420Ogsggyio PkwehhlCZAZLXEAJ6499-29-03 16:45:0079[facility] HzmanyyOVXEAONMV1425-92-71 16:45:0012[facility] JlsxayoUZARXVWFZ1225-45-26 10:15:0015.6[facility] [place] RKRDDOSTX9212-61-82 10:15:27880Mimiltjq UxceajdLDPPOJMQI9625-64-16 10:15:0015 [facility] RfcfstxFQSZADKEC4080-92-69 10:15:000.7[facility] HermannCHEMISTRY 2012-03-06 10:15:0023[facility] DwxgutuKDBPDYLOK5529-41-08 10:15:009.0[facility] XslugfuBLESBICCX3812-67-17 10:15:81229Ywpgumcg EvqiauhHDZFVSPED6526-17-41 10:15:004.6[facility] VydwltzHUZDNSSIF9749-52-13 10:15:55599Mdxzlenn [place] JOHGOVRTRU4188-01-02 10:15:000.0[facility] UdnesmhSTFAYEKVCM7877-64-00 10:15:000.0 [facility] UfmcecxEATDIFSVII6945-37-61 10:15:003.0[facility] HermannHEMATOLOGY 2012-03-06 10:15:0013.9[facility] ZngzxdqMXKKSLAOEM4730-03-73 10:15:0083.1[facility] AqbtcviGTNRKLGSHJ7551-51-40 10:15:000.0[facility] SlmhxefXYBQWACGNC8272-95-07 10:15:001.9[facility] AqhjigaZCNFBWETJC0527-47-39 10:15:000.4[facility] [place] FBZDWOEVEA5663-74-89 10:15:000.0[facility] ZrjndmeYUUIKWSBZP3181-93-62 10:15:00 11.0[facility] VdvkcoyBDTTIHQSVK0190-54-55 10:15:0013.3[facility] HermannHEMATOLOGY 2012-03-06 10:15:004.35[facility] GsdqyooYFVUIXTZYS9391-17-66 10:15:0013.2[facility] GggxgllEJHOTYGKFB3705-82-25 10:15:0039.7[facility] OwxgqsfOYKQMEAGSO2367-52-49 10:15:0013.2[facility] JhtsfliRPXMIXSJDW1281-55-47 10:15:0091.3[facility] [place] SFJNHWJLOA4531-46-42 10:15:0033.2[facility] AlnrjkqJENWOWKQTH3433-56-56 10:15:00* Test Item Value Reference Range Interpretation Comments MCH (test code = MCH) 30.3 pg 27.0-31.0 N [facility] YdsuquuFHVKXVQRPJ2068-45-84 10:15:63227Nfcghhhe HermannHEMATOLOGY 2012-03-06 10:15:007.9[facility] XsqznvuFESSKGFCX1300-84-27 10:20:004.5[facility] JhbkoqoEJPUFPYHY9232-46-21 10:20:82837Zhzebqju XjldnoxCVQGJTHSJ6403-99-09 10:20:50690Sjeurgxu ZobyegcVBISDSJWE2384-02-31 10:20:0014[facility] ZBHROJIFK4811-97-13 10:20:0023[facility] FdxyimfOMMYJKVYG7530-80-96 10:20:009.0 [facility] SpntrnqUAEXWQBCD6808-49-57 10:20:0016.5[facility] HermannCHEMISTRY 2012-03-05 10:20:68354Ojmyjnzn NuhqxjcSURBDLXCM6463-91-97 10:20:000.8[facility] XfxxoxqDLQSHSOLOB5593-51-97 10:20:007.9[facility] QrgxnlbFHPTEIHAGM2343-10-72 10:20:0090.6[facility] RyrftyqVTZWJDIJTJ7904-31-42 10:20:00* Test Item Value Reference Range Interpretation Comments MCH (test code = MCH) 30.9 pg 27.0-31.0 N [facility] DdlcfhhNILYSOJOTE6556-52-96 10:20:0034.1[facility] HermannHEMATOLOGY 2012-03-05 10:20:0013.4[facility] BbjijbtUBJPLLXNUU0002-66-40 10:20:08459Fwuiahew EiddgjwAJYPQBOBFK3139-04-52 10:20:0012.9[facility] TnseeecPGULBTIVVN6011-62-16 10:20:0037.9[facility] CtptvmqQWWLNTVRHT9092-53-25 10:20:0012.5[facility] RRKUSWTFSV4929-80-28 10:20:004.18[facility] RflfjnaASWDFRKBZA6602-49-36 10:20:00 2.0[facility] MnrjxtwRJIREPLOUP9855-83-85 10:20:000.0[facility] HermannHEMATOLOGY 2012-03-05 10:20:000.5[facility] AnowxotONTBITHFJT7552-91-47 10:20:000.1[facility] IuegpitHKXPKVIARM3108-50-77 10:20:000.0[facility] TsxzaeaCGXTHGVAXQ7465-75-30 10:20:009.9[facility] JvacotjRLFYPSEQNL0458-63-65 10:20:000.1[facility] [place] MSLAMMJVCX8965-08-37 10:20:003.7[facility] CjvunasSJUSVMHHSL4261-38-16 10:20:00 16.3[facility] NauwkhnIAWTZJTUWA6408-89-66 10:20:0079.8[facility] HermannCHEMISTRY 2012-03-03 10:25:0015.4[facility] XzngmarYCTRZOJTG4265-60-68 10:25:0013[facility] BylobxnGQWMSESVQ9389-70-26 10:25:0025[facility] DsjinuhINAGRSFHB2784-56-00 10:25:008.8[facility] IcfnihjIBIAQQMWX7695-54-95 10:25:28903Uqovlanp [place] OUNBJZXHQ1688-55-12 10:25:60504Szleiazw ZlfeoucNJDAJSUIK6427-91-38 10:25:000.6 [facility] ZihduifNDKOYSLLK5546-36-02 10:25:004.4[facility] HermannCHEMISTRY 2012-03-03 10:25:95748Cqcobeqr EtwhrcdYEUGNPRIYE9803-31-32 10:25:000.5[facility] LivnpebQHFIIIYKNH4918-69-77 10:25:000.0[facility] NhytaupHQYTGFQGCR7878-77-19 10:25:000.0[facility] PazhuinQRZGRVTVXS0758-92-62 10:25:0011.4[facility] XGHDJAZICT0555-55-75 10:25:000.3[facility] BiqyskaIUTNITZNIY6007-36-13 10:25:000.0 [facility] XuqleewTPVYNJBVWU3961-71-42 10:25:0082.1[facility] HermannHEMATOLOGY 2012-03-03 10:25:003.7[facility] ObtyilaBXWKCOJEFP1240-13-39 10:25:001.9[facility] ZzcwutiNWGXQNVFNR7433-11-99 10:25:0013.9[facility] NhruehnOURZYXPFYN3003-89-61 10:25:0013.5[facility] GcrfbhpXBHUECDINZ0557-03-64 10:25:46974Dawhgkjo [place] FXWEQHWOLE4260-57-15 10:25:0033.8[facility] RudcdcgXDXEMJBFOU2137-23-05 10:25:00 7.9[facility] JxayxmpWTQCMYFMLW3875-43-84 10:25:0012.2[facility] HermannHEMATOLOGY 2012-03-03 10:25:003.96[facility] ZqywemoMMJXDCMJUL7519-69-15 10:25:0091.2[facility] LbntmoqBFMXADTQNS4927-23-21 10:25:0036.1[facility] BmewcajWVPAMYSFWE3810-63-70 10:25:0013.9[facility] JviocrvEWJMZZUXNY3645-30-77 10:25:00* Test Item Value Reference Range Interpretation Comments MCH (test code = MCH) 30.8 pg 27.0-31.0 N [facility] ImuikbzNYZWEXNJWL2032-99-93 09:41:003.0[facility] HermannHEMATOLOGY 2012-03-02 09:41:00Slight *ABN*(03/02/2012 04:41:00) [facility]annHEMATOLOGY 2012-03-02 09:41:001+ *ABN*(03/02/2012 04:41:00) [facility]HEMATOLOGY 2012-03-02 09:41:00Normal (03/02/2012 04:41:00) [facility]HEMATOLOGY 2012-03-02 09:41:000.0[facility] CbkievoXGPKZCZBAA8405-56-59 09:41:00See Note (03/02/2012 04:41:00) [facility] KenuicyHBAZUPFWCH7432-12-50 09:41:001.0[facility] OyzazrpYCYWZBISH1850-41-91 22:21:003.6[facility] XmohmvbACQKYOAGY0034-88-80 22:21:0025[facility] RiqssjqNRFZUIAVU0566-66-62 22:21:0097[facility] IMGNPHYJL1396-00-70 22:21:000.4[facility] VkpcpwsHLYOANDZW7648-69-21 22:21:008.1 [facility] GrhucsqWQWZTKMUD5004-76-58 22:21:0014[facility] HermannCHEMISTRY 2012-02-28 22:21:000.8[facility] YpdckhsHSNPJTLLJ5331-49-26 22:21:0020[facility] OcorfwgFSABBYBLK7929-86-01 22:21:004.5[facility] KtwjkxrSKUCDROSN7121-69-48 22:21:001.3[facility]annMRI ABDOMEN WOW [facility] [address], [place] [address] Patient Name: DANIA LUCIO MR #: [id number] : 1945 Age/Sex: 72/F Req #: [id number] Adm Physician: Ordered by: EMILY REDDY MD Report #: [id number] Location: MRI Room/Bed: Procedure: MRI/MRI ABDOMEN WOW Exam D ate: 05/22/17 Exam Time: 1540 REPORT STATUS: Si gned PROCEDURE: MRI ABDOMEN WOW TECHNIQUE: Multiplanar multisequence ev aluation of the abdomen were acquired before and after the administration of contrast. Axial in and out of phase, T2 fat-sat, and diffusion weighted seque nces. Coronal 2-D CSF fat-sat and SSFSE. After administration of contrast, dy namic LAVA sequences were acquired. Additional delayed sequence were also acquired. Contrast: 7 mL Gadavist COMPARISON: CT abdomen pelvis 04/18. INDICATIONS: Epigastric pain FINDINGS: LIVER: Diffuse loss of signal on out of phase imaging consistent with diffuse hepatic steatosis. 1.3 cm T2 hyperintense nonenhancing simple cyst in segment 2/3 (series 6 i mage 10). 1.2 cm T2 hyperintense nonenhancing simple cysts in segment 4B (ser ies 6 image 18). BILIARY: No ductal dilatation or filling defect. Arciniega ing artifact from cholecystectomy clips. PANCREAS: No mass or ductal dilata tion. SPLEEN: No splenomegaly. ADRENALS: No nodules. KIDNEYS: No hydro nephrosis or mass in the imaged portion of the kidneys. PERITONEUM / RE TROPERITONEUM: No upper abdominal free fluid. LYMPH NODES: No upper abdominal lymphadenopathy. VESSELS: Unremarkable. BONES AND SOFT TISSUES: Unremark able. IMPRESSION: 1. 2 simple hepatic cysts. 2. Diffuse hepatic s teatosis. Dictated by: Salvatore Obrien M.D. on 05/22/2017 at 16:57 Electronically approved by: Salvatore Obrien M.D. on 05/22/2017 at 16:57 Dictated By: SALVATORE OBRIEN MD 57 Transcribed By: RADHA on 05/22/171656 COPY TO: EMILY REDDY MD
--- OUTSIDE RECORDS SUMMARY | 2020-04-09 16:27 | XMS REPORT | CCD ---
Author Author Auto DANIA Desai 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 Name Role Phone Rocio Dunlap CP Allergies, Adverse Reactions, Alerts Substance Reaction Status NKDA Active Problem List Condition Effective Dates Status Acute interstitial pneumonia Active HT - Hypertension Active Medications Medication Instructions Start Date End Date Status pneumococcal 0.5 ml, Route: IM, Drug Form: INJ, 02/29/2012 Completed 23-valent vaccine Start date: 02/29/12 9:00:0 0, Stop date: 02/29/12 9:00:00 Tussionex 5 ml, Route: PO, Drug Form: SUSPER, 02/29/201212/2011 Discontinued [employer] oral Q12H, PRN Cough/Congestion, Start suspension, extended date: 02/29/12 8:36:00, Dur ation: release 30 day, Stop date: 03/30/12 8:35:00 pneumococcal 0.5 ml, Route: IM, Drug Form: INJ, 02/29/2012 Completed 23-valent vaccine Daily, Start date: 02/29/12 9:00:00, Duration: 1 doses or times, Stop date: 02/29/12 9:00:00 methylPREDNISolone 20 mg, 0.5 mL, Route: IV, Drug 03/01/2012 0 03/06/2012 Discontinued form: INJ, [id number], Start date: 03/01/12 10:00:00, Duration: 30 day, Stop date: 03/30/12 22:00:00 methylPREDNISolone 40 mg, 1 mL, Route: IV, Drug form: 03/01/2012 03/01/2012 Completed INJ, ONCE, Start date: 03/01/12 2:28:00, Stop date: 03/01/12 2:28:00 Tessalon Perles 200 mg, 2 cap, Route: PO, Drug 03/01/2012 07/0 12/2011 Discontinued form: CAP, Q8H, Start date: 03/01/12 8:00:00, Duration: 30 day, Stop date: 03/31/12 0:00:00 Sodium Chloride 0.9% 500 mL, Rate: 500 ml/hr, Infuse 02/28/2012 02/28/2012 Completed (Bolus) IV 500 mL over: 1 hr, Route: IV, Dosi ng Weight 64.091 kg, Total Volume: 500, Bolus Dose, Priority: STAT, Start date: 02/28/12 20:41:00, Duration: 1 doses or times, Stop date: 02/28/12 21:40:00 ProAir HFA 90 2 puff, INHALATION, Q6H, PRN, 9 gm, 03/06/2012 Ordered mcg/inh inhalation 1, 1, for wheezing, Substit ution aerosol with adapter Allowed, Soft Stop, AERO Prilosec 20 mg oral 20 mg, 1 cap, PO, Daily, 30 cap, 03/06/20 12 Ordered delayed release Substitution Allowed capsule azithromycin 500 mg, Route: IVPB, [id number], Start 02/29/2012 Discontinued date: 02/29/12 21:00:00, Duration: 30 day, Stop date: 03/29/12 21:00:00 ceftriaxone 1 gm, Route: IVPB, Drug form: 02/29/2012 2 Discontinued PDR/INJ, [id number], Start date: 02/29/12 18:00:00, Duration: 30 day, Stop date: 03/29/12 18:00:00 levothyroxine 25 microgram, Route: PO, Drug form: 02/29/2012 0 03/06/2012 Discontinued TAB, [id number], Start date: 02/29/12 9:00:00, Duration: 30 day, Stop date: 03/30/12 6:30:00 albuterol 0.083% 2.49 mg, 3 mL, Route: NEB, Drug 02/29/2012 Deleted inhalation solution form: SOLN, RQ6H, Priority: Routine, Start date: 02/29/12 2:00:00, Duration: 30 day, Stop date: 03/29/12 20:00:00 simvastatin 10 mg, 1 tab, Route: PO, Drug form: 02/29/201212/2011 Discontinued TAB, QAM, Start date: 02/29/12 9:00:00, Duration: 30 day, Stop date: 03/29/12 9:00:00 ipratropium 0.5 mg, 2.5 mL, Route: NEB, Drug 02/29/20122011 Deleted form: SOLN, RQ6H, Priority: Routine, Start date: 02/29/12 2:00:00, Duration: 30 day, Stop date: 03/29/12 20:00:00 guaifenesin 100 mg, 5 mL, Route: PO, Drug form: 02/28/201212/2011 Discontinued LIQ, Q4H, PRN Cough/Congestion, Start date: 02/28/12 21:37:00, Duration: 30 day, Stop date: 03/29/12 21:36:00 codeine-guaifenesin 5 mL, Route: PO, Drug Form: LIQ, 02/28/2012 03/06/2012 Discontinued 10 mg-100 mg/5 mL Q4H, PRN Cough, Start date: oral syrup 02/28/12 21:37:00, Duration : 30 day, Stop date: 03/29/12 21:36:00 amLODipine 5 mg, 1 tab, Route: PO, Drug form: 02/29/201212/2011 Discontinued TAB, Daily, Start date: 02/29/12 9:00:00, Duration: 30 day, Stop date: 03/29/12 9:00:00 predniSONE 10 mg 10 mg, 1 tab, PO, Daily, 10 tab, 03/06/2012 0 03/16/2012 Ordered oral tablet Substitution Allowed, TAB ondansetron 4 mg, 2 mL, Route: IVP, Drug form: 02/28/201212/2011 Discontinued INJ, Q6H, PRN Nausea & Vomiting, Start date: 02/28/12 21:39:00, Duration: 30 day, Stop date: 03/29/12 21:38:00 acetaminophen 650 mg, 2 tab, Route: PO, Drug 02/28/20122011 Discontinued form: TAB, Q4H, PRN Pain/Fever, Start date: 02/28/12 21:39:00, Duration: 30 day, Stop date: 03/29/12 21:38:00 Saline Flush 0.9% 5 ml, Route: IVP, Drug Form: INJ, 02/28/2012 03/06/2012 Discontinued PRN, PRN Line Flush, Start date: 02/28/12 21:39:00, Duration: 30 day, Stop date: 03/29/12 21:38:00 Mucinex 600 mg oral 600 mg, 1 tab, PO, Daily, 10 tab, 03/06/2012 03/16/2012 Ordered tablet, extended Substitution Allowed, ERTAB release NS (Bolus) IV 1,000 1,000 mL, Rate: 1,000 ml/hr, Infuse 02/2702/28/2012 Completed mL over: 1 hr, Route: IV, Dosi ng Weight 64.091 kg, Total Volume: 1,000, Priority: STAT, Start date: 02/28/12 18:28:00, Duration: 1 doses or times, Stop date: 02/28/12 19:27:00, Bolus Dose Bolus Dose azithromycin 500 mg, 250 mL, Route: IVPB, Drug 02/28/201202/02 Completed form: PDR/INJ, ONCE, Priority: STAT, Start date: 02/28/12 18:26:00, Stop date: 02/28/12 18:26:00 albuterol 0.083% 2.49 mg, Route: NEB, Drug form: 02/28/2012 Completed inhalation solution SOLN, ONCE, Priority: STAT, Start date: 02/28/12 18:26:00, Stop date: 02/28/12 18:26:00 ipratropium 0.02% 0.5 mg, Route: NEB, ONCE, Priority: 02/28/2012 02/28/2012 Completed inhalation solution STAT, Start date: 02/28/12 18:26:00, Stop date: 02/28/12 18:26:00 Rocephin 1 gm, Route: IVPB, ONCE, Priority: 02/28/201202/02 Completed STAT, Start date: 02/28/12 18:26:00, Stop date: 02/28/12 18:26:00 acetaminophen 650 mg, Route: PO, Drug form: TAB, 02/28/2012 Completed ONCE, Priority: STAT, Start date: 02/28/12 20:39:00, Stop date: 02/28/12 20:39:00 enoxaparin 40 mg, 0.4 mL, Route: SUB-Q, Drug 02/29/201203/06 Discontinued form: INJ, [id number], Start date: 02/29/12 21:00:00, Duration: 30 day, Stop date: 03/29/12 21:00:00 TL-Hist DM oral 5 mL, PO, Q6H, PRN, as needed for 02/28/2012 Ordered liquid cough and congestion, Subst itution Allowed, Maintenance levofloxacin 500 mg 500 mg, 1 tab, PO, Daily, 02/28/2012 Ordered oral tablet Substitution Allowed Lamisil 250 mg oral 250 mg, 1 tab, PO, Daily, 02/28/2012 Ordered tablet Substitution Allowed simvastatin 10 mg, PO, QAM, Substitution 02/28/2012 O rdered Allowed levothyroxine 25 mcg 25 microgram, 1 tab, PO, Daily, 02/28/20 12 Ordered (0.025 mg) oral Substitution Allowed tablet amLODipine 5 mg oral 5 mg, 1 tab, PO, Daily, 02/28/2012 Ordered tablet Substitution Allowed DuoNeb inhalation 3 mL, Route: NEB, Drug Form: SOLN, 02/29/2012 03/06/2012 Discontinued solution RQ6H, Start date: 02/29/12 2:00:00, Duration: 30 day, Stop date: 03/29/12 20:00:00 Immunizations Vaccine Date Status pneumococcal 23-valent vaccine 02/29/2012 Auth (V erified) Vital Signs Most recent to oldest [Reference Range]: 1 2 3 Height 154.94 cm (02/28/2012 16:05:00) Temperature Oral [96.4-99.1 DegF] 97.8 DegF (03/06/2012 11:08:00) 98.5 DegF (03/06/2012 07:20:00) 97.9 DegF (03/06/2012 04:00:00) Systolic Blood Pressure [90-140 mmHg] 145 mmHg *HI* (03/06/2012 11:08:00) 109 mmHg (03/06/2012 07:20:00) 126 mmHg (03/06/2012 04:00:00) Diastolic Blood Pressure [60-90 mmHg] 65 mmHg (03/06/2012 11:08:00) 69 mmHg (03/06/2012 07:20:00) 65 mmHg (03/06/2012 04:00:00) Respiratory Rate [14-20 BRMIN] 16 BRMIN (03/06/2012 11:08:00) 16 BRMIN (03/06/2012 07:20:00) 18 BRMIN (03/06/2012 04:00:00) Peripheral Pulse Rate [60-100 bpm] 80 bpm (03/06/2012 11:08:00) 78 bpm (03/06/2012 07:20:00) 77 bpm (03/06/2012 04:00:00) Weight 64.091 kg (02/28/2012 16:05:00) Results CHEMISTRY Most recent to oldest [Reference Range]: 1 2 3 Sodium Lvl [135-145 mEq/L] 138 mEq/L (03/06/2012 05:15:00) 140 mEq/L (03/05/2012 05:20:00) 143 mEq/L (03/03/2012 05:25:00) Potassium Lvl [3.5-5.1 mEq/L] 4.6 mEq/L (03/06/2012 05:15:00) 4.5 mEq/L (03/05/2012 05:20:00) 4.4 mEq/L (03/03/2012 05:25:00) Chloride Lvl [95-109 mEq/L] 104 mEq/L (03/06/2012 05:15:00) 105 mEq/L (03/05/2012 05:20:00) 107 mEq/L (03/03/2012 05:25:00) CO2 [24-32 mEq/L] 23 mEq/L *LOW* (03/06/2012 05:15:00) 23 mEq/L *LOW* (03/05/2012 05:20:00) 25 mEq/L (03/03/2012 05:25:00) AGAP [10.0-20.0 mEq/L] 15.6 mEq/L (03/06/2012 05:15:00) 16.5 mEq/L (03/05/2012 05:20:00) 15.4 mEq/L (03/03/2012 05:25:00) Creatinine Lvl [0.5-1.4 mg/dL] 0.7 mg/dL (03/06/2012 05:15:00) 0.8 mg/dL (03/05/2012 05:20:00) 0.6 mg/dL (03/03/2012 05:25:00) BUN [7-22 mg/dL] 15 mg/dL (03/06/2012 05:15:00) 14 mg/dL (03/05/2012 05:20:00) 13 mg/dL (03/03/2012 05:25:00) B/C Ratio [6-25] 20 (02/28/2012 17:21:00) Glucose Lvl [70-99 mg/dL] 122 mg/dL 1 *HI* (03/06/2012 05:15:00) 125 mg/dL 2 *HI* (03/05/2012 05:20:00) 107 mg/dL 3 *HI* (03/03/2012 05:25:00) Total Protein [6.4-8.4 g/dL] 8.1 g/dL (02/28/2012 17:21:00) Albumin Lvl [3.5-5.0 g/dL] 3.6 g/dL (02/28/2012 17:21:00) Globulin [2.0-4.0 g/dL] 4.5 g/dL *HI* (02/28/2012 17:21:00) A/G Ratio [0.7-1.6] 0.8 (02/28/2012 17:21:00) Calcium Lvl [8.5-10.5 mg/dL] 9.0 mg/dL (03/06/2012 05:15:00) 9.0 mg/dL (03/05/2012 05:20:00) 8.8 mg/dL (03/03/2012 05:25:00) ALT [0-65 U/L] 25 U/L (02/28/2012 17:21:00) AST [0-37 U/L] 14 U/L (02/28/2012 17:21:00) Alk Phos [39-136 U/L] 97 U/L (02/28/2012 17:21:00) Bili Total [0.2-1.3 mg/dL] 0.4 mg/dL (02/28/2012 17:21:00) Lactic Acid Lvl [0.5-2.2 mMol/L] 1.3 mMol/L (02/28/2012 17:21:00) 1Interpretive Data: Adult reference range values reflect the clinical guidelines of the [employer]. 2Interpretive Data: Adult reference range values reflect the clinical guidelines of the [employer]. 3Interpretive Data: Adult reference range values reflect the clinical guidelines of the [employer]. HEMATOLOGY Most recent to oldest [Reference Range]: 1 2 3 WBC [3.7-10.4 K/CMM] 13.3 K/CMM *HI* (03/06/2012 05:15:00) 12.5 K/CMM *HI* (03/05/2012 05:20:00) 13.9 K/CMM *HI* (03/03/2012 05:25:00) RBC [4.20-5.40 M/CMM] 4.35 M/CMM (03/06/2012 05:15:00) 4.18 M/CMM *LOW* (03/05/2012 05:20:00) 3.96 M/CMM *LOW* (03/03/2012 05:25:00) Hgb [12.0-16.0 g/dL] 13.2 g/dL (03/06/2012 05:15:00) 12.9 g/dL (03/05/2012 05:20:00) 12.2 g/dL (03/03/2012 05:25:00) Hct [36.0-48.0 %] 39.7 % (03/06/2012 05:15:00) 37.9 % (03/05/2012 05:20:00) 36.1 % (03/03/2012 05:25:00) MCV [81.0-99.0 fL] 91.3 fL (03/06/2012 05:15:00) 90.6 fL (03/05/2012 05:20:00) 91.2 fL (03/03/2012 05:25:00) MCH [27.0-31.0 pg] 30.3 pg (03/06/2012 05:15:00) 30.9 pg (03/05/2012 05:20:00) 30.8 pg (03/03/2012 05:25:00) MCHC [32.0-36.0 g/dL] 33.2 g/dL (03/06/2012 05:15:00) 34.1 g/dL (03/05/2012 05:20:00) 33.8 g/dL (03/03/2012 05:25:00) RDW [11.5-14.5 %] 13.2 % (03/06/2012 05:15:00) 13.4 % (03/05/2012 05:20:00) 13.5 % (03/03/2012 05:25:00) Platelet [133-450 K/CMM] 413 K/CMM (03/06/2012 05:15:00) 414 K/CMM (03/05/2012 05:20:00) 402 K/CMM (03/03/2012 05:25:00) MPV [7.4-10.4 fL] 7.9 fL (03/06/2012 05:15:00) 7.9 fL (03/05/2012 05:20:00) 7.9 fL (03/03/2012 05:25:00) Segs [45.0-75.0 %] 83.1 % *HI* (03/06/2012 05:15:00) 79.8 % *HI* (03/05/2012 05:20:00) 82.1 % *HI* (03/03/2012 05:25:00) Bands [0.0-11.0 %] 3.0 % (03/02/2012 04:41:00) Lymphocytes [20.0-40.0 %] 13.9 % *LOW* (03/06/2012 05:15:00) 16.3 % *LOW* (03/05/2012 05:20:00) 13.9 % *LOW* (03/03/2012 05:25:00) Atypical Lymphs [<=0.0 %] 0.0 % (03/02/2012 04:41:00) Monocytes [2.0-12.0 %] 3.0 % (03/06/2012 05:15:00) 3.7 % (03/05/2012 05:20:00) 3.7 % (03/03/2012 05:25:00) Eosinophils [0.0-4.0 %] 0.0 % (03/06/2012 05:15:00) 0.1 % (03/05/2012 05:20:00) 0.0 % (03/03/2012 05:25:00) Basophils [0.0-1.0 %] 0.0 % (03/06/2012 05:15:00) 0.1 % (03/05/2012 05:20:00) 0.3 % (03/03/2012 05:25:00) Metamyelocytes [0.0-1.0 %] 1.0 % (03/02/2012 04:41:00) Segs-Bands # [1.5-8.1 K/CMM] 11.0 K/CMM *HI* (03/06/2012 05:15:00) 9.9 K/CMM *HI* (03/05/2012 05:20:00) 11.4 K/CMM *HI* (03/03/2012 05:25:00) Lymphocytes # [1.0-5.5 K/CMM] 1.9 K/CMM (03/06/2012 05:15:00) 2.0 K/CMM (03/05/2012 05:20:00) 1.9 K/CMM (03/03/2012 05:25:00) Monocytes # [0.0-0.8 K/CMM] 0.4 K/CMM (03/06/2012 05:15:00) 0.5 K/CMM (03/05/2012 05:20:00) 0.5 K/CMM (03/03/2012 05:25:00) Eosinophils # [0.0-0.5 K/CMM] 0.0 K/CMM (03/06/2012 05:15:00) 0.0 K/CMM (03/05/2012 05:20:00) 0.0 K/CMM (03/03/2012 05:25:00) Basophils # [0.0-0.2 K/CMM] 0.0 K/CMM (03/06/2012 05:15:00) 0.0 K/CMM (03/05/2012 05:20:00) 0.0 K/CMM (03/03/2012 05:25:00) RBC Morph See Note (03/02/2012 04:41:00) Anisocyte [None Seen] 1+ *ABN* (03/02/2012 04:41:00) Elliptocyte [None Seen] Slight *ABN* (03/02/2012 04:41:00) Plt Morph Normal (03/02/2012 04:41:00) Microbiology Reports PROCEDURE:Culture: Blood STATUS: Auth (Verified) BODY SITE: Arm L COLLECTED DATE/TIME: 02/28/2012 17:40:00 SOURCE: Blood FREE TEXT SOURCE: FINAL REPORTS Final Report No Growth At 5 Days PRELIMINARY REPORTS Preliminary Report No Growth At 3 Days Preliminary Report No Growth At 4 Days Preliminary Report No Growth At 2 Days Preliminary Report No Growth; Holding Preliminary Report No Growth At 1 Day PROCEDURE:Culture: Blood STATUS: Auth (Verified) BODY SITE: Arm R COLLECTED DATE/TIME: 02/28/2012 17:30:00 SOURCE: Blood FREE TEXT SOURCE: FINAL REPORTS Final Report Acinetobacter lwoffii . Critical Results Called To: Vaibhav Moore at [facility] At: 03/01/2012 02:00:54 Called By: DAINA Read Back Ok PRELIMINARY REPORTS Preliminary Report Gram Stain Of Blood Culture Medium: Gram Negative Rods Subculture In Progress . Critical Results Called To: Vaibhav Moore at [facility] At: 03/01/2012 02:00:54 Called By: DAINA Read Back Ok Preliminary Report Gram Negative Rods Identification And Sensitivity Pending . Critical Results Called To: Vaibhav Mooer at [facility] At: 03/01/2012 02:00:54 Called By: DAINA Read Back Ok Preliminary Report No Growth; Holding Culture In Progress Preliminary Report Gram Negative Rods Identification And Sensitivity Pending . Critical Results Called To: [facility] at [facility] At: 03/01/2012 02:00:54 Called By: DAINA Read Back Ok Preliminary Report No Growth; Holding SUSCEPTIBILITY REPORT [facility] Antibiotic INTERP DANIEL Amikacin S <=8 Cefepime S <=8 Ceftazidime S 8 Ciprofloxacin S <=0.5 Meropenem S <=4 Tobramycin S <=2
--- NOTE | 2020-04-09 16:32 | Diagnostic Imaging Report ---
EXAMINATION: HAND 3+ VIEWS LEFT INDICATION: Trauma COMPARISON: None FINDINGS: No acute fracture or dislocation. Alignment is anatomic. Minimal scattered degenerative change. Soft tissues appear unremarkable. IMPRESSION: No acute osseous injury. Signed by: Елена Rico MD on 04/09/2020 4:29 PM
--- NOTE | 2020-04-09 16:32 | Diagnostic Imaging Report ---
EXAMINATION: KNEE LEFT THREE VIEWS INDICATION: Trauma COMPARISON: None FINDINGS: AP, oblique and lateral images of the left knee demonstrate no acute fracture or dislocation. Alignment is anatomic. No substantial degenerative change. Medial knee soft tissue swelling. No joint effusion. IMPRESSION: Medial knee soft tissue swelling. No acute osseous injury. Signed by: Елена Rico MD on 04/09/2020 4:28 PM
--- NOTE | 2020-04-09 16:33 | Diagnostic Imaging Report ---
Exam: Head CT without contrast History: None. Comparison studies: None Technique: Axial images were obtained from the skull base to the vertex. Coronal and sagittal images reconstructed from the axial data. Dose modulation, iterative reconstruction, and/or weight based adjustment of the mA/kV was utilized to reduce the radiation dose to as low as reasonably achievable. Radiation dose: Total DLP: 1048.52 mGy*cm. Estimated effective dose: DLP x 0.015 Intravenous contrast: None Findings: Scalp: Left frontal scalp hematoma and laceration is with associated subcutaneous subcutaneous emphysema. No retained retained hyperdense foreign body or fracture. Bones: No fractures, blastic or lytic lesions. Brain sulci: Appropriate for age. Ventricles: Normal in size and configuration. No hydrocephalus. Extra-axial spaces: No masses, no fluid collection. Parenchyma: A few subtle hypodensities in the supratentorial white matter are nonspecific but are most compatible with chronic microvascular ischemic changes. No mass, acute hemorrhage or acute or chronic cortical insults. Sellar/suprasellar region: No abnormalities. Craniocervical junction: Patent foramen magnum. No Chiari one malformation. Middle ear and included mastoid: Clear bilaterally. Incidental findings: Atherosclerotic calcifications in the carotid siphons. IMPRESSION: 1. Left frontal scalp hematoma and laceration. 2. No fracture or acute intracranial abnormalities. 3. Minimal chronic microvascular ischemic changes. Signed by: Dr. Manuel Colunga M.D. on 04/09/2020 4:30 PM
--- NOTE | 2020-04-09 16:35 | Diagnostic Imaging Report ---
EXAMINATION: ELBOW RIGHT COMPLETE INDICATION: Trauma COMPARISON: None FINDINGS: Acute mildly displaced fracture of the olecranon process of the ulna with overlying soft tissue swelling. No additional fracture identified. IMPRESSION: Acute olecranon process of ulna fracture with overlying soft tissue swelling. Signed by: Елена Rico MD on 04/09/2020 4:31 PM
--- NOTE | 2020-04-09 16:40 | Diagnostic Imaging Report ---
History: Trauma, fall Comparison studies: None Technique: Axial images were obtained through the cervical region. Coronal and sagittal images reconstructed from the axial data. Dose modulation, iterative reconstruction, and/or weight based adjustment of the mA/kV was utilized to reduce the radiation dose to as low as reasonably achievable. Intravenous contrast: None Findings: Atlantoaxial articulation: Intact. Alignment: Straight lumbar curvature may be positional. Approximately 2 to 3 minute mm anterolisthesis of C7 on T1 is most likely degenerative in etiology. Cervicomedullary junction: No abnormalities. The foramen magnum is patent. Soft tissues: No gross acute abnormalities. Vertebrae: No fractures, infection or neoplasm. Degenerative changes: Severe degenerative changes at the right C1-C2 lateral mass articulation with joint space narrowing, sclerosis and osteophytosis. Similar degenerative changes are also present at the anterior frontal dental interval. Mildly degenerated C5-C6 disc. Moderately degenerated C6-C7 disc asymmetrically greater on the right. Disc osteophyte complexes at C5-C6 and C6-C7 indent the thecal sac but do not result in significant canal stenosis. Advanced multilevel facet arthrosis as well as multilevel uncovertebral arthrosis which result in mild multilevel foraminal stenosis. Incidental findings: Punctate oropharyngeal tonsillith as sequela prior infection/inflammation. IMPRESSION: 1. No cervical spine fracture or acute subluxation. 2. Degenerative changes as described. 3. Ligament, spinal cord and or vascular abnormalities cannot be excluded on the basis of this examination Signed by: Dr. Manuel Colunga M.D. on 04/09/2020 4:37 PM
--- NOTE | 2020-04-09 16:58 | Emergency Department Note ---
History of Present Illnes History of Present Illness Chief Complaint: Head/Face Trauma History of Present Illness This is a 74 year old female arrived to the ED after sustaining a mechanical fall with abrasions to hand knees and face . Chief Complaint Comment pt had mechanical trip and fall while taking trash cans out fell and hit head on concrete denies loc denies blood thinners presents with abrasion to left frontal lobe, swollen left elbow, abrasions to fingers of right hand, and pain to left knee denies neck/back pain denies hip pain denies blurred vision pt a&o x 3 during triage presents with dried blood to head and face seen by dr goodman Historian: Patient Arrival Mode: Car Onset (how long ago): minute(s) Radiation: Reports non-radiation Severity: mild Onset quality: sudden Progression: unchanged Chronicity: new Context: Reports trauma/injury Relieving factors: none Exacerbating factors: none Past Medical/Family History Physician Review I have reviewed the patient's past medical and family history. Any updates have been documented here. Past Medical History Recent Fever: No Clinical Suspicion of Infectio: No New/Unexplained Change in Ment: No Other Medical History: vericose veins gallbladder stones Past Surgical History: Tubal Ligation Other Surgery: tear duct eye sx wrist sx gallbladder stones unk if she still has gallbladder Social History Smoking Cessation: Never Smoker Counseling Performed: No Alcohol Use: None Any Illegal Drug Use: No Other Any Pre-Existing Lines (PICC,: No Review of Systems Review of Systems Constitutional: Reports no symptoms EENTM: Reports no symptoms Cardiovascular: Reports no symptoms Respiratory: Reports no symptoms Gastrointestinal: Reports no symptoms Genitourinary: Reports no symptoms Musculoskeletal: Reports as per HPI, Reports joint pain, Reports joint swelling Integumentary: Reports no symptoms Neurological: Reports no symptoms Psychological: Reports no symptoms Endocrine: Reports no symptoms Hematological/Lymphatic: Reports no symptoms Physical Exam Related Data Allergies: Coded Allergies: No Known Allergies (Unverified , 12/16/15) Triage Vital Signs Vital Signs Date Time Temp Pulse Resp B/P (MAP) Pulse Ox O2 Delivery O2 Flow Rate FiO2 04/09/20 15:22 98.2 93 18 193/75 100 Room Air Vital signs reviewed: Yes Physical Exam CONSTITUTIONAL Constitutional: Present well-developed, Present well-nourished HENT HENT: Present normocephalic, Present oropharynx clear/moist, Present nose normal HENT L/R: Present left ext ear normal, Present right ext ear normal EYES Eyes: Reports PERRL, Reports conjunctivae normal NECK Neck: Present ROM normal PULMONARY Pulmonary: Present effort normal, Present breath sounds normal CARDIOVASCULAR Cardiovascular: Present regular rhythm, Present heart sounds normal, Present capillary refill normal, Present normal rate GASTROINTESTINAL Abdominal: Present soft, Present nontender, Present bowel sounds normal GENITOURINARY Genitourinary: Present exam deferred SKIN Skin: Present warm, Present dry MUSCULOSKELETAL Musculoskeletal: Present deformity, Present tenderness, Present swelling; Absent ROM normal NEUROLOGICAL Neurological: Present alert, Present oriented x 3, Present no gross motor or sensory deficits PSYCHOLOGICAL Psychological: Present mood/affect normal, Present judgement normal Results Imaging Imaging results reviewed: Yes Impressions IMPRESSION: Acute olecranon process of ulna fracture with overlying soft tissue swelling. Assessment & Plan Medical Decision Making MDM 74-year-old female arrives the ED after a mechanical fall resulting in bruising and abrasions. Patient noted to have a small olecranon fracture. No acute orthopedic management needed at this time. Case discussed with Dr. Trinidad who agreed. Patient was admitted for pain control and elbow injury meaty managed as an outpatient in the orthopedic clinic. Patient neurovascularly intact with soft compartments normal pulses at time of admission. Assessment & Plan Final Impression: (1) Pain of forearm after trauma Depart Disposition: ADMITTED Last Vital Signs Date Time Temp Pulse Resp B/P (MAP) Pulse Ox O2 Delivery O2 Flow Rate FiO2 04/09/20 15:22 98.2 93 18 193/75 100 Room Air Home Meds Active Scripts Tramadol Hcl (ULTRAM) 50 Mg Tablet, 50 MG PO Q6HR PRN for MILD PAIN (1-3), #14 TAB Prov:BAO GOODMAN, DO 04/09/20 Reported Medications Acetaminophen With Codeine (TYLENOL WITH CODEINE #3 TABLET) 1 Each Tablet, 300 MG PO Q6H, #40 TAB 04/10/20 Naproxen (NAPROXEN) 500 Mg Tablet, 500 MG PO BID 04/03/17 Medications in the ED Acetaminophen/ Hydrocodone Bitart 1 ea NOW ONCE PO Last administered on 04/09/20at 16:28; Admin Dose 1 EA; Start 04/09/20 at 15:30; Stop 8/7/20 at 15:36; Status DC BAO GOODMAN DO Apr 09, 2020 16:58
[2020-04-09] MEDS ORDERED: FENTANYL CITRATE/PF 100MCG/2 ML INJ IV ONE (17:15)
[2020-04-09] MEDS ORDERED: ULTRAM50 MG PO (17:18)
[2020-04-09] MEDS ORDERED: FENTANYL CITRATE/PF 100MCG/2 ML INJ ONE (17:19)
[2020-04-09] MEDS ORDERED: MORPHINE SULFATE 2 MG/ML SYR 1ML IV PRN (18:00)
[2020-04-09] MEDS ORDERED: MORPHINE SULFATE INJ 4 MG/ML INJ 1ML IV PRN (18:00)
[2020-04-09] MEDS ORDERED: ONDANSETRON HCL INJ 2MG/ML 2ML 2 MG/ML VIAL IV PRN (18:00)
--- OUTSIDE RECORDS SUMMARY | 2020-04-09 18:07 | XMS REPORT | Continuity of Care Document ---
Author Author Norberto GeelbeDANIA [employer] [facility] [employer] Address Unknown Phone Unavailable Care Team Providers Care Customer Operations Intern Name Role Phone [facility] Unavailable Un available Problems Problem Status Onset Date Classification Date Reported Comments Source UNK Active 0 10/28/2019 [facility] R05 Active 0 05/13/2019 [facility] LANMARX PROTOCOL Active 04/04/2019 [facility] R13.10 DYSPHAGIA, UNSPECIFIED, K21.9 G Active 01/13/2019 [facility] CHRONIC 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 Active 12/13/2018 [facility] BRONCHITIS Active 12/11/2018 [facility] ASTHMA WITH BRONCHITIS AND STATUS ASTHMA Active 12/11/2018 [facility] ASTHMA EXACERBATION Active 11/04/2018 [facility] 241.9 Active 07/24/2013 [facility] ABD/BACK PAIN Active 08/08/2012 [facility] THYROID NODULE Active 04/08/2012 [facility] CHRONIC COUGH/PE/SOB *PE PROTOCOL* STAT STAT * Active 03/22/2012 [facility] st SHORTNESS OF BREATH Active 02/28/2012 [facility] PNEUMONIA Active 02/28/2012 [facility] Acute interstitial pneumonia A ctive Problem 04/2012 [facility] HT - Hypertension Active Problem 08/10/2012 [facility] Acute interstitial pneumonia (disorder) Active Problem 10/31/2019 [facility] Hypertensive disorder, systemic arterial (disorder) Active Problem 10/31/2019 [facility] Abnormal heart beat (finding) Resolved Problem [facility] Arthritis (disorder) Resolved Problem 10/31/2019 [facility] Asthma (disorder) Resolved Problem 10/31/2019 [facility] Cough (finding) Active Problem 10/31/2019 [facility] Pneumonia (disorder) Resolved Problem 10/31/2019 [facility] NONTOX NODUL GOITER NOS Active [facility] PAIN [facility] COUGH Active [facility] UNSPECIFIED ASTHMA WITH (ACUTE) EXACERBA Active [facility] UNSPECIFIED ASTHMA WITH STATUS ASTHMATIC Active [facility] CHRONIC 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 Active [facility] DYSPHAGIA, UNSPECIFIED Active [facility] GASTRO-ESOPHAGEAL REFLUX DISEASE WITHOUT Active [facility] PNEUMONIA, ORGANISM NOS Active [facility] COUGH Active [facility] SHORTNESS OF BREATH Active [facility] Medications Medication Details Route Status Patient Instructions Ordering Provider Order Date Source Naloxone 0.1 mg, Route: IVP, Q 2MIN, Dosing Weight 68.182, kg, PRN Narcotic Reversal, Start date: 06/23/19 11:50:00 CDT, Duration: 4 doses or times, Stop date: Limited # of times Inactive 06/23/2019 [facility] Flumazenil 0.2 mg, Route: IVP, ONCE, Dosing Weight 68.182, kg, PRN Benzodiazepine Reversal, Start date: 06/23/19 11:50:00 CDT, Initial dose Inactive 06/23/2019 [facility] Sodium Chloride 0.9% IV 1000 mL 1,000 mL, Rate: 75 ml/hr, Infuse over: 13.3 hr, Route: IV, Dosing Weight 71.364 kg, Total Volume: 1,000, Start date: 06/23/19 10:06:00 CDT, Duration: 30 day, Stop date: 07/23/19 10:05:00 [employer]ICE PRESIDENT R[employer]K [employer]NAGEMENT, 1.78, m2 Inactiv e 06/23/2019 [facility] Mupirocin 20 MG/ML Topical Cream TOP, TID, 0 Refill(s) Active 06/09/2019 [facility] Ventolin HFA 90 mcg/inh inhalation aerosol with adapte r 2 puff, INHALER, Q6H, PRN wheezing, coughing, or shortness of breath, # 8 gm, 1 Refill(s) Active 06/09/2019 [facility] Advair Diskus 250 mcg-50 mcg inhalation powder 1 puff, INHALATION, BID, # 1 ea, 3 Refill(s) No Longer Active 06/09/2019 [facility] Amitriptyline 10 mg, PO, Bedti me, 0 Refill(s) Active 06/09/2019 [facility] 72 HR Scopolamine 0.0139 MG/HR Transdermal Patch 1 patch, Route: TOP, Drug Form: ERFILM, Dosing Weight 69.545, kg, ONCE, Apply behind ear. Avoid use in elderly., Start date: 12/18/18 13:55:00 CDT, Stop date: 12/18/18 13:55:00 CDT Inactive 12/18/2018 [facility] Naloxone 0.1 mg, Route: SUB-Q, Q6H, Dosing Weight 69.545, kg, PRN Itching, Start date: 12/18/18 13:55:00 CDT, Duration: 30 day, Stop date: 01/17/19 13:54:00 CDT No Longer Active 12/18/2018 [facility] Ondansetron 4 mg, Route: IVP, ONCE, Dosing Weight 69.545, kg, PRN Nausea & Vomiting, Start date: 12/18/18 13:55:00 CDT No Longer Active 12/18/2018 [facility] Promethazine 6.25 mg, Route: I VPB, ONCE, Dosing Weight 69.545, kg, PRN Nausea & Vomiting, Start date: 12/18/18 13:55:00 CDT No Longer Active 12/18/2018 [facility] Diphenhydramine 12.5 mg, Route : IVP, Drug form: INJ, Q6H, Dosing Weight 69.545, kg, PRN Itching, Start date: 12/18/18 13:55:00 CDT, Duration: 30 day, Stop date: 01/17/19 13:54:00 CDT No Longer Active 12/18/2018 [facility] Meperidine 12.5 mg, Route: IVP , Q30Min, Dosing Weight 69.545, kg, PRN Other -See Comment, For shivering, Start date: 12/18/18 13:55:00 CDT, Duration: 2 doses or times, Stop date: Limited # of times No Longer Active 12/18/2018 [facility] Albuterol 0.83 MG/ML Inhalant Solution 2.49 mg, Route: NEB, Q20Min, Dosing Weight 69.545, kg, PRN Wheezing, Priority: STAT, Start date: 12/18/18 13:55:00 CDT, Duration: 30 day, Stop date: 01/17/19 13:54:00 CDT No Longer Active 12/18/2018 [facility] Flumazenil 0.2 mg, Route: IVP, PRN, Dosing Weight 69.545, kg, PRN Benzodiazepine Reversal, Initial dose, Start date: 12/18/18 13:55:00 CDT, Duration: 30 day, Stop date: 01/17/19 13:54:00 CDT No Longer Active 12/18/2018 [facility] Oxycodone 10 mg, Route: Dr hi SOUZA form: LIQ, Q4H, Dosing Weight 69.545, kg, PRN Pain Score 7-10, Start date: 12/18/18 13:55:00 CDT, Duration: 30 day, Stop date: 01/17/19 13:54:00 CDT No Longer Active 12/18/2018 [facility] Hydromorphone 0.5 mg, Route: I CAGE CASHIER, Q5Min, Dosing Weight 69.545, kg, PRN Pain Score 7-10, Start date: 12/18/18 13:55:00 CDT, Duration: 4 doses or times, Stop date: Limited # of times No Longer Active 12/18/2018 [facility] Fentanyl 50 microgram, Route: IVP, Q5Min, Dosing Weight 69.545, kg, PRN Pain Score 7-10, Priority: Routine, Start date: 12/18/18 13:55:00 CDT, Duration: 2 doses or times, Stop date: Limited # of times No Longer Active 12/18/2018 [facility] Acetaminophen 1,000 mg, Route: IVPB, Drug form: INJ, ONCE, Dosing Weight 69.545, kg, PRN Pain Score 1-3, Start date: 12/18/18 13:55:00 CDT Inactive 12/18/2018 [facility] neostigmine (ANES) Route: IV, Drug form: INJ, ONCE, Stop date: 12/18/18 12:49:00 CDT Inactive 12/18/2018 [facility] glycopyrrolate (ANES) Route: I V, Drug form: INJ, ONCE, Stop date: 12/18/18 12:49:00 CDT Inactive 12/18/2018 [facility] Oxymetazoline hydrochloride 0.5 MG/ML Na sravan [place] [Afrin] 2 spray, Route: NASAL, Q2H, PRN Bleeding , Start date: 12/18/18 12:37:00 CDT, Duration: 3 day, Stop date: 12/21/18 12:36:00 CDT No Longer Active 12/18/2018 [facility] Acetaminophen 325 MG / Hydrocodone Favian trate 5 MG Oral Tablet 1 tab, Route: PO, Dosing Weight 69.545, kg, Q4H, PRN Pain Score 1-3, Start date: 12/18/18 12:37:00 CDT, Duration: 30 day, Stop date: 01/17/19 12:36:00 CDT No Longer Active 12/18/2018 [facility] Morphine 2 mg, Route: IVP, Q3H , Dosing Weight 69.545, kg, PRN Pain Score 1-3, Start date: 12/18/18 12:37:00 CDT, Duration: 30 day, Stop date: 01/17/19 12:36:00 CDT No Longer Active 12/18/2018 [facility] dexamethasone (ANES) Route: IV , Drug form: INJ, ONCE, Stop date: 12/18/18 12:08:00 CDT Inactive 12/18/2018 [facility] rocuronium (ANES) Route: IV, D rug form: INJ, ONCE, Stop date: 12/18/18 12:08:00 CDT Inactive 12/18/2018 [facility] lidocaine (ANES) Route: IV, Dr ug form: INJ, ONCE, Stop date: 12/18/18 11:53:00 CDT Inactive 12/18/2018 [facility] propofol (ANES) Route: IV, Harvey g form: INJ, ONCE, Stop date: 12/18/18 11:53:00 CDT Inactive 12/18/2018 [facility] fentaNYL (ANES) Route: IV, Harvey g form: INJ, ONCE, Stop date: 12/18/18 11:53:00 CDT Inactive 12/18/2018 [facility] ondansetron (ANES) Route: IV, Drug form: INJ, ONCE, Stop date: 12/18/18 11:53:00 CDT Inactive 12/18/2018 [facility] ceFAZolin (ANES) Route: IV, Dr ug form: INJ, ONCE, Stop date: 12/18/18 11:53:00 CDT Inactive 12/18/2018 [facility] midazolam (ANES) Route: IV, Dr ug form: SOLN, ONCE, Stop date: 12/18/18 11:28:00 CDT Inactive 12/18/2018 [facility] Lactated Ringers Injection IV (ANES) 1000 mL Route: IV, Total Volume: 1,000, Start date: 12/18/18 10:53:00 CDT, Stop date: 12/18/18 11:53:00 CDT Inactive 12/18/2018 [facility] Cefazolin 2 gm, Route: IVPB, O NCALL, Dosing Weight 69.545, kg, Start date: 12/18/18 10:00:00 CDT, Duration: 1 doses or times, ABX Indication: Surgical Prophylaxis No Longer Active 12/18/2018 [facility] Dexamethasone 8 mg, Route: IV, ONCALL, Dosing Weight 69.545, kg, Start date: 12/18/18 10:00:00 CDT, Duration: 30 day, Stop date: 01/17/19 9:59:00 CDT Inactive 12/18/2018 [facility] Calcium Chloride 0.0014 MEQ/ML / Potassi um Chloride 0.004 MEQ/ML / Sodium Chloride 0.103 MEQ/ML / Sodium Lactate 0.028 MEQ/ML Injectable Solution 1,000 mL, Rate: 25 ml/hr, Infuse over: 4 0 hr, Route: IV, Dosing Weight 69.545 kg, Total Volume: 1,000, Start date: 12/18/18 9:52:00 CDT, Duration: 30 day, Stop date: 01/17/19 9:51:00 CDT, 1.76, m2 Inactive 12/18/2018 [facility] Oxymetazoline hydrochloride 0.5 MG/ML Na sravan [place] [Afrin] 2 spray, Route: NASAL, PRE OP, PRN Nasal Congestion, Start date: 12/18/18 9:51:00 CDT, Duration: 3 day, Stop date: 12/21/18 9:50:00 CDT No Longer Active 12/18/2018 [facility] Epinephrine 0.01 MG/ML / Lidocaine Ingomar chloride 10 MG/ML Injectable Solution Notes: (Same as: Xylocaine w/Epinephrine ) No Longer Active 12/18/2018 [facility] montelukast 10 MG Oral Tablet [Singulair] 10 mg = 1 tab, PO, Bedtime, # 30 tab, 0 Refill(s) Active 12/13/2018 [facility] predniSONE 20 mg oral tablet 2 0 mg = 1 tab, PO, Daily, X 7 day, # 7 tab, 0 Refill(s) Active 12/13/2018 [facility] levothyroxine 25 mcg (0.025 mg) oral tablet 25 microgram = 1 tab, PO, Q630AM, 0 Refill(s) Active 12/13/2018 [facility] Codeine Phosphate 2 MG/ML / Guaifenesin 20 MG/ML Oral Solution 5 mL, PO, Q4H, PRN cough, X 8 day, # 120 mL, 0 Refill(s) Active 12/13/2018 [facility] Azelastine hydrochloride 0.137 MG/ACTUAT Metered Dose Nasal [place] 137 microgram =, INHALER, BID, PRN Conge stion | 1-2 sprays, # 1 ea, 0 Refill(s) Active 12/13/2018 [facility] Codeine Phosphate 2 MG/ML / Guaifenesin 20 MG/ML Oral Solution Notes: (Same As: Robitussin AC) Inactive 12/13/2018 [facility] Fluticasone propionate 0.05 MG/ACTUAT Me tered Dose Nasal [place] [Flonase] Notes: (Same as: Flonase) No Longer Active 12/12/2018 [facility] Hugo Saline Nasal No-Drip [place] 0.65% gel Notes: (Same as: [place], Deep Sea Nasal Ed[place]). No Longer Active 12/12/2018 [facility] Thyroxine Notes: Take 1 hour b efore or 2 hours after meal; Enteral feeds may interefere with the absorption of this medication. (Same as:Levothroid) No Longer Active 12/12/2018 [facility] Protonix Notes: Tablet should not be chewed or crushed. (Same as: Protonix) No Longer Active 12/12/2018 [facility] Enoxaparin Notes: (Same as: Lo venox) No Longer Active 12/12/2018 [facility] Glucagon 1 mg, Route: IM, Drug form: PDR/INJ, PRN, Dosing Weight 70.455, kg, PRN Blood Glucose Results, Start date: 12/12/18 0:28:00 CDT, Duration: 30 day, Stop date: 01/11/19 0:27:00 CDT No Longer Active 12/12/2018 [facility] Dextrose 50% Syringe 25 gm, 50 mL, Route: IVP, Drug Form: INJ, Dosing Weight 70.455, kg, PRN, PRN Blood Glucose Results, Start date: 12/12/18 0:28:00 CDT, Duration: 30 day, Stop date: 01/11/19 0:27:00 CDT No Longer Active 12/12/2018 [facility] methylPREDNISolone SODium SUCCinate Notes: (Same as:Solu-MEDROL, A-Methapred) N o Longer Active 12/12/2018 [facility] montelukast Notes: (Same as:Si ngulair) No Longer Active 12/12/2018 [facility] Mucinex Notes: (Same as: Guaif enesin LA, Humibid LA, Mucinex) "Do Not Crush" Take medication with plenty of water. No Longer Active 12/12/2018 [facility] Docusate Notes: (Same as: Cola ce) (Do Not Crush) No Longer Active 12/11/2018 [facility] benzonatate 200 mg oral capsule 200 mg = 1 cap, PO, TID, # 30 cap, 0 Refill(s) Active 12/11/2018 [facility] omeprazole 40 mg oral delayed release capsule 40 mg = 1 cap, PO, Daily, # 30 cap, 0 Refill(s) Active 12/11/2018 [facility] Zosyn Notes: (Same as: Zosyn) Dosing based on Piperacillin component MEDICATION WASTE Product Size: 3375 mg Product Wasted: ___ mg No Longer Active 12/11/2018 [facility] RN- PLs Update Height, Weight & Allergies in Care4 RN- PLs Update Height, Weight & Allergies in Care4, Reminder, Drug form: MISC, Route: MISC, Q2H, 12/11/18 14:38:00 CDT, Duration: 1 day, Stop date: 12/12/18 14:00:00 CDT Inactive 12/11/2018 [facility] Albuterol 0.833 MG/ML / Ipratropium Brom sanjay 0.167 MG/ML Inhalant Solution Notes: (Same as: Duoneb) No Longer Active 12/11/2018 [facility] Albuterol 0.83 MG/ML Inhalant Solution Notes: SEE RT DOCUMENTATION (Same as: Proventil) No Longer Active 12/11/2018 [facility] Glucagon 1 mg, Route: IM, Drug form: PDR/INJ, PRN, Dosing Weight 71.96, kg, PRN Blood Glucose Results, Start date: 12/11/18 13:18:00 CDT, Duration: 30 day, Stop date: 01/10/19 13:17:00 CDT No Longer Active 12/11/2018 [facility] Dextrose 50% Syringe 25 gm, 50 mL, Route: IVP, Drug Form: INJ, Dosing Weight 71.96, kg, PRN, PRN Blood Glucose Results, Start date: 12/11/18 13:18:00 CDT, Duration: 30 day, Stop date: 01/10/19 13:17:00 CDT No Longer Active 12/11/2018 [facility] Simvastatin Notes: (Same as: Lashell ocor) Inactive 11/09/2018 [facility] Loratadine 10 mg, Route: PO, D aily, Dosing Weight 71.96, kg, Start date: 11/08/18 9:00:00 VICE PRESIDENT RISK MANAGEMENT, Duration: 30 day, Stop date: 12/07/18 9:00:00 CDT Inactive 11/08/2018 [facility] Amlodipine Notes: (Same as: No rvasc) Inactive 11/08/2018 [facility] cetirizine Notes: (Same As: Thom rtec) Inactive 11/08/2018 [facility] Thyroxine Notes: Take 1 hour b efore or 2 hours after meal; Enteral feeds may interefere with the absorption of this medication. (Same as:Levothroid) Inactive 11/08/2018 [facility] predniSONE 10 mg oral tablet S ee Special Instructions, PO, Daily, 12 day regimen: Days 1-4 - 30 mg (3 tabs) daily Days 5-8 - 20 mg (2 tabs) daily Days 9-12 - 10 mg (1 tab) daily, X 12 day, # 24 tab, 0 Refill(s) Active 11/08/2018 [facility] Amoxicillin 875 MG / Clavulanate 125 MG Oral Tablet [Augmentin 875-mg] 1 tab, PO, [id number], # 20 tab, 0 Refill(s) Active 11/08/2018 [facility] Fluticasone propionate 0.05 MG/ACTUAT Me tered Dose Nasal [place] [Flonase] 100 microgram = 2 spray, Each Affected N ostril, BID, # 10 mL, 0 Refill(s) Active 11/08/2018 [facility] Solu-Medrol Notes: (Same as:So ronnie-MEDROL, A-Methapred) Inactive 11/08/2018 [facility] Amoxicillin 875 MG / Clavulanate 125 MG Oral Tablet [Augmentin 875-mg] Notes: With food. (Same as: Augmentin 87 5) No Longer Active 11/08/2018 [facility] Ibuprofen Notes: (Same as: Mot rin) "Do Not Crush" Take with food. No Longer Active 11/07/2018 [facility] Ambien Notes: (Same As: Ambien) No Longer Active 11/07/2018 [facility] Famotidine 20 MG Oral Tablet [Pepcid] Notes: (Same as: Pepcid) No Longer Active 11/06/2018 [facility] Fluticasone propionate 0.05 MG/ACTUAT Me tered Dose Nasal [place] [Flonase] Notes: (Same as: Flonase) No Longer Active 11/05/2018 [facility] Budesonide 0.25 MG/ML Inhalant Solution [Pulmicort] Notes: (Same As: Pulmicort) No Longer Active 11/05/2018 [facility] Glucagon 1 mg, Route: IM, Drug form: PDR/INJ, PRN, Dosing Weight 71.96, kg, PRN Blood Glucose Results, Start date: 11/04/18 16:03:00 VICE PRESIDENT RISK MANAGEMENT, Duration: 30 day, Stop date: 12/04/18 17:02:00 CDT No Longer Active 11/04/2018 [facility] Dextrose 50% Syringe 12.5 gm, 25 mL, Route: IVP, Drug Form: INJ, Dosing Weight 71.96, kg, PRN, PRN Blood Glucose Results, Start date: 11/04/18 16:03:00 VICE PRESIDENT RISK MANAGEMENT, Duration: 30 day, Stop date: 12/04/18 17:02:00 CDT No Longer Active 11/04/2018 [facility] Solu-Medrol Notes: (Same as:So ronnie-MEDROL, A-Methapred) No Longer Active 11/04/2018 [facility] Loratadine 10 mg, PO, Daily, 0 Refill(s) Active 11/04/2018 [facility] Ciprofloxacin 500 MG Oral Tablet [Cipro] 500 mg = 1 tab, PO, Q12H, # 20 tab, 0 Refill(s) No Longer Active 11/04/2018 [facility] Please update height, weight, allergies on profile Please update height, weight, allergies on profile, ATTN:RN, Drug form: MISC, Route: MISC, Q15Min, 11/04/18 15:45:00 VICE PRESIDENT RISK MANAGEMENT, Duration: 4 hr, Stop date: 11/04/18 19:30:00 VICE PRESIDENT RISK MANAGEMENT Inactive 11/04/2018 [facility] Albuterol 0.417 MG/ML Inhalant Solution Notes: SEE RT DOCUMENTATION (Same as: Proventil) No Longer Active 11/04/2018 [facility] Vasotec Notes: (Same as: Vasot ec-IV) No Longer Active 11/04/2018 [facility] cefepime Notes: (Same As: Stanislav alvarenga) MEDICATION WASTE Product Size: 1000 mg Product Wasted: ___ mg No Longer Active 11/04/2018 [facility] Albuterol 0.833 MG/ML / Ipratropium Brom sanjay 0.167 MG/ML Inhalant Solution [DuoNeb] Notes: (Same as: Duoneb) No Longer Active 11/04/2018 [facility] Codeine Phosphate 2 MG/ML / Guaifenesin 20 MG/ML Oral Solution Notes: (Same As: Robitussin AC) No Longer Active 11/04/2018 [facility] Zofran Notes: (Same as: Zofran ) MEDICATION WASTE Product Size: 4 mg Product Wasted: ___ mg No Longer Active 11/04/2018 [facility] Flexeril 10 mg oral tablet 10 mg, PO, TID, PRN, 30 tab, Muscle Spasm, Substitution Allowed PO Active [facility] 08/09/2012 [facility] [place] 5/325 oral tablet 1-2 ta b, PO, Q4-6H, PRN, 15 tab, Pain, Substitution Allowed, Maintenance PO Active [facility] 08/09/2012 [facility] Flexeril 10 mg, Route: PO, ONC E, Dosing Weight 69.545, kg, Priority: STAT, Start date: 08/08/12 20:05:00, Stop date: 08/08/12 20:05:00 PO No Longer Active [facility] 08/09 [facility] morphine Sulfate 2 mg, 1 mL, R oute: IVP, Drug form: INJ, ONCE, Dosing Weight 69.545, kg, Priority: STAT, Start date: 08/08/12 19:14:00, Stop date: 08/08/12 19:14:00 IVP No Longer Active [facility] 08/09/2012 [facility] ondansetron 4 mg, 2 mL, Route: IVP, Drug form: INJ, ONCE, Dosing Weight 69.545, kg, Priority: STAT, Start date: 08/08/12 19:14:00, Stop date: 08/08/12 19:14:00 IVP No Longer Active [facility] 08/09/2012 [facility] Saline Flush 0.9% 5 mL, Route: IVP, Drug Form: INJ, Dosing Weight 69.545, kg, PRN, PRN Line Flush, Start date: 08/08/12 19:14:00, Duration: 24 hr, Stop date: 08/09/12 19:13:00 IVP No Longer Active [facility] 08/09/2012 [facility] Sodium Chloride 0.9% (Bolus) IV 500 mL, 500 ml/hr, Route: IV, Drug Form: INJ, Dosing Weight 69.545, kg, ONCE, Bolus at 1,000 ml/hr, STAT, Start date: 08/08/12 19:14:00, Stop date: 08/08/12 19:14:00 IV No Longer Active [facility] 08/09/2012 [facility] ProAir HFA 90 mcg/inh inhalation aerosol with adapter 2 puff, INHALATION, Q6H, PRN, 9 gm, 1, 1, for wheezing, Substitution Allowed, Soft Stop, AERO INHALATION Active [facility] 03/06/2012 [facility] Prilosec 20 mg oral delayed release capsule 20 mg, 1 cap, PO, Daily, 30 cap, Substitution Allowed PO Active [facility] 03/06/2012 [facility] predniSONE 10 mg oral tablet 1 0 mg, 1 tab, PO, Daily, 10 tab, Substitution Allowed, TAB PO Active [facility]pt [facility] 03/06/2012 [facility] Mucinex 600 mg oral tablet, extended release 600 mg, 1 tab, PO, Daily, 10 tab, Substitution Allowed, ERTAB PO Active [facility] 03/06/2012 [facility] methylPREDNISolone 20 mg, 0.5 mL, Route: IV, Drug form: INJ, [id number], Start date: 03/01/12 10:00:00, Duration: 30 day, Stop date: 03/30/12 22:00:00 IV No Longer Active [facility] 03/01/2012 [facility] Tessalon Perles 200 mg, 2 cap, Route: PO, Drug form: CAP, Q8H, Start date: 03/01/12 8:00:00, Duration: 30 day, Stop date: 03/31/12 0:00:00 PO No Longer Active [facility] 03/01/2012 [facility] methylPREDNISolone 40 mg, 1 mL , Route: IV, Drug form: INJ, ONCE, Start date: 03/01/12 2:28:00, Stop date: 03/01/12 2:28:00 IV No Longer Active [facility] 03/01 [facility] azithromycin 500 mg, Route: IV PB, [id number], Start date: 02/29/12 21:00:00, Duration: 30 day, Stop date: 03/29/12 21:00:00 IVPB No Longer Active [facility] 03/01/2012 [facility] enoxaparin 40 mg, 0.4 mL, Rout e: SUB-Q, Drug form: INJ, [id number], Start date: 02/29/12 21:00:00, Duration: 30 day, Stop date: 03/29/12 21:00:00 SUB-Q No Longer Active [facility] 03/01/2012 [facility] ceftriaxone 1 gm, Route: IVPB, Drug form: PDR/INJ, [id number], Start date: 02/29/12 18:00:00, Duration: 30 day, Stop date: 03/29/12 18:00:00 IVPB No Longer Active [facility] 02/29/2012 [facility] pneumococcal 23-valent vaccine 0.5 ml, Route: IM, Drug Form: INJ, Start date: 02/29/12 9:00:00, Stop date: 02/29/12 9:00:00 Inactive [facility] 02/29/2012 [facility] levothyroxine 25 microgram, Ro pauma: PO, Drug form: TAB, [id number], Start date: 02/29/12 9:00:00, Duration: 30 day, Stop date: 03/30/12 6:30:00 PO No Longer Active [facility] 02/29/2012 [facility] simvastatin 10 mg, 1 tab, Rout e: PO, Drug form: TAB, QAM, Start date: 02/29/12 9:00:00, Duration: 30 day, Stop date: 03/29/12 9:00:00 PO No Longer Active [facility] 02/29/2012 [facility] amLODipine 5 mg, 1 tab, Route: PO, Drug form: TAB, Daily, Start date: 02/29/12 9:00:00, Duration: 30 day, Stop date: 03/29/12 9:00:00 PO No Longer Active [facility] 02/29/2012 [facility] Tussionex [employer] oral suspension, extended releas e 5 ml, Route: PO, Drug Form: SUSPER, Q12H, PRN Cough/Congestion, Start date: 02/29/12 8:36:00, Duration: 30 day, Stop date: 03/30/12 8:35:00 PO No Longer Active [facility] 02/29/2012 [facility] albuterol 0.083% inhalation solution 2.49 mg, 3 mL, Route: NEB, Drug form: SOLN, RQ6H, Priority: Routine, Start date: 02/29/12 2:00:00, Duration: 30 day, Stop date: 03/29/12 20:00:00 NEB No Longer Active [facility] 02/29/2012 [facility] ipratropium 0.5 mg, 2.5 mL, Ro pauma: NEB, Drug form: SOLN, RQ6H, Priority: Routine, Start date: 02/29/12 2:00:00, Duration: 30 day, Stop date: 03/29/12 20:00:00 NEB No Longer Active [facility] 02/29/2012 [facility] DuoNeb inhalation solution 3 m L, Route: NEB, Drug Form: SOLN, RQ6H, Start date: 02/29/12 2:00:00, Duration: 30 day, Stop date: 03/29/12 20:00:00 NEB No Longer Active [facility] 02/29/2012 [facility] ondansetron 4 mg, 2 mL, Route: IVP, Drug form: INJ, Q6H, PRN Nausea & Vomiting, Start date: 02/28/12 21:39:00, Duration: 30 day, Stop date: 03/29/12 21:38:00 IVP No Longer Active [facility] 02/29/2012 [facility] acetaminophen 650 mg, 2 tab, R oute: PO, Drug form: TAB, Q4H, PRN Pain/Fever, Start date: 02/28/12 21:39:00, Duration: 30 day, Stop date: 03/29/12 21:38:00 PO No Longer Active [facility] 02/29/2012 [facility] Saline Flush 0.9% 5 ml, Route: IVP, Drug Form: INJ, PRN, PRN Line Flush, Start date: 02/28/12 21:39:00, Duration: 30 day, Stop date: 03/29/12 21:38:00 IVP No Longer Active [facility] 02/29/2012 [facility] guaifenesin 100 mg, 5 mL, Rout e: PO, Drug form: LIQ, Q4H, PRN Cough/Congestion, Start date: 02/28/12 21:37:00, Duration: 30 day, Stop date: 03/29/12 21:36:00 PO No Longer Active Boccardo 02/29/2012 [facility] codeine-guaifenesin 10 mg-100 mg/5 mL oral syrup 5 mL, Route: PO, Drug Form: LIQ, Q4H, PRN Cough, Start date: 02/28/12 21:37:00, Duration: 30 day, Stop date: 03/29/12 21:36:00 PO No Longer Active Boccardo 02/29/2012 [facility] Sodium Chloride 0.9% (Bolus) IV 500 mL 500 mL, Rate: 500 ml/hr, Infuse over: 1 hr, Route: IV, Dosing Weight 64.091 kg, Total Volume: 500, Bolus Dose, Priority: STAT, Start date: 02/28/12 20:41:00, Duration: 1 doses or times, Stop date: 02/28/12 21:40:00 IV No Longer Active Steiner 02/29/2012 [facility] acetaminophen 650 mg, Route: P O, Drug form: TAB, ONCE, Priority: STAT, Start date: 02/28/12 20:39:00, Stop date: 02/28/12 20:39:00 PO No Longer Active Steiner 02/28 [facility] TL-Hist DM oral liquid 5 mL, P O, Q6H, PRN, as needed for cough and congestion, Substitution Allowed, Maintenance PO Active 02/29/2012 [facility] levofloxacin 500 mg oral tablet 500 mg, 1 tab, PO, Daily, Substitution Allowed PO Active 02/29/2012 [facility] Lamisil 250 mg oral tablet 250 mg, 1 tab, PO, Daily, Substitution Allowed PO Active 02/29/2012 [facility] simvastatin 10 mg, PO, QAM, Cramer bstitution Allowed PO Active Boccardo 02/29/2012 [facility] levothyroxine 25 mcg (0.025 mg) oral tablet 25 microgram, 1 tab, PO, Daily, Substitution Allowed PO Active Boccardo 02/29/2012 [facility] amLODipine 5 mg oral tablet 5 mg, 1 tab, PO, Daily, Substitution Allowed PO Active Boccardo 02/29/2012 [facility] NS (Bolus) IV 1,000 mL 1,000 m L, Rate: 1,000 ml/hr, Infuse over: 1 hr, Route: IV, Dosing Weight 64.091 kg, Total Volume: 1,000, Priority: STAT, Start date: 02/28/12 18:28:00, Duration: 1 doses or times, Stop date: 02/28/12 19:27:00, Bolus DoseBolus Dose IV No Longer Active Steiner 02/28/2012 [facility] azithromycin 500 mg, 250 mL, R oute: IVPB, Drug form: PDR/INJ, ONCE, Priority: STAT, Start date: 02/28/12 18:26:00, Stop date: 02/28/12 18:26:00 IVPB No Longer Active Steiner 02/28/2012 [facility] albuterol 0.083% inhalation solution 2.49 mg, Route: NEB, Drug form: SOLN, ONCE, Priority: STAT, Start date: 02/28/12 18:26:00, Stop date: 02/28/12 18:26:00 NEB No Longer Active Steiner 02/28/2012 [facility] ipratropium 0.02% inhalation solution 0.5 mg, Route: NEB, ONCE, Priority: STAT, Start date: 02/28/12 18:26:00, Stop date: 02/28/12 18:26:00 NEB No Longer Active Steiner 02/28/2012 [facility] Rocephin 1 gm, Route: IVPB, ON CE, Priority: STAT, Start date: 02/28/12 18:26:00, Stop date: 02/28/12 18:26:00 IVPB No Longer Active Steiner 02/28/2012 [facility] Allergies, Adverse Reactions, Alerts Substance Category Reaction Severity Reaction type Status Date Reported Comments Source No Known Medication Allergies Assertion Drug aller gy [facility] Immunizations Immunization Date Given Site Status Last Updated Comments Source influenza virus vaccine, inactivated 11/08/2018 Left deltoid completed Isabel [facility] pneumococcal 13-valent vaccine 11/08/2018 Right deltoid completed Isabel [facility] pneumococcal 23-valent vaccine 02/29/2012 completed Elodia seo [facility] pneumococcal 23-valent vaccine 02/29/2012 Left deltoid completed Arroyo [facility] Results Order Name Results Value Reference Range Date Interpretation Comments Source HEMATOLOGY PTT 20.0 22.9 - 35.8 12/18/2018 Result Comment: no clot, respun and rera n 12/18/2018 10:58 bp [facility] INR 0.93 0.85 - 1.17 12/18/2018 [facility] PT 12.3 12.0 - 14.7 12/18/2018 [facility] MCHC 32.8 32.0 - 36.0 12/18/2018 [facility] RDW 14.6 11.5 - 14.5 12/18/2018 [facility] MPV 8.2 7.4 - 10.4 12/18/2018 [facility] Platelet 302 133 - 450 12/18/2018 [facility] MCV 90.4 80.0 - 98.0 12/18/2018 [facility] MCH 29.7 27.0 - 31.0 12/18/2018 [facility] Hgb 14.3 12.0 - 16.0 12/18/2018 [facility] Hct 43.5 36.0 - 48.0 12/18/2018 [facility] WBC 13.2 3.7 - 10.4 12/18/2018 [facility] RBC 4.81 4.20 - 5.40 12/18/2018 [facility] Segs 77.5 45.0 - 75.0 12/18/2018 [facility] Basophils 0.4 0.0 - 1.0 12/18/2018 [facility] Monocytes # 0.7 0.0 - 0.8 12/18/2018 [facility] Lymphocytes # 2.2 1.0 - 5.5 12/18/2018 [facility] Neutrophils # 10.2 1.5 - 8.1 12/18/2018 [facility] Basophils # 0.1 0.0 - 0.2 12/18/2018 [facility] Lymphocytes 16.9 20.0 - 40.0 12/18/2018 [facility] HEMATOLOGY Monocytes 5.1 2.0 - 12.0 12/18/2018 [facility] HEMATOLOGY Eosinophils 0.1 0.0 - 4.0 12/18/2018 [facility] IMMUNOLOGY Aspergillus fumigatus IgG 9.9 0.0 - 1.9 12/12/2018 Result Comment: Results for this test ar e for Investigational Purposes Only
by the assay's parts counter specialist. The performance
characteristics of this product have not been establish ed.
Results should not be used as a diagnostic procedure
without confirmation of the diagnosis by another medically
established diagnostic product or procedure.
Performed At: [facility]
[address], [place] [id number]
Vikram Prado MD Ph:[phone] [facility] SPECIAL CHEMISTRY Hgb A1C 6.3 <=5.6 % 12/12/2018 [facility] CHEM PANEL Phosphorus 3.4 2.5 - 4.5 12/11/2018 [facility] CHEM PANEL A/G Ratio 1.1 0.7 - 1.6 12/11/2018 [facility] CHEM PANEL Globulin 3.5 2.7 - 4.2 12/11/2018 [facility] CHEM PANEL B/C Ratio 23 6 - 25 12/11/2018 [facility] CHEM PANEL AGAP 9.9 10.0 - 20.0 12/11/2018 [facility] PANEL eGFR 80 12/11/2018 Result Comment: [...] PANEL ALT 35 0 - 65 12/11/2018 [facility] CHEM PANEL Albumin Lvl 3.8 3.5 - 5.0 12/11/2018 [facility] CHEM PANEL AST 11 0 - 37 12/11/2018 [facility] CHEM PANEL CO2 25 24 - 32 12/11/2018 [facility] CHEM PANEL Chloride Lvl 107 95 - 109 12/11/2018 [facility] CHEM PANEL Total Protein 7.3 6.4 - 8.4 12/11/2018 [facility] CHEM PANEL Calcium Lvl 9.2 8.5 - 10.5 12/11/2018 [facility] CHEM PANEL Sodium Lvl 138 135 - 145 12/11/2018 [facility] CHEM PANEL Potassium Lvl 3.9 3.5 - 5.1 12/11/2018 [facility] CHEM PANEL Creatinine Lvl 0.75 0.50 - 1.40 12/11/2018 [facility] CHEM PANEL BUN 17 7 - 22 12/11/2018 [facility] CHEM PANEL Glucose Lvl 214 70 - 99 12/11/2018 [facility] CHEM PANEL Magnesium Lvl 2.6 1.8 - 2.4 12/11/2018 [facility] HEMATOLOGY Platelet 359 133 - 450 12/11/2018 [facility] HEMATOLOGY MPV 8.0 7.4 - 10.4 12/11/2018 [facility] HEMATOLOGY RDW 14.3 11.5 - 14.5 12/11/2018 [facility] HEMATOLOGY MCHC 33.5 32.0 - 36.0 12/11/2018 [facility] HEMATOLOGY MCH 30.1 27.0 - 31.0 12/11/2018 [facility] HEMATOLOGY RBC 4.49 4.20 - 5.40 12/11/2018 [facility] HEMATOLOGY Hgb 13.5 12.0 - 16.0 12/11/2018 [facility] HEMATOLOGY WBC 11.7 3.7 - 10.4 12/11/2018 [facility] HEMATOLOGY MCV 89.9 80.0 - 98.0 12/11/2018 [facility] HEMATOLOGY Hct 40.3 36.0 - 48.0 12/11/2018 [facility] HEMATOLOGY Lymphocytes 22.5 20.0 - 40.0 12/11/2018 [facility] HEMATOLOGY Monocytes 6.9 2.0 - 12.0 12/11/2018 [facility] HEMATOLOGY Basophils 0.4 0.0 - 1.0 12/11/2018 [facility] HEMATOLOGY Lymphocytes # 2.6 1.0 - 5.5 12/11/2018 [facility] HEMATOLOGY Neutrophils # 8.2 1.5 - 8.1 12/11/2018 [facility] HEMATOLOGY Eosinophils 0.3 0.0 - 4.0 12/11/2018 [facility] HEMATOLOGY Basophils # 0.1 0.0 - 0.2 12/11/2018 [facility] HEMATOLOGY Monocytes # 0.8 0.0 - 0.8 12/11/2018 [facility] HEMATOLOGY Segs 69.9 45.0 - 75.0 12/11/2018 [facility] HEMATOLOGY Sed Rate 13 0 - 20 12/11/2018 [facility] IMMUNOLOGY IgE Lvl 749.0 10.0 - 100.0 12/11/2018 [facility] Hgb 12.4 12.0 - 16.0 11/07/2018 [facility] Hct 37.4 36.0 - 48.0 11/07/2018 [facility] MCV 89.9 80.0 - 98.0 11/07/2018 [facility] MCH 29.8 27.0 - 31.0 11/07/2018 [facility] MCHC 33.2 32.0 - 36.0 11/07/2018 [facility] RDW 14.4 11.5 - 14.5 11/07/2018 [facility] Platelet 329 133 - 450 11/07/2018 [facility] MPV 8.3 7.4 - 10.4 11/07/2018 [facility] WBC 17.9 3.7 - 10.4 11/07/2018 [facility] RBC 4.16 4.20 - 5.40 11/07/2018 [facility] Basophils 0.1 0.0 - 1.0 11/07/2018 [facility] Lymphocytes # 1.3 1.0 - 5.5 11/07/2018 [facility] Neutrophils # 16.3 1.5 - 8.1 11/07/2018 [facility] Monocytes # 0.4 0.0 - 0.8 11/07/2018 [facility] HEMATOLOGY RBC Morph Bonnie l (11/07/18 5:04 AM) 11/07/2018 [facility] HEMATOLOGY Plt Morph Bonnie l (11/07/18 5:04 AM) 11/07/2018 [facility] HEMATOLOGY Segs 90.8 45.0 - 75.0 11/07/2018 [facility] Lymphocytes 7.0 20.0 - 40.0 11/07/2018 [facility] Monocytes 2.1 2.0 - 12.0 11/07/2018 [facility] MPV 7.9 7.4 - 10.4 11/06/2018 [facility] MCV 88.7 80.0 - 98.0 11/06/2018 [facility] Hct 38.1 36.0 - 48.0 11/06/2018 [facility] Hgb 12.6 12.0 - 16.0 11/06/2018 [facility] MCH 29.4 27.0 - 31.0 11/06/2018 [facility] RDW 14.2 11.5 - 14.5 11/06/2018 [facility] Platelet 324 133 - 450 11/06/2018 [facility] MCHC 33.1 32.0 - 36.0 11/06/2018 [facility] WBC 20.1 3.7 - 10.4 11/06/2018 [facility] RBC 4.30 4.20 - 5.40 11/06/2018 [facility] Gram Stain Report Gram Stain Perf ormed By: [facility] 11/05/2018 [facility] Culture: Respiratory w/Gram Stain N ormal Respiratory Lilian Isolated 11/05/2018 [facility] CHEM PANEL Procalcitonin Lvl <0.05 0.00 - 0.10 11/05/2018 [facility] ELECTROLYTES AGAP 11.1 10.0 - 20.0 11/05/2018 [facility] ELECTROLYTES eGFR 88 11/05/2018 Result Comment: The [...] should be multiplied by the estimated BMI. [facility] ELECTROLYTES CO2 24 24 - 32 11/05/2018 [facility] ELECTROLYTES Calcium Lvl 9.0 8.5 - 10.5 11/05/2018 [facility] ELECTROLYTES Creatinine Lvl 0.6 8 0.50 - 1.40 11/05/2018 [facility] ELECTROLYTES Sodium Lvl 140 135 - 145 11/05/2018 [facility] ELECTROLYTES Glucose Lvl 140 70 - 99 11/05/2018 [facility] ELECTROLYTES BUN 13 7 - 22 11/05/2018 [facility] ELECTROLYTES Chloride Lvl 109 95 - 109 11/05/2018 [facility] ELECTROLYTES Potassium Lvl 4.1 3.5 - 5.1 11/05/2018 [facility] HEMATOLOGY Hct 40.8 36.0 - 48.0 11/05/2018 [facility] HEMATOLOGY MCH 29.8 27.0 - 31.0 11/05/2018 [facility] HEMATOLOGY MCV 89.3 80.0 - 98.0 11/05/2018 [facility] MCHC 33.4 32.0 - 36.0 11/05/2018 [facility] HEMATOLOGY MPV 8.2 7.4 - 10.4 11/05/2018 [facility] HEMATOLOGY Platelet 324 133 - 450 11/05/2018 [facility] HEMATOLOGY RDW 13.9 11.5 - 14.5 11/05/2018 [facility] HEMATOLOGY WBC 11.3 3.7 - 10.4 11/05/2018 [facility] RBC 4.57 4.20 - 5.40 11/05/2018 [facility] Hgb 13.6 12.0 - 16.0 11/05/2018 [facility] CHEMISTRY Bili Direct <0.1 0.0 - 0.3 08/09/2012 Normal [facility] CHEMISTRY CK MB Index 0.7 0.0 - 2.5 08/09/2012 Normal [facility] CHEMISTRY Total CK 172 12 - 191 08/09/2012 Normal [facility] CHEMISTRY CK MB 1.2 0.5 - 3.6 08/09/2012 Normal [facility] CHEMISTRY Troponin-I <0.02 0.00 - 0.40 08/09/2012 Normal [facility] CHEMISTRY eGFR 95 08/09/2012 NA <sup>1</sup>Result Comment: [...] should be multiplied by the estimated BMI. [facility] CHEMISTRY Albumin Lvl 4.0 3.5 - 5.0 08/09/2012 Normal [facility] CHEMISTRY AGAP 14.0 10.0 - 20.0 08/09/2012 Normal [facility] CHEMISTRY Potassium Lvl 4.0 3.5 - 5.1 08/09/2012 Normal [facility] CHEMISTRY Sodium Lvl 142 135 - 145 08/09/2012 Normal [facility] CHEMISTRY CO2 25 24 - 32 08/09/2012 Normal [facility] CHEMISTRY Chloride Lvl 107 95 - 109 08/09/2012 Normal [facility] CHEMISTRY Calcium Lvl 8.6 8.5 - 10.5 08/09/2012 Normal [facility] CHEMISTRY Creatinine Lvl 0.6 0.5 - 1.4 08/09/2012 Normal [facility] CHEMISTRY Glucose Lvl 104 70 - 99 08/09/2012 [place] <sup>2</sup>Interpretive Data: Adult ref erence range values reflect the clinical guidelines
of the [place] [employer]. [facility] CHEMISTRY Alk Phos 91 39 - 136 08/09/2012 Normal [facility] CHEMISTRY Bili Total 0.2 0.2 - 1.3 08/09/2012 Normal [facility] CHEMISTRY BUN 12 7 - 22 08/09/2012 Normal [facility] CHEMISTRY A/G Ratio 1.1 0.7 - 1.6 08/09/2012 Normal [facility] CHEMISTRY B/C Ratio 20 6 - 25 08/09/2012 Normal [facility] CHEMISTRY Globulin 3.6 2.0 - 4.0 08/09/2012 Normal [facility] CHEMISTRY ALT 32 0 - 65 08/09/2012 Normal [facility] CHEMISTRY AST 19 0 - 37 08/09/2012 Normal [facility] CHEMISTRY Total Protein 7.6 6.4 - 8.4 08/09/2012 Normal [facility] CHEMISTRY Lipase Lvl 248 73 - 393 08/09/2012 Normal [facility] HEMATOLOGY Monocytes # 0.5 0.0 - 0.8 08/09/2012 Normal [facility] HEMATOLOGY Eosinophils # 0.2 0.0 - 0.5 08/09/2012 Normal [facility] HEMATOLOGY Basophils # 0.1 0.0 - 0.2 08/09/2012 Normal [facility] HEMATOLOGY Monocytes 6.8 2.0 - 12.0 08/09/2012 Normal [facility] HEMATOLOGY Basophils 1.3 0.0 - 1.0 08/09/2012 HI [facility] HEMATOLOGY Eosinophils 2.7 0.0 - 4.0 08/09/2012 Normal [facility] HEMATOLOGY Lymphocytes # 2.5 1.0 - 5.5 08/09/2012 Normal [facility] HEMATOLOGY Segs-Bands # 4.5 1.5 - 8.1 08/09/2012 Normal [facility] HEMATOLOGY Lymphocytes 31.7 20.0 - 40.0 08/09/2012 Normal [facility] HEMATOLOGY Segs 57.5 45.0 - 75.0 08/09/2012 Normal [facility] HEMATOLOGY INR 0.90 0.85 - 1.17 08/09/2012 Normal <sup>3</sup>Interpretive Data: RECOMMEND ED RANGES FOR PROTIME INR:
2.0-3.0 for most medical and surgical thromboembolic states.
2.5-3.5 for artificial heart valves and recurrent embolism.

INR SHOULD BE USED ONLY FOR PATIENTS ON STABLE ANTICOAGULANT THERAPY. [facility] HEMATOLOGY PTT 26.1 22.9 - 35.8 08/09/2012 Normal <sup>4</sup>Interpretive Data: Heparin T herapeutic Range: 57 - 92 Seconds [facility] HEMATOLOGY PT 12.4 12.0 - 14.7 08/09/2012 Normal [facility] HEMATOLOGY Platelet 337 133 - 450 08/09/2012 Normal [facility] HEMATOLOGY MPV 7.4 7.4 - 10.4 08/09/2012 Normal [facility] HEMATOLOGY MCV 90.2 81.0 - 99.0 08/09/2012 Normal [facility] HEMATOLOGY Hct 38.8 36.0 - 48.0 08/09/2012 Normal [facility] HEMATOLOGY MCHC 33.8 32.0 - 36.0 08/09/2012 Normal [facility] HEMATOLOGY MCH 30.5 27.0 - 31.0 08/09/2012 Normal [facility] HEMATOLOGY RDW 13.8 11.5 - 14.5 08/09/2012 Normal [facility] HEMATOLOGY RBC 4.30 4.20 - 5.40 08/09/2012 Normal [facility] HEMATOLOGY Hgb 13.1 12.0 - 16.0 08/09/2012 Normal [facility] HEMATOLOGY WBC 7.9 3.7 - 10.4 08/09/2012 Normal [facility] CHEMISTRY AGAP 13.0 10.0 - 20.0 03/22/2012 Normal [facility] CHEMISTRY Calcium Lvl 9.0 8.5 - 10.5 03/22/2012 Normal [facility] CHEMISTRY CO2 26 24 - 32 03/22/2012 Normal [facility] CHEMISTRY Chloride Lvl 106 95 - 109 03/22/2012 Normal [facility] CHEMISTRY Potassium Lvl 4.0 3.5 - 5.1 03/22/2012 Normal [facility] CHEMISTRY Creatinine Lvl 0.6 0.5 - 1.4 03/22/2012 Normal [facility] CHEMISTRY Sodium Lvl 141 135 - 145 03/22/2012 Normal [facility] CHEMISTRY Glucose Lvl 79 70 - 99 03/22/2012 Normal <sup>1</sup>Interpretive Data: Adult ref erence range values reflect the clinical guidelines
of the [place] [employer]. [facility] CHEMISTRY BUN 12 7 - 22 03/22/2012 Normal [facility] CHEMISTRY AGAP 15.6 10.0 - 20.0 03/06/2012 Normal [facility] CHEMISTRY Glucose Lvl 122 70 - 99 03/06/2012 [place] <sup>1</sup>Interpretive Data: Adult ref erence range values reflect the clinical guidelines
of the [place] [employer]. [facility] CHEMISTRY BUN 15 7 - 22 03/06/2012 Normal [facility] CHEMISTRY Creatinine Lvl 0.7 0.5 - 1.4 03/06/2012 Normal [facility] CHEMISTRY CO2 23 24 - 32 03/06/2012 LOW [facility] CHEMISTRY Calcium Lvl 9.0 8.5 - 10.5 03/06/2012 Normal [facility] CHEMISTRY Sodium Lvl 138 135 - 145 03/06/2012 Normal [facility] CHEMISTRY Potassium Lvl 4.6 3.5 - 5.1 03/06/2012 Normal [facility] CHEMISTRY Chloride Lvl 104 95 - 109 03/06/2012 Normal [facility] HEMATOLOGY Basophils # 0.0 0.0 - 0.2 [...] HEMATOLOGY WBC 13.3 3.7 - 10.4 03/06/2012 [facility] HEMATOLOGY RBC 4.35 4.20 - 5.40 [...] AGAP 16.5 10.0 - 20.0 03/05/2012 Normal [facility] CHEMISTRY Glucose Lvl 125 70 - 99 03/05/2012 [place] <sup>2</sup>Interpretive Data: Adult ref erence range values reflect the clinical guidelines
of the [place] [employer]. [facility] CHEMISTRY Creatinine Lvl 0.8 0.5 - 1.4 03/05/2012 Normal [facility] HEMATOLOGY MPV 7.9 7.4 - 10.4 03/05/2012 Normal [facility] HEMATOLOGY MCV 90.6 81.0 - 99.0 03/05/2012 Normal [facility] HEMATOLOGY MCH 30.9 27.0 - 31.0 03/05/2012 Normal [facility] HEMATOLOGY MCHC 34.1 32.0 - 36.0 03/05/2012 Normal [facility] HEMATOLOGY RDW 13.4 11.5 - 14.5 03/05/2012 Normal [facility] HEMATOLOGY Platelet 414 133 - 450 03/05/2012 Normal [facility] HEMATOLOGY Hgb 12.9 12.0 - 16.0 03/05/2012 Normal [facility] HEMATOLOGY Hct 37.9 36.0 - 48.0 03/05/2012 Normal [facility] HEMATOLOGY WBC 12.5 3.7 - 10.4 03/05/2012 [facility] HEMATOLOGY RBC 4.18 4.20 - 5.40 03/05/2012 LOW [facility] HEMATOLOGY Lymphocytes # 2.0 1.0 - 5.5 03/05/2012 Normal [facility] HEMATOLOGY Eosinophils # 0.0 0.0 - 0.5 03/05/2012 Normal [facility] HEMATOLOGY Monocytes # 0.5 0.0 - 0.8 03/05/2012 Normal [facility] HEMATOLOGY Basophils 0.1 0.0 - 1.0 03/05/2012 Normal [facility] HEMATOLOGY Basophils # 0.0 0.0 - 0.2 03/05/2012 Normal [facility] HEMATOLOGY Segs-Bands # 9.9 1.5 - 8.1 03/05/2012 [facility] HEMATOLOGY Eosinophils 0.1 0.0 - 4.0 03/05/2012 Normal [facility] HEMATOLOGY Monocytes 3.7 2.0 - 12.0 03/05/2012 Normal [facility] HEMATOLOGY Lymphocytes 16.3 20.0 - 40.0 03/05/2012 LOW [facility] HEMATOLOGY Segs 79.8 45.0 - 75.0 03/05/2012 HI [facility] CHEMISTRY AGAP 15.4 10.0 - 20.0 03/03/2012 Normal [facility] CHEMISTRY BUN 13 7 - 22 03/03/2012 Normal [facility] CHEMISTRY CO2 25 24 - 32 03/03/2012 Normal [facility] CHEMISTRY Calcium Lvl 8.8 8.5 - 10.5 03/03/2012 Normal [facility] CHEMISTRY Glucose Lvl 107 70 - 99 03/03/2012 [facility] <sup>3</sup>Interpretive Data: Adult ref erence range values reflect the clinical guidelines
of the [place] [employer]. [facility] CHEMISTRY Sodium Lvl 143 [...] Platelet 402 133 - 450 03/03/2012 Normal [facility] HEMATOLOGY MCHC 33.8 32.0 - 36.0 03/03/2012 Normal [facility] HEMATOLOGY MPV 7.9 7.4 - 10.4 03/03/2012 Normal [facility] HEMATOLOGY Hgb 12.2 12.0 - 16.0 03/03/2012 Normal [facility] HEMATOLOGY RBC 3.96 4.20 - 5.40 03/03/2012 LOW [facility] HEMATOLOGY MCV 91.2 81.0 - 99.0 03/03/2012 Normal [facility] HEMATOLOGY Hct 36.1 36.0 - 48.0 03/03/2012 Normal [facility] HEMATOLOGY WBC 13.9 3.7 - 10.4 03/03/2012 HI [facility] HEMATOLOGY MCH 30.8 27.0 - 31.0 03/03/2012 Normal [facility] HEMATOLOGY Bands 3.0 0.0 - 11.0 03/02/2012 Normal [facility] HEMATOLOGY Elliptocyte Sligh t *ABN* (03/02/2012 04:41:00) None S een 03/02/2012 ABN [facility] HEMATOLOGY Anisocyte 1+ *ABN* (03/02/2012 04:41:00) None S een 03/02/2012 ABN [facility] HEMATOLOGY Plt Morph Bonnie l (03/02/2012 04:41:00) 03/02/2012 Normal [facility] HEMATOLOGY Atypical Lymphs 0.0 <=0.0 03/02/2012 Normal [facility] HEMATOLOGY RBC Morph See N ote (03/02/2012 04:41:00) 03/02/2012 Normal [facility] HEMATOLOGY Metamyelocytes 1.0 0.0 - 1.0 03/02/2012 Normal [facility] Microbiology Culture: Blood 02/28/2012 [facility] Microbiology Culture: Blood 02/28/2012 [facility] CHEMISTRY Albumin Lvl 3.6 3.5 - 5.0 02/28/2012 Normal [facility] CHEMISTRY ALT 25 0 - 65 02/28/2012 Normal [facility] CHEMISTRY Alk Phos 97 39 - 136 02/28/2012 Normal [facility] CHEMISTRY Bili Total 0.4 0.2 - 1.3 02/28/2012 Normal [facility] CHEMISTRY Total Protein 8.1 6.4 - 8.4 02/28/2012 Normal [facility] CHEMISTRY AST 14 0 - 37 02/28/2012 Normal [facility] CHEMISTRY A/G Ratio 0.8 0.7 - 1.6 02/28/2012 Normal [facility] CHEMISTRY B/C Ratio 20 6 - 25 02/28/2012 Normal [facility] CHEMISTRY Globulin 4.5 2.0 - 4.0 02/28/2012 HI [facility] CHEMISTRY Lactic Acid Lvl 1.3 0.5 - 2.2 02/28/2012 Normal [facility] Pathology Reports No Data Provided for This [...] Blount MD On 10/28/2019 14:56:36; [id number] 10/28/2019 [facility] Chest 2 views DX PROCEDURE: CH EST TWO VIEW INDICATION: Cough, reflux, hiatal hernia COMPARISON: 12/11/2018 FINDINGS: No consolidation is present. The pleura, cardiac silhouette and bony thorax are normal. No vascular congestion is present. Aortic arch is prominent. IMPRESSION: No acute cardiopulmonary process. SL: TINO 05/13/2019 [facility] Sinus wo contrast CT Clinical Indication: - [...] left lateral nasal bone. SL: LORRIE 04/08/2019 [facility] Barium swallow DX Patient Name : DANIA LUCIO : 1945; Age: 73 years y/o Female MR: [id number] Barium swallow DX COMPARISON: CT chest 12/12/2018, [...] contrast passage on the recumbent views. SL: [id number] Thank you for allowing [facility] to participate in the care of your patient. 02/25/2019 [facility] Chest wo contrast CT Clinical Indication: - [...] without contrast within nor mal limits. SL: [id number] 12/12/2018 [facility] Sinus wo contrast CT CT PARANA SRAVAN [...] IMPRESSION: Moderate sinus disease. SL: VADIM 12/12/2018 [facility] Chest 2 views DX Patient Name: DANIA LUCIO : 1945; Age: 73 years y/o Female MR: [id number] * CHEST, 2 views HISTORY: Bilateral wheezing, [...] 2. Status post cholecystectomy. SL: TIO 12/11/2018 [facility] Thyroid US EXAM: THYROID ULTRA SOUND INDICATION: [...] or sonographic follow-up at this time. REFERENCE: [place] BR et al. 2015 [place] [employer] Management Guidelines for Adult Patients with Thyroid Nodules and Differentiated Thyroid Cancer. Thyroid. 2016; 26(1):1-133. SL: [id number] 11/07/2018 [facility] Sinus paranasal series DX Para nasal sinuses [...] Mild right maxillary sinusitis. SL: TINO 11/06/2018 [facility] Chest 1view DX Clinical Indica tion: Absent of breath sounds - pnuemonia; Comparison: 03/04/2012 FINDINGS: AP chest radiographs shows normal lung volumes with left basilar platelike atelectasis. There is no effusion or pneumothorax. The heart size and pulmonary vasculature are normal. The trachea is midline. There are no clinically significant osseous abnormalities noted. IMPRESSION: 1. Left basilar platelike atelectasis. SL: [id number] 11/04/2018 [facility] Thyroid US HISTORY: Goiter. Thyroid ultrasound exam. [...] lower pole, stable from 04/08/2012. SL:13 07/28/2013 [facility] Consultation Notes No Data Provided for This Section Discharge Summaries No Data Provided for This Section History and Physicals No Data Provided for This Section Vital Signs Vital Sign Value Date Comments Source Respitory Rate 19 06/23/2019 [facility] Systolic (mm Hg) 134 06/23/2019 [facility] Diastolic (mm Hg) 56 06/23/2019 [facility] Respitory Rate 19 06/23/2019 [facility] Systolic (mm Hg) 142 06/23/2019 [facility] Diastolic (mm Hg) 62 06/23/2019 [facility] Respitory Rate 16 06/23/2019 [facility] Systolic (mm Hg) 143 06/23/2019 [facility] Diastolic (mm Hg) 59 06/23/2019 [facility] Height 154.94 cm 06/23/2019 [facility] Weight 68.182 06/23/2019 [facility] BMI Calculated 28.4 06/23/2019 [facility] Systolic (mm Hg) 133 12/18/2018 [facility] Diastolic (mm Hg) 57 12/18/2018 [facility] Systolic (mm Hg) 125 12/18/2018 [facility] Diastolic (mm Hg) 55 12/18/2018 [facility] Systolic (mm Hg) 137 12/18/2018 [facility] Diastolic (mm Hg) 52 12/18/2018 [facility] Respitory Rate 18 12/18/2018 [facility] Respitory Rate 16 12/18/2018 [facility] Respitory Rate 17 12/18/2018 [facility] Temperature Oral (F) 97.9 F 12/18/2018 [facility] Heart Rate 68 12/18/2018 [facility] Height 154.94 cm 12/18/2018 [facility] BMI Calculated 28.97 12/18/2018 [facility] Weight 69.545 12/18/2018 [facility] Heart Rate 94 12/13/2018 [facility] Systolic (mm Hg) 143 12/13/2018 [facility] Diastolic (mm Hg) 61 12/13/2018 [facility] Temperature Oral (F) 97.2 F 12/13/2018 [facility] Systolic (mm Hg) 153 12/13/2018 [facility] Diastolic (mm Hg) 71 12/13/2018 [facility] Respitory Rate 20 12/13/2018 [facility] Heart Rate 85 12/13/2018 [facility] Temperature Oral (F) 98.1 F 12/13/2018 [facility] Temperature Oral (F) 97.8 F 12/13/2018 [facility] Systolic (mm Hg) 136 12/13/2018 [facility] Diastolic (mm Hg) 67 12/13/2018 [facility] Heart Rate 80 12/13/2018 [facility] Respitory Rate 20 12/13/2018 [facility] Respitory Rate 20 12/13/2018 [facility] Height 154.94 cm 12/11/2018 [facility] Weight 70.455 12/11/2018 [facility] BMI Calculated 29.35 12/11/2018 [facility] Systolic (mm Hg) 124 11/08/2018 [facility] Diastolic (mm Hg) 61 11/08/2018 [facility] Heart Rate 91 11/08/2018 [facility] Temperature Oral (F) 98.2 F 11/08/2018 [facility] Respitory Rate 12 11/08/2018 [facility] Temperature Oral (F) 97.8 F 11/08/2018 [facility] Heart Rate 69 11/08/2018 [facility] Systolic (mm Hg) 156 11/08/2018 [facility] Diastolic (mm Hg) 79 11/08/2018 [facility] Respitory Rate 16 11/08/2018 [facility] Respitory Rate 16 11/08/2018 [facility] Temperature Oral (F) 98.0 F 11/08/2018 [facility] Heart Rate 71 11/08/2018 [facility] Systolic (mm Hg) 147 11/08/2018 [facility] Diastolic (mm Hg) 73 11/08/2018 [facility] BMI Calculated 29.98 11/04/2018 [facility] Height 154.94 cm 11/04/2018 [facility] Weight 71.96 11/04/2018 [facility] Height 154.94 cm 08/09/2012 [facility] Weight 69.545 08/09/2012 [facility] Heart Rate 80 03/06/2012 [facility] Systolic (mm Hg) 145 03/06/2012 [facility] Respitory Rate 16 03/06/2012 [facility] Temperature Oral (F) 97.8 F 03/06/2012 [facility] Diastolic (mm Hg) 65 03/06/2012 [facility] Diastolic (mm Hg) 69 03/06/2012 [facility] Respitory Rate 16 03/06/2012 [facility] Systolic (mm Hg) 109 03/06/2012 [facility] Heart Rate 78 03/06/2012 [facility] Temperature Oral (F) 98.5 F 03/06/2012 [facility] Systolic (mm Hg) 126 03/06/2012 [facility] Respitory Rate 18 03/06/2012 [facility] Diastolic (mm Hg) 65 03/06/2012 [facility] Heart Rate 77 03/06/2012 [facility] Temperature Oral (F) 97.9 F 03/06/2012 [facility] Weight 64.091 02/28/2012 [facility] Height 154.94 cm 02/28/2012 [facility] Encounters Location Location Details Encounter Type Encounter Number Reason For Visit Attending Provider ADM Date DC Date Status Source [facility] Inpatient [id number] PNEUMONIA TASH PASCUAL 02/28/2012 03/06/2012 Active [facility] Outpatient [id number] CHRONIC COUGH/PE/ SOB *PE PROTOCOL* STAT STAT* ALBERTO GRACIELA 03/22/2012 03/22/2012 Active [facility] Outpatient [id number] THYROID NODULE ALBERTO OWENS 04/08/2012 04/08/2012 Active [facility] Outpatient [id number] PAIN ALBERTO OWENS 05/03/2012 05/03/2012 Active [facility] Emergency [id number] HUMERA SEN 08/08/2012 08/08/2012 Discharged [facility] Inpatient [id number] Tashjess Oneill 11/04/2018 11/08/2018 [facility] Inpatient [id number] Alberto Owens 12/11/2018 12/13/2018 [facility] Day Surgery [id number] Raysa Quoc 12/18/2018 12/18/2018 [facility] Outpatient [id number] Alberto Owens 02/25/2019 02/26/2019 [facility] Outpatient [id number] Raysa Kumari 04/08/2019 04/09/2019 [facility] Outpatient [id number] Alberto Owens 05/13/2019 05/14/2019 [facility] Bedded Outpatient [id number] Alberto Owens 06/23/2019 06/23/2019 [facility] Outpatient [id number] Alberto Owens 10/28/2019 10/29/2019 [facility] Outpatient [id number] THYROID NODULE ALBERTO OWENS Cancel [facility] Outpatient [id number] 241.9 ALBERTO OWENS Active [facility] Procedures Procedure Code Date Perfomer Comments Source Colonoscopy [id number] [facility] st Cholecystectomy [id number] [facility] Assessment and Plan Assessment and Plan [...] ml INJ 40 mg 0.4 mL, SUB-Q, [id number] fluticasone 0.05 mg/inh 16gm SPR nasal 2 [...] next week if cleared and ready per enrollment services vice president. DIAGNOSES and PROBLEMS: Active Problems (2) Acute [...] PO BID 12/12/18 enoxaparin 40 mg SUB-Q [id number] 12/12/18 fluticasone nasal (Flonase 0.05 mg/inh nasal [...] Q8H 25 ml/hr 12/12/18 sodium chloride nasal (Hugo Sali ne Nasal No-Drip [place] 0.65% gel) 1 spray NASAL QID Unscheduled [...] PO BID 12/12/18 enoxaparin 40 mg SUB-Q [id number] 12/12/18 fluticasone nasal (Flonase 0.05 mg/inh nasal [...] Q8H 25 ml/hr 12/12/18 sodium chloride nasal (Hugo Sali ne Nasal No-Drip [place] 0.65% gel) 1 spray NASAL QID Unscheduled [...] Rate 13 IgE Lvl 749.0 H 12/13/2018 [facility] Extracted from:Title: Clinical Document Author: Nargis Patton MD Date: 11/07/18 Pulmonary and Critical Care Progress Note [facility] Sujective/overnight events: Chart reviewed. Patient [...] 0.9% IV 100 mL 1 gm IVPB [id number] 25 ml/hr 11/05/18 fluticasone nasal (Flonase 0.05 [...] but not dysphagia. no reflux symptom. Seeing enrollment services vice president Dr Owens. didnt think she had pulmonary [...] flex scope place atraumatically. nml nasal anatomy. 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 glottis wnl no pooling no erythema [...] 0.9% IV 100 mL 1 gm IVPB [id number] 25 ml/hr 11/05/18 famotidine (Pepcid 20 mg [...] is start multiple medications, the have tried [id number] medications tried antibiotics p.o., tried steroids without [...] (mini-bag Plus) 100 mL 1 gm, IVPB, [id number] influenza virus vaccine (inactivated) trivalent high dose [...] [facility] 11/08/2018 [facility] Plan of Care No Data Provided for This Section Social History Social History Date Source Social History TypeResponse Alcohol Past Substance Abuse Use: None. Smoking Status Former smoker; Previous treatment: None; Ready to change: No; Concerns about tobacco use in household: No; Exposure to Tobacco Smoke None; Cigarette Smoking Last 365 Days No; Reg Smoking Cessation Counseling No entered on: 06/23/19 06/23/2019 [facility] Family History No Data Provided for This Section Advance Directives No Data Provided for This Section Functional Status No Data Provided for This Section
--- OUTSIDE RECORDS SUMMARY | 2020-04-09 18:07 | XMS REPORT | Clinical Summary ---
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
--- OUTSIDE RECORDS SUMMARY | 2020-04-09 18:08 | XMS REPORT | Continuity of Care Document ---
Author Author [facility] t Organization [facility] Address [address] [place] [address] Phone Unavailable Care Team Providers Care Vision Care Associate Name Role Phone Christina HOPKINS, Maricarmen Shell PCP Nory GOODMANICA Attphys Unavailable [place], Jaden Attphys Shruti Kumari Attphys BOCCARDO, TASH Attphys Unavailable Boccardo-Guerita, Tash Attphys EMILY REDDY Attphys Unavailable [place], Jaden Admphys Shruti Kumari Admphys Boccardo-Guerita, Tash Admphys Problems Condition Name Condition Details Condition Category Status Onset Date Resolution Date Last Treatment Date Treating Clinician Comments Source SIVAN BRENNANK Active 10/28/2019 [facility] Active 2019-10-28 00:00:00 2019-10-28 09:45:00 reese Chirinos R05 R05 Active 05/13/2019 [facility] Active 2019-05-13 13:23:00 2019-05-22 07:03:00 reese Chirinos LANMARX PROTOCOL BAO ARX PROTOCOL Active 04/04/2019 [facility] Active 2019-04-04 00:00:00 2019-04-08 14:25:00 Norberto Chirinos R13.10 DYSPHAGIA, UNSPECIFIED, K21.9 G R13.10 DYSPHAGIA, UNSPECIFIED, K21.9 G Active 01/13/2019 [facility] tive 2019-01-13 00:00:00 2019-02-25 13:23:00 M tomrijaydon Chirinos CHRONIC 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 EMBROIDERY SPECIALIST NANCIE 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 Active 12/13/2018 [facility] Active 2018-12-13 00:00:00 2019-01-15 15:34:00 [facility] BRONCHITIS BRON CHITIS Active 12/11/2018 [facility] Active 2018-12-11 00:00:00 2018-12-11 10:19:00 [facility] ASTHMA WITH BRONCHITIS AND STATUS ASTHMA ASTHMA WITH BRONCHITIS AND STATUS ASTHMA Active 12/11/2018 [facility] Diagnosis A ctive 2018-12-11 00:00:00 2018-12-12 15:27:00 M reese Chirinos ASTHMA EXACERBATION ASTH MA EXACERBATION Active 11/04/2018 [facility] Active 2018-11-04 00:00:00 2018-11-19 22:15:00 [facility] Acute pancreatitis Acute pancreatitis Disease Active 2018-06-10 00:00:0 0 Geraldo Martinez Diarrhea Diarrhea Disease Active 2018-05-29 00:00:00 Geraldo Martinez Bronchitis Bronchitis Disease Active 2018-05-27 00:00:00 Geraldo Martinez 241.9 241. 9 Active 07/24/2013 [facility] Active 2013-07-24 00:00:00 2013-07-28 13:43:00 [facility] ABD/BACK PAIN ABD/ BACK PAIN Active 08/08/2012 [facility] Active 2012-08-08 09:00:00 2012-08-08 20:09:00 [facility] THYROID NODULE THYR OID NODULE Active 04/08/2012 [facility] Active 2012-04-08 00:00:00 2012-06-03 15:25:00 [facility] CHRONIC COUGH/PE/SOB *PE PROTOCOL* STAT STAT* CHRONIC COUGH/PE/SOB *PE PROTOCOL* STAT STAT* Active 03/22/2012 [facility] Active 2012-03-22 00:00:00 2012-06-03 15:25:00 [facility] SHORTNESS OF BREATH SHOR TNESS OF BREATH Active 02/28/2012 [facility] Active 2012-02-28 15:30:00 2012-02-28 20:06:00 [facility] PNEUMONIA PNEU MONIA Active 02/28/2012 [facility] Active 2012-02-28 15:30:00 2012-05-07 16:38:00 [...] (disorder) Pneu monia (disorder) Resolved Problem 10/31/2019 [facility] Resolved [...] Chirinos DYSPHAGIA, UNSPECIFIED DYSP HAGIA, UNSPECIFIED Active [facility] Active 2019-02-25 13:23:00 M reese Taran GASTRO-ESOPHAGEAL REFLUX DISEASE WITHOUT GASTRO- ESOPHAGEAL REFLUX DISEASE WITHOUT Active [facility] Active 2019-02-25 13:23:00 Norberto Chirinos PNEUMONIA, ORGANISM NOS PNEU MONIA, ORGANISM NOS Active [facility] Active 2012-05-07 16:38:00 Norberto Chirinos COUGH COUG H Active [facility] Active 2012-06-03 15:25:00 Norberto Chirinos SHORTNESS OF BREATH SHOR TNESS OF BREATH Active [facility] Active 2012-06-03 15:25:00 Mi cesar Chirinos Allergies, Adverse Reactions, Alerts Allergy Name Allergy Type Status Severity Reaction(s) Onset Date Inacti ve Date Treating Clinician Comments Source No Known Medication Allergies No Known Medication Allergies Active Norberto Chirinos Family History Family Member Diagnosis Comments Start Date Stop Date Source Natural father Hypertension [facility] Natural mother Arthritis [facility] Natural mother Asthma [facility] Natural mother Hyperlipidemia [place] [facility] Natural mother Hypertension [place] [facility] Social History Social Habit Start Date Stop Date Quantity Comments Source Sex Assigned At Patience todd [facility] Social History 2019-06-23 15:11:40 2019-06-23 15:11:40 Nobrerto Chirinos Alcohol intake 2018-11-11 00:00:00 2018-11-11 00:00:00 Current [...] Stop date: Limited # of times Norberto Chirinos Flumazenil 2019-06-23 16:50:00 No 0.2 mg, Route: IVP, ONCE, Dosing Weight 68.182, kg, PRN Benzodiazepine Reversal, Start date: 06/23/19 11:50:00 CDT, Initial dose Norberto Chirinos Sodium Chloride 0.9% IV 1000 mL 2019-06-23 15:06:00 No 1,000 mL, Rate: 75 ml/hr, Infuse over: 13.3 hr, Route: IV, Dosing Weight 71.364 kg, Total Volume: 1,000, Start date: 06/23/19 10:06:00 CDT, Duration: 30 day, Stop date: 07/23/19 10:05:00 [employer]P [employer] DEVELOPMENT, 1.78, m2 Norberto Chirinos Mupirocin 20 MG/ML Topical Cream 2019-06-09 18:23:00 Yes TOP, TID, 0 Refill(s) Norberto Valienteann Ventolin HFA 90 mcg/inh inhalation aerosol with [...] 30 day, Stop date: 01/17/19 13:54:00 CDT cesar Taran Ondansetron 2018-12-18 18:55:00 No 4 mg, Route: IVP, ONCE, Dosing Weight 69.545, kg, PRN Nausea & Vomiting, Start date: 12/18/18 13:55:00 CDT [facility] Promethazine 2018-12-18 18:55:00 No 6.25 mg, Route: IVPB, ONCE, Dosing Weight 69.545, kg, PRN Nausea & Vomiting, Start date: 12/18/18 13:55:00 CDT [facility] Diphenhydramine 2018-12-18 18:55:00 No 12.5 mg, Route: IVP, Drug form: INJ, Q6H, Dosing Weight 69.545, kg, PRN Itching, Start date: 12/18/18 13:55:00 CDT, Duration: 30 day, Stop date: 01/17/19 13:54:00 CDT [facility] Meperidine 2018-12-18 18:55:00 No 12.5 mg, Route: IVP, Q30Min, Dosing Weight 69.545, kg, PRN Other -See Comment, For shivering, Start date: 12/18/18 13:55:00 CDT, Duration: 2 doses or times, Stop date: Limited # of times [facility] Albuterol 0.83 MG/ML Inhalant Solution 2018-12-18 18:55:00 No 2.49 mg, Route: NEB, Q20Min, Dosing Weight 69.545, kg, PRN Wheezing, Priority: STAT, Start date: 12/18/18 13:55:00 CDT, Duration: 30 day, Stop date: 01/17/19 13:54:00 CDT [facility] Flumazenil 2018-12-18 18:55:00 No 0.2 mg, Route: IVP, PRN, Dosing Weight 69.545, kg, PRN Benzodiazepine Reversal, Initial dose, Start date: 12/18/18 13:55:00 CDT, Duration: 30 day, Stop date: 01/17/19 13:54:00 CDT [facility] Oxycodone 2018-12-18 18:55:00 No 10 mg, Route: NG, Drug form: LIQ, Q4H, Dosing Weight 69.545, kg, PRN Pain Score 7-10, Start date: 12/18/18 13:55:00 CDT, Duration: 30 day, Stop date: 01/17/19 13:54:00 CDT [facility] Hydromorphone 2018-12-18 18:55:00 No 0.5 mg, Route: IVP, Q5Min, Dosing Weight 69.545, kg, PRN Pain Score 7-10, Start date: 12/18/18 13:55:00 CDT, Duration: 4 doses or times, Stop date: Limited # of times [facility] Tar[address] Fentanyl 2018-12-18 18:55:00 No 50 microgram, Route: IVP, Q5Min, Dosing Weight 69.545, kg, PRN Pain Score 7-10, Priority: Routine, Start date: 12/18/18 13:55:00 CDT, Duration: 2 doses or times, Stop date: Limited # of times [facility] Acetaminophen 2018-12-18 18:55:00 No 1,000 mg, Route: IVPB, Drug form: INJ, ONCE, Dosing Weight 69.545, kg, PRN Pain Score 1-3, Start date: 12/18/18 13:55:00 CDT [facility] neostigmine (ANES) 2018-12-18 17:49:00 No Route: IV, Drug form: INJ, ONCE, Stop date: 12/18/18 12:49:00 CDT reese Phillips glycopyrrolate (ANES) 2018-12-18 17:49:00 No Route: IV, Drug form: INJ, ONCE, Stop date: 12/18/18 12:49:00 CDT [facility] Oxymetazoline hydrochloride 0.5 MG/ML Nasal [place] [Afrin] 2018-12-18 17:37:00 No 2 spray, Route : NASAL, Q2H, PRN Bleeding, Start date: 12/18/18 12:37:00 CDT, Duration: 3 day, Stop date: 12/21/18 12:36:00 CDT [facility] Acetaminophen 325 MG / Hydrocodone Bitartrate 5 MG Oral Tabl et 2018-12-18 17:37:00 No 1 tab, Rou te: PO, Dosing Weight 69.545, kg, Q4H, PRN Pain Score 1-3, Start date: 12/18/18 12:37:00 CDT, Duration: 30 day, Stop date: 01/17/19 12:36:00 CDT [facility] Morphine 2018-12-18 17:37:00 No 2 mg, Route: IVP, Q3H, Dosing Weight 69.545, kg, PRN Pain Score 1-3, Start date: 12/18/18 12:37:00 CDT, Duration: 30 day, Stop date: 01/17/19 12:36:00 [facility] (HUGOS[facility] 2018-12-18 17:08:00 No Route: IV, Drug form: INJ, ONCE, Stop date: 12/18/18 12:08:00 CDT [facility] rocuronium (ANES) 2018-12-18 17:08:00 No Route: IV, Drug form: INJ, ONCE, Stop date: 12/18/18 12:08:[address] [facility]OS[facility] 2018-12-18 16:53:00 No Route: IV, Drug form: INJ, ONCE, Stop date: 12/18/18 11:53:00 CDT [facility] propofol (HUGOS) 2018-12-18 16:53:00 No Route: IV, Drug form: INJ, ONCE, Stop date: 12/18/18 11:53:00 CDT [facility] fentaNYL (ANES) 2018-12-18 16:53:00 No Route: IV, Drug form: INJ, ONCE, Stop date: 12/18/18 11:53:00 CDT [facility] ondansetron (ANES) 2018-12-18 16:53:00 No Route: IV, Drug form: INJ, ONCE, Stop date: 12/18/18 11:53:00 CDT [facility] ceFAZolin (ANES) 2018-12-18 16:53:00 No Route: IV, Drug form: INJ, ONCE, Stop date: 12/18/18 11:53:00 CDT [facility] midazolam (ANES) 2018-12-18 16:28:00 No Route: IV, Drug form: SOLN, ONCE, Stop date: 12/18/18 11:28:00 [facility] Lactated Ringers Injection IV (HUGOS) 1000 mL 2018-12-18 15:53:00 No Route: IV, Total Volume: 1,000, Start date: 12/18/18 10:53:00 CDT, Stop date: 12/18/18 11:53:00 CDT Norberto Chirinos Cefazolin 2018-12-18 15:00:00 No 2 gm, Route: IVPB, ONCALL, Dosing Weight 69.545, kg, Start date: 12/18/18 10:00:00 CDT, Duration: 1 doses or times, ABX Indication: Surgical Prophylaxis Norberto Chirinos Dexamethasone 2018-12-18 15:00:00 No 8 mg, Route: IV, ONCALL, Dosing Weight 69.545, kg, Start date: 12/18/18 10:00:00 CDT, Duration: 30 day, Stop date: 01/17/19 9:59:00 CDT Norberto ford Calcium Chloride 0.0014 MEQ/ML / Potassi um Chloride 0.004 MEQ/ML / Sodium Chloride 0.103 MEQ/ML / Sodium Lactate 0.028 MEQ/ML Injectable Solution 2018-12-18 14:52:00 No 1,000 mL, Rate: 25 ml/hr, Infuse over: 40 hr, Route: IV, Dosing Weight 69.545 kg, Total Volume: 1,000, Start date: 12/18/18 9:52:00 CDT, Duration: 30 day, Stop date: 01/17/19 9:51:00 CDT, 1.76, m2 Norberto Chirinos Oxymetazoline hydrochloride 0.5 MG/ML Nasal [place] [Afrin] 2018-12-18 14:51:00 No 2 spray, Route : NASAL, PRE OP, PRN Nasal Congestion, Start date: 12/18/18 9:51:00 CDT, Duration: 3 day, Stop date: 12/21/18 9:50:00 CDT Norberto Chirinos Epinephrine 0.01 MG/ML / Lidocaine Hydrochloride 10 MG/ML In jectable Solution 2018-12-18 13:00:00 No Notes: (Same as: X ylocaine w/Epinephrine) Norberto Chirinos montelukast 10 MG Oral Tablet [Singulair] 2018-12-13 20:12:00 Yes 10 mg = 1 tab, PO, Bedtime, # 30 tab, 0 Refill(s) Norberto Chirinos predniSONE 20 mg oral tablet 2018-12-13 20:12:00 [...] Azelastine hydrochloride 0.137 MG/ACTUAT Metered Dose Nasal [place] 2018-12-13 20:12:00 Yes 137 microg charu =, INHALER, BID, PRN Congestion | 1-2 sprays, # 1 ea, 0 Refill(s) Norberto macario Codeine Phosphate 2 MG/ML / Guaifenesin 20 MG/ML Oral Soluti on 2018-12-13 14:03:00 No Notes: (Same As: Jesse Orozco) Norberto Chirinos Fluticasone propionate 0.05 MG/ACTUAT Metered Dose Nasal Spr ay [Flonase] 2018-12-12 14:07:00 No Notes: (Same as: Liu phillips) Norberto Phillips Porter Saline Nasal No-Drip [place] 0.65% gel 2018-12-12 14:00:00 No Notes: (Same as: [place], Deep Sea Nasal [place]). Norberto Chirinos Thyroxine 2018-12-12 13:00:00 No Notes: Take 1 hour before or 2 hours after meal; Enteral feeds may interefere with the absorption of this medication. (Same as:Levothroid) Jameel Chirinos Protonix 2018-12-12 12:30:00 No Notes: Tablet should not be chewed or crushed. (Same as: Protonix) Norberto Chirinos Enoxaparin 2018-12-12 06:00:00 No Notes: (S demetrius as: Lovenox) Norberto Taran Glucagon 2018-12-12 05:28:00 No 1 mg, Route: IM, Drug form: PDR/INJ, PRN, Dosing Weight 70.455, kg, PRN Blood Glucose Results, Start date: 12/12/18 0:28:00 CDT, Duration: 30 day, Stop date: 01/11/19 0:27:00 CDT [facility] Tar[address] Dextrose 50% Syringe 2018-12-12 05:28:00 No 25 gm, 50 mL, Route: IVP, Drug Form: INJ, Dosing Weight 70.455, kg, PRN, PRN Blood Glucose Results, Start date: 12/12/18 0:28:00 CDT, Duration: 30 day, Stop date: 01/11/19 0:27:00 CDT [facility] [address] methylPREDNISolone SODium SUCCinate 2018-12-12 02:00:00 No Notes: (Same as:Solu-MEDROL, A-Methapred) Chikaor ial Taran montelukast 2018-12-12 02:00:00 No Notes: ( Same as:Singulair) [facility] Tar[address] Mucinex 2018-12-12 02:00:00 No Notes: (Same as: Guaifenesin [place], Humibid [place], Mucinex) "Do Not Crush" Take medication with plenty of water. [facility] Tar[address] Docusate 2018-12-11 22:00:00 No Notes: (Same as: Colace) (Do Not Crush) [facility] [address] benzonatate 200 mg oral capsule 2018-12-11 20:14:00 Yes 200 mg = 1 cap, PO, TID, # 30 cap, 0 Refill(s) Ankitmandy abbott Taran omeprazole 40 mg oral delayed release capsule 2018-12-11 20:14:0 0 Yes 40 mg = 1 cap, PO, Daily, # 30 cap, 0 Refill(s) [facility] Zosyn 2018-12-11 19:54:00 No Notes: (Same as: [...] 1 day, Stop date: 12/12/18 14:00:00 CDT Norberto Chirinos Albuterol 0.833 MG/ML / Ipratropium [place] 0.167 MG/ML Inha lant Solution 2018-12-11 19:00:00 No Notes: (Same as: Phyllis galaviz) Norberto Chirinos Albuterol 0.83 MG/ML Inhalant Solution 2018-12-11 18:22:00 No Notes: SEE RT DOCUMENTATION (Same as: Durga) Norberto Chirinos Glucagon 2018-12-11 18:18:00 No 1 mg, Route: IM, Drug form: PDR/INJ, PRN, Dosing Weight 71.96, kg, PRN Blood Glucose Results, Start date: 12/11/18 13:18:00 CDT, Duration: 30 day, Stop date: 01/10/19 13:17:00 CDT Norberto Chirinos Dextrose 50% Syringe 2018-12-11 18:18:00 No 25 gm, 50 mL, Route: IVP, Drug Form: INJ, Dosing Weight 71.96, kg, PRN, PRN Blood Glucose Results, Start date: 12/11/18 13:18:00 CDT, Duration: 30 day, Stop date: 01/10/19 13:17:00 CDT [facility] omeprazole (PriLOSEC) 10 MG capsule 2018-11-11 00:00:0 0 2019-11-11 23:59:00 No 40mg QD Take 4 capsules (40 mg total) by mouth phyllis Chow [facility] Simvastatin 2018-11-09 03:00:00 No Notes: ( Same as: Zocor) [facility] Loratadine 2018-11-08 15:00:00 No 10 mg, Route: PO, Daily, Dosing Weight 71.96, kg, Start date: 11/08/18 9:00:00 [employer]P [employer]OPMENT, Duration: 30 day, Stop date: 12/07/18 9:00:00 CDT [facility] Amlodipine 2018-11-08 15:00:00 No Notes: (S demetrius as: Norvasc) [facility] cetirizine 2018-11-08 15:00:00 No Notes: (S demetrius As: Zyrtec) [facility] Thyroxine 2018-11-08 14:09:00 No Notes: Take 1 [...] 875-mg] 2018-11-08 13:42:00 Yes 1 tab, PO, [id number] , # 20 tab, 0 Refill(s) Norberto [...] Ibuprofen 2018-11-07 20:27:00 No Notes: (Same as: Motrin) "Do Not Crush" Take with food. Norberto Chirinos Ambien 2018-11-07 04:46:00 No Notes: (Same As: Ambien) Norberto Chirinos Famotidine 20 MG Oral Tablet [Pepcid] 2018-11-06 00:00:00 N o Notes: (Same as: Pepcid) Norberto Chirinos Fluticasone propionate 0.05 MG/ACTUAT Metered Dose Nasal Spr ay [Flonase] 2018-11-05 23:00:00 No Notes: (Same as: Liu phillips) Norberto Chirinos Budesonide 0.25 MG/ML Inhalant Solution [Pulmicort] -05 21:45:00 No Notes: (Same As: Pulmicort) Norberto Chirinos Glucagon 2018-11-04 22:03:00 No 1 mg, Route: IM, Drug form: PDR/INJ, PRN, Dosing Weight 71.96, kg, PRN Blood Glucose Results, Start date: 11/04/18 16:03:00 [employer]P [employer]ELOPMENT, Duration: 30 day, Stop date: 12/04/18 17:02:00 CDT Norberto Chirinos Dextrose 50% Syringe 2018-11-04 22:03:00 No 12.5 gm, 25 mL, Route: IVP, Drug Form: INJ, Dosing Weight 71.96, kg, PRN, PRN Blood Glucose Results, Start date: 11/04/18 16:03:00 [employer]P [employer]ELOPMENT, Duration: 30 day, Stop date: 12/04/18 17:02:00 CDT Norberto Chirinos Solu-Medrol 2018-11-04 22:00:00 No Notes: (Same as:Solu-MEDROL, A-Methapred) [facility] Phillips Loratadine 2018-11-04 21:51:00 Yes 1 0 mg, PO, Daily, 0 Refill(s) [facility] Ciprofloxacin 500 MG Oral Tablet [Cipro] 2018-11-04 21:51:00 No 500 mg = 1 tab, PO, Q12H, # 20 tab, 0 Refill(s) [facility] Phillips Please update height, weight, allergies on profile 2018-11-04 21:45:00 No Please update height, weight, allergies on profile, ATTN:RN, Drug form: MISC, Route: MISC, Q15Min, 11/04/18 15:45:00 [employer]ELOPMENT, Duration: 4 hr, Stop date: 11/04/18 19:30:00 EVP BUSINESS DEVELOPMENT [facility] macario Albuterol 0.417 MG/ML Inhalant Solution 2018-11-04 19:00:00 No Notes: SEE RT DOCUMENTATION (Same as: Proventil) Norberto Chirinos Vasotec 2018-11-04 18:00:00 No Notes: (Same as: Vasotec-IV) Norberto Chirinos cefepime 2018-11-04 17:00:00 No Notes: (Same As: Maxipime) MEDICATION WASTE Product Size: 1000 mg Product Wasted: ___ mg [facility] Albuterol 0.833 MG/ML / Ipratropium Brom sanjay 0.167 MG/ML Inhalant Solution [DuoNeb] 2018-11-04 16:32:00 No Notes: (S demetrius as: Duoneb) [facility] Codeine Phosphate 2 MG/ML / Guaifenesin 20 MG/ML Oral Soluti on 2018-11-04 16:32:00 No Notes: (Same As: Jesse Orozco) [facility] Zofran 2018-11-04 16:32:00 No Notes: (Same as: Zofran) MEDICATION WASTE Product Size: 4 mg Product Wasted: ___ mg [facility] Flexeril 10 mg oral tablet 2012-08-09 02:59:49 Yes Prade ep Ryan 10 mg, PO, TID, PRN, 30 tab, Muscle Spasm, Substitution Allowed [facility] [place] 5/325 oral tablet 2012-08-09 02:59:41 Yes Norm Ryan 1-2 tab, PO, Q4-6H, PRN, 15 tab, Pain, Substitution Allowed, Maintenance [facility] Flexeril 2012-08-09 02:05:00 No Norm Ryan 10 mg, Route: PO, ONCE, Dosing Weight 69.545, kg, Priority: STAT, Start date: 08/08/12 20:05:00, Stop date: 08/08/12 20:05:00 [facility] morphine Sulfate 2012-08-09 01:14:00 No Norm Ryan 2 mg, 1 mL, Route: IVP, Drug form: INJ, ONCE, Dosing Weight 69.545, kg, Priority: STAT, Start date: 08/08/12 19:14:00, Stop date: 08/08/12 19:14:00 [facility] ondansetron 2012-08-09 01:14:00 No Norm Ryan 4 mg, 2 mL, Route: IVP, Drug form: INJ, ONCE, Dosing Weight 69.545, kg, Priority: STAT, Start date: 08/08/12 19:14:00, Stop date: 08/08/12 19:14:00 [facility] Saline Flush 0.9% 2012-08-09 01:14:00 No Norm Ryan 5 mL, Route: IVP, Drug Form: INJ, Dosing Weight 69.545, kg, PRN, PRN Line Flush, Start date: 08/08/12 19:14:00, Duration: 24 hr, Stop date: 08/09/12 19:13:00 [facility] Sodium Chloride 0.9% (Bolus) IV 2012-08-09 01:14:00 No Norm Ryan 500 mL, 500 ml/hr, Route: IV, Drug Form: INJ, Dosing Weight 69.545, kg, ONCE, Bolus at 1,000 ml/hr, STAT, Start date: 08/08/12 19:14:00, Stop date: 08/08/12 19:14:00 [facility] ProAir HFA 90 mcg/inh inhalation aerosol with adapter 2012-03-06 15:53:47 Yes Jaden [place] 2 puff, INHALA TION, Q6H, PRN, 9 gm, 1, 1, for wheezing, Substitution Allowed, Soft Stop, AERO Me morial Phillips Prilosec 20 mg oral delayed release capsule 2012-03-06 15: 53:17 Yes Jaden [place] 20 mg, 1 cap, PO, Daily, 30 cap, Substit ution Allowed [facility] predniSONE 10 mg oral tablet 2012-03-06 15:52:58 Yes [place] 10 mg, 1 tab, PO, Daily, 10 tab, Substitution Allowed, TAB [facility] Mucinex 600 mg oral tablet, extended release 2012-03-06 15 :52:37 Yes Jaden [place] 600 mg, 1 tab, PO, Daily, 10 tab, Substi tution Allowed, ERTAB [facility] methylPREDNISolone 2012-03-01 15:00:00 No Floyd Ricardo rebecca Steiner 20 mg, 0.5 mL, Route: IV, Drug form: INJ, [id number], Start date: 03/01/12 10:00:00, Duration: 30 day, Stop date: 03/30/12 22:00:00 [facility] Tessalon Perles 2012-03-01 13:00:00 No Floyd Chandulal Steiner 200 mg, 2 cap, Route: PO, Drug form: CAP, Q8H, Start date: 03/01/12 8:00:00, Duration: 30 day, Stop date: 03/31/12 0:00:00 Ankit abbott Phillips methylPREDNISolone 2012-03-01 07:28:00 No Floyd Ricardo rebecca Steiner 40 mg, 1 mL, Route: IV, Drug form: INJ, ONCE, Start date: 03/01/12 2:28:00, Stop date: 03/01/12 2:28:00 [facility] azithromycin 2012-03-01 02:00:00 No Tash Boccardo 500 mg, Route: IVPB, [id number], Start date: 02/29/12 21:00:00, Duration: 30 day, Stop date: 03/29/12 21:00:00 [facility] enoxaparin 2012-03-01 02:00:00 No Floyd Chandulal Linares l 40 mg, 0.4 mL, Route: SUB-Q, Drug form: INJ, [id number], Start date: 02/29/12 21:00:00, Duration: 30 day, Stop date: 03/29/12 21:00:00 [facility] ceftriaxone 2012-02-29 23:00:00 No Tash Boccardo 1 gm, Route: IVPB, Drug form: PDR/INJ, [id number], Start date: 02/29/12 18:00:00, Duration: 30 day, Stop date: 03/29/12 18:00:00 [facility] pneumococcal 23-valent vaccine 2012-02-29 14:00:00 No S YSTEM SYSTEM 0.5 ml, Route: IM, Drug Form: INJ, Start date: 02/29/12 9:00:00, Stop date: 02/29/12 9:00:00 [facility] levothyroxine 2012-02-29 14:00:00 No Tash Boccardo 25 microgram, Route: PO, Drug form: TAB, [id number], Start date: 02/29/12 9:00:00, Duration: 30 day, Stop date: 03/30/12 6:30:00 [facility] 2012-02-29 14:00:00 No Tash Boccardo 10 mg, 1 tab, Route: PO, Drug form: TAB, QAM, Start date: 02/29/12 9:00:00, Duration: 30 day, Stop date: 03/29/12 9:00:00 [facility] amLODipine 2012-02-29 14:00:00 No Tash Boccardo 5 mg, 1 tab, Route: PO, Drug form: TAB, Daily, Start date: 02/29/12 9:00:00, Duration: 30 day, Stop date: 03/29/12 9:00:00 [facility] Tussionex [employer] oral suspension, extended release 2012-02-29 13:36:00 No Tash Boccardo 5 ml, Route: PO, Drug Form: SUSPER, Q12H, PRN Cough/Congestion, Start date: 02/29/12 8:36:00, Duration: 30 day, Stop date: 03/30/12 8:35:00 [facility] albuterol 0.083% inhalation solution 2012-02-29 07:00:00 No Tash Boccardo 2.49 mg, 3 mL, Route : NEB, Drug form: SOLN, RQ6H, Priority: Routine, Start date: 02/29/12 2:00:00, Duration: 30 day, Stop date: 03/29/12 20:00:00 [facility] ipratropium 2012-02-29 07:00:00 No Tash Boccardo 0.5 mg, 2.5 mL, Route: NEB, Drug form: SOLN, RQ6H, Priority: Routine, Start date: 02/29/12 2:00:00, Duration: 30 day, Stop date: 03/29/12 20:00:00 [facility] DuoNeb inhalation solution 2012-02-29 07:00:00 No Criss a Boccardo 3 mL, Route: NEB, Drug Form: SOLN, RQ6H, Start date: 02/29/12 2:00:00, Duration: 30 day, Stop date: 03/29/12 20:00:00 [facility] ondansetron 2012-02-29 02:39:00 No Tash Boccardo 4 mg, 2 mL, Route: IVP, Drug form: INJ, Q6H, PRN Nausea & Vomiting, Start date: 02/28/12 21:39:00, Duration: 30 day, Stop date: 03/29/12 21:38:00 [facility] acetaminophen 2012-02-29 02:39:00 No Tash Boccardo 650 mg, 2 tab, Route: PO, Drug form: TAB, Q4H, PRN Pain/Fever, Start date: 02/28/12 21:39:00, Duration: 30 day, Stop date: 03/29/12 21:38:00 [facility] Saline Flush 0.9% 2012-02-29 02:39:00 No Tash Boccard o 5 ml, Route: IVP, Drug Form: INJ, PRN, PRN Line Flush, Start date: 02/28/12 21:39:00, Duration: 30 day, Stop date: 03/29/12 21:38:00 [facility] guaifenesin 2012-02-29 02:37:00 No Tash Boccardo 100 mg, 5 mL, Route: PO, Drug form: LIQ, Q4H, PRN Cough/Congestion, Start date: 02/28/12 21:37:00, Duration: 30 day, Stop date: 03/29/12 21:36:00 [facility] codeine-guaifenesin 10 mg-100 mg/5 mL oral syrup 2012-02-03 02:37:00 No Tash Boccardo 5 mL, Route: PO, Drug Form: LIQ, Q4H, PRN Cough, Start date: 02/28/12 21:37:00, Duration: 30 day, Stop date: 03/29/12 21:36:00 [facility] Sodium Chloride 0.9% (Bolus) IV 500 mL 2012-02-29 01:41:00 No Koby A Steiner 500 mL, Rate: 50 0 ml/hr, Infuse over: 1 hr, Route: IV, Dosing Weight 64.091 kg, Total Volume: 500, Bolus Dose, Priority: STAT, Start date: 02/28/12 20:41:00, Duration: 1 doses or times, Stop date: 02/28/12 21:40:00 [facility] acetaminophen 2012-02-29 01:39:00 No Koby A Steiner 650 mg, Route: PO, Drug form: TAB, ONCE, Priority: STAT, Start date: 02/28/12 20:39:00, Stop date: 02/28/12 20:39:00 Norberto Chirinos TL-Hist DM oral liquid 2012-02-29 00:39:15 Yes 5 mL, PO, Q6H, PRN, as needed for cough and congestion, Substitution Allowed, Maintenance [facility] levofloxacin 500 mg oral tablet 2012-02-29 00:39:12 Yes 500 mg, 1 tab, PO, Daily, Substitution Allowed Mem orijaydon Chirinos Lamisil 250 mg oral tablet 2012-02-29 00:39:07 Yes 250 mg, 1 tab, PO, Daily, Substitution Allowed [facility] simvastatin 2012-02-29 00:39:04 Yes Tash Boccardo 10 mg, PO, QAM, Substitution Allowed [facility] levothyroxine 25 mcg (0.025 mg) oral tablet 2012-02-29 00: 38:59 Yes Tash Boccardo 25 microgram, 1 tab, PO, Daily, Substitu tion Allowed [facility] amLODipine 5 mg oral tablet 2012-02-29 00:38:54 Yes Silv ia Boccardo 5 mg, 1 tab, PO, Daily, Substitution Allowed [facility] NS (Bolus) IV 1,000 mL 2012-02-28 23:28:00 No Koby A Steiner 1,000 mL, Rate: 1,000 ml/hr, Infuse over: 1 hr, Route: IV, Dosing Weight 64.091 kg, Total Volume: 1,000, Priority: STAT, Start date: 02/28/12 18:28:00, Duration: 1 doses or times, Stop date: 02/28/12 19:27:00, Bolus DoseBolus Dose [facility] azithromycin 2012-02-28 23:26:00 No Koby A Steiner 500 mg, 250 mL, Route: IVPB, Drug form: PDR/INJ, ONCE, Priority: STAT, Start date: 02/28/12 18:26:00, Stop date: 02/28/12 18:26:00 M emomilena Chirinos albuterol 0.083% inhalation solution 2012-02-28 23:26:00 No Koby A Steiner 2.49 mg, Route: NEB, Drug form: SOLN, ONCE, Priority: STAT, Start date: 02/28/12 18:26:00, Stop date: 02/28/12 18:26:00 [facility] ipratropium 0.02% inhalation solution 2012-02-28 23:26:00 No Koby A Steiner 0.5 mg, Route: N EB, ONCE, Priority: STAT, Start date: 02/28/12 18:26:00, Stop date: 02/28/12 18:26:00 M emorijaydon Chirinos Rocephin 2012-02-28 23:26:00 No Koby A Steiner 1 gm, Route: IVPB, ONCE, Priority: STAT, Start date: 02/28/12 18:26:00, Stop date: 02/28/12 18:26:00 [facility] Immunizations Ordered Immunization Name Filled Immunization Name Date Status Comments Source FLUCELVAX QUAD PF 2018-06-12 00:00:00 Completed [facility] V[facility] Sign[facility] Vital Name Observation Time Observation Value Comments Source Respitory Rate 2019-06-23 17:10:00 [facility] Systolic (mm Hg) 2019-06-23 17:10:00 Ankit rial [facility] Diastolic (mm Hg) 2019-06-23 17:10:00 [facility] Respitory Rate 2019-06-23 16:55:00 [facility] Systolic (mm Hg) 2019-06-23 16:55:00 Ankit rial [facility] Diastolic (mm Hg) 2019-06-23 16:55:00 [facility] Respitory Rate 2019-06-23 16:40:00 [facility] Systolic (mm Hg) 2019-06-23 16:40:00 Ankit [facility] Diastolic (mm Hg) 2019-06-23 16:40:00 [facility] Height 2019-06-23 15:06:00 154.94 cm [facility] Weight 2019-06-23 15:06:00 [facility] BMI Calculated 2019-06-23 15:06:00 [facility] Systolic (mm Hg) 2018-12-18 20:30:00 Ankit [facility] Diastolic (mm Hg) 2018-12-18 20:30:00 [facility] Systolic (mm Hg) 2018-12-18 20:15:00 Ankit rial [facility] Diastolic (mm Hg) 2018-12-18 20:15:00 [facility] Systolic (mm Hg) 2018-12-18 20:00:00 Ankit rial [facility] Diastolic (mm Hg) 2018-12-18 20:00:00 [facility] Respitory Rate 2018-12-18 18:15:00 [facility] Respitory Rate 2018-12-18 18:00:00 [facility] Respitory Rate 2018-12-18 17:48:00 [facility] Temperature Oral (F) 2018-12-18 14:37:00 97.9 F [facility] Heart Rate 2018-12-18 14:37:00 [facility] Height 2018-12-18 14:11:00 154.94 cm [facility] BMI Calculated 2018-12-18 14:11:00 [facility] Weight 2018-12-18 14:11:00 [facility] Heart Rate 2018-12-13 20:39:00 [facility] Systolic (mm Hg) 2018-12-13 20:39:00 Ankit [facility] Diastolic (mm Hg) 2018-12-13 20:39:00 [facility] Temperature Oral (F) 2018-12-13 20:39:00 97.2 F [facility] Systolic (mm Hg) 2018-12-13 16:19:00 Ankit [facility] Diastolic (mm Hg) 2018-12-13 16:19:00 [facility] Respitory Rate 2018-12-13 16:19:00 [facility] Heart Rate 2018-12-13 16:19:00 [facility] Temperature Oral (F) 2018-12-13 16:19:00 98.1 F [facility] Temperature Oral (F) 2018-12-13 12:15:00 97.8 F [facility] Systolic (mm Hg) 2018-12-13 12:15:00 Ankit [facility] Diastolic (mm Hg) 2018-12-13 12:15:00 [facility] Heart Rate 2018-12-13 12:15:00 [facility] Respitory Rate 2018-12-13 12:15:00 [facility] Respitory Rate 2018-12-13 09:01:00 [facility] Height 2018-12-11 19:46:00 154.94 cm [facility] Weight 2018-12-11 19:46:00 [facility] BMI Calculated 2018-12-11 19:46:00 [facility] Systolic (mm Hg) 2018-11-08 17:16:00 Ankit rial [facility] Diastolic (mm Hg) 2018-11-08 17:16:00 [facility] Heart Rate 2018-11-08 17:16:00 [facility] Temperature Oral (F) 2018-11-08 17:16:00 98.2 F [facility] Respitory Rate 2018-11-08 14:14:00 [facility] Temperature Oral (F) 2018-11-08 13:35:00 97.8 F [facility] Heart Rate 2018-11-08 13:35:00 [facility] Systolic (mm Hg) 2018-11-08 13:35:00 Ankit rial [facility] Diastolic (mm Hg) 2018-11-08 13:35:00 [facility] Respitory Rate 2018-11-08 13:35:00 [facility] Respitory Rate 2018-11-08 10:45:00 [facility] Temperature Oral (F) 2018-11-08 10:45:00 98.0 F [facility] Heart Rate 2018-11-08 10:45:00 [facility] Systolic (mm Hg) 2018-11-08 10:45:00 Ankit rial [facility] Diastolic (mm Hg) 2018-11-08 10:45:00 [facility] BMI Calculated 2018-11-04 21:39:00 [facility] Height 2018-11-04 21:39:00 154.94 cm [facility] Weight 2018-11-04 21:39:00 [facility] Height 2012-08-09 00:05:00 154.94 cm [facility] Weight 2012-08-09 00:05:00 [facility] Heart Rate 2012-03-06 16:08:00 [facility] Systolic (mm Hg) 2012-03-06 16:08:00 Ankit rial [facility] Respitory Rate 2012-03-06 16:08:00 [facility] Temperature Oral (F) 2012-03-06 16:08:00 97.8 F [facility] Diastolic (mm Hg) 2012-03-06 16:08:00 Mem [facility] Diastolic (mm Hg) 2012-03-06 12:20:00 [facility] Respitory Rate 2012-03-06 12:20:00 [facility] Systolic (mm Hg) 2012-03-06 12:20:00 Ankit [facility] Heart Rate 2012-03-06 12:20:00 [facility] Temperature Oral (F) 2012-03-06 12:20:00 98.5 F [facility] Systolic (mm Hg) 2012-03-06 09:00:00 Ankit rial [facility] Respitory Rate 2012-03-06 09:00:00 [facility] Diastolic (mm Hg) 2012-03-06 09:00:00 [facility] Heart Rate 2012-03-06 09:00:00 [facility] Temperature Oral (F) 2012-03-06 09:00:00 97.9 F [facility] Weight 2012-02-28 21:05:00 [facility] Height 2012-02-28 21:05:00 154.94 cm [facility] Procedures Procedure Date / Time Performed Performing Clinician Sourc e Colonoscopy [facility] Cholecystectomy [facility] Plan of Care Planned Activity Planned Date Details Comments Source Future Scheduled Test 2020-04-03 00:00:00 INFLUENZA VACCINE [code = INFLUENZA VACCINE] [facility] Future Scheduled Test 2011 00:00:00 65+ PNEUMOCOCCAL V ACCINE (1 of 2 - PCV13) [code = 65+ PNEUMOCOCCAL VACCINE (1 of 2 - PCV13)] [facility] Future Scheduled Test 1996 00:00:00 BREAST CANCER SCRE ENING [code = BREAST CANCER SCREENING] [facility] Future Scheduled Test 1996 00:00:00 COLONOSCOPY SCREEN ING [code = COLONOSCOPY SCREENING] [facility] Future Scheduled Test 1996 00:00:00 SHINGLES VACCINES (#1) [code = SHINGLES VACCINES (#1)] [facility] Encounters Start Date/Time End Date/Time Encounter Type Admission Type [facility] Care Department Encounter ID Source 2019-04-07 09:54:46 Outpatient [facility] [id number] 2019-10-28 09:38:00 2019-10-28 23:59:00 Outpatient Vianney London [facility] [id number] 2019-10-28 09:38:00 2019-10-28 09:38:00 Outpatient [id number] 2019-06-23 09:24:00 2019-06-23 12:35:00 Outpatient Vianney London [facility] [id number] 2019-06-23 09:24:00 2019-06-23 09:24:00 Outpatient [facility] PUL [id number] 2019-05-13 13:23:00 2019-05-13 23:59:00 Outpatient Vianney London [facility] [id number] 2019-05-13 13:23:00 2019-05-13 13:23:00 Outpatient [facility] PUL [id number] [facility] 2019-04-08 14:25:00 2019-04-08 23:59:00 Outpatient Raysa Vilchis [facility] [id number] 2019-02-25 13:13:00 2019-02-25 23:59:00 Outpatient Vianney London [facility] [id number] 2019-02-25 13:13:00 2019-02-25 13:13:00 Outpatient [facility] PUL [id number] 2018-12-18 08:24:00 2018-12-18 16:15:00 Outpatient Raysa Vilchis [facility] [id number] 2018-12-18 08:24:00 2018-12-18 08:24:00 Outpatient [id number] 2018-12-11 14:24:00 2018-12-13 16:07:00 Outpatient Vianney London [facility] [id number] 2018-11-04 15:26:00 2018-11-08 13:20:00 Outpatient Tash Fox [facility] [id number] 2013-07-28 13:43:00 2013-07-28 23:59:00 Outpatient [facility] [id number] [facility] Results Test Description Test Time Test Comments Results Result Comments Source CT CERVICAL SPINE WO 2020-04-09 16:30:00 [facility] [address] [place] [address] Patient Name: DANIA LUCIO MR #: [id number] : 1945 Age/Sex: 74/F Req #: [id number] [facility] Physician: Ordered by: BAO GOODMAN DO Report #: [id number] Location: ER Room/Bed: Procedure: [id number] CT/CT CERVICAL SPINE WO Exam Date: 04/09/20 Exam Time: 1556 REPORT STATUS: Signed History: Trauma, fall Comparison studies: None Technique: Axial images were obtained through the cervical region. Coronal and sagittal images reconstructed from the axial data. Dose modulation, iterative reconstruction, and/or weight based adjustment of the mA/kV was utilized to reduce the radiation dose to as low as reasonably achievable. Intravenous contrast: None Findings: Atlantoaxial articulation: Intact. Alignment: Straight lumbar curvature may be positional. Approximately 2 to 3 minute mm anterolisthesis of C7 on T1 is most likely degenerative in etiology. Cervicomedullary junction: No abnormalities. The foramen magnum is patent. Soft tissues: No gross acute abnormalities. Vertebrae: No fractures, infection or neoplasm. Degenerative changes: Severe degenerative changes at the right C1-C2 lateral mass articulation with joint space narrowing, sclerosis and osteophytosis. Similar degenerative changes are also present at the anterior frontal dental interval. Mildly degenerated C5-C6 disc. Moderately degenerated C6-C7 disc asymmetrically greater on the right. Disc osteophyte complexes at C5-C6 and C6-C7 indent the thecal sac but do not result in significant canal stenosis. Advanced multilevel facet arthrosis as well as multilevel uncovertebral arthrosis which result in mild multilevel foraminal stenosis. Incidental findings: Punctate oropharyngeal tonsillith as sequela prior infection/inflammation. IMPRESSION: 1. No cervical spine fracture or acute subluxation. 2. Degenerative changes as described. 3. Ligament, spinal cord and or vascular abnormalities cannot be excluded on the basis of this examination Signed by: Dr. Mayur Cotto M.D. on 04/09/2020 4:37 PM Dictated By: MAYUR COTTO MD 36 Transcribed By: DONNA on 04/09/201636 COPY TO: BAO GOODMAN DO HAND 3+ VIEWS LEFT 2020-04-09 16:29:00 [place] [address] Patient Name: DANIA LUCIO MR #: [id number] : 1945 Age/Sex: 74/F Req #: [id number] Adm Physician: Ordered by: BAO GOODMAN DO Report #: [id number] Location: ER Room/Bed: Procedure: [id number] DX/HAND 3+ VIEWS LEFT Exam Date: 04/09/20 Exam Time: 1610 REPORT STATUS: Signed EXAMINATION: HAND 3+ VIEWS LEFT INDICATION: Trauma COMPARISON: None FINDINGS: No acute fracture or dislocation. Alignment is anatomic. Minimal scattered degenerative change. Soft tissues appear unremarkable. IMPRESSION: No acute osseous injury. Signed by: Pascale Rose MD on 04/09/2020 4:29 PM Dictated By: PASCALE ROSE MD 28 Transcribed By: DONNA on 04/09/201628 COPY TO: BAO GOODMAN DO ELBOW RIGHT COMPLETE 2020-04-09 16:29:00 [place] [address] Patient Name: DANIA LUCIO MR #: [id number] : 1945 Age/Sex: 74/F Req #: [id number] Adm Physician: Ordered by: BAO GOODMAN DO Report #: [id number] Location: ER Room/Bed: Procedure: [id number] DX/ELBOW RIGHT COMPLETE Exam Date: 04/09/20 Exam Time: 1600 REPORT STATUS: Signed EXAMINATION: ELBOW RIGHT COMPLETE INDICATION: Trauma COMPARISON: None FINDINGS: Acute mildly displaced fracture of the olecranon process of the ulna with overlying soft tissue swelling. No additional fracture identified. IMPRESSION: Acute olecranon process of ulna fracture with overlying soft tissue swelling. Signed by: Pascale Rose MD on 04/09/2020 4:31 PM Dictated By: PASCALE ROSE MD 30 Transcribed By: DONNA on 04/09/20 1631 COPY TO: BAO GOODMAN DO KNEE LEFT THREE VIEWS 2020-04-09 16:28:00 [place] [address] Patient Name: DANIA LUCIO MR #: [id number] : 1945 Age/Sex: 74/F Req #: [id number] Adm Physician: Ordered by: BAO GOODMAN DO Report #: [id number] Location: ER Room/Bed: Procedure: [id number] DX/KNEE LEFT THREE VIEWS Exam Date: 04/09/20 Exam Time: 1605 REPORT STATUS: Signed EXAMINATION: KNEE LEFT THREE VIEWS INDICATION: Trauma COMPARISON: None FINDINGS: AP, oblique and lateral images of the left knee demonstrate no acute fracture or dislocation. Alignment is anatomic. No substantial degenerative change. Medial knee soft tissue swelling. No joint effusion. IMPRESSION: Medial knee soft tissue swelling. No acute osseous injury. Signed by: Pascale Rose MD on 04/09/2020 4:28 PM Dictated By: PASCALE ROSE MD 27 Transcribed By: DONNA on 04/09/201627 COPY TO: BAO GOODMAN DO CT BRAIN WO 2020-04-09 16:27:00 [place] [address] Patient Name: DANIA LUCIO MR #: [id number] : 1945 Age/Sex: 74/F Req #: [id number] Adm Physician: Ordered by: BAO GOODMAN DO Report #: [id number] Location: Room/Bed: Procedure: [id number] CT/CT BRAIN WO Exam Date: 04/09/20 Exam Time: 1556 REPORT STATUS: Signed Exam: Head CT without contrast History: None. Comparison studies: None Technique: Axial images were obtained from the skull base to the vertex. Coronal and sagittal images reconstructed from the axial data. Dose modulation, iterative reconstruction, and/or weight based adjustment of the mA/kV was utilized to reduce the radiation dose to as low as reasonably achievable. Radiation dose: Total DLP: 1048.52 mGy*cm. Estimated effective dose: DLP x 0.015 Intravenous contrast: None Findings: Scalp: Left frontal scalp hematoma and laceration is with associated subcutaneous subcutaneous emphysema. No retained retained hyperden se foreign body or fracture. Bones: No fractures, blastic or lytic lesions. Brain sulci: Appropriate for age. Ventricles: Normal in size and configuration. No hydrocephalus. Extra-axial spaces: No masses, no fluid collection. Parenchyma: A few subtle hypodensities in the supratentorial white matter are nonspecific but are most compatible with chronic microvascular ischemic changes. No mass, acute hemorrhage or acute or chronic cortical insults. Sellar/suprasellar region: No abnormalities. Craniocervical junction: Patent foramen magnum. No Chiari one malformation. Middle ear and included mastoid: Clear bilaterally. Incidental findings: Atherosclerotic calcifications in the carotid siphons. IMPRESSION: 1. Left frontal scalp hematoma and laceration. 2. No fracture or acute intracranial abnormalities. 3. Minimal chronic microvascular ischemic changes. Signed by: Dr. Mayur Cotto M.D. on 04/09/2020 4:30 PM Dictated By: MAYUR COTTO MD 1630 Transcribed By: DONNA on 04/09/20 1630 COPY TO: BAO GOODMAN DO HEMATOLOGY 2018-12-18 14:18:00 Test Item PTT (test code = PTT) 20.0 s 22.9-35.8 [facility]unmmrlEIETPSSDZS3531-30-29 14:18:00* Test Item Value Reference Range Interpretation Comments INR (test code = INR) 0.93 1 0.85-1.17 [facility] CenterBsyqiynTJVOCXQZKQ3142-83-20 14:18:00* Test Item Value Reference Range Interpretation Comments PT (test code = PT) 12.3 s 12.0-14.7 [facility] CenterCjyhleiXTEINPCHQJ3114-05-83 14:18:0032.8[facility] 2018-12-18 14:18:0014.6[facility] QpxfbntLLUDADBBNC2647-99-07 14:18:008.2[facility] HospitalGgpwaaiWULVLVIRBO0697-87-88 14:18:69142Xssuyqaa LfavwwnAHMPUQNZRL8551-98-66 14:18:0090.4[facility] EglennyRSIMBJCSOQ9728-34-66 14:18:00* Test Item Value Reference Range Interpretation Comments MCH (test code = MCH) 29.7 pg 27.0-31.0 [facility] TfsttkhMAIKKVABDK1839-99-89 14:18:0014.3[facility]ann[facility]MATOLOGY 2018-12-18 14:18:0043.5[facility] HmlubnlDNIGKUAYSL3024-06-70 14:18:0013.2[facility] AeeyhosUXEFLJSSVJ8535-76-41 14:18:004.81[facility] QljhxjbGUZTJTJSAD4280-06-05 14:18:0077.5[facility] JehmkioCENLZRSVIJ6687-34-83 14:18:000.4[facility] FSZDPKKWYF6182-72-13 14:18:000.7[facility] FjvnghxWNJXMPCUJW8583-88-72 14:18:002.2 [facility] XidiaypSDWAJMKIGM7191-71-07 14:18:0010.2[facility]ann[facility]MATOLOGY 2018-12-18 14:18:000.1[facility] RrzilgpSYPDLVLVUM6018-90-93 14:18:0016.9[facility] LhclcjvRLUUKXGFRM7226-05-21 14:18:005.1[facility] WubydhdUOIYQBCGXK3781-39-81 14:18:000.1[facility] KtrxxaxGNXGNFJPOK9113-66-20 23:07:009.9[facility] SPECIAL OEZGUXEDO4556-40-65 10:10:006.3[facility] HermannCHEM DWVEH3067-38-70 19:51:003.4[facility] HermannCHEM DSXPG6544-84-50 19:51:00* Test Item Value Reference Range Interpretation Comments A/G Ratio (test code = A/G Ratio) 1.1 1 0.7-1.6 [facility]annCHEM OPYHZ1056-18-78 19:51:003.5[facility] HermannCHEM PANEL 2018-12-11 19:51:00* Test Item Value Reference Range Interpretation Comments B/C Ratio (test code = B/C Ratio) 23 1 6-25 [facility]annCHEM GNJAL9366-05-11 19:51:009.9[facility] HermannCHEM PANEL 2018-12-11 19:51:0080[facility] HermannCHEM YTCOL6669-59-14 19:51:000.3[facility] HermannCHEM YAMPG2175-44-18 19:51:91416Hlsqyfnd HermannCHEM AYTQC8314-55-42 19:51:0035[facility]annCHEM IFKWN8045-20-53 19:51:003.8[facility] HermannCHEM LNREU4743-36-08 19:51:0011[facility] HermannCHEM WJOSO2589-13-16 19:51:0025 [facility]annCHEM MBTVX1899-56-83 19:51:38310Ngcmxgml HermannCHEM PANEL 2018-12-11 19:51:007.3[facility] HermannCHEM PMHXO2527-78-27 19:51:009.2[facility] HermannCHEM BUECF0479-03-69 19:51:50435Nddtbkbi HermannCHEM LVXZI9417-70-71 19:51:003.9[facility] HermannCHEM UJKYK6969-65-56 19:51:000.75[facility] HermannCHEM HEHCV4724-04-31 19:51:0017[facility] HermannCHEM GGGWK7955-42-22 19:51:16930 [facility]annCHEM AIDHK5902-05-10 19:51:002.6[facility]annHEMATOLOGY 2018-12-11 19:51:27140Xoujxrge MzeqgrsQGSLITQPMD3200-18-76 19:51:008.0[facility] ApsznhvSHMJMAJMQV8194-99-80 19:51:0014.3[facility] YcatuohAGKBZLZFSK8581-21-20 19:51:0033.5[facility] NusxsxiYPMILEVBMR5075-08-60 19:51:00* Test Item Value Reference Range Interpretation Comments MCH (test code = MCH) 30.1 pg 27.0-31.0 [facility] UgeyjobXNYCYWAAJK5471-72-29 19:51:004.49[facility]annHEMATOLOGY 2018-12-11 19:51:0013.5[facility] OnwjhlzYZXTRCLVRE3068-45-91 19:51:0011.7[facility] HhkdlusSWWFWALGKM8368-26-99 19:51:0089.9[facility] TxkxhljMSJIZTHFPO4971-79-82 19:51:0040.3[facility] DjqkniaOXGCVLIFDD3264-03-72 19:51:0022.5[facility] EOWXPFIBDO3409-05-67 19:51:006.9[facility] YngshdeACWKNYRKCS5259-55-98 19:51:000.4 [facility] VcwlcnbVBOSTVYNCP9934-90-78 19:51:002.6[facility]annHEMATOLOGY 2018-12-11 19:51:008.2[facility] PjsapvxYBMOGHWSYW4861-48-46 19:51:000.3[facility] KjocvyzTTPZBCDLHT9752-75-25 19:51:000.1[facility] CpcbcsxUIIHIHWTDU1146-08-39 19:51:000.8[facility] JepckckTUEVLGDMAU0624-95-86 19:51:0069.9[facility] SRAUIWZUSH6090-19-61 19:51:0013[facility] IjnzlucTLVLFEBNPV2210-31-45 19:51:00 749.0[facility] HermannMAMMOGRAPHY DIGITAL SCR SFXOR6698-15-78 09:48:00 [place] [address] Patient Name: DANIA LUCIO MR #: [id number] : 1945 Age/Sex: 73/F Req #: [id number] Adm Physician: Ordered by: TASH PASCUAL MD Report #: [id number] Location: [facility] Room/Bed: Procedure: [id number] MG/MAMMOGRAPHY DIGITAL SCR BILAT Exam Date: 11/20/18 Exam Time: 0933 REPORT STATUS: Sig dao #[id number] - MGSCRBIL #BILATERAL DIGITAL SCREENING MAMMOGRAM WIT H CAD: 11/20/2018 CLINICAL: Routine screening. Comparison is made to nolberto caba dated: 12/11/2016 mammogram - [facility]. Current study contains 4 films. There are [...] letter of the results. Porter perez/jenn:11/28/2018 13:26:07 Ice Skater: Kaleigh NYE(R)(Chon), [facility] let ter sent: Compared to Prior B9 Mammogram BI-RADS: 2 Benign Dictated By: PORTER ROSS DO 1326 T ranscribed By: JENN on 11/28/18 1326 COPY TO: TASH PASCUAL MD ADKNMKELCX1774-87-59 11:04:0012.4[facility] CvkdfwqYCMVCFPPUJ6972-17-15 11:04:00 37.4[facility] ZrmxmmmGEOIIGAJLE9847-24-12 11:04:0089.9[facility]annHEMATOLOGY 2018-11-07 11:04:00* Test Item Value Reference Range Interpretation Comments MCH (test code = MCH) 29.8 pg 27.0-31.0 [facility] YlxapheWODNFLWYGY9775-68-94 11:04:0033.2[facility]annHEMATOLOGY 2018-11-07 11:04:0014.4[facility] HggfkglNYRNVXGQVF0361-32-79 11:04:46268Mskmfcbn MoenosaCGQDFRPSWU8745-32-73 11:04:008.3[facility] HomnaubNVLQERDPMH1316-26-11 11:04:0017.9[facility] OmnvtcxXEDLLWKBMQ1846-74-50 11:04:004.16[facility] XNYAILPWOI8127-06-66 11:04:000.1[facility] ZtbnaegUGMVOJNHLT3999-26-66 11:04:001.3 [facility] CxpojjeTSPGHHSESH9503-90-66 11:04:0016.3[facility]annHEMATOLOGY 2018-11-07 11:04:000.4[facility] UjdqkvvTSHIOVZIJB7542-84-73 11:04:00Normal (11/07/18 5:04 AM)[facility] UiduxelBDWQHVWKWQ9356-40-69 11:04:00Normal (11/07/18 5:04 AM)[facility] FtwvdfeFPPWIKTQIE5372-11-55 11:04:0090.8[facility]annHEMATOLOGY 2018-11-07 11:04:007.0[facility] LfchqzdNTBICNBOQK6057-05-56 11:04:002.1[facility] RukqyncSLIZQJIEAL6067-74-38 11:12:007.9[facility] ZzvxacwCTQDZPXHZF8131-10-15 11:12:0088.7[facility] QkthklmGCOXTBVXZX3151-40-13 11:12:0038.1[facility] EDNESFNBOI4707-60-20 11:12:0012.6[facility] CidjbojMTXHPBZENL9899-85-68 11:12:00* Test Item Value Reference Range Interpretation Comments MCH (test code = MCH) 29.4 pg 27.0-31.0 [facility] OchrlriCURVBEWMSQ6888-56-25 11:12:0014.2[facility]annHEMATOLOGY 2018-11-06 11:12:78213Plnztapd XswjtbwXNLBQXBAVE3749-69-11 11:12:0033.1[facility] ZblmvdiANGEFCALEY1365-61-39 11:12:0020.1[facility] YygbyljVVTFGPCEJK0186-22-99 11:12:004.30[facility]annCHEM FLVMY5792-92-16 12:12:00<0.05[facility] DRLUHPTAVJXJ2852-53-83 12:12:0011.1[facility] DbxlimxBNCFETWUBJZI4365-59-16 12:12:0088[facility] ZucawkaEDWTHVKGGGPU2088-37-93 12:12:0024[facility] WMMREBUNALQC6107-26-98 12:12:009.0[facility] ZunlzdiZIGOSUNLTRUM7593-14-34 12:12:000.68[facility] YlthhdkIMCHLQGQBHVH3463-62-84 12:12:05130Ndxpcihj [facility] BRPYULXQKFWS7662-82-97 12:12:80309Xjujifnj LueamsiBAEIAKSMPUCL4221-06-84 12:12:0013[facility] WbwkixdEJAZRUVEMPVV7974-53-89 12:12:62131Xkuetsjv Taran SBFPBTXYMMRD9265-93-55 12:12:004.1[facility] HkcmeqvVNXXNJXTOV7300-27-39 12:12:00 40.8[facility] IswyzooYBGLSDCZVZ2545-51-49 12:12:00* Test Item Value Reference Range Interpretation Comments MCH (test code = MCH) 29.8 pg 27.0-31.0 [facility] XavbqifMQCQIMAWZC2817-92-02 12:12:0089.3[facility]annHEMATOLOGY 2018-11-05 12:12:0033.4[facility] FvrbiijCCFRQATRTO6807-97-49 12:12:008.2[facility] AenjkwzZNXJSFUYVZ3359-65-38 12:12:75202Qjwloqtw LmqlebtKFOUOOKZPS8310-27-34 12:12:0013.9[facility] ZjiifrgWLYDVKOXLE8485-15-28 12:12:0011.3[facility] RFADWDJERY5916-42-10 12:12:004.57[facility] RczueegUPUXPXDOTB3519-70-16 12:12:00 13.6[facility] PskgavwUDSKBCOOJ8437-33-60 02:05:00<0.1[facility]annCHEMISTRY 2012-08-09 02:05:000.7[facility] QfxcvmsRWWMCOOLI0456-99-68 02:05:95356Veczwdjy LzcwzjqMCLGGISXF7128-74-52 02:05:001.2[facility] HswgxtrWJETYAQDN9214-43-30 02:05:00<0.02[facility] CykuozpNKLZZAAXJ0410-03-80 02:05:0095[facility] OLVBANDZE3472-06-47 02:05:004.0[facility] OkxpztrCNTXTXTJK7606-53-45 02:05:0014.0 [facility] ZrlxltuLDBBTQGUF7356-46-93 02:05:004.0[facility] HermannCHEMISTRY 2012-08-09 02:05:41585Oemdfqqj SnfavnhILZBROHZB8682-31-58 02:05:0025[facility] PblllosMQTRYKNMB8367-04-75 02:05:25956Xxjrcinr EudqugjMBVTPNWDO6926-16-02 02:05:008.6[facility] IygxuaiVUZOFRVBM3709-52-62 02:05:000.6[facility] IMOPUXLHM1623-56-44 02:05:59693Awprgqru UfunzesDKVMASFLE2107-26-26 02:05:0091 [facility] GmfzoukVCYQLZTIP2859-99-70 02:05:000.2[facility]annCHEMISTRY 2012-08-09 02:05:0012[facility] EnojqqmMRJACTUMO7800-64-35 02:05:001.1[facility] JwazwwsHMQUXDHTD3715-14-53 02:05:0020[facility] TvexxijGDZYEPGUL9375-04-13 02:05:003.6[facility] BnkljquXSXDUWBIR2307-82-81 02:05:0032[facility] NUADRHIBC8704-60-30 02:05:0019[facility] HleocizTKWWYZLBH5942-56-22 02:05:007.6 [facility] MuxetudHIKLKTQDF7699-96-01 02:05:20893Fyyqyndc HermannHEMATOLOGY 2012-08-09 02:05:000.5[facility] NpjrelyVYCTTRPTQC5393-89-10 02:05:000.2[facility] WkdrqkqOXLLDMDELA3421-17-70 02:05:000.1[facility] YktbibcNSZERBVEEK1261-94-62 02:05:006.8[facility] RlmapmwUVQUODKSHJ4251-54-92 02:05:001.3[facility] VPPSEYAXCG7619-59-35 02:05:002.7[facility] WmsxailWTHYKINXBV3943-16-32 02:05:002.5 [facility] WsajengNCOYOZHFGB8022-15-51 02:05:004.5[facility]annHEMATOLOGY 2012-08-09 02:05:0031.7[facility] OlpcmwzQCCWSZWXJD8429-97-30 02:05:0057.5[facility] PbrmjonRRQZJTLJHB6343-99-45 02:05:000.90[facility] McktsnpLPDLYDDQIE4635-13-86 02:05:00* Test Item Value Reference Range Interpretation Comments PTT (test code = PTT) 26.1 s 22.9-35.8 N [facility] FhqwysdSMGOTGJNMX5073-43-31 02:05:00* Test Item Value Reference Range Interpretation Comments PT (test code = PT) 12.4 s 12.0-14.7 N [facility] WuxehsdWSQBHONHER7323-79-53 02:05:61111Uzgbbrtn HermannHEMATOLOGY 2012-08-09 02:05:007.4[facility] BkqoroaTIYCHOTNGR7821-25-04 02:05:0090.2[facility] JpbruzqOEOAMOYIJS4148-61-06 02:05:0038.8[facility] LyjwjfxCWFTDNXIPW7183-05-50 02:05:0033.8[facility] LxpdcznNWQGJNXQOB9929-96-47 02:05:00* Test Item Value Reference Range Interpretation Comments MCH (test code = MCH) 30.5 pg 27.0-31.0 N [facility] KcpyvdjVAJXLFFIYH4771-62-99 02:05:0013.8[facility] HermannHEMATOLOGY 2012-08-09 02:05:004.30[facility] NuhtvvcMAYFNPEFUU0869-73-98 02:05:0013.1[facility] ZmowfjoCQGXWYJVEL3889-09-55 02:05:007.9[facility] EnxmznzZMUIJOHTD1744-89-76 16:45:0013.0[facility] BovkvxvSNGATXXBF5704-25-16 16:45:009.0[facility] GXFUCAYOF2252-43-58 16:45:0026[facility] OjuetnuQSYUHSJQT7570-75-00 16:45:03150 [facility] BbhkvchRAGLVZUMU9487-82-04 16:45:004.0[facility] HermannCHEMISTRY 2012-03-22 16:45:000.6[facility] MndqlzmFQQPKOEZC3163-61-60 16:45:11422Yzhmwaei VqvgbfxNRBWUALYP5249-60-45 16:45:0079[facility] SabuzncNJZAKYRCG7856-39-25 16:45:0012[facility] DjfznfoFNOGKGEKQ8606-02-78 10:15:0015.6[facility] IMXABBOAI1764-22-07 10:15:70866Croayjtg LmbdryqTHLXUEWPK3749-88-63 10:15:0015 [facility] SikcyhvZQYPDYLCD0287-68-98 10:15:000.7[facility] HermannCHEMISTRY 2012-03-06 10:15:0023[facility] TsjnhzaJTUYSTOOS5524-28-48 10:15:009.0[facility] HefrajkRVWXTWNNL9840-67-80 10:15:76819Vhrbzepz ZalwwvpKTFHMJZDG5400-10-07 10:15:004.6[facility] UymyosgXEOYFBQAI8680-01-62 10:15:93856Yczzuefl Atran VMYIOAJYTK8744-63-96 10:15:000.0[facility] QqmizlxCVCMPRPOLN1353-83-86 10:15:000.0 [facility] XqfggteNUNTVISHXH5939-42-13 10:15:003.0[facility]annHEMATOLOGY 2012-03-06 10:15:0013.9[facility] YojwtcwBBVAUXYIWJ0059-95-19 10:15:0083.1[facility] JyrcysbKHRUDVJTJT3130-31-46 10:15:000.0[facility] FuzbyvtTVHVKJPKSR7679-09-07 10:15:001.9[facility] MwdoqydFDGWBDWJDX9150-88-98 10:15:000.4[facility] MBPOFJQZYZ5852-45-51 10:15:000.0[facility] EpnmocqUNHCIMQDYT0482-79-41 10:15:00 11.0[facility] DifgsnuFQVYGCYQVX4216-88-63 10:15:0013.3[facility] HermannHEMATOLOGY 2012-03-06 10:15:004.35[facility] YudmuszJOEFSAPFOT2387-49-34 10:15:0013.2[facility] NcotpgzETDXQFFJOQ9735-49-44 10:15:0039.7[facility] JhuhwaoLHLKQIMANN7358-82-00 10:15:0013.2[facility] YxvwpdhGZMHJVAYRS6883-61-51 10:15:0091.3[facility] QLSBXTSDMR7594-54-16 10:15:0033.2[facility] YhwzruvPQBSUEXTSB2252-92-14 10:15:00* Test Item Value Reference Range Interpretation Comments MCH (test code = MCH) 30.3 pg 27.0-31.0 N [facility] TdouwozRPSZDIOYLF3212-02-71 10:15:08034Xcjvbrmj HermannHEMATOLOGY 2012-03-06 10:15:007.9[facility] WnsbrefUXIBGGQPH0243-06-88 10:20:004.5[facility] PwqdcxoODDDVPFAZ3121-12-91 10:20:85734Uptbtljb RrfedflFNZQMADGR2150-37-80 10:20:20898Drrjtbcg GusjniqWVHACXVLB3637-90-10 10:20:0014[facility] IRSWVDCOF4631-40-49 10:20:0023[facility] GcvxnwkEWXUIYQNY1800-67-71 10:20:009.0 [facility] XgzfwneEEXWSCBTO9966-19-69 10:20:0016.5[facility] HermannCHEMISTRY 2012-03-05 10:20:62519Zxoeuccw QukmfbnZCHJKNNBS2570-79-10 10:20:000.8[facility] QiddbajJFPYUTEXWW5048-32-93 10:20:007.9[facility] WwyjleeRTUYZPFNCO7296-37-04 10:20:0090.6[facility] HvfxukiJQKCREDLPB2402-79-01 10:20:00* Test Item Value Reference Range Interpretation Comments MCH (test code = MCH) 30.9 pg 27.0-31.0 N [facility] KxdyzqnNEVMUGUOKS4332-96-44 10:20:0034.1[facility] HermannHEMATOLOGY 2012-03-05 10:20:0013.4[facility] ZvxfpftJHPOIOWKES8236-15-54 10:20:34282Wkvvrofv NzqulfgLZCVBFAQHW0329-68-53 10:20:0012.9[facility] NeilkatWOBKJZGSFD6225-74-55 10:20:0037.9[facility] GjmxtgmLAMOCRJCVQ1361-60-79 10:20:0012.5[facility] DNLTHSOYTJ1837-85-94 10:20:004.18[facility] YgcngcoXZPFZLKGNZ6449-56-33 10:20:00 2.0[facility] WyzyuqoGCOJYYFHKR4821-16-47 10:20:000.0[facility] HermannHEMATOLOGY 2012-03-05 10:20:000.5[facility] TurowjnWTKXDMMLIN2933-63-82 10:20:000.1[facility] CltmouuYULKSPFNHI0484-18-17 10:20:000.0[facility] HkjkpmgTHVXTOAKFA4453-82-27 10:20:009.9[facility] WzqzsvmSZZNWNMCSV3276-63-28 10:20:000.1[facility] ZDQBHEQIZQ4004-86-38 10:20:003.7[facility] ShruzeuLRODJAZKUV5148-53-80 10:20:00 16.3[facility] IhqcgdmRWBOIXRWLZ1627-83-67 10:20:0079.8[facility] HermannCHEMISTRY 2012-03-03 10:25:0015.4[facility] XswjcyuBYLIRHFZD9990-12-79 10:25:0013[facility] DtukkisKVLPLSZXI9253-14-91 10:25:0025[facility] KnercwzBSCCVAZUN2357-76-42 10:25:008.8[facility] FglnlbhQJJWSWCWH7616-49-75 10:25:08891Xqfxycec Taran XIWPLXPQA7733-72-56 10:25:63533Wyevvvqw CeqqcwuEHZEKSEIE7556-70-63 10:25:000.6 [facility] AdlpdyhCMTERUDMQ4502-27-55 10:25:004.4[facility] HermannCHEMISTRY 2012-03-03 10:25:55805Gegzvnau JtvcktcSWVTPRRZVI5137-69-38 10:25:000.5[facility] TgjueyfNQETVVHPWH5551-07-43 10:25:000.0[facility] YpsbzlsVOWXXLAFEQ3629-39-83 10:25:000.0[facility] TpqpnapAVHWHNWBVZ5055-37-76 10:25:0011.4[facility] MPBKRMPDEL3548-03-73 10:25:000.3[facility] AvqqfyjDLLHALEPRJ2483-26-38 10:25:000.0 [facility] TzpzdjpTLQCVEJOXJ7330-53-02 10:25:0082.1[facility] HermannHEMATOLOGY 2012-03-03 10:25:003.7[facility] HnxszhfVTPCCFQHBL6355-51-16 10:25:001.9[facility] XcyfzlpNNRGBJBKEM1815-07-67 10:25:0013.9[facility] ToybgofVZXRCOHODH6861-68-98 10:25:0013.5[facility] SwqjwapTCTNERMKHG2050-66-15 10:25:55688Hchqoxus Phillips KHZXLISXXJ3715-38-06 10:25:0033.8[facility] YnjiaobWJSYMDJIWY0079-07-57 10:25:00 7.9[facility] ShjmsywZIEQKTYRFN9829-38-88 10:25:0012.2[facility] HermannHEMATOLOGY 2012-03-03 10:25:003.96[facility] LsevvbtPBDCJZITMF4780-85-53 10:25:0091.2[facility] YyodtweDKEODZXBOO8580-51-55 10:25:0036.1[facility] MdfrqedCKZSAMKFFH6191-35-63 10:25:0013.9[facility] CfjshojAZGGZCLFFA3636-36-60 10:25:00* Test Item Value Reference Range Interpretation Comments MCH (test code = MCH) 30.8 pg 27.0-31.0 N [facility] EdsbwgfACKQCBGNOU9997-31-97 09:41:003.0[facility]annHEMATOLOGY 2012-03-02 09:41:00Slight *ABN*(03/02/2012 04:41:00) [facility] HermannHEMATOLOGY 2012-03-02 09:41:001+ *ABN*(03/02/2012 04:41:00) [facility] HermannHEMATOLOGY 2012-03-02 09:41:00Normal (03/02/2012 04:41:00) [facility] HermannHEMATOLOGY 2012-03-02 09:41:000.0[facility] JxmanqbBXRJUVWFCF6832-34-03 09:41:00See Note (03/02/2012 04:41:00) [facility] YctkgatAVFAINHQFB1551-20-16 09:41:001.0[facility] NencqfuYQYXCXAKZ8263-97-43 22:21:003.6[facility] GucrblxASFFSGRKD7181-56-23 22:21:0025[facility] QvazzktTYFDGHMCN2158-24-73 22:21:0097[facility] XJJYPZFFT6922-58-98 22:21:000.4[facility] ZmvbnbeKTHBOAJHG4464-15-26 22:21:008.1 [facility] UuypcbgKKQVTFGPA7576-98-94 22:21:0014[facility] HermannCHEMISTRY 2012-02-28 22:21:000.8[facility] NhssjzeECJWTOTSQ7194-18-11 22:21:0020[facility] FselifqVWMDICRCS3791-60-07 22:21:004.5[facility] OgckoekUGZAZBGOC9508-79-33 22:21:001.3[facility] HermannMRI ABDOMEN WOW [place] [address] Patient Name: DANIA LUCIO MR #: [id number] : 1945 Age/Sex: 72/F Req #: [id number] Adm Physician: Ordered by: EMILY REDDY MD Report #: [id number] Location: [facility] Room/Bed: Procedure: [id number] MRI/MRI ABDOMEN WOW Exam D ate: 05/22/17 [...]
--- NOTE | 2020-04-09 18:43 | NUR ---
RCD PT FROM ER BY BED PT IS ALERT AND ORIENTED VITALS CHECKED PT RESTING ON BED ,BED SIDE REPORT GIVEN TO ONCOMING NURSE
--- NOTE | 2020-04-09 19:07 | NUR ---
ARLEEN AND TALKED DR OSMAN REGARDING CONSULTATION HE SAID HE COMING TOMORROW DONT KEEP NPO
[2020-04-09 19:15] VITALS: BP 149/72
[2020-04-09 20:45] VITALS: BP 149/72
--- NOTE | 2020-04-09 20:45 | NUR ---
PATIENT RESTING IN BED IN STABLE CONDITION. RIGHT ARM IS BANDAGED DUE TO FRACTURE FROM PREVIOUS FALL AT HOME AND PATIENT STILL VOICES DISCOMFORT DESPITE PREVIOUS PAIN MEDICATION. LACERATION ON HEAD NOTED AND PATIENT SHOWS SWELLING AND SCRAPES ON LEFT HAND AND KNEE. BED IS IN LOWEST POSITION, BOTH SIDE RAILS ARE, CALL LIGHT IS WITHIN EASY REACH, WILL CONTINUE TO MONITOR.
[2020-04-09] MEDS ORDERED: TRAZODONE HCL 50 MG TAB PO PRN (22:30)
[2020-04-10 00:06] VITALS: BP 133/56
[2020-04-10] MEDS: KETOROLAC TROMETHAMINE 30 MG/ML VIAL IV PRN ×3 (00:49→13:10)
--- NOTE | 2020-04-10 01:20 | NUR ---
AFTER SPEAKING WITH DR. MAY, ORDERED THE PATIENT BE TRANSFERRED TO THE CARE OF DR. SHANNON. PATIENT VOICED THAT SHE WAS HAVING A REACTION TO THE MORPHINE GIVEN TO HER, SEEN A WELT ON PATIENT'S FOREARM, BUT SHE VOICED NO PAIN IN THAT AREA. CALLED DR. SHANNON AND HE ORDERED THE MEDICATION CHANGED TO TORADOL. PATIENT VOICED THAT SHE FELT A LOT BETTER AFTER MEDICATION, WILL CONTINUE TO MONITOR.
[2020-04-10 04:00] VITALS: BP 116/48
--- NOTE | 2020-04-10 07:10 | NUR ---
RCD PT AT BED PT IS ALERT AND ORIENTED IV PATENT BY SALINE FLUSH , LOW AND LOCKED CALL LIGHT IN REACH
[2020-04-10 08:17] VITALS: BP 136/52
[2020-04-10 09:00] VITALS: BP 136/52
[2020-04-10 11:36] VITALS: BP 127/60
[2020-04-10] MEDS ORDERED: ACETAMINOPHEN 325 MG TAB PO PRN (13:45)
[2020-04-10] MEDS ORDERED: TYLENOL WITH C1 EACH PO (15:02)
[2020-04-10 16:14] VITALS: BP 145/64
--- NOTE | 2020-04-10 16:17 | NUR ---
ORTHOPEDIC CONSULTATION 74 year old right hand dominant female presents to the ED after a mechanical fall with right elbow and shoulder pain. She denies any numbness, paresthesias or loss of distal motor function. Complains of pain in left hand. Denies pain in any other extremity PMdHx: Denies Allergies; Denies SurgHx: Tear duct eye Surgery, Wrist Surgery, Cholecystectom FamHx: Non-contributory SocHx: Denies Tob, EtOh, & Drugs AVSS Right Upper Extremity Splinted, clean, dry and intact Motor: + AIN, PIN, Radial, Median, Ulnar Sensation grossly intact to light touch Pulses + Radial, good capillary refill Compartments soft Digits extremely swollen TTP of Right Elbow (Olecranon) & Shoulder (Distal Clavicle) No open lesions or sores Pain with PROM of Shoulder Left Hand Abrasions over dorsum of hand Xrays: Right Elbow: Olecranon avulsion fracture of Triceps Left Hand: No gross fracture or dislocations with rings in place of middle and 4th digits Left Knee: No gross fracture, dislocation or gross degenerative changes. 74 yo F with Right Olecranon Avulsion Fracture, Left Hand & Knee Abrasion & Right Shoulder Pain -Continue splint on right upper extremity -NWB RUE -Analgesics PRN -Rest, Ice & Elevation -Stat Xray of Right Shoulder ordered. If negative for fracture or dislocation, patient may follow up in office on sunday for preoperative appointment with plan for repair of triceps avulsion. -Information and case discussed with patient & nurse. -Follow up on Sunday in office Thank you for the consultation Sofia Ferrari DO
--- NOTE | 2020-04-10 17:23 | Diagnostic Imaging Report ---
SHOULDER RIGHT COMPLETE - 3 views HISTORY: Pain status post fall. COMPARISON: None available. FINDINGS: Bones: No acute displaced fracture. Osseous alignment is within normal limits. Joints: Degenerative changes of the glenohumeral and AC joints. Soft tissues: The soft tissues appear unremarkable. IMPRESSION: No acute radiographic abnormality. Signed by: Dr. Martha Turcios M.D. on 04/10/2020 5:20 PM
--- NOTE | 2020-04-10 19:05 | Discharge Summary ---
HOSPITAL COURSE: The patient is a 74-year-old female with no past medical history. She fell when she was pushing the trash can. She was found to have a left olecranon fractures. No other fractures on the x-rays. The patient is going to be seen by Dr. Ferrari's of orthopedic surgeon today. No surgical intervention required. The patient might be able to go home today. PHYSICAL EXAMINATION: HEART: Showed regular rhythm. Normal S1, S2 sound. LUNGS: Clear bilaterally. ABDOMEN: Soft. EXTREMITIES: Showed the soft cast on the right forearm and elbow area. IMPRESSION: Right olecranon fracture. PLAN OF TREATMENT: Tylenol 3 one tablet q.6 hours as needed for severe pain. Discharge only if okay with the [facility] orthopedic surgeon. Follow up with Dr. Dunlap and Dr. Ferrari, orthopedic surgeon in a week. MD RACHEL Anand/PADMAJA /[id number]
--- NOTE | 2020-04-10 20:51 | History and Physical ---
SUBJECTIVE: The patient is 74 years old female with no past medical history. According to her, she was pulling her trash can when she fell. She hit her hands . She never fainted, came to the emergency room because of extreme pain on the right elbow and right shoulder. The patient has also had scalp laceration. CT of the head showed no evidence of any intracerebral bleed. CT of cervical spine showed no fractures. X-rays on the left hand and knee show no evidence of fracture, but she did have a fracture on the right elbow. The patient going to be seen by Dr. Ferrari, orthopedic surgeon, who decided the patient needed surgical intervention. She might be able to go home today. REVIEW OF SYSTEMS: CARDIOVASCULAR: No chest pain or palpitation. RESPIRATORY: No shortness of breath. No cough. GASTROINTESTINAL: No nausea or vomiting. No diarrhea. GENITOURINARY: No frequency or dysuria. ALLERGIES: SHE IS NOT ALLERGIC TO ANY MEDICATION. SOCIAL HISTORY: She does not smoke. She does not drink. PAST MEDICAL HISTORY: She denies any medical condition. PHYSICAL EXAMINATION: VITAL SIGNS: Blood pressure 126/60, temperature 98.0, heart rate 87 per minute, respiratory rate 19 per minute, and O2 saturation 99%. HEART: Showed regular rate and rhythm. Normal S1, S2 sounds. LUNGS: Clear bilaterally. ABDOMEN: Soft. EXTREMITIES: Showed the soft cast on the right elbow area. IMAGING DATA: On the reports, we have a CT of the head that showed left frontal scalp hematoma and laceration, no fracture or acute intracranial abnormality, minimal chronic vascular ischemic changes. Cervical spine CT showed no cervical spine fracture or acute subluxation. Degenerative changes as described. Ligament, spinal cord, and/or vascular abnormality cannot be excluded on the basis of the examination. Left elbow x-ray showed the acute olecranon process of the ulna fracture with overlying soft tissue swelling. The knee x-ray on the left knee showed mild knee soft tissue swelling. No acute osseous injury. The left hand x-ray showed no acute osseous abnormalities. IMPRESSION: Right olecranon fracture, status post fall with no evidence syncope. PLAN OF TREATMENT: Pain management by Dr. Song, Orthopedic Surgeon, will decide the patient decided the patient can go home or if she needs any surgical intervention. She will go home. She was going to leave a prescriptions for pain medication. She is going to follow up with Dr. Dunlap and Dr. Ferrari as an outpatient in a history and physical. Discussed with the patient and daughter on the bedside. MD RACHEL Anand/PADMAJA /[id number]
== END 2020-04-10 18:50 | disposition home or self-care (01) ==
LOC: ER 15:30 → ERHOLD 17:54 → MED/SURG2 18:53
PROVIDERS: ADMIT Internal Medicine; ATTEND Internal Medicine
DX: S52.021A Displaced fracture of olecranon process without intraarticular extension of right ulna, initial encounter for closed fracture (principal); S01.01XA Laceration without foreign body of scalp, initial encounter; S60.512A Abrasion of left hand, initial encounter; S80.212A Abrasion, left knee, initial encounter; M25.511 Pain in right shoulder; S60.511A Abrasion of right hand, initial encounter; W01.198A Fall on same level from slipping, tripping and stumbling with subsequent striking against other object, initial encounter; Y93.01 Activity, walking, marching and hiking; Y92.014 Private driveway to single-family (private) house as the place of occurrence of the external cause; Z11.59 Encounter for screening for other viral diseases
CPT/HCPCS: 70450; 72125; 73030; 73080; 73130; 73562; 99284; G0378 ×2; J1885; J2270 ×2; J2405; J3010; U0002

== ENCOUNTER 2020-04-22 16:40 | Observation (INO) | payer MEDICARE, BC, OTHER ==
[~2020-04-22] VITALS: Ht 154.9 cm; Wt 66.2 kg
[~2020-04-22 16:40] MED LIST changes: +TYLENOL WITH C1 EACH PO; +ULTRAM50 MG PO
--- NOTE | 2020-04-22 16:51 | Emergency Department Note ---
History of Present Illnes History of Present Illness Chief Complaint: General Medicine Complaints History of Present Illness This is a 75 year old female with diagnosed with R UE last week, patient seen by Ortho DR Ernesto Ferrari earlier this week. Confirmed dx of fx, Patient with intractable pain secondary to injury . . Onset (how long ago): week(s) Radiation: Reports extremity (R) Severity: moderate Onset quality: sudden Duration (how long): week(s) (1) Timing of current episode: constant Progression: worsening Context: Reports trauma/injury Relieving factors: immobilization, rest Exacerbating factors: movement Past Medical/Family History Physician Review I have reviewed the patient's past medical and family history. Any updates have been documented here. Past Medical History Past Medical History: Osteoarthritis Other Medical History: GALLSTONES VERICOSE VEINS Past Surgical History: Tubal Ligation Other Surgery: WRIST SURGERY TEAR DUCT EYE SURGERY Social History Smoking Cessation: Never Smoker Alcohol Use: None Any Illegal Drug Use: No Physical Exam Related Data Allergies: Coded Allergies: No Known Allergies (Unverified , 12/16/15) Triage Vital Signs Vital Signs Date Time Temp Pulse Resp B/P (MAP) Pulse Ox O2 Delivery O2 Flow Rate FiO2 04/22/20 16:49 97.3 91 14 141/52 100 Room Air 04/23/20 12:16 15 Vital signs reviewed: Yes Physical Exam CONSTITUTIONAL Constitutional: Present well-developed, Present well-nourished HENT HENT: Present normocephalic, Present atraumatic, Present oropharynx clear/moist, Present nose normal HENT L/R: Present left ext ear normal, Present right ext ear normal EYES Eyes: Reports PERRL, Reports conjunctivae normal NECK Neck: Present ROM normal PULMONARY Pulmonary: Present effort normal, Present breath sounds normal CARDIOVASCULAR Cardiovascular: Present regular rhythm, Present heart sounds normal, Present capillary refill normal, Present normal rate GASTROINTESTINAL Abdominal: Present soft, Present nontender, Present bowel sounds normal GENITOURINARY Genitourinary: Present exam deferred SKIN Skin: Present warm, Present dry MUSCULOSKELETAL Musculoskeletal: Present ROM normal, Present tenderness (R UE) NEUROLOGICAL Neurological: Present alert, Present oriented x 3, Present no gross motor or sensory deficits PSYCHOLOGICAL Psychological: Present mood/affect normal, Present judgement normal Results Laboratory Lab results reviewed: Yes Imaging Imaging results reviewed: Yes Impressions [facility] [place] [address] Patient Name: DANIA LUCIO MR #: [id number] : 1945 Age/Sex: 75/F Req #: [id number] Adm Physician: ARTURO MCKEON MD Ordered by: VAIBHAV SPAIN DO Report #: [id number] Location: [facility] Room/Bed: [place] [address] Procedure: [id number] DX/CHEST SINGLE (PORTABLE) Exam Date: 04/22/20 Exam Time: 1758 REPORT STATUS: Signed EXAMINATION: CHEST SINGLE (PORTABLE) COMPARISON: None INDICATION: Right wrist surgery ^pre-op ^20200422 ^1758 DISCUSSION: Frontal view of the chest obtained at 1759 hours. HEART AND MEDIASTINUM: The heart is normal in size. The aorta is mildly tortuous LINES: None. There is a linear radiodensity superimposed over the right clavicular head. LUNGS/PLEURA: The lungs are well inflated and clear. No pneumonia or pulmonary edema. No pleural effusion or pneumothorax. BONES AND SOFT TISSUES: No focal osseous lesion. The soft tissues are normal. IMPRESSION: No acute cardiopulmonary disease. Linear radiodensity over the right clavicular head may be outside the patient. Signed by: Dr. Jason Shi MD on 04/22/2020 6:43 PM Dictated By: JASON SHI MD 42 Transcribed By: DONNA on 04/22/201842 COPY TO: VAIBHAV SPAIN DO~ Assessment & Plan Medical Decision Making MDM Diff Dx : fracture, sprain, compartment syndrome Assessment & Plan Final Impression: (1) Intractable pain Depart Disposition: ADMITTED Home Meds Reported Medications Naproxen (NAPROXEN) 500 Mg Tablet, 500 MG PO BID 04/03/17 Discontinued Reported Medications Acetaminophen With Codeine (TYLENOL WITH CODEINE #3 TABLET) 1 Each Tablet, 300 MG PO Q6H, #40 TAB 04/10/20 Discontinued Scripts Tramadol Hcl (ULTRAM) 50 Mg Tablet, 50 MG PO Q6HR PRN for MILD PAIN (1-3), #14 TAB Prov:BAO GOODMAN DO 04/09/20 VAIBHAV SPAIN DO Apr 22, 2020 16:51
--- OUTSIDE RECORDS SUMMARY | 2020-04-22 17:07 | XMS REPORT | Continuity of Care Document ---
Author Author Norberto TotSpotDANIA [employer] Address Unknown Phone Unavailable Care Team Providers Care Copy Worker Name Role Phone [employer] Unavailable Un available Problems Problem Status Onset Date Classification Date Reported Comments Source UNK Active 0 10/28/2019 [facility] R05 Active 0 05/13/2019 [facility] LANMARX PROTOCOL Active 04/04/2019 [facility] R13.10 DYSPHAGIA, UNSPECIFIED, K21.9 G Active 01/13/2019 [facility] CHRONIC 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 Active 12/13/2018 [facility] BRONCHITIS Active 12/11/2018 [facility] ASTHMA WITH BRONCHITIS AND STATUS ASTHMA Active 12/11/2018 [facility] ASTHMA EXACERBATION Active 11/04/2018 [facility] 241.9 Active 07/24/2013 [facility] ABD/BACK PAIN Active 08/08/2012 [facility] THYROID NODULE Active 04/08/2012 [facility] CHRONIC COUGH/PE/SOB *PE PROTOCOL* STAT STAT * Active 03/22/[address] [facility] [address] SHORTNESS OF BREATH Active 02/28/2012 [facility] PNEUMONIA Active 02/28/2012 [facility] Acute interstitial pneumonia A ctive Problem 04/2012 [facility] HT - Hypertension Active Problem 08/10/2012 [facility] Acute interstitial pneumonia (disorder) Active Problem 10/31/2019 [facility] Hypertensive disorder, systemic arterial (disorder) Active Problem 10/31/2019 [facility] Abnormal heart beat (finding) Resolved Problem [facility] Arthritis (disorder) Resolved Problem 10/31/2019 [facility] Asthma (disorder) Resolved Problem 10/31/2019 [facility] Cough (finding) Active Problem 10/31/2019 [facility] Pneumonia (disorder) Resolved Problem 10/31/2019 [facility] NONTOX NODUL GOITER NOS Active [facility] PAIN Active [place] COUGH Active [facility] UNSPECIFIED ASTHMA WITH (ACUTE) EXACERBA Active [facility] UNSPECIFIED ASTHMA WITH STATUS ASTHMATIC Active [facility] CHRONIC 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 Active [facility] DYSPHAGIA, UNSPECIFIED Active [facility] GASTRO-ESOPHAGEAL REFLUX DISEASE WITHOUT Active [facility] PNEUMONIA, ORGANISM NOS Active [facility] COUGH Active [facility] SHORTNESS OF BREATH Active [facility] Medications Medication Details Route Status Patient Instructions Ordering Provider Order Date Source Naloxone 0.1 mg, Route: IVP, Q 2MIN, Dosing Weight 68.182, kg, PRN Narcotic Reversal, Start date: 06/23/19 11:50:00 CDT, Duration: 4 doses or times, Stop date: Limited # of times Inactive 06/23/2019 [facility] Flumazenil 0.2 mg, Route: IVP, ONCE, Dosing Weight 68.182, kg, PRN Benzodiazepine Reversal, Start date: 06/23/19 11:50:00 CDT, Initial dose Inactive 06/23/2019 [facility] Sodium Chloride 0.9% IV 1000 mL 1,000 mL, Rate: 75 ml/hr, Infuse over: 13.3 hr, Route: IV, Dosing Weight 71.364 kg, Total Volume: 1,000, Start date: 06/23/19 10:06:00 CDT, Duration: 30 day, Stop date: 07/23/19 10:05:00 MASS SPECTROMETRY SPECIALIST, 1.78, m2 Inactiv e 06/23/2019 [facility] Mupirocin 20 MG/ML Topical Cream TOP, TID, 0 Refill(s) Active 06/09/2019 [facility] Ventolin HFA 90 mcg/inh inhalation aerosol with adapte r 2 puff, INHALER, Q6H, PRN wheezing, coughing, or shortness of breath, # 8 gm, 1 Refill(s) Active 06/09/2019 [facility] Advair Diskus 250 mcg-50 mcg inhalation powder 1 puff, INHALATION, BID, # 1 ea, 3 Refill(s) No Longer Active 06/09/2019 [facility] Amitriptyline 10 mg, PO, Bedti me, 0 Refill(s) Active 06/09/2019 [facility] 72 HR Scopolamine 0.0139 MG/HR Transdermal Patch 1 patch, Route: TOP, Drug Form: ERFILM, Dosing Weight 69.545, kg, ONCE, Apply behind ear. Avoid use in elderly., Start date: 12/18/18 13:55:00 CDT, Stop date: 12/18/18 13:55:00 CDT Inactive 12/18/2018 [facility] Naloxone 0.1 mg, Route: SUB-Q, Q6H, Dosing Weight 69.545, kg, PRN Itching, Start date: 12/18/18 13:55:00 CDT, Duration: 30 day, Stop date: 01/17/19 13:54:00 CDT No Longer Active 12/18/2018 [facility] Ondansetron 4 mg, Route: IVP, ONCE, Dosing Weight 69.545, kg, PRN Nausea & Vomiting, Start date: 12/18/18 13:55:00 CDT No Longer Active 12/18/2018 [facility] Promethazine 6.25 mg, Route: I VPB, ONCE, Dosing Weight 69.545, kg, PRN Nausea & Vomiting, Start date: 12/18/18 13:55:00 CDT No Longer Active 12/18/2018 [facility] Diphenhydramine 12.5 mg, Route : IVP, Drug form: INJ, Q6H, Dosing Weight 69.545, kg, PRN Itching, Start date: 12/18/18 13:55:00 CDT, Duration: 30 day, Stop date: 01/17/19 13:54:00 CDT No Longer Active 12/18/2018 [facility] Meperidine 12.5 mg, Route: IVP , Q30Min, Dosing Weight 69.545, kg, PRN Other -See Comment, For shivering, Start date: 12/18/18 13:55:00 CDT, Duration: 2 doses or times, Stop date: Limited # of times No Longer Active 12/18/2018 [facility] Albuterol 0.83 MG/ML Inhalant Solution 2.49 mg, Route: NEB, Q20Min, Dosing Weight 69.545, kg, PRN Wheezing, Priority: STAT, Start date: 12/18/18 13:55:00 CDT, Duration: 30 day, Stop date: 01/17/19 13:54:00 CDT No Longer Active 12/18/2018 [facility] Flumazenil 0.2 mg, Route: IVP, PRN, Dosing Weight 69.545, kg, PRN Benzodiazepine Reversal, Initial dose, Start date: 12/18/18 13:55:00 CDT, Duration: 30 day, Stop date: 01/17/19 13:54:00 CDT No Longer Active 12/18/2018 [facility] Oxycodone 10 mg, Route: Dr hi SOUZA form: LIQ, Q4H, Dosing Weight 69.545, kg, PRN Pain Score 7-10, Start date: 12/18/18 13:55:00 CDT, Duration: 30 day, Stop date: 01/17/19 13:54:00 CDT No Longer Active 12/18/2018 [facility] Hydromorphone 0.5 mg, Route: I 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 APPRENTICE, Q5Min, Dosing Weight 69.545, kg, PRN Pain Score 7-10, Start date: 12/18/18 13:55:00 CDT, Duration: 4 doses or times, Stop date: Limited # of times No Longer Active 12/18/2018 [facility] Fentanyl 50 microgram, Route: IVP, Q5Min, Dosing Weight 69.545, kg, PRN Pain Score 7-10, Priority: Routine, Start date: 12/18/18 13:55:00 CDT, Duration: 2 doses or times, Stop date: Limited # of times No Longer Active 12/18/2018 [facility] Acetaminophen 1,000 mg, Route: IVPB, Drug form: INJ, ONCE, Dosing Weight 69.545, kg, PRN Pain Score 1-3, Start date: 12/18/18 13:55:00 CDT Inactive 12/18/2018 [facility] neostigmine (ANES) Route: IV, Drug form: INJ, ONCE, Stop date: 12/18/18 12:49:00 CDT Inactive 12/18/2018 [facility] glycopyrrolate (ANES) Route: I V, Drug form: INJ, ONCE, Stop date: 12/18/18 12:49:00 CDT Inactive 12/18/2018 [facility] Oxymetazoline hydrochloride 0.5 MG/ML Na sravan Mcroberts [Afrin] 2 spray, Route: NASAL, Q2H, PRN Bleeding , Start date: 12/18/18 12:37:00 CDT, Duration: 3 day, Stop date: 12/21/18 12:36:00 CDT No Longer Active 12/18/2018 [facility] Acetaminophen 325 MG / Hydrocodone Favian trate 5 MG Oral Tablet 1 tab, Route: PO, Dosing Weight 69.545, kg, Q4H, PRN Pain Score 1-3, Start date: 12/18/18 12:37:00 CDT, Duration: 30 day, Stop date: 01/17/19 12:36:00 CDT No Longer Active 12/18/2018 [facility] Morphine 2 mg, Route: IVP, Q3H , Dosing Weight 69.545, kg, PRN Pain Score 1-3, Start date: 12/18/18 12:37:00 CDT, Duration: 30 day, Stop date: 01/17/19 12:36:00 CDT No Longer Active 12/18/2018 [facility] dexamethasone (ANES) Route: IV , Drug form: INJ, ONCE, Stop date: 12/18/18 12:08:00 CDT Inactive 12/18/2018 [facility] rocuronium (ANES) Route: IV, D rug form: INJ, ONCE, Stop date: 12/18/18 12:08:00 CDT Inactive 12/18/2018 [facility] lidocaine (ANES) Route: IV, Dr ug form: INJ, ONCE, Stop date: 12/18/18 11:53:00 CDT Inactive 12/18/2018 [facility] propofol (ANES) Route: IV, Harvey g form: INJ, ONCE, Stop date: 12/18/18 11:53:00 CDT Inactive 12/18/2018 [facility] fentaNYL (ANES) Route: IV, Harvey g form: INJ, ONCE, Stop date: 12/18/18 11:53:00 CDT Inactive 12/18/2018 [facility] ondansetron (ANES) Route: IV, Drug form: INJ, ONCE, Stop date: 12/18/18 11:53:00 CDT Inactive 12/18/2018 [facility] ceFAZolin (ANES) Route: IV, Dr ug form: INJ, ONCE, Stop date: 12/18/18 11:53:00 CDT Inactive 12/18/2018 [facility] midazolam (ANES) Route: IV, Dr ug form: SOLN, ONCE, Stop date: 12/18/18 11:28:00 CDT Inactive 12/18/2018 [facility] Lactated Ringers Injection IV (ANES) 1000 mL Route: IV, Total Volume: 1,000, Start date: 12/18/18 10:53:00 CDT, Stop date: 12/18/18 11:53:00 CDT Inactive 12/18/2018 [facility] Cefazolin 2 gm, Route: IVPB, O NCALL, Dosing Weight 69.545, kg, Start date: 12/18/18 10:00:00 CDT, Duration: 1 doses or times, ABX Indication: Surgical Prophylaxis No Longer Active 12/18/2018 [facility] Dexamethasone 8 mg, Route: IV, ONCALL, Dosing Weight 69.545, kg, Start date: 12/18/18 10:00:00 CDT, Duration: 30 day, Stop date: 01/17/19 9:59:00 CDT Inactive 12/18/2018 [facility] Calcium Chloride 0.0014 MEQ/ML / Potassi um Chloride 0.004 MEQ/ML / Sodium Chloride 0.103 MEQ/ML / Sodium Lactate 0.028 MEQ/ML Injectable Solution 1,000 mL, Rate: 25 ml/hr, Infuse over: 4 0 hr, Route: IV, Dosing Weight 69.545 kg, Total Volume: 1,000, Start date: 12/18/18 9:52:00 CDT, Duration: 30 day, Stop date: 01/17/19 9:51:00 CDT, 1.76, m2 Inactive 12/18/2018 [facility] Oxymetazoline hydrochloride 0.5 MG/ML Na sravan Mcroberts [Afrin] 2 spray, Route: NASAL, PRE OP, PRN Nasal Congestion, Start date: 12/18/18 9:51:00 CDT, Duration: 3 day, Stop date: 12/21/18 9:50:00 CDT No Longer Active 12/18/2018 [facility] Epinephrine 0.01 MG/ML / Lidocaine [place] chloride 10 MG/ML Injectable Solution Notes: (Same as: Xylocaine w/Epinephrine ) No Longer Active 12/18/2018 [facility] montelukast 10 MG Oral Tablet [Singulair] 10 mg = 1 tab, PO, Bedtime, # 30 tab, 0 Refill(s) Active 12/13/2018 [facility] predniSONE 20 mg oral tablet 2 0 mg = 1 tab, PO, Daily, X 7 day, # 7 tab, 0 Refill(s) Active 12/13/2018 [facility] levothyroxine 25 mcg (0.025 mg) oral tablet 25 microgram = 1 tab, PO, Q630AM, 0 Refill(s) Active 12/13/2018 [facility] Codeine Phosphate 2 MG/ML / Guaifenesin 20 MG/ML Oral Solution 5 mL, PO, Q4H, PRN cough, X 8 day, # 120 mL, 0 Refill(s) Active 12/13/2018 [facility] Azelastine hydrochloride 0.137 MG/ACTUAT Metered Dose Nasal Mcroberts 137 microgram =, INHALER, BID, PRN Conge stion | 1-2 sprays, # 1 ea, 0 Refill(s) Active 12/13/2018 [facility] Codeine Phosphate 2 MG/ML / Guaifenesin 20 MG/ML Oral Solution Notes: (Same As: Robitussin AC) Inactive 12/13/2018 [facility] Fluticasone propionate 0.05 MG/ACTUAT Me tered Dose Nasal Mcroberts [Flonase] Notes: (Same as: Flonase) No Longer Active 12/12/2018 [facility] Crowder Saline Nasal No-Drip Mcroberts 0.65% gel Notes: (Same as: [place], Deep Sea Nasal Mcroberts). No Longer Active 12/12/2018 [facility] Thyroxine Notes: Take 1 hour b efore or 2 hours after meal; Enteral feeds may interefere with the absorption of this medication. (Same as:Levothroid) No Longer Active 12/12/2018 [facility] Protonix Notes: Tablet should not be chewed or crushed. (Same as: Protonix) No Longer Active 12/12/2018 [facility] Enoxaparin Notes: (Same as: Lo venox) No Longer Active 12/12/2018 [facility] Glucagon 1 mg, Route: IM, Drug form: PDR/INJ, PRN, Dosing Weight 70.455, kg, PRN Blood Glucose Results, Start date: 12/12/18 0:28:00 CDT, Duration: 30 day, Stop date: 01/11/19 0:27:00 CDT No Longer Active 12/12/2018 [facility] Dextrose 50% Syringe 25 gm, 50 mL, Route: IVP, Drug Form: INJ, Dosing Weight 70.455, kg, PRN, PRN Blood Glucose Results, Start date: 12/12/18 0:28:00 CDT, Duration: 30 day, Stop date: 01/11/19 0:27:00 CDT No Longer Active 12/12/2018 [facility] methylPREDNISolone SODium SUCCinate Notes: (Same as:Solu-MEDROL, A-Methapred) N o Longer Active 12/12/2018 [facility] montelukast Notes: (Same as:Si ngulair) No Longer Active 12/12/2018 [facility] Mucinex Notes: (Same as: Guaif enesin [place], Humibid [place], Mucinex) "Do Not Crush" Take medication with plenty of water. No Longer Active 12/12/2018 [facility] Docusate Notes: (Same as: Cola ce) (Do Not Crush) No Longer Active 12/11/2018 [facility] benzonatate 200 mg oral capsule 200 mg = 1 cap, PO, TID, # 30 cap, 0 Refill(s) Active 12/11/2018 [facility] omeprazole 40 mg oral delayed release capsule 40 mg = 1 cap, PO, Daily, # 30 cap, 0 Refill(s) Active 12/11/2018 [facility] Zosyn Notes: (Same as: Zosyn) Dosing based on Piperacillin component MEDICATION WASTE Product Size: 3375 mg Product Wasted: ___ mg No Longer Active 12/11/2018 [facility] RN- PLs Update Height, Weight & Allergies in Care4 RN- PLs Update Height, Weight & Allergies in Care4, Reminder, Drug form: MISC, Route: MISC, Q2H, 12/11/18 14:38:00 CDT, Duration: 1 day, Stop date: 12/12/18 14:00:00 CDT Inactive 12/11/2018 [facility] Albuterol 0.833 MG/ML / Ipratropium Brom sanjay 0.167 MG/ML Inhalant Solution Notes: (Same as: Duoneb) No Longer Active 12/11/2018 [facility] Albuterol 0.83 MG/ML Inhalant Solution Notes: SEE RT DOCUMENTATION (Same as: Proventil) No Longer Active 12/11/2018 [facility] Glucagon 1 mg, Route: IM, Drug form: PDR/INJ, PRN, Dosing Weight 71.96, kg, PRN Blood Glucose Results, Start date: 12/11/18 13:18:00 CDT, Duration: 30 day, Stop date: 01/10/19 13:17:00 CDT No Longer Active 12/11/2018 [facility] Dextrose 50% Syringe 25 gm, 50 mL, Route: IVP, Drug Form: INJ, Dosing Weight 71.96, kg, PRN, PRN Blood Glucose Results, Start date: 12/11/18 13:18:00 CDT, Duration: 30 day, Stop date: 01/10/19 13:17:00 CDT No Longer Active 12/11/2018 [facility] Simvastatin Notes: (Same as: Lashell ocor) Inactive 11/09/2018 [facility] Loratadine 10 mg, Route: PO, D aily, Dosing Weight 71.96, kg, Start date: 11/08/18 9:00:00 MASS SPECTROMETRY SPECIALIST, Duration: 30 day, Stop date: 12/07/18 9:00:00 CDT Inactive 11/08/2018 [facility] Amlodipine Notes: (Same as: No rvasc) Inactive 11/08/2018 [facility] cetirizine Notes: (Same As: Thom rtec) Inactive 11/08/2018 [facility] Thyroxine Notes: Take 1 hour b efore or 2 hours after meal; Enteral feeds may interefere with the absorption of this medication. (Same as:Levothroid) Inactive 11/08/2018 [facility] predniSONE 10 mg oral tablet S ee Special Instructions, PO, Daily, 12 day regimen: Days 1-4 - 30 mg (3 tabs) daily Days 5-8 - 20 mg (2 tabs) daily Days 9-12 - 10 mg (1 tab) daily, X 12 day, # 24 tab, 0 Refill(s) Active 11/08/2018 [facility] Amoxicillin 875 MG / Clavulanate 125 MG Oral Tablet [Augmentin 875-mg] 1 tab, PO, MDCK24H, # 20 tab, 0 Refill(s) Active 11/08/2018 [facility] Fluticasone propionate 0.05 MG/ACTUAT Me tered Dose Nasal Mcroberts [Flonase] 100 microgram = 2 spray, Each Affected N ostril, BID, # 10 mL, 0 Refill(s) Active 11/08/2018 [facility] Solu-Medrol Notes: (Same as:So ronnie-MEDROL, A-Methapred) Inactive 11/08/2018 [facility] Amoxicillin 875 MG / Clavulanate 125 MG Oral Tablet [Augmentin 875-mg] Notes: With food. (Same as: Augmentin 87 5) No Longer Active 11/08/2018 [facility] Ibuprofen Notes: (Same as: Mot rin) "Do Not Crush" Take with food. No Longer Active 11/07/2018 [facility] Ambien Notes: (Same As: Ambien) No Longer Active 11/07/2018 [facility] Famotidine 20 MG Oral Tablet [Pepcid] Notes: (Same as: Pepcid) No Longer Active 11/06/2018 [facility] Fluticasone propionate 0.05 MG/ACTUAT Me tered Dose Nasal Mcroberts [Flonase] Notes: (Same as: Flonase) No Longer Active 11/05/2018 [facility] Budesonide 0.25 MG/ML Inhalant Solution [Pulmicort] Notes: (Same As: Pulmicort) No Longer Active 11/05/2018 [facility] Glucagon 1 mg, Route: IM, Drug form: PDR/INJ, PRN, Dosing Weight 71.96, kg, PRN Blood Glucose Results, Start date: 11/04/18 16:03:00 MASS SPECTROMETRY SPECIALIST, Duration: 30 day, Stop date: 12/04/18 17:02:00 CDT No Longer Active 11/04/2018 [facility] Dextrose 50% Syringe 12.5 gm, 25 mL, Route: IVP, Drug Form: INJ, Dosing Weight 71.96, kg, PRN, PRN Blood Glucose Results, Start date: 11/04/18 16:03:00 MASS SPECTROMETRY SPECIALIST, Duration: 30 day, Stop date: 12/04/18 17:02:00 CDT No Longer Active 11/04/2018 [facility] Solu-Medrol Notes: (Same as:So ronnie-MEDROL, A-Methapred) No Longer Active 11/04/2018 [facility] Loratadine 10 mg, PO, Daily, 0 Refill(s) Active 11/04/2018 [facility] Ciprofloxacin 500 MG Oral Tablet [Cipro] 500 mg = 1 tab, PO, Q12H, # 20 tab, 0 Refill(s) No Longer Active 11/04/2018 [facility] Please update height, weight, allergies on profile Please update height, weight, allergies on profile, ATTN:RN, Drug form: MISC, Route: MISC, Q15Min, 11/04/18 15:45:00 MASS SPECTROMETRY SPECIALIST, Duration: 4 hr, Stop date: 11/04/18 19:30:00 MASS SPECTROMETRY SPECIALIST Inactive 11/04/2018 [facility] Albuterol 0.417 MG/ML Inhalant Solution Notes: SEE RT DOCUMENTATION (Same as: Proventil) No Longer Active 11/04/2018 [facility] Vasotec Notes: (Same as: Vasot ec-IV) No Longer Active 11/04/2018 [facility] cefepime Notes: (Same As: Stanislav alvarenga) MEDICATION WASTE Product Size: 1000 mg Product Wasted: ___ mg No Longer Active 11/04/2018 [facility] Albuterol 0.833 MG/ML / Ipratropium Brom sanjay 0.167 MG/ML Inhalant Solution [DuoNeb] Notes: (Same as: Duoneb) No Longer Active 11/04/2018 [facility] Codeine Phosphate 2 MG/ML / Guaifenesin 20 MG/ML Oral Solution Notes: (Same As: Robitussin AC) No Longer Active 11/04/2018 [facility] Zofran Notes: (Same as: Zofran ) MEDICATION WASTE Product Size: 4 mg Product Wasted: ___ mg No Longer Active 11/04/2018 [facility] Flexeril 10 mg oral tablet 10 mg, PO, TID, PRN, 30 tab, Muscle Spasm, Substitution Allowed PO Active [facility] 08/09/2012 [facility] [place] 5/325 oral tablet 1-2 ta b, PO, Q4-6H, PRN, 15 tab, Pain, Substitution Allowed, Maintenance PO Active [facility] 08/09/2012 [facility] Flexeril 10 mg, Route: PO, ONC E, Dosing Weight 69.545, kg, Priority: STAT, Start date: 08/08/12 20:05:00, Stop date: 08/08/12 20:05:00 PO No Longer Active [facility] 08/09 [facility] morphine Sulfate 2 mg, 1 mL, R oute: IVP, Drug form: INJ, ONCE, Dosing Weight 69.545, kg, Priority: STAT, Start date: 08/08/12 19:14:00, Stop date: 08/08/12 19:14:00 IVP No Longer Active [facility] 08/09/2012 [facility] ondansetron 4 mg, 2 mL, Route: IVP, Drug form: INJ, ONCE, Dosing Weight 69.545, kg, Priority: STAT, Start date: 08/08/12 19:14:00, Stop date: 08/08/12 19:14:00 IVP No Longer Active [facility] 08/09/2012 [facility] Saline Flush 0.9% 5 mL, Route: IVP, Drug Form: INJ, Dosing Weight 69.545, kg, PRN, PRN Line Flush, Start date: 08/08/12 19:14:00, Duration: 24 hr, Stop date: 08/09/12 19:13:00 IVP No Longer Active [facility] 08/09/2012 [facility] Sodium Chloride 0.9% (Bolus) IV 500 mL, 500 ml/hr, Route: IV, Drug Form: INJ, Dosing Weight 69.545, kg, ONCE, Bolus at 1,000 ml/hr, STAT, Start date: 08/08/12 19:14:00, Stop date: 08/08/12 19:14:00 IV No Longer Active [facility] 08/09/2012 [facility] ProAir HFA 90 mcg/inh inhalation aerosol with adapter 2 puff, INHALATION, Q6H, PRN, 9 gm, 1, 1, for wheezing, Substitution Allowed, Soft Stop, AERO INHALATION Active [facility] 03/06/2012 [facility] Prilosec 20 mg oral delayed release capsule 20 mg, 1 cap, PO, Daily, 30 cap, Substitution Allowed PO Active [facility] 03/06/2012 [facility] predniSONE 10 mg oral tablet 1 0 mg, 1 tab, PO, Daily, 10 tab, Substitution Allowed, TAB PO Active Gupt a 03/06/2012 [facility] Mucinex 600 mg oral tablet, extended release 600 mg, 1 tab, PO, Daily, 10 tab, Substitution Allowed, ERTAB PO Active [facility] 03/06/2012 [facility] methylPREDNISolone 20 mg, 0.5 mL, Route: IV, Drug form: INJ, [id number], Start date: 03/01/12 10:00:00, Duration: 30 day, Stop date: 03/30/12 22:00:00 IV No Longer Active [facility] 03/01/2012 [facility] Tessalon Perles 200 mg, 2 cap, Route: PO, Drug form: CAP, Q8H, Start date: 03/01/12 8:00:00, Duration: 30 day, Stop date: 03/31/12 0:00:00 PO No Longer Active [facility] 03/01/2012 [facility] methylPREDNISolone 40 mg, 1 mL , Route: IV, Drug form: INJ, ONCE, Start date: 03/01/12 2:28:00, Stop date: 03/01/12 2:28:00 IV No Longer Active [facility] 03/01 [facility] azithromycin 500 mg, Route: IV PB, [id number], Start date: 02/29/12 21:00:00, Duration: 30 day, Stop date: 03/29/12 21:00:00 IVPB No Longer Active [facility] 03/01/2012 [facility] enoxaparin 40 mg, 0.4 mL, Rout e: SUB-Q, Drug form: INJ, [id number], Start date: 02/29/12 21:00:00, Duration: 30 day, Stop date: 03/29/12 21:00:00 SUB-Q No Longer Active [facility] 03/01/2012 [facility] ceftriaxone 1 gm, Route: IVPB, Drug form: PDR/INJ, [id number], Start date: 02/29/12 18:00:00, Duration: 30 day, Stop date: 03/29/12 18:00:00 IVPB No Longer Active [facility]oc[facility] 02/29/2012 [facility] pneumococcal 23-valent vaccine 0.5 ml, Route: IM, Drug Form: INJ, Start date: 02/29/12 9:00:00, Stop date: 02/29/12 9:00:00 Inactive [facility] 02/29/2012 [facility] levothyroxine 25 microgram, Ro zuni: PO, Drug form: TAB, [id number], Start date: 02/29/12 9:00:00, Duration: 30 day, Stop date: 03/30/12 6:30:00 PO No Longer Active [facility] 02/29/2012 [facility] simvastatin 10 mg, 1 tab, Rout e: PO, Drug form: TAB, QAM, Start date: 02/29/12 9:00:00, Duration: 30 day, Stop date: 03/29/12 9:00:00 PO No Longer Active [facility] 02/29/2012 [facility] amLODipine 5 mg, 1 tab, Route: PO, Drug form: TAB, Daily, Start date: 02/29/12 9:00:00, Duration: 30 day, Stop date: 03/29/12 9:00:00 PO No Longer Active [facility] 02/29/2012 [facility] Tussionex [employer] oral suspension, extended releas e 5 ml, Route: PO, Drug Form: SUSPER, Q12H, PRN Cough/Congestion, Start date: 02/29/12 8:36:00, Duration: 30 day, Stop date: 03/30/12 8:35:00 PO No Longer Active [facility] 02/29/2012 [facility] albuterol 0.083% inhalation solution 2.49 mg, 3 mL, Route: NEB, Drug form: SOLN, [id number], Priority: Routine, Start date: 02/29/12 2:00:00, Duration: 30 day, Stop date: 03/29/12 20:00:00 NEB No Longer Active [facility] 02/29/2012 [facility] [facility] ipratropium 0.5 mg, 2.5 mL, Ro zuni: NEB, Drug form: SOLN, RQ6H, Priority: Routine, Start date: 02/29/12 2:00:00, Duration: 30 day, Stop date: 03/29/12 20:00:00 NEB No Longer Active Boccardo 02/29/2012 [facility] DuoNeb inhalation solution 3 m L, Route: NEB, Drug Form: SOLN, RQ6H, Start date: 02/29/12 2:00:00, Duration: 30 day, Stop date: 03/29/12 20:00:00 NEB No Longer Active Boccardo 02/29/2012 [facility] ondansetron 4 mg, 2 mL, Route: IVP, Drug form: INJ, Q6H, PRN Nausea & Vomiting, Start date: 02/28/12 21:39:00, Duration: 30 day, Stop date: 03/29/12 21:38:00 IVP No Longer Active Boccardo 02/29/2012 [facility] acetaminophen 650 mg, 2 tab, R oute: PO, Drug form: TAB, Q4H, PRN Pain/Fever, Start date: 02/28/12 21:39:00, Duration: 30 day, Stop date: 03/29/12 21:38:00 PO No Longer Active Boccardo 02/29/2012 [facility] Saline Flush 0.9% 5 ml, Route: IVP, Drug Form: INJ, PRN, PRN Line Flush, Start date: 02/28/12 21:39:00, Duration: 30 day, Stop date: 03/29/12 21:38:00 IVP No Longer Active Boccardo 02/29/2012 [facility] guaifenesin 100 mg, 5 mL, Rout e: PO, Drug form: LIQ, Q4H, PRN Cough/Congestion, Start date: 02/28/12 21:37:00, Duration: 30 day, Stop date: 03/29/12 21:36:00 PO No Longer Active Boccardo 02/29/2012 [facility] codeine-guaifenesin 10 mg-100 mg/5 mL oral syrup 5 mL, Route: PO, Drug Form: LIQ, Q4H, PRN Cough, Start date: 02/28/12 21:37:00, Duration: 30 day, Stop date: 03/29/12 21:36:00 PO No Longer Active Boccardo 02/29/2012 [facility] Sodium Chloride 0.9% (Bolus) IV 500 mL 500 mL, Rate: 500 ml/hr, Infuse over: 1 hr, Route: IV, Dosing Weight 64.091 kg, Total Volume: 500, Bolus Dose, Priority: STAT, Start date: 02/28/12 20:41:00, Duration: 1 doses or times, Stop date: 02/28/12 21:40:00 IV No Longer Active Steiner 02/29/2012 [facility] acetaminophen 650 mg, Route: P O, Drug form: TAB, ONCE, Priority: STAT, Start date: 02/28/12 20:39:00, Stop date: 02/28/12 20:39:00 PO No Longer Active Steiner 02/28 [facility] TL-Hist DM oral liquid 5 mL, P O, Q6H, PRN, as needed for cough and congestion, Substitution Allowed, Maintenance PO Active 02/29/2012 [facility] levofloxacin 500 mg oral tablet 500 mg, 1 tab, PO, Daily, Substitution Allowed PO Active 02/29/2012 [facility] Lamisil 250 mg oral tablet 250 mg, 1 tab, PO, Daily, Substitution Allowed PO Active 02/29/2012 [facility] simvastatin 10 mg, PO, QAM, Cramer bstitution Allowed PO Active Boccardo 02/29/2012 [facility] levothyroxine 25 mcg (0.025 mg) oral tablet 25 microgram, 1 tab, PO, Daily, Substitution Allowed PO Active Boccardo 02/29/2012 [facility] amLODipine 5 mg oral tablet 5 mg, 1 tab, PO, Daily, Substitution Allowed PO Active Boccardo 02/29/2012 [facility] NS (Bolus) IV 1,000 mL 1,000 m L, Rate: 1,000 ml/hr, Infuse over: 1 hr, Route: IV, Dosing Weight 64.091 kg, Total Volume: 1,000, Priority: STAT, Start date: 02/28/12 18:28:00, Duration: 1 doses or times, Stop date: 02/28/12 19:27:00, Bolus DoseBolus Dose IV No Longer Active Steiner 02/28/2012 [facility] azithromycin 500 mg, 250 mL, R oute: IVPB, Drug form: PDR/INJ, ONCE, Priority: STAT, Start date: 02/28/12 18:26:00, Stop date: 02/28/12 18:26:00 IVPB No Longer Active Steiner 02/28/2012 [facility] albuterol 0.083% inhalation solution 2.49 mg, Route: NEB, Drug form: SOLN, ONCE, Priority: STAT, Start date: 02/28/12 18:26:00, Stop date: 02/28/12 18:26:00 NEB No Longer Active Steiner 02/28/2012 [facility] ipratropium 0.02% inhalation solution 0.5 mg, Route: NEB, ONCE, Priority: STAT, Start date: 02/28/12 18:26:00, Stop date: 02/28/12 18:26:00 NEB No Longer Active Steiner 02/28/2012 [facility] Rocephin 1 gm, Route: IVPB, ON CE, Priority: STAT, Start date: 02/28/12 18:26:00, Stop date: 02/28/12 18:26:00 IVPB No Longer Active Steiner 02/28/2012 [facility] Allergies, Adverse Reactions, Alerts Substance Category Reaction Severity Reaction type Status Date Reported Comments Source No Known Medication Allergies Assertion Drug aller gy [facility] Immunizations Immunization Date Given Site Status Last Updated Comments Source influenza virus vaccine, inactivated 11/08/2018 Left deltoid completed Isabel [facility] pneumococcal 13-valent vaccine 11/08/2018 Right deltoid completed Isabel [facility] pneumococcal 23-valent vaccine 02/29/2012 completed Elodia seo [facility] pneumococcal 23-valent vaccine 02/29/2012 Left deltoid completed Arroyo Marilyn [facility] Results Order Name Results Value Reference Range Date Interpretation Comments Source HEMATOLOGY PTT 20.0 22.9 - 35.8 12/18/2018 Result Comment: no clot, respun and rera n 12/18/2018 10:58 bp [facility] INR 0.93 0.85 - 1.17 12/18/2018 [facility] PT 12.3 12.0 - 14.7 12/18/2018 [facility] MCHC 32.8 32.0 - 36.0 12/18/2018 [facility] RDW 14.6 11.5 - 14.5 12/18/2018 [facility] MPV 8.2 7.4 - 10.4 12/18/2018 [facility] Platelet 302 133 - 450 12/18/2018 [facility] MCV 90.4 80.0 - 98.0 12/18/2018 [facility] MCH 29.7 27.0 - 31.0 12/18/2018 [facility] Hgb 14.3 12.0 - 16.0 12/18/2018 [facility] Hct 43.5 36.0 - 48.0 12/18/2018 [facility] WBC 13.2 3.7 - 10.4 12/18/2018 [facility] RBC 4.81 4.20 - 5.40 12/18/2018 [facility] Segs 77.5 45.0 - 75.0 12/18/2018 [facility] Basophils 0.4 0.0 - 1.0 12/18/2018 [facility] Monocytes # 0.7 0.0 - 0.8 12/18/2018 [facility] Lymphocytes # 2.2 1.0 - 5.5 12/18/2018 [facility] Neutrophils # 10.2 1.5 - 8.1 12/18/2018 [facility] Basophils # 0.1 0.0 - 0.2 12/18/2018 [facility] Lymphocytes 16.9 20.0 - 40.0 12/18/2018 [facility] HEMATOLOGY Monocytes 5.1 2.0 - 12.0 12/18/2018 [facility] HEMATOLOGY Eosinophils 0.1 0.0 - 4.0 12/18/2018 [facility] IMMUNOLOGY Aspergillus fumigatus IgG 9.9 0.0 - 1.9 12/12/2018 Result Comment: Results for this test ar e for Investigational Purposes Only
by the assay's learning solutions specialist. The performance
characteristics of this product have not been establish ed.
Results should not be used as a diagnostic procedure
without confirmation of the diagnosis by another medically
established diagnostic product or procedure.
Performed At: [facility]
[address], [place] [id number]
Vikram Prado MD Ph:[phone] [facility] SPECIAL CHEMISTRY Hgb A1C 6.3 <=5.6 % 12/12/2018 [facility] CHEM PANEL Phosphorus 3.4 2.5 - 4.5 12/11/2018 [facility] CHEM PANEL A/G Ratio 1.1 0.7 - 1.6 12/11/2018 [facility] CHEM PANEL Globulin 3.5 2.7 - 4.2 12/11/2018 [facility] CHEM PANEL B/C Ratio 23 6 - 25 12/11/2018 [facility] CHEM PANEL AGAP 9.9 10.0 - 20.0 12/11/2018 [facility] PANEL eGFR 80 12/11/2018 Result Comment: [...] PANEL ALT 35 0 - 65 12/11/2018 [facility] CHEM PANEL Albumin Lvl 3.8 3.5 - 5.0 12/11/2018 [facility] CHEM PANEL AST 11 0 - 37 12/11/2018 [facility] CHEM PANEL CO2 25 24 - 32 12/11/2018 [facility] CHEM PANEL Chloride Lvl 107 95 - 109 12/11/2018 [facility] CHEM PANEL Total Protein 7.3 6.4 - 8.4 12/11/2018 [facility] CHEM PANEL Calcium Lvl 9.2 8.5 - 10.5 12/11/2018 [facility] CHEM PANEL Sodium Lvl 138 135 - 145 12/11/2018 [facility] CHEM PANEL Potassium Lvl 3.9 3.5 - 5.1 12/11/2018 [facility] CHEM PANEL Creatinine Lvl 0.75 0.50 - 1.40 12/11/2018 [facility] CHEM PANEL BUN 17 7 - 22 12/11/2018 [facility] CHEM PANEL Glucose Lvl 214 70 - 99 12/11/2018 [facility] CHEM PANEL Magnesium Lvl 2.6 1.8 - 2.4 12/11/2018 [facility] HEMATOLOGY Platelet 359 133 - 450 12/11/2018 [facility] HEMATOLOGY MPV 8.0 7.4 - 10.4 12/11/2018 [facility] HEMATOLOGY RDW 14.3 11.5 - 14.5 12/11/2018 [facility] HEMATOLOGY MCHC 33.5 32.0 - 36.0 12/11/2018 [facility] HEMATOLOGY MCH 30.1 27.0 - 31.0 12/11/2018 [facility] HEMATOLOGY RBC 4.49 4.20 - 5.40 12/11/2018 [facility] HEMATOLOGY Hgb 13.5 12.0 - 16.0 12/11/2018 [facility] HEMATOLOGY WBC 11.7 3.7 - 10.4 12/11/2018 [facility] HEMATOLOGY MCV 89.9 80.0 - 98.0 12/11/2018 [facility] HEMATOLOGY Hct 40.3 36.0 - 48.0 12/11/2018 [facility] HEMATOLOGY Lymphocytes 22.5 20.0 - 40.0 12/11/2018 [facility] HEMATOLOGY Monocytes 6.9 2.0 - 12.0 12/11/2018 [facility] HEMATOLOGY Basophils 0.4 0.0 - 1.0 12/11/2018 [facility] HEMATOLOGY Lymphocytes # 2.6 1.0 - 5.5 12/11/2018 [facility] HEMATOLOGY Neutrophils # 8.2 1.5 - 8.1 12/11/2018 [facility] HEMATOLOGY Eosinophils 0.3 0.0 - 4.0 12/11/2018 [facility] HEMATOLOGY Basophils # 0.1 0.0 - 0.2 12/11/2018 [facility] HEMATOLOGY Monocytes # 0.8 0.0 - 0.8 12/11/2018 [facility] HEMATOLOGY Segs 69.9 45.0 - 75.0 12/11/2018 [facility] HEMATOLOGY Sed Rate 13 0 - 20 12/11/2018 [facility] IMMUNOLOGY IgE Lvl 749.0 10.0 - 100.0 12/11/2018 [facility] Hgb 12.4 12.0 - 16.0 11/07/2018 [facility] Hct 37.4 36.0 - 48.0 11/07/2018 [facility] MCV 89.9 80.0 - 98.0 11/07/2018 [facility] MCH 29.8 27.0 - 31.0 11/07/2018 [facility] MCHC 33.2 32.0 - 36.0 11/07/2018 [facility] RDW 14.4 11.5 - 14.5 11/07/2018 [facility] Platelet 329 133 - 450 11/07/2018 [facility] MPV 8.3 7.4 - 10.4 11/07/2018 [facility] WBC 17.9 3.7 - 10.4 11/07/2018 [facility] RBC 4.16 4.20 - 5.40 11/07/2018 [facility] Basophils 0.1 0.0 - 1.0 11/07/2018 [facility] Lymphocytes # 1.3 1.0 - 5.5 11/07/2018 [facility] Neutrophils # 16.3 1.5 - 8.1 11/07/2018 [facility] Monocytes # 0.4 0.0 - 0.8 11/07/2018 [facility] HEMATOLOGY RBC Morph Bonnie l (11/07/18 5:04 AM) 11/07/2018 [facility] HEMATOLOGY Plt Morph Bonnie l (11/07/18 5:04 AM) 11/07/2018 [facility] HEMATOLOGY Segs 90.8 45.0 - 75.0 11/07/2018 [facility] Lymphocytes 7.0 20.0 - 40.0 11/07/2018 [facility] Monocytes 2.1 2.0 - 12.0 11/07/2018 [facility] MPV 7.9 7.4 - 10.4 11/06/2018 [facility] MCV 88.7 80.0 - 98.0 11/06/2018 [facility] Hct 38.1 36.0 - 48.0 11/06/2018 [facility] Hgb 12.6 12.0 - 16.0 11/06/2018 [facility] MCH 29.4 27.0 - 31.0 11/06/2018 [facility] RDW 14.2 11.5 - 14.5 11/06/2018 [facility] Platelet 324 133 - 450 11/06/2018 [facility] MCHC 33.1 32.0 - 36.0 11/06/2018 [facility] WBC 20.1 3.7 - 10.4 11/06/2018 [facility] RBC 4.30 4.20 - 5.40 11/06/2018 [facility] Gram Stain Report Gram Stain Perf ormed By: [facility] 11/05/2018 [facility] Culture: Respiratory w/Gram Stain N ormal Respiratory Lilian Isolated 11/05/2018 [facility] CHEM PANEL Procalcitonin Lvl <0.05 0.00 - 0.10 11/05/2018 [facility] ELECTROLYTES AGAP 11.1 10.0 - 20.0 11/05/2018 [facility] ELECTROLYTES eGFR 88 11/05/2018 Result Comment: [...] should be multiplied by the estimated BMI. [facility] ELECTROLYTES CO2 24 24 - 32 11/05/2018 [facility] ELECTROLYTES Calcium Lvl 9.0 8.5 - 10.5 11/05/2018 [facility] ELECTROLYTES Creatinine Lvl 0.6 8 0.50 - 1.40 11/05/2018 [facility] ELECTROLYTES Sodium Lvl 140 135 - 145 11/05/2018 [facility] ELECTROLYTES Glucose Lvl 140 70 - 99 11/05/2018 [facility] ELECTROLYTES BUN 13 7 - 22 11/05/2018 [facility] ELECTROLYTES Chloride Lvl 109 95 - 109 11/05/2018 [facility] ELECTROLYTES Potassium Lvl 4.1 3.5 - 5.1 11/05/2018 [facility] HEMATOLOGY Hct 40.8 36.0 - 48.0 11/05/2018 [facility] HEMATOLOGY MCH 29.8 27.0 - 31.0 11/05/2018 [facility] HEMATOLOGY MCV 89.3 80.0 - 98.0 11/05/2018 [facility] MCHC 33.4 32.0 - 36.0 11/05/2018 [facility] HEMATOLOGY MPV 8.2 7.4 - 10.4 11/05/2018 [facility] HEMATOLOGY Platelet 324 133 - 450 11/05/2018 [facility] HEMATOLOGY RDW 13.9 11.5 - 14.5 11/05/2018 [facility] HEMATOLOGY WBC 11.3 3.7 - 10.4 11/05/2018 [facility] RBC 4.57 4.20 - 5.40 11/05/2018 [facility] Hgb 13.6 12.0 - 16.0 11/05/2018 [facility] CHEMISTRY Bili Direct <0.1 0.0 - 0.3 08/09/2012 Normal [facility] CHEMISTRY CK MB Index 0.7 0.0 - 2.5 08/09/2012 Normal [facility] CHEMISTRY Total CK 172 12 - 191 08/09/2012 Normal [facility] CHEMISTRY CK MB 1.2 0.5 - 3.6 08/09/2012 Normal [facility] CHEMISTRY Troponin-I <0.02 0.00 - 0.40 08/09/2012 Normal [facility] CHEMISTRY eGFR 95 08/09/2012 NA <sup>1</sup>Result [...] should be multiplied by the estimated BMI. [facility] CHEMISTRY Albumin Lvl 4.0 3.5 - 5.0 08/09/2012 Normal [facility] CHEMISTRY AGAP 14.0 10.0 - 20.0 08/09/2012 Normal [facility] CHEMISTRY Potassium Lvl 4.0 3.5 - 5.1 08/09/2012 Normal [facility] CHEMISTRY Sodium Lvl 142 135 - 145 08/09/2012 Normal [facility] CHEMISTRY CO2 25 24 - 32 08/09/2012 Normal [facility] CHEMISTRY Chloride Lvl 107 95 - 109 08/09/2012 Normal [facility] CHEMISTRY Calcium Lvl 8.6 8.5 - 10.5 08/09/2012 Normal [facility] CHEMISTRY Creatinine Lvl 0.6 0.5 - 1.4 08/09/2012 Normal [facility] CHEMISTRY Glucose Lvl 104 70 - 99 08/09/2012 [facility] <sup>2</sup>Interpretive Data: Adult ref erence range values reflect the clinical guidelines
of the [place] [employer]. [facility] CHEMISTRY Alk Phos 91 39 - 136 08/09/2012 Normal [facility] CHEMISTRY Bili Total 0.2 0.2 - 1.3 08/09/2012 Normal [facility] CHEMISTRY BUN 12 7 - 22 08/09/2012 Normal [facility] CHEMISTRY A/G Ratio 1.1 0.7 - 1.6 08/09/2012 Normal [facility] CHEMISTRY B/C Ratio 20 6 - 25 08/09/2012 Normal [facility] CHEMISTRY Globulin 3.6 2.0 - 4.0 08/09/2012 Normal [facility] CHEMISTRY ALT 32 0 - 65 08/09/2012 Normal [facility] CHEMISTRY AST 19 0 - 37 08/09/2012 Normal [facility] CHEMISTRY Total Protein 7.6 6.4 - 8.4 08/09/2012 Normal [facility] CHEMISTRY Lipase Lvl 248 73 - 393 08/09/2012 Normal [facility] HEMATOLOGY Monocytes # 0.5 0.0 - 0.8 08/09/2012 Normal [facility] HEMATOLOGY Eosinophils # 0.2 0.0 - 0.5 08/09/2012 Normal [facility] HEMATOLOGY Basophils # 0.1 0.0 - 0.2 08/09/2012 Normal [facility] HEMATOLOGY Monocytes 6.8 2.0 - 12.0 08/09/2012 Normal [facility] HEMATOLOGY Basophils 1.3 0.0 - 1.0 08/09/2012 HI [facility] HEMATOLOGY Eosinophils 2.7 0.0 - 4.0 08/09/2012 Normal [facility] HEMATOLOGY Lymphocytes # 2.5 1.0 - 5.5 08/09/2012 Normal [facility] HEMATOLOGY Segs-Bands # 4.5 1.5 - 8.1 08/09/2012 Normal [facility] HEMATOLOGY Lymphocytes 31.7 20.0 - 40.0 08/09/2012 Normal [facility] HEMATOLOGY Segs 57.5 45.0 - 75.0 08/09/2012 Normal [facility] HEMATOLOGY INR 0.90 0.85 - 1.17 08/09/2012 Normal <sup>3</sup>Interpretive Data: RECOMMEND ED RANGES FOR PROTIME INR:
2.0-3.0 for most medical and surgical thromboembolic states.
2.5-3.5 for artificial heart valves and recurrent embolism.

INR SHOULD BE USED ONLY FOR PATIENTS ON STABLE ANTICOAGULANT THERAPY. [facility] HEMATOLOGY PTT 26.1 22.9 - 35.8 08/09/2012 Normal <sup>4</sup>Interpretive Data: Heparin T herapeutic Range: 57 - 92 Seconds [facility] HEMATOLOGY PT 12.4 12.0 - 14.7 08/09/2012 Normal [facility] HEMATOLOGY Platelet 337 133 - 450 08/09/2012 Normal [facility] HEMATOLOGY MPV 7.4 7.4 - 10.4 08/09/2012 Normal [facility] HEMATOLOGY MCV 90.2 81.0 - 99.0 08/09/2012 Normal [facility] HEMATOLOGY Hct 38.8 36.0 - 48.0 08/09/2012 Normal [facility] HEMATOLOGY MCHC 33.8 32.0 - 36.0 08/09/2012 Normal [facility] HEMATOLOGY MCH 30.5 27.0 - 31.0 08/09/2012 Normal [facility] HEMATOLOGY RDW 13.8 11.5 - 14.5 08/09/2012 Normal [facility] HEMATOLOGY RBC 4.30 4.20 - 5.40 08/09/2012 Normal [facility] HEMATOLOGY Hgb 13.1 12.0 - 16.0 08/09/2012 Normal [facility] HEMATOLOGY WBC 7.9 3.7 - 10.4 08/09/2012 Normal [facility] CHEMISTRY AGAP 13.0 10.0 - 20.0 03/22/2012 Normal [facility] CHEMISTRY Calcium Lvl 9.0 8.5 - 10.5 03/22/2012 Normal [facility] CHEMISTRY CO2 26 24 - 32 03/22/2012 Normal [facility] CHEMISTRY Chloride Lvl 106 95 - 109 03/22/2012 Normal [facility] CHEMISTRY Potassium Lvl 4.0 3.5 - 5.1 03/22/2012 Normal [facility] CHEMISTRY Creatinine Lvl 0.6 0.5 - 1.4 03/22/2012 Normal [facility] CHEMISTRY Sodium Lvl 141 135 - 145 03/22/2012 Normal [facility] CHEMISTRY Glucose Lvl 79 70 - 99 03/22/2012 Normal <sup>1</sup>Interpretive Data: Adult ref erence range values reflect the clinical guidelines
of the [place] [employer]. [facility] CHEMISTRY BUN 12 7 - 22 03/22/2012 Normal [facility] CHEMISTRY AGAP 15.6 10.0 - 20.0 03/06/2012 Normal [facility] CHEMISTRY Glucose Lvl 122 70 - 99 03/06/2012 HI <sup>1</sup>Interpretive Data: Adult ref erence range values reflect the clinical guidelines
of the [place] [employer]. [facility] CHEMISTRY BUN 15 7 - 22 03/06/2012 Normal [facility] CHEMISTRY Creatinine Lvl 0.7 0.5 - 1.4 03/06/2012 Normal [facility] CHEMISTRY CO2 23 24 - 32 03/06/2012 LOW [facility] CHEMISTRY Calcium Lvl 9.0 8.5 - 10.5 03/06/2012 Normal [facility] CHEMISTRY Sodium Lvl 138 135 - 145 03/06/2012 Normal [facility] CHEMISTRY Potassium Lvl 4.6 3.5 - 5.1 03/06/2012 Normal [facility] CHEMISTRY Chloride Lvl 104 95 - 109 03/06/2012 Normal [facility] HEMATOLOGY Basophils # 0.0 0.0 - [...] HEMATOLOGY WBC 13.3 3.7 - 10.4 03/06/2012 [facility] HEMATOLOGY RBC 4.35 4.20 - 5.40 [...] AGAP 16.5 10.0 - 20.0 03/05/2012 Normal [facility] CHEMISTRY Glucose Lvl 125 70 - 99 03/05/2012 HI <sup>2</sup>Interpretive Data: Adult ref erence range values reflect the clinical guidelines
of the [place] [employer]. [facility] CHEMISTRY Creatinine Lvl 0.8 0.5 - 1.4 03/05/2012 Normal [facility] HEMATOLOGY MPV 7.9 7.4 - 10.4 03/05/2012 Normal [facility] HEMATOLOGY MCV 90.6 81.0 - 99.0 03/05/2012 Normal [facility] HEMATOLOGY MCH 30.9 27.0 - 31.0 03/05/2012 Normal [facility] HEMATOLOGY MCHC 34.1 32.0 - 36.0 03/05/2012 Normal [facility] HEMATOLOGY RDW 13.4 11.5 - 14.5 03/05/2012 Normal [facility] HEMATOLOGY Platelet 414 133 - 450 03/05/2012 Normal [facility] HEMATOLOGY Hgb 12.9 12.0 - 16.0 03/05/2012 Normal [facility] HEMATOLOGY Hct 37.9 36.0 - 48.0 03/05/2012 Normal [facility] HEMATOLOGY WBC 12.5 3.7 - 10.4 03/05/2012 [facility] HEMATOLOGY RBC 4.18 4.20 - 5.40 03/05/2012 LOW [facility] HEMATOLOGY Lymphocytes # 2.0 1.0 - 5.5 03/05/2012 Normal [facility] HEMATOLOGY Eosinophils # 0.0 0.0 - 0.5 03/05/2012 Normal [facility] HEMATOLOGY Monocytes # 0.5 0.0 - 0.8 03/05/2012 Normal [facility] HEMATOLOGY Basophils 0.1 0.0 - 1.0 03/05/2012 Normal [facility] HEMATOLOGY Basophils # 0.0 0.0 - 0.2 03/05/2012 Normal [facility] HEMATOLOGY Segs-Bands # 9.9 1.5 - 8.1 03/05/2012 [facility] HEMATOLOGY Eosinophils 0.1 0.0 - 4.0 03/05/2012 Normal [facility] HEMATOLOGY Monocytes 3.7 2.0 - 12.0 03/05/2012 Normal [facility] HEMATOLOGY Lymphocytes 16.3 20.0 - 40.0 03/05/2012 LOW [facility] HEMATOLOGY Segs 79.8 45.0 - 75.0 03/05/2012 HI [facility] CHEMISTRY AGAP 15.4 10.0 - 20.0 03/03/2012 Normal [facility] CHEMISTRY BUN 13 7 - 22 03/03/2012 Normal [facility] CHEMISTRY CO2 25 24 - 32 03/03/2012 Normal [facility] CHEMISTRY Calcium Lvl 8.8 8.5 - 10.5 03/03/2012 Normal [facility] CHEMISTRY Glucose Lvl 107 70 - 99 03/03/2012 [facility] <sup>3</sup>Interpretive Data: Adult ref erence range values reflect the clinical guidelines
of the [place] [employer]. [facility] CHEMISTRY Sodium Lvl 143 [...] Platelet 402 133 - 450 03/03/2012 Normal [facility] HEMATOLOGY MCHC 33.8 32.0 - 36.0 03/03/2012 Normal [facility] HEMATOLOGY MPV 7.9 7.4 - 10.4 03/03/2012 Normal [facility] [facility] HEMATOLOGY Hgb 12.2 12.0 - 16.0 03/03/2012 Normal [facility] HEMATOLOGY RBC 3.96 4.20 - 5.40 03/03/2012 LOW [facility] HEMATOLOGY MCV 91.2 81.0 - 99.0 03/03/2012 Normal [facility] HEMATOLOGY Hct 36.1 36.0 - 48.0 03/03/2012 Normal [facility] HEMATOLOGY WBC 13.9 3.7 - 10.4 03/03/2012 HI [facility] HEMATOLOGY MCH 30.8 27.0 - 31.0 03/03/2012 Normal [facility] HEMATOLOGY Bands 3.0 0.0 - 11.0 03/02/2012 Normal [facility] HEMATOLOGY Elliptocyte Sligh t *ABN* (03/02/2012 04:41:00) None S een 03/02/2012 ABN [facility] HEMATOLOGY Anisocyte 1+ *ABN* (03/02/2012 04:41:00) None S een 03/02/2012 ABN [facility] HEMATOLOGY Plt Morph Bonnie l (03/02/2012 04:41:00) 03/02/2012 Normal [facility] HEMATOLOGY Atypical Lymphs 0.0 <=0.0 03/02/2012 Normal [facility] HEMATOLOGY RBC Morph See N ote (03/02/2012 04:41:00) 03/02/2012 Normal [facility] HEMATOLOGY Metamyelocytes 1.0 0.0 - 1.0 03/02/2012 Normal [facility] Microbiology Culture: Blood 02/28/2012 [facility] Microbiology Culture: Blood 02/28/2012 [facility] CHEMISTRY Albumin Lvl 3.6 3.5 - 5.0 02/28/2012 Normal [facility] CHEMISTRY ALT 25 0 - 65 02/28/2012 Normal [facility] CHEMISTRY Alk Phos 97 39 - 136 02/28/2012 Normal [facility] CHEMISTRY Bili Total 0.4 0.2 - 1.3 02/28/2012 Normal [facility] CHEMISTRY Total Protein 8.1 6.4 - 8.4 02/28/2012 Normal [facility] CHEMISTRY AST 14 0 - 37 02/28/2012 Normal [facility] CHEMISTRY A/G Ratio 0.8 0.7 - 1.6 02/28/2012 Normal [facility] CHEMISTRY B/C Ratio 20 6 - 25 02/28/2012 Normal [facility] CHEMISTRY Globulin 4.5 2.0 - 4.0 02/28/2012 HI [facility] CHEMISTRY Lactic Acid Lvl 1.3 0.5 - 2.2 02/28/2012 Normal [facility] Pathology Reports No Data Provided for [...] Blount MD On 10/28/2019 14:56:36; [id number] 10/28/2019 [facility] Chest 2 views DX PROCEDURE: CH EST TWO VIEW INDICATION: Cough, reflux, hiatal hernia COMPARISON: 12/11/2018 FINDINGS: No consolidation is present. The pleura, cardiac silhouette and bony thorax are normal. No vascular congestion is present. Aortic arch is prominent. IMPRESSION: No acute cardiopulmonary process. SL: TINO 05/13/2019 [facility] Sinus wo contrast CT Clinical Indication: [...] left lateral nasal bone. SL: LORRIE 04/08/2019 [facility] Barium swallow DX Patient Name : DANIA LUCIO : 1945; Age: 73 years y/o Female MR: [id number] Barium swallow DX COMPARISON: CT chest 12/12/2018, [...] contrast passage on the recumbent views. SL: [id number] Thank you for allowing [facility] to participate in the care of your patient. 02/25/2019 [facility] Chest wo contrast CT Clinical Indication: [...] without contrast within nor mal limits. SL: [id number] 12/12/2018 [facility] Sinus wo contrast CT CT PARANA [...] IMPRESSION: Moderate sinus disease. SL: VADIM 12/12/2018 [facility] Chest 2 views DX Patient Name: DANIA LUCIO : 1945; Age: 73 years y/o Female MR: [id number] * CHEST, 2 views HISTORY: Bilateral wheezing, [...] 2. Status post cholecystectomy. SL: TIO 12/11/2018 [facility] Thyroid US EXAM: THYROID ULTRA SOUND [...] or sonographic follow-up at this time. REFERENCE: [place] BR et al. 2015 [place] [employer] Management Guidelines for Adult Patients with Thyroid Nodules and Differentiated Thyroid Cancer. Thyroid. 2016; 26(1):1-133. SL: [id number] 11/07/2018 [facility] Sinus paranasal series DX Para nasal [...] Mild right maxillary sinusitis. SL: TINO 11/06/2018 [facility] Chest 1view DX Clinical Indica tion: Absent of breath sounds - pnuemonia; Comparison: 03/04/2012 FINDINGS: AP chest radiographs shows normal lung volumes with left basilar platelike atelectasis. There is no effusion or pneumothorax. The heart size and pulmonary vasculature are normal. The trachea is midline. There are no clinically significant osseous abnormalities noted. IMPRESSION: 1. Left basilar platelike atelectasis. SL: [id number] 11/04/2018 [facility] Thyroid US HISTORY: Goiter. Thyroid ultrasound [...] lower pole, stable from 04/08/2012. SL:13 07/28/2013 [facility] Consultation Notes No Data Provided for This Section Discharge Summaries No Data Provided for This Section History and Physicals No Data Provided for This Section Vital Signs Vital Sign Value Date Comments Source Respitory Rate 19 06/23/2019 [facility] Systolic (mm Hg) 134 06/23/2019 [facility] Diastolic (mm Hg) 56 06/23/2019 [facility] Respitory Rate 19 06/23/2019 [facility] Systolic (mm Hg) 142 06/23/2019 [facility] Diastolic (mm Hg) 62 06/23/2019 [facility] Respitory Rate 16 06/23/2019 [facility] Systolic (mm Hg) 143 06/23/2019 [facility] Diastolic (mm Hg) 59 06/23/2019 [facility] Height 154.94 cm 06/23/2019 [facility] Weight 68.182 06/23/2019 [facility] BMI Calculated 28.4 06/23/2019 [facility] Systolic (mm Hg) 133 12/18/2018 [facility] Diastolic (mm Hg) 57 12/18/2018 [facility] Systolic (mm Hg) 125 12/18/2018 [facility] Diastolic (mm Hg) 55 12/18/2018 [facility] Systolic (mm Hg) 137 12/18/2018 [facility] Diastolic (mm Hg) 52 12/18/2018 [facility] Respitory Rate 18 12/18/2018 [facility] Respitory Rate 16 12/18/2018 [facility] Respitory Rate 17 12/18/2018 [facility] Temperature Oral (F) 97.9 F 12/18/2018 [facility] Heart Rate 68 12/18/2018 [facility] Height 154.94 cm 12/18/2018 [facility] BMI Calculated 28.97 12/18/2018 [facility] Weight 69.545 12/18/2018 [facility] Heart Rate 94 12/13/2018 [facility] Systolic (mm Hg) 143 12/13/2018 [facility] Diastolic (mm Hg) 61 12/13/2018 [facility] Temperature Oral (F) 97.2 F 12/13/2018 [facility] Systolic (mm Hg) 153 12/13/2018 [facility] Diastolic (mm Hg) 71 12/13/2018 [facility] Respitory Rate 20 12/13/2018 [facility] Heart Rate 85 12/13/2018 [facility] Temperature Oral (F) 98.1 F 12/13/2018 [facility] Temperature Oral (F) 97.8 F 12/13/2018 [facility] Systolic (mm Hg) 136 12/13/2018 [facility] Diastolic (mm Hg) 67 12/13/2018 [facility] Heart Rate 80 12/13/2018 [facility] Respitory Rate 20 12/13/2018 [facility] Respitory Rate 20 12/13/2018 [facility] Height 154.94 cm 12/11/2018 [facility] Weight 70.455 12/11/2018 [facility] BMI Calculated 29.35 12/11/2018 [facility] Systolic (mm Hg) 124 11/08/2018 [facility] Diastolic (mm Hg) 61 11/08/2018 [facility] Heart Rate 91 11/08/2018 [facility] Temperature Oral (F) 98.2 F 11/08/2018 [facility] Respitory Rate 12 11/08/2018 [facility] Temperature Oral (F) 97.8 F 11/08/2018 [facility] Heart Rate 69 11/08/2018 [facility] Systolic (mm Hg) 156 11/08/2018 [facility] Diastolic (mm Hg) 79 11/08/2018 [facility] Respitory Rate 16 11/08/2018 [facility] Respitory Rate 16 11/08/2018 [facility] Temperature Oral (F) 98.0 F 11/08/2018 [facility] Heart Rate 71 11/08/2018 [facility] Systolic (mm Hg) 147 11/08/2018 [facility] Diastolic (mm Hg) 73 11/08/2018 [facility] BMI Calculated 29.98 11/04/2018 [facility] Height 154.94 cm 11/04/2018 [facility] Weight 71.96 11/04/2018 [facility] Height 154.94 cm 08/09/2012 [facility] Weight 69.545 08/09/2012 [facility] Heart Rate 80 03/06/2012 [facility] Systolic (mm Hg) 145 03/06/2012 [facility] Respitory Rate 16 03/06/2012 [facility] Temperature Oral (F) 97.8 F 03/06/2012 [facility] Diastolic (mm Hg) 65 03/06/2012 [facility] Diastolic (mm Hg) 69 03/06/2012 [facility] Respitory Rate 16 03/06/2012 [facility] Systolic (mm Hg) 109 03/06/2012 [facility] Heart Rate 78 03/06/2012 [facility] Temperature Oral (F) 98.5 F 03/06/2012 [facility] Systolic (mm Hg) 126 03/06/2012 [facility] Respitory Rate 18 03/06/2012 [facility] Diastolic (mm Hg) 65 03/06/2012 [facility] Heart Rate 77 03/06/2012 [facility] Temperature Oral (F) 97.9 F 03/06/2012 [facility] Weight 64.091 02/28/2012 [facility] Height 154.94 cm 02/28/2012 [facility] Encounters Location Location Details Encounter Type Encounter Number Reason For Visit Attending Provider ADM Date DC Date Status Source [facility] Inpatient [id number] PNEUMONIA TASH PASCUAL 02/28/2012 03/06/[address] [facility] Outpatient [id number] CHRONIC COUGH/PE/ SOB *PE PROTOCOL* STAT STAT* ALBERTO GRACIELA 03/22/2012 03/22/[address] [facility] Outpatient [id number] THYROID NODULE ALBERTO OWENS 04/08/2012 04/08/[address] [facility] Outpatient [id number] PAIN ALBERTO OWENS 05/03/2012 05/03/[address] [facility] Emergency [id number] HUMERA SEN 08/08/2012 08/08/2012 Discharged [facility] Inpatient [id number] Tashjess Oneill 11/04/2018 11/08/2018 [facility] Inpatient [id number] Alberto Owens 12/11/2018 12/13/2018 [facility] Day Surgery [id number] Raysa Quoc 12/18/2018 12/18/2018 [facility] Outpatient [id number] Alberto Owens 02/25/2019 02/26/2019 [facility] Outpatient [id number] Raysa Kumari 04/08/2019 04/09/2019 [facility] Outpatient [id number] Alberto Owens 05/13/2019 05/14/2019 [facility] Bedded Outpatient [id number] Alberto Owens 06/23/2019 06/23/2019 [facility] Outpatient [id number] Alberto Owens 10/28/2019 10/29/2019 [facility] Outpatient [id number] THYROID NODULE ALBERTO OWENS Cancel [facility] Outpatient [id number] 241.9 ALBERTO OWENS Active [facility] Procedures Procedure Code Date Perfomer Comments Source Colonoscopy [id number] [facility] st Cholecystectomy [id number] [facility] Assessment and Plan Assessment and Plan [...] ml INJ 40 mg 0.4 mL, SUB-Q, [id number] fluticasone 0.05 mg/inh 16gm SPR nasal 2 [...] next week if cleared and ready per manager produce. DIAGNOSES and PROBLEMS: Active Problems (2) Acute [...] PO BID 12/12/18 enoxaparin 40 mg SUB-Q [id number] 12/12/18 fluticasone nasal (Flonase 0.05 mg/inh nasal [...] Q8H 25 ml/hr 12/12/18 sodium chloride nasal (C[place]der Sali ne Nasal No-Drip Mcroberts 0.65% gel) 1 spray NASAL QID Unscheduled [...] PO BID 12/12/18 enoxaparin 40 mg SUB-Q [id number] 12/12/18 fluticasone nasal (Flonase 0.05 mg/inh nasal [...] Q8H 25 ml/hr 12/12/18 sodium chloride nasal (C[place]i ne Nasal No-Drip Mcroberts 0.65% gel) 1 spray NASAL QID Unscheduled [...] Rate 13 IgE Lvl 749.0 H 12/13/2018 [facility] Extracted from:Title: Clinical Document Author: Nargis Patton MD Date: 11/07/18 Pulmonary and Critical Care Progress Note [facility] Sujective/overnight events: Chart reviewed. Patient [...] 0.9% IV 100 mL 1 gm IVPB [id number] 25 ml/hr 11/05/18 fluticasone nasal (Flonase 0.05 [...] but not dysphagia. no reflux symptom. Seeing manager produce Dr Owens. didnt think she had pulmonary [...] flex scope place atraumatically. nml nasal anatomy. 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 glottis wnl no pooling no erythema [...] 0.9% IV 100 mL 1 gm IVPB [id number] 25 ml/hr 11/05/18 famotidine (Pepcid 20 mg [...] is start multiple medications, the have tried [id number] medications tried antibiotics p.o., tried steroids without [...] (mini-bag Plus) 100 mL 1 gm, IVPB, [id number] influenza virus vaccine (inactivated) trivalent high dose [...] [facility] Pulmonary [facility] Critical Care Medicine 11/08/2018 [facility] Plan of Care No Data Provided for This Section Social History Social History Date Source Social History TypeResponse Alcohol Past Substance Abuse Use: None. Smoking Status Former smoker; Previous treatment: None; Ready to change: No; Concerns about tobacco use in household: No; Exposure to Tobacco Smoke None; Cigarette Smoking Last 365 Days No; Reg Smoking Cessation Counseling No entered on: 06/23/19 06/23/2019 [facility] Family History No Data Provided for This Section Advance Directives No Data Provided for This Section Functional Status No Data Provided for This Section
--- OUTSIDE RECORDS SUMMARY | 2020-04-22 17:07 | XMS REPORT | Clinical Summary ---
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
--- OUTSIDE RECORDS SUMMARY | 2020-04-22 17:08 | XMS REPORT | Continuity of Care Document ---
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 Name Role Phone MD TASH PASCUAL PCP SHIVA, WILLIAM Attphys Unavailable London, Jaden Attphys Shruti Kumari Attphys BOCCARDO, TASH Attphys Unavailable Boccardo-Shiva, Tash Attphys EMILY REDDY Attphys Unavailable SHIVA, WILLIAM Admphys Unavailable London, Jaden Admphys Shruti Kumari Admphys Boccardo-Shiva, Tash Admphys Payers Payer Name Policy Type Policy Number Effective Date Expiration Date [facility] Medicare A & B [id number] 2019 00:00:00 [facility] [id number] 2019 00:00:00 [facility] Problems Condition Name Condition Details Condition Category Status Onset Date Resolution Date Last Treatment Date Treating Clinician Comments Source SIVAN BRENNANK Active 10/28/2019 [facility] Active 2019-10-28 00:00:00 2019-10-28 09:45:00 Chon Chirinos R05 R05 Active 05/13/2019 [facility] Diagnosis Active 2019-05-13 13:23:00 2019-05-22 07:03:00 M reese Chirinos LANMARX PROTOCOL LANM ARX PROTOCOL Active 04/04/2019 [facility] Diagnosis Active 2019-04-04 00:00:00 2019-04-08 14:25:00 [facility] R13.10 DYSPHAGIA, UNSPECIFIED, K21.9 G R13.10 DYSPHAGIA, UNSPECIFIED, K21.9 G Active 01/13/2019 [facility] Diagnosis Ac tive 2019-01-13 00:00:00 2019-02-25 13:23:00 M reese Chirinos 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 Active 12/13/2018 [facility] Diagnosis Active 2018-12-13 00:00:00 2019-01-15 15:34:00 [facility] BRONCHITIS BRON CHITIS Active 12/11/2018 [facility] Diagnosis Active 2018-12-11 00:00:00 2018-12-11 10:19:00 [facility] ASTHMA WITH BRONCHITIS AND STATUS ASTHMA ASTHMA WITH BRONCHITIS AND STATUS ASTHMA Active 12/11/2018 [facility] Diagnosis A ctive 2018-12-11 00:00:00 2018-12-12 15:27:00 M reese Chirinos ASTHMA EXACERBATION ASTH MA EXACERBATION Active 11/04/2018 [facility] Diagnosis Active 2018-11-04 00:00:00 2018-11-19 22:15:00 [facility] Acute pancreatitis Acute pancreatitis Disease Active 2018-06-10 00:00:0 0 Geraldo Martinez Diarrhea Diarrhea Disease Active 2018-05-29 00:00:00 Geraldo Martinez Bronchitis Bronchitis Disease Active 2018-05-27 00:00:00 Geraldo Martinez 241.9 241. 9 Active 07/24/2013 [facility] Diagnosis Active 2013-07-24 00:00:00 2013-07-28 13:43:00 [facility] ABD/BACK PAIN ABD/ BACK PAIN Active 08/08/2012 [facility] Diagnosis Active 2012-08-08 09:00:00 2012-08-08 20:09:00 [facility] THYROID NODULE THYR OID NODULE Active 04/08/2012 [facility] Diagnosis Active 2012-04-08 00:00:00 2012-06-03 15:25:00 [facility] CHRONIC COUGH/PE/SOB *PE PROTOCOL* STAT STAT* CHRONIC COUGH/PE/SOB *PE PROTOCOL* STAT STAT* Active 03/22/2012 [facility] Active 2012-03-22 00:00:00 2012-06-03 15:25:00 Norberto Chirinos SHORTNESS OF BREATH SHOR TNESS OF BREATH Active 02/28/2012 [facility] Active 2012-02-28 15:30:00 2012-02-28 20:06:00 [facility] PNEUMONIA PNEU MONIA Active 02/28/2012 [facility] Active 2012-02-28 15:30:00 2012-05-07 16:38:00 Norberto Chirinos Fracture of olecranon process of ulna Problem Active [facility] Abnormal heart beat (finding) Abnormal heart beat (finding) Resolved Problem 10/31/2019 [facility] Problem Resolved 2019-10-31 00:11:53 [facility] Arthritis (disorder) Arth ritis (disorder) Resolved Problem 10/31/2019 [facility] Problem Resolved 2019-10-31 00:11: 53 [facility] Asthma (disorder) Asth ma (disorder) Resolved Problem 10/31/2019 [facility] Problem Resolved 2019-10-31 00:11:53 [facility] Pneumonia (disorder) Pneu monia (disorder) Resolved Problem 10/31/2019 [facility] Problem Resolved 2019-10-31 00:11: 53 [facility] Acute interstitial pneumonia A cute interstitial pneumonia Active Problem 08/10/2012 [facility] Problem Active 2012-08-10 10:55:37 [facility] HT - Hypertension HT - Hypertension Active Problem 08/10/2012 [facility] Problem Active 2012-08-10 10:55:37 [facility] Acute interstitial pneumonia (disorder) Acute interstitial pneumonia (disorder) Active Problem 10/31/2019 [facility] Problem Active 2019-10-31 00:11:53 Sofía Chirinos Hypertensive disorder, systemic arterial (disorder) Hypertensive disorder, systemic arterial (disorder) Active Problem 10/31/2019 [facility] Active 2019-10-31 00:11:53 Norberto Chirinos Cough (finding) Coug h (finding) Active Problem 10/31/2019 [facility] Active 2019-10-31 00:11:53 [facility] NONTOX NODUL GOITER NOS NONT OX NODUL GOITER NOS Active [facility] Active 2013-07-28 13:43:00 [facility] PAIN PAIN Active [facility] Active 2012-06-03 [...] UNSPECIFIED Active [facility] Active 2019-02-25 13:23:00 M emorijaydon Chirinos GASTRO-ESOPHAGEAL REFLUX DISEASE WITHOUT GASTRO- ESOPHAGEAL REFLUX DISEASE WITHOUT Active [facility] Active 2019-02-25 13:23:00 Norberto Chirinos PNEUMONIA, ORGANISM NOS PNEU MONIA, ORGANISM NOS Active [facility] Active 2012-05-07 16:38:00 Norberto Chirinos COUGH COUG H Active [facility] Active 2012-06-03 15:25:00 [facility] SHORTNESS OF BREATH SHOR TNESS OF BREATH Active [facility] Active 2012-06-03 15:25:00 Ok maryjaydon Valienteann Allergies, Adverse Reactions, Alerts Allergy Name Allergy Type Status Severity Reaction(s) Onset Date Inacti ve Date Treating Clinician Comments Source No Known Medication Allergies No Known Medication Allergies Active [facility] Family History Family Member Diagnosis Comments Start Date Stop Date Source Natural father Hypertension Geraldo Martinez Natural mother Arthritis [facility] Natural mother Asthma [facility]odist Natural mother Hyperlipidemia [place] [employer] Natural mother Hypertension Geraldo Martinez Social History Social Habit Start Date Stop Date Quantity Comments Source Sex Assigned At Patience todd Martinez Social History 2019-06-23 15:11:40 2019-06-23 15:11:40 [facility] Alcohol intake 2018-11-11 00:00:00 2018-11-11 00:00:00 Current [...] Dosage Frequency Signature (SIG) Comments Components Source Tramadol Hcl (Ultram) 50 Mg TABLET Tramadol Hcl (Ultram) 50 Mg TABLET 2020-04-09 17:18:00 Yes 50 Every 6 Hours as needed for M ild Pain (1-3) [facility] Naloxone 2019-06-23 16:50:00 No 0.1 mg, Route: [...] Duration: 30 day, Stop date: 07/23/19 10:05:00 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, 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, m2 Norberto Chirinos Mupirocin 20 MG/ML Topical Cream 2019-06-09 18:23:00 Yes TOP, TID, 0 Refill(s) Norberto Chirinos Ventolin HFA 90 mcg/inh inhalation aerosol with adapter 2019-06-09 18:22:00 Yes 2 puff, INHALER , Q6H, PRN wheezing, coughing, or shortness of breath, # 8 gm, 1 Refill(s) Norberto renaldo Advair Diskus 250 mcg-50 mcg inhalation powder [...] 13:55:00 CDT, Stop date: 12/18/18 13:55:00 CDT Jameel Chirinos Naloxone 2018-12-18 18:55:00 No 0.1 mg, Route: SUB-Q, Q6H, Dosing Weight 69.545, kg, PRN Itching, Start date: 12/18/18 13:55:00 CDT, Duration: 30 day, Stop date: 01/17/19 13:54:00 CDT Ok cesar [address] Ondansetron 2018-12-18 18:55:00 No 4 mg, Route: IVP, ONCE, Dosing Weight 69.545, kg, PRN Nausea & Vomiting, Start date: 12/18/18 13:55:00 CDT [facility] Promethazine 2018-12-18 18:55:00 No 6.25 mg, Route: IVPB, ONCE, Dosing Weight 69.545, kg, PRN Nausea & Vomiting, Start date: 12/18/18 13:55:00 CDT [facility] Diphenhydramine 2018-12-18 18:55:00 No 12.5 mg, Route: IVP, Drug form: INJ, Q6H, Dosing Weight 69.545, kg, PRN Itching, Start date: 12/18/18 13:55:00 CDT, Duration: 30 day, Stop date: 01/17/19 13:54:00 CDT [facility] Meperidine 2018-12-18 18:55:00 No 12.5 mg, Route: IVP, Q30Min, Dosing Weight 69.545, kg, PRN Other -See Comment, For shivering, Start date: 12/18/18 13:55:00 CDT, Duration: 2 doses or times, Stop date: Limited # of times [facility] Albuterol 0.83 MG/ML Inhalant Solution 2018-12-18 18:55:00 No 2.49 mg, Route: NEB, Q20Min, Dosing Weight 69.545, kg, PRN Wheezing, Priority: STAT, Start date: 12/18/18 13:55:00 CDT, Duration: 30 day, Stop date: 01/17/19 13:54:00 CDT [facility] Flumazenil 2018-12-18 18:55:00 No 0.2 mg, Route: IVP, PRN, Dosing Weight 69.545, kg, PRN Benzodiazepine Reversal, Initial dose, Start date: 12/18/18 13:55:00 CDT, Duration: 30 day, Stop date: 01/17/19 13:54:00 CDT [facility] Oxycodone 2018-12-18 18:55:00 No 10 mg, Route: NG, Drug form: LIQ, Q4H, Dosing Weight 69.545, kg, PRN Pain Score 7-10, Start date: 12/18/18 13:55:00 CDT, Duration: 30 day, Stop date: 01/17/19 13:54:00 CDT [facility] Hydromorphone 2018-12-18 18:55:00 No 0.5 mg, Route: IVP, Q5Min, Dosing Weight 69.545, kg, PRN Pain Score 7-10, Start date: 12/18/18 13:55:00 CDT, Duration: 4 doses or times, Stop date: Limited # of times [facility] Fentanyl 2018-12-18 18:55:00 No 50 microgram, Route: IVP, Q5Min, Dosing Weight 69.545, kg, PRN Pain Score 7-10, Priority: Routine, Start date: 12/18/18 13:55:00 CDT, Duration: 2 doses or times, Stop date: Limited # of times [facility] Acetaminophen 2018-12-18 18:55:00 No 1,000 mg, Route: IVPB, Drug form: INJ, ONCE, Dosing Weight 69.545, kg, PRN Pain Score 1-3, Start date: 12/18/18 13:55:00 CDT [facility] neostigmine (ANES) 2018-12-18 17:49:00 No Route: IV, Drug form: INJ, ONCE, Stop date: 12/18/18 12:49:00 [facility] (ANES[facility] 2018-12-18 17:49:00 No Route: IV, Drug form: INJ, ONCE, Stop date: 12/18/18 12:49:00 CDT [facility] Oxymetazoline hydrochloride 0.5 MG/ML Nasal [place] [Afrin] 2018-12-18 17:37:00 No 2 spray, Route : NASAL, Q2H, PRN Bleeding, Start date: 12/18/18 12:37:00 CDT, Duration: 3 day, Stop date: 12/21/18 12:36:00 CDT [facility] Acetaminophen 325 MG / Hydrocodone Bitartrate 5 MG Oral Tabl et 2018-12-18 17:37:00 No 1 tab, Rou te: PO, Dosing Weight 69.545, kg, Q4H, PRN Pain Score 1-3, Start date: 12/18/18 12:37:00 CDT, Duration: 30 day, Stop date: 01/17/19 12:36:00 CDT [facility] Morphine 2018-12-18 17:37:00 No 2 mg, Route: IVP, Q3H, Dosing Weight 69.545, kg, PRN Pain Score 1-3, Start date: 12/18/18 12:37:00 CDT, Duration: 30 day, Stop date: 01/17/19 12:36:00 CDT [facility] dexamethasone (HUGOS) 2018-12-18 17:08:00 No Route: IV, Drug form: INJ, ONCE, Stop date: 12/18/18 12:08:00 CDT [facility] rocuronium (HUGOS) 2018-12-18 17:08:00 No Route: IV, Drug form: INJ, ONCE, Stop date: 12/18/18 12:08:00 CDT [facility] lidocaine (HUGOS) 2018-12-18 16:53:00 No Route: IV, Drug form: INJ, ONCE, Stop date: 12/18/18 11:53:00 CDT [facility] propofol (HUGOS) 2018-12-18 16:53:00 No Route: IV, Drug form: INJ, ONCE, Stop date: 12/18/18 11:53:00 CDT [facility] fentaNYL (HUGOS) 2018-12-18 16:53:00 No Route: IV, Drug form: INJ, ONCE, Stop date: 12/18/18 11:53:00 CDT [facility] ondansetron (ANES) 2018-12-18 16:53:00 No Route: IV, Drug form: INJ, ONCE, Stop date: 12/18/18 11:53:00 CDT [facility] ceFAZolin (ANES) 2018-12-18 16:53:00 No Route: IV, Drug form: INJ, ONCE, Stop date: 12/18/18 11:53:00 CDT [facility] midazolam (ANES) 2018-12-18 16:28:00 No Route: IV, Drug form: SOLN, ONCE, Stop date: 12/18/18 11:28:00 CDT [facility] Lactated Ringers Injection IV (HUGOS) 1000 mL 2018-12-18 15:53:00 No Route: IV, Total Volume: 1,000, Start date: 12/18/18 10:53:00 CDT, Stop date: 12/18/18 11:53:00 CDT [facility] Cefazolin 2018-12-18 15:00:00 No 2 gm, Route: IVPB, ONCALL, Dosing Weight 69.545, kg, Start date: 12/18/18 10:00:00 CDT, Duration: 1 doses or times, ABX Indication: Surgical Prophylaxis [facility] Dexamethasone 2018-12-18 15:00:00 No 8 mg, Route: IV, ONCALL, Dosing Weight 69.545, kg, Start date: 12/18/18 10:00:00 CDT, Duration: 30 day, Stop date: 01/17/19 9:59:00 CDT [facility] Calcium Chloride 0.0014 MEQ/ML / Potassi um Chloride 0.004 MEQ/ML / Sodium Chloride 0.103 MEQ/ML / Sodium Lactate 0.028 MEQ/ML Injectable Solution 2018-12-18 14:52:00 No 1,000 mL, Rate: 25 ml/hr, Infuse over: 40 hr, Route: IV, Dosing Weight 69.545 kg, Total Volume: 1,000, Start date: 12/18/18 9:52:00 CDT, Duration: 30 day, Stop date: 01/17/19 9:51:00 CDT, 1.76, m2 [facility] Oxymetazoline hydrochloride 0.5 MG/ML Nasal [place] [Afrin] 2018-12-18 14:51:00 No 2 spray, Route : NASAL, PRE OP, PRN Nasal Congestion, Start date: 12/18/18 9:51:00 CDT, Duration: 3 day, Stop date: 12/21/18 9:50:00 CDT Norberto Taran Epinephrine 0.01 MG/ML / Lidocaine Hydrochloride 10 MG/ML In jectable Solution 2018-12-18 13:00:00 No Notes: (Same as: X ylocaine w/Epinephrine) Norberto Valienteann montelukast 10 MG Oral Tablet [Singulair] 2018-12-13 20:12:00 Yes 10 mg = 1 tab, PO, Bedtime, # 30 tab, 0 Refill(s) Norberto Chirinos predniSONE 20 mg oral tablet 2018-12-13 20:12:00 Yes 20 mg = 1 tab, PO, Daily, X 7 day, # 7 tab, 0 Refill(s) Norberto Valienteann levothyroxine 25 mcg (0.025 mg) oral tablet 2018-12-13 20:12:00 Yes 25 microgram = 1 tab, PO, Q630AM, 0 Refill(s) Norberto Chirinos Codeine Phosphate 2 MG/ML / Guaifenesin 20 MG/ML Oral Soluti on 2018-12-13 20:12:00 Yes 5 mL, PO, Q4H, PRN coug h, X 8 day, # 120 mL, 0 Refill(s) Norberto Chirinos Azelastine hydrochloride 0.137 MG/ACTUAT Metered Dose Nasal [place] 2018-12-13 20:12:00 Yes 137 microg charu =, INHALER, BID, PRN Congestion | 1-2 sprays, # 1 ea, 0 Refill(s) Norberto macario Codeine Phosphate 2 MG/ML / Guaifenesin 20 MG/ML Oral Soluti on 2018-12-13 14:03:00 No Notes: (Same As: Jesse Orozco) Norberto Chirinos Fluticasone propionate 0.05 MG/ACTUAT Metered Dose Nasal Spr ay [Flonase] 2018-12-12 14:07:00 No Notes: (Same as: Liu phillips) Norberto Chirinos [place] Saline Nasal No-Drip [place] 0.65% gel 2018-12-12 14:00:00 No Notes: (Same as: [place], [place] Sea Nasal Sparks). Norberto Chirinos Thyroxine 2018-12-12 13:00:00 No Notes: Take 1 hour before or 2 hours after meal; Enteral feeds may interefere with the absorption of this medication. (Same as:Levothroid) Jameel Chirinos Protonix 2018-12-12 12:30:00 No Notes: Tablet should not be chewed or crushed. (Same as: Protonix) [facility] Enoxaparin 2018-12-12 06:00:00 No Notes: (S demetrius as: Lovenox) [facility] Glucagon 2018-12-12 05:28:00 No 1 mg, Route: IM, Drug form: PDR/INJ, PRN, Dosing Weight 70.455, kg, PRN Blood Glucose Results, Start date: 12/12/18 0:28:00 CDT, Duration: 30 day, Stop date: 01/11/19 0:27:00 CDT [facility] Dextrose 50% Syringe 2018-12-12 05:28:00 No 25 gm, 50 mL, Route: IVP, Drug Form: INJ, Dosing Weight 70.455, kg, PRN, PRN Blood Glucose Results, Start date: 12/12/18 0:28:00 CDT, Duration: 30 day, Stop date: 01/11/19 0:27:00 CDT [facility] methylPREDNISolone SODium SUCCinate 2018-12-12 02:00:00 No Notes: (Same as:Solu-MEDROL, A-Methapred) Chikaor iasanto Chirinos montelukast 2018-12-12 02:00:00 No Notes: ( Same as:Singulair) [facility] Mucinex 2018-12-12 02:00:00 No Notes: (Same as: Guaifenesin [place], Humibid [place], Mucinex) "Do Not Crush" Take medication with plenty of water. [facility] Docusate 2018-12-11 22:00:00 No Notes: (Same as: Colace) (Do Not Crush) [facility] benzonatate 200 mg oral capsule 2018-12-11 20:14:00 Yes 200 mg = 1 cap, PO, TID, # 30 cap, 0 Refill(s) Ankit abbott [facility] omeprazole 40 mg oral delayed [...] Norberto Chirinos Albuterol 0.833 MG/ML / Ipratropium [place] 0.167 MG/ML Inha lant Solution 2018-12-11 19:00:00 [...] Stop date: 01/10/19 13:17:00 CDT Norberto Chirinos omeprazole (PriLOSEC) 10 MG capsule 2018-11-11 00:00:0 0 2019-11-11 23:59:00 No 40mg QD Take 4 capsules (40 mg total) by mouth phyllis Martinez Simvastatin 2018-11-09 03:00:00 No Notes: ( Same as: Zocor) Norberto Chirinos Loratadine 2018-11-08 15:00:00 No 10 mg, Route: PO, Daily, Dosing Weight 71.96, kg, Start date: 11/08/18 9:00:00 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, Duration: 30 day, Stop date: 12/07/18 9:00:00 CDT Norberto Chirinos Amlodipine 2018-11-08 15:00:00 No Notes: (S demetrius as: Norvasc) Norberto Valienteann cetirizine 2018-11-08 15:00:00 No Notes: (S demetrius As: Zyrtec) Norberto Chirinos Thyroxine 2018-11-08 14:09:00 No Notes: Take 1 [...] 875-mg] 2018-11-08 13:42:00 Yes 1 tab, PO, [id number] , # 20 tab, 0 Refill(s) Norberto [...] [Flonase] 2018-11-05 23:00:00 No Notes: (Same as: F lonase) Norberto Chirinos Budesonide 0.25 MG/ML Inhalant Solution [Pulmicort] 11-05 21:45:00 No Notes: (Same As: Pulmicort) Norberto Chirinos Glucagon 2018-11-04 22:03:00 No 1 mg, Route: IM, Drug form: PDR/INJ, PRN, Dosing Weight 71.96, kg, PRN Blood Glucose Results, Start date: 11/04/18 16:03:00 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, Duration: 30 day, Stop date: 12/04/18 17:02:00 CDT Norberto Chirinos Dextrose 50% Syringe 2018-11-04 22:03:00 No 12.5 gm, 25 mL, Route: IVP, Drug Form: INJ, Dosing Weight 71.96, kg, PRN, PRN Blood Glucose Results, Start date: 11/04/18 16:03:00 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, Duration: 30 day, Stop date: 12/04/18 17:02:00 CDT Norberto Chirinos Solu-Medrol 2018-11-04 22:00:00 No Notes: (Same as:Solu-MEDROL, A-Methapred) Norberto Chirinos Loratadine 2018-11-04 21:51:00 Yes 1 0 mg, PO, Daily, 0 Refill(s) Norberto Chirinos Ciprofloxacin 500 MG Oral Tablet [Cipro] 2018-11-04 21:51:00 No 500 mg = 1 tab, PO, Q12H, # 20 tab, 0 Refill(s) Norberto Chirinos Please update height, weight, allergies on profile 2018-11-04 21:45:00 No Please update height, weight, allergies on profile, ATTN:RN, Drug form: MISC, Route: MISC, Q15Min, 11/04/18 15:45:00 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, Duration: 4 hr, Stop date: 11/04/18 19:30:00 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 [facility] Albuterol 0.417 MG/ML Inhalant Solution 2018-11-04 19:00:00 No Notes: SEE RT DOCUMENTATION (Same as: Proventil) [facility] Vasotec 2018-11-04 18:00:00 No Notes: (Same as: Vasotec-IV) [facility] cefepime 2018-11-04 17:00:00 No Notes: (Same As: Maxipime) MEDICATION WASTE Product Size: 1000 mg Product Wasted: ___ mg [facility] Albuterol 0.833 MG/ML / Ipratropium Brom sanjay 0.167 MG/ML Inhalant Solution [DuoNeb] 2018-11-04 16:32:00 No Notes: (S demetrius as: Duoneb) [facility] Codeine Phosphate 2 MG/ML / Guaifenesin 20 MG/ML Oral Soluti on 2018-11-04 16:32:00 No Notes: (Same As: Jesse Orozco) [facility] Zofran 2018-11-04 16:32:00 No Notes: (Same as: Zofran) MEDICATION WASTE Product Size: 4 mg Product Wasted: ___ mg [facility] Flexeril 10 mg oral tablet 2012-08-09 02:59:49 Yes Prade ep Ryan 10 mg, PO, TID, PRN, 30 tab, Muscle Spasm, Substitution Allowed [facility] [place] 5/325 oral tablet 2012-08-09 02:59:41 Yes Norm Ryan 1-2 tab, PO, Q4-6H, PRN, 15 tab, Pain, Substitution Allowed, [facility] Flexeril 2012-08-09 02:05:00 No Norm Ryan 10 mg, Route: PO, ONCE, Dosing Weight 69.545, kg, Priority: STAT, Start date: 08/08/12 20:05:00, Stop date: 08/08/12 20:05:00 [facility] morphine Sulfate 2012-08-09 01:14:00 No Norm Ryan 2 mg, 1 mL, Route: IVP, Drug form: INJ, ONCE, Dosing Weight 69.545, kg, Priority: STAT, Start date: 08/08/12 19:14:00, Stop date: 08/08/12 19:14:00 [facility] ondansetron 2012-08-09 01:14:00 No Norm Ryan 4 mg, 2 mL, Route: IVP, Drug form: INJ, ONCE, Dosing Weight 69.545, kg, Priority: STAT, Start date: 08/08/12 19:14:00, Stop date: 08/08/12 19:14:00 [facility] Saline Flush 0.9% 2012-08-09 01:14:00 No Norm Ryan 5 mL, Route: IVP, Drug Form: INJ, Dosing Weight 69.545, kg, PRN, PRN Line Flush, Start date: 08/08/12 19:14:00, Duration: 24 hr, Stop date: 08/09/12 19:13:00 [facility] Sodium Chloride 0.9% (Bolus) IV 2012-08-09 01:14:00 No Norm Ryan 500 mL, 500 ml/hr, Route: IV, Drug Form: INJ, Dosing Weight 69.545, kg, ONCE, Bolus at 1,000 ml/hr, STAT, Start date: 08/08/12 19:14:00, Stop date: 08/08/12 19:14:00 [facility] ProAir HFA 90 mcg/inh inhalation aerosol with adapter 2012-03-06 15:53:47 Yes Jaden [place] 2 puff, INHALA TION, Q6H, PRN, 9 gm, 1, 1, for wheezing, Substitution Allowed, Soft Stop, AERO Me morial Taran Prilosec 20 mg oral delayed release capsule 2012-03-06 15: 53:17 Yes Jaden [place] 20 mg, 1 cap, PO, Daily, 30 cap, Substit ution Allowed [facility] predniSONE 10 mg oral tablet 2012-03-06 15:52:58 Yes [place] 10 mg, 1 tab, PO, Daily, 10 tab, Substitution Allowed, TAB [facility] Mucinex 600 mg oral tablet, extended release 2012-03-06 15 :52:37 Yes Jaden [place] 600 mg, 1 tab, PO, Daily, 10 tab, Substi tution Allowed, ERTAB [facility] methylPREDNISolone 2012-03-01 15:00:00 No Floyd Ricardo rebecca Steiner 20 mg, 0.5 mL, Route: IV, Drug form: INJ, [id number], Start date: 03/01/12 10:00:00, Duration: 30 day, Stop date: 03/30/12 22:00:00 [facility] Tessalon Perles 2012-03-01 13:00:00 No Floyd Chandulal Steiner 200 mg, 2 cap, Route: PO, Drug form: CAP, Q8H, Start date: 03/01/12 8:00:00, Duration: 30 day, Stop date: 03/31/12 0:00:00 [facility]PRED[facility]one 2012-03-01 07:28:00 No Floyd Ricardo rebecca Steiner 40 mg, 1 mL, Route: IV, Drug form: INJ, ONCE, Start date: 03/01/12 2:28:00, Stop date: 03/01/12 2:28:00 [facility] azithromycin 2012-03-01 02:00:00 No Tash Boccardo 500 mg, Route: IVPB, [id number], Start date: 02/29/12 21:00:00, Duration: 30 day, Stop date: 03/29/12 21:00:00 [facility] enoxaparin 2012-03-01 02:00:00 No Floyd Chandulal Linares l 40 mg, 0.4 mL, Route: SUB-Q, Drug form: INJ, [id number], Start date: 02/29/12 21:00:00, Duration: 30 day, Stop date: 03/29/12 21:00:00 [facility] ceftriaxone 2012-02-29 23:00:00 No Tash Boccardo 1 gm, Route: IVPB, Drug form: PDR/INJ, [id number], Start date: 02/29/12 18:00:00, Duration: 30 day, Stop date: 03/29/12 18:00:00 [facility] pneum[facility] 23-valent vaccine 2012-02-29 14:00:00 No S YSTEM SYSTEM 0.5 ml, Route: IM, Drug Form: INJ, Start date: 02/29/12 9:00:00, Stop date: 02/29/12 9:00:00 [facility] levothyroxine 2012-02-29 14:00:00 No Tash Boccardo 25 microgram, Route: PO, Drug form: TAB, [id number], Start date: 02/29/12 9:00:00, Duration: 30 day, Stop date: 03/30/12 6:30:00 [facility] sim[facility]atin 2012-02-29 14:00:00 No Tash Boccardo 10 mg, 1 tab, Route: PO, Drug form: TAB, QAM, Start date: 02/29/12 9:00:00, Duration: 30 day, Stop date: 03/29/12 9:00:00 [facility] amLODipine 2012-02-29 14:00:00 No Tash Boccardo 5 mg, 1 tab, Route: PO, Drug form: TAB, Daily, Start date: 02/29/12 9:00:00, Duration: 30 day, Stop date: 03/29/12 9:00:00 [facility] Tussionex [employer] oral suspension, extended release 2012-02-29 13:36:00 No Tash Boccardo 5 ml, Route: PO, Drug Form: SUSPER, Q12H, PRN Cough/Congestion, Start date: 02/29/12 8:36:00, Duration: 30 day, Stop date: 03/30/12 8:35:00 [facility] albuterol 0.083% inhalation solution 2012-02-29 07:00:00 No Tash Boccardo 2.49 mg, 3 mL, Route : NEB, Drug form: SOLN, RQ6H, Priority: Routine, Start date: 02/29/12 2:00:00, Duration: 30 day, Stop date: 03/29/12 20:00:00 [facility] ipratropium 2012-02-29 07:00:00 No Tash Boccardo 0.5 mg, 2.5 mL, Route: NEB, Drug form: SOLN, RQ6H, Priority: Routine, Start date: 02/29/12 2:00:00, Duration: 30 day, Stop date: 03/29/12 20:00:00 [facility] DuoNeb inhalation solution 2012-02-29 07:00:00 No Criss a Boccardo 3 mL, Route: NEB, Drug Form: SOLN, RQ6H, Start date: 02/29/12 2:00:00, Duration: 30 day, Stop date: 03/29/12 20:00:00 [facility] ondansetron 2012-02-29 02:39:00 No Tash Boccardo 4 mg, 2 mL, Route: IVP, Drug form: INJ, Q6H, PRN Nausea & Vomiting, Start date: 02/28/12 21:39:00, Duration: 30 day, Stop date: 03/29/12 21:38:00 [facility] acetaminophen 2012-02-29 02:39:00 No Tash Boccardo 650 mg, 2 tab, Route: PO, Drug form: TAB, Q4H, PRN Pain/Fever, Start date: 02/28/12 21:39:00, Duration: 30 day, Stop date: 03/29/12 21:38:00 [facility] Saline Flush 0.9% 2012-02-29 02:39:00 No Tash Boccard o 5 ml, Route: IVP, Drug Form: INJ, PRN, PRN Line Flush, Start date: 02/28/12 21:39:00, Duration: 30 day, Stop date: 03/29/12 21:38:00 [facility] guaifenesin 2012-02-29 02:37:00 No Tash Boccardo 100 mg, 5 mL, Route: PO, Drug form: LIQ, Q4H, PRN Cough/Congestion, Start date: 02/28/12 21:37:00, Duration: 30 day, Stop date: 03/29/12 21:36:00 [facility] codeine-guaifenesin 10 mg-100 mg/5 mL oral syrup 2012-02-03 8 02:37:00 No Tash Boccardo 5 mL, Route: PO, Drug Form: LIQ, Q4H, PRN Cough, Start date: 02/28/12 21:37:00, Duration: 30 day, Stop date: 03/29/12 21:36:00 [facility] Sodium Chloride 0.9% (Bolus) IV 500 mL 2012-02-29 01:41:00 No Koby A Steiner 500 mL, Rate: 50 0 ml/hr, Infuse over: 1 hr, Route: IV, Dosing Weight 64.091 kg, Total Volume: 500, Bolus Dose, Priority: STAT, Start date: 02/28/12 20:41:00, Duration: 1 doses or times, Stop date: 02/28/12 21:40:00 [facility] acetaminophen 2012-02-29 01:39:00 No Koby A Steiner 650 mg, Route: PO, Drug form: TAB, ONCE, Priority: STAT, Start date: 02/28/12 20:39:00, Stop date: 02/28/12 20:39:00 [facility] TL-Hist DM oral liquid 2012-02-29 00:39:15 Yes 5 mL, PO, Q6H, PRN, as needed for cough and congestion, Substitution Allowed, Maintenance [facility] levofloxacin 500 mg oral tablet 2012-02-29 00:39:12 Yes 500 mg, 1 tab, PO, Daily, Substitution Allowed [facility] Lamisil 250 mg oral tablet 2012-02-29 00:39:07 Yes 250 mg, 1 tab, PO, Daily, Substitution Allowed [facility] simvastatin 2012-02-29 00:39:04 Yes Tash Boccardo 10 mg, PO, QAM, Substitution Allowed [facility] levothyroxine 25 mcg (0.025 mg) oral tablet 2012-02-29 00: 38:59 Yes Tash Boccardo 25 microgram, 1 tab, PO, Daily, Substitu tion Allowed [facility] amLODipine 5 mg oral tablet 2012-02-29 00:38:54 Yes Silv ia Boccardo 5 mg, 1 tab, PO, Daily, Substitution Allowed [facility] NS (Bolus) IV 1,000 mL 2012-02-28 23:28:00 No Koby A Steiner 1,000 mL, Rate: 1,000 ml/hr, Infuse over: 1 hr, Route: IV, Dosing Weight 64.091 kg, Total Volume: 1,000, Priority: STAT, Start date: 02/28/12 18:28:00, Duration: 1 doses or times, Stop date: 02/28/12 19:27:00, Bolus DoseBolus Dose [facility] azithromycin 2012-02-28 23:26:00 No Koby A Steiner 500 mg, 250 mL, Route: IVPB, Drug form: PDR/INJ, ONCE, Priority: STAT, Start date: 02/28/12 18:26:00, Stop date: 02/28/12 18:26:[address] [facility] albuterol 0.083% inhalation solution 2012-02-28 23:26:00 No Koby A Steiner 2.49 mg, Route: NEB, Drug form: SOLN, ONCE, Priority: STAT, Start date: 02/28/12 18:26:00, Stop date: 02/28/12 18:26:00 [facility] ipratropium 0.02% inhalation solution 2012-02-28 23:26:00 No Koby A Steiner 0.5 mg, Route: N EB, ONCE, Priority: STAT, Start date: 02/28/12 18:26:00, Stop date: 02/28/12 18:26:00 [facility] Rocephin 2012-02-28 23:26:00 No Koby A Steiner 1 gm, Route: IVPB, ONCE, Priority: STAT, Start date: 02/28/12 18:26:00, Stop date: 02/28/12 18:26:00 [facility] Acetaminophen With Codeine (Tylenol With Codeine #3 Ta blet) 1 Each TABLET Acetaminophen With Codeine (Tylenol With Codeine #3 Tablet) 1 Each TABLET Yes 300 Every 6 Hours [facility] Naproxen Naproxen Yes 500 Twice A Day [facility] Immunizations Ordered Immunization Name Filled Immunization Name Date Status Comments Source FLUCELVAX QUAD PF 2018-06-12 00:00:00 Completed Geraldo Martinez Vital Signs Vital Name Observation Time Observation Value Comments Source Body Temperature 2020-04-10 16:14:00 97.8 [degF] [facility] Weight 2020-04-09 20:45:00 146 [lb_av] [facility] BMI (Body Mass Index) 2020-04-09 20:45:00 27.6 kg/m2 [facility] Respitory Rate 2019-06-23 17:10:00 [facility] Systolic (mm Hg) 2019-06-23 17:10:00 [facility] [place] Diastolic (mm Hg) 2019-06-23 17:10:00 [facility] Respitory Rate 2019-06-23 16:55:00 [facility] [place] Systolic (mm Hg) 2019-06-23 16:55:00 [facility] [place] Diastolic (mm Hg) 2019-06-23 16:55:00 [facility] [place] Respitory Rate 2019-06-23 16:40:00 [facility] Systolic (mm Hg) 2019-06-23 16:40:00 [facility] [place] Diastolic (mm Hg) 2019-06-23 16:40:00 [facility] Height 2019-06-23 15:06:00 154.94 cm [facility] [place] Weight 2019-06-23 15:06:00 [facility] [place] BMI Calculated 2019-06-23 15:06:00 [facility] Systolic (mm Hg) 2018-12-18 20:30:00 [facility] [place] Diastolic (mm Hg) 2018-12-18 20:30:00 [facility] [place] Systolic (mm Hg) 2018-12-18 20:15:00 [facility] [place] Diastolic (mm Hg) 2018-12-18 20:15:00 [facility] [place] Systolic (mm Hg) 2018-12-18 20:00:00 [facility] [place] Diastolic (mm Hg) 2018-12-18 20:00:00 [facility] Respitory Rate 2018-12-18 18:15:00 [facility] Respitory Rate 2018-12-18 18:00:00 [facility] Respitory Rate 2018-12-18 17:48:00 [facility] Temperature Oral (F) 2018-12-18 14:37:00 97.9 F [facility] Heart Rate 2018-12-18 14:37:00 [facility] Height 2018-12-18 14:11:00 154.94 cm [facility] [place] BMI Calculated 2018-12-18 14:11:00 [facility] Weight 2018-12-18 14:11:00 [facility] Heart Rate 2018-12-13 20:39:00 [facility] [place] Systolic (mm Hg) 2018-12-13 20:39:00 [facility] [place] Diastolic (mm Hg) 2018-12-13 20:39:00 [facility] Temperature Oral (F) 2018-12-13 20:39:00 97.2 F [facility] Systolic (mm Hg) 2018-12-13 16:19:00 [facility] [place] Diastolic (mm Hg) 2018-12-13 16:19:00 [facility] [place] Respitory Rate 2018-12-13 16:19:00 [facility] [place] Heart Rate 2018-12-13 16:19:00 [facility] [place] Temperature Oral (F) 2018-12-13 16:19:00 98.1 F [facility] [place] Temperature Oral (F) 2018-12-13 12:15:00 97.8 F [facility] [place] Systolic (mm Hg) 2018-12-13 12:15:00 [facility] [place] Diastolic (mm Hg) 2018-12-13 12:15:00 [facility] [place] Heart Rate 2018-12-13 12:15:00 [facility] Respitory Rate 2018-12-13 12:15:00 [facility] Respitory Rate 2018-12-13 09:01:00 [facility] [place] Height 2018-12-11 19:46:00 154.94 cm [facility] Weight 2018-12-11 19:46:00 [facility] BMI Calculated 2018-12-11 19:46:00 [facility] [place] Systolic (mm Hg) 2018-11-08 17:16:00 [facility] [place] Diastolic (mm Hg) 2018-11-08 17:16:00 [facility] [place] Heart Rate 2018-11-08 17:16:00 [facility] Temperature Oral (F) 2018-11-08 17:16:00 98.2 F [facility] Respitory Rate 2018-11-08 14:14:00 [facility] [place] Temperature Oral (F) 2018-11-08 13:35:00 97.8 F [facility] [place] Heart Rate 2018-11-08 13:35:00 [facility] [place] Systolic (mm Hg) 2018-11-08 13:35:00 [facility] [place] Diastolic (mm Hg) 2018-11-08 13:35:00 [facility] Respitory Rate 2018-11-08 13:35:00 [facility] Respitory Rate 2018-11-08 10:45:00 [facility] [place] Temperature Oral (F) 2018-11-08 10:45:00 98.0 F [facility] Heart Rate 2018-11-08 10:45:00 [facility] Systolic (mm Hg) 2018-11-08 10:45:00 [place] [place] Diastolic (mm Hg) 2018-11-08 10:45:00 [facility] BMI Calculated 2018-11-04 21:39:00 [facility] [place] Height 2018-11-04 21:39:00 154.94 cm [facility] Weight 2018-11-04 21:39:00 [facility] Height 2012-08-09 00:05:00 154.94 cm [facility] [place] Weight 2012-08-09 00:05:00 [facility] [place] Heart Rate 2012-03-06 16:08:00 [facility] Systolic (mm Hg) 2012-03-06 16:08:00 [facility] [place] Respitory Rate 2012-03-06 16:08:00 [facility] [place] Temperature Oral (F) 2012-03-06 16:08:00 97.8 F [facility] [place] Diastolic (mm Hg) 2012-03-06 16:08:00 [facility] Diastolic (mm Hg) 2012-03-06 12:20:00 [facility] [place] Respitory Rate 2012-03-06 12:20:00 [facility] [place] Systolic (mm Hg) 2012-03-06 12:20:00 [facility] [place] Heart Rate 2012-03-06 12:20:00 [facility] [place] Temperature Oral (F) 2012-03-06 12:20:00 98.5 F [facility] [place] Systolic (mm Hg) 2012-03-06 09:00:00 [facility] [place] Respitory Rate 2012-03-06 09:00:00 [facility] Diastolic (mm Hg) 2012-03-06 09:00:00 [facility] Heart Rate 2012-03-06 09:00:00 [facility] Temperature Oral (F) 2012-03-06 09:00:00 97.9 F [facility] Weight 2012-02-28 21:05:00 [facility] Height 2012-02-28 21:05:00 154.94 cm [facility] Procedures Procedure Date / Time Performed Performing Clinician Margie moreno Computed tomography of cervical spine without contrast 00:00:00 [facility] Computed tomography of brain without radiopaque contrast 2020-04 00:00:00 [facility] Colonoscopy [facility] Cholecystectomy [facility] Plan of Care Planned Activity Planned Date Details Comments Source Future Scheduled Test 2020-05-04 00:00:00 INFLUENZA VACCINE [code = INFLUENZA VACCINE] [facility] Scheduled Test 2011 00:00:00 65+ PNEUMOCOCCAL V ACCINE (1 of 2 - PCV13) [code = 65+ PNEUMOCOCCAL VACCINE (1 of 2 - PCV13)] [facility] Scheduled Test 1996 00:00:00 BREAST CANCER SCRE ENING [code = BREAST CANCER SCREENING] [facility] Scheduled Test 1996 00:00:00 COLONOSCOPY SCREEN ING [code = COLONOSCOPY SCREENING] [facility] Scheduled Test 1996 00:00:00 SHINGLES VACCINES (#1) [code = SHINGLES VACCINES (#1)] [facility] Instructions Fractures - Elbow [facility] Encounters Start Date/Time End Date/Time Encounter Type Admission Type Attendi [facility] Care Department Encounter ID Source 2019-04-07 09:54:46 Outpatient MHSE MHSE [id number] 2020-04-09 17:54:00 2020-04-10 18:50:00 Discharged Inpatient (obs) 1 WILLIAM SHANNON [facility] [id number] I [facility] 2019-10-28 09:38:00 2019-10-28 23:59:00 Outpatient Vianney London [facility] MHSE [id number] 2019-10-28 09:38:00 2019-10-28 09:38:00 Outpatient MHSE PUL [id number] 2019-06-23 09:24:00 2019-06-23 12:35:00 Outpatient [place] MHSE MHSE [id number] 2019-06-23 09:24:00 2019-06-23 09:24:00 Outpatient MHSE PUL [id number] 2019-05-13 13:23:00 2019-05-13 23:59:00 Outpatient [place] p MHSE MHSE [id number] 2019-05-13 13:23:00 2019-05-13 13:23:00 Outpatient MHSE PUL [id number] 2019-04-08 14:25:00 2019-04-08 23:59:00 Outpatient Raysa Vilchis MHSE MHSE [id number] 2019-02-25 13:13:00 2019-02-25 23:59:00 Outpatient [place] guzmán p MHSE MHSE [id number] 2019-02-25 13:13:00 2019-02-25 13:13:00 Outpatient MHSE PUL [id number] 2018-12-18 08:24:00 2018-12-18 16:15:00 Outpatient Raysa Vilchis MHSE MHSE [id number] 2018-12-18 08:24:00 2018-12-18 08:24:00 Outpatient MHSE MHSE [id number] 2018-12-11 14:24:00 2018-12-13 16:07:00 Outpatient Vianney London MHSE MHSE [id number] 2018-11-04 15:26:00 2018-11-08 13:20:00 Outpatient Tash Fox MHSE MHSE [id number] 2013-07-28 13:43:00 2013-07-28 23:59:00 Outpatient MHIE MHIE [id number] [facility] Results Test Description Test Time Test Comments Results Result Comments Source SHOULDER RIGHT COMPLETE 2020-04-10 17:19:00 [place] [address] Patient Name: DANIA LUCIO MR #: [id number] : 1945 Age/Sex: 74/F Req #: [id number] Adm Physician: WILLIAM SHANNON MD Ordered by: ANDRAE MARIEE DO Report #: [id number] Location: MED/SURG2 Room/Bed: 207 Procedure: [id number] DX/SHOULDER RIGHT COMPLETE Exam Date: 04/10/20 Exam Time: 1634 REPORT STATUS: Signed SHOULDER RIGHT COMPLETE - 3 views HISTORY: Pain status post fall. COMPARISON: None available. FINDINGS: Bones: No acute displaced fracture. Osseous alignment is within normal limits. Joints: Degenerative changes of the glenohumeral and AC joints. Soft tissues: The soft tissues appear unremarkable. IMPRESSION: No acute radiographic abnormality. Signed by: Dr. Martha Parekh M.D. on 04/10/2020 5:20 PM Dictated By: VLADIMIR PAREKH MD, MD 19 Transcribed By: DONNA on 04/10/201719 COPY TO: ANDRAE MARIEE DO CT CERVICAL SPINE WO 2020-04-09 16:30:00 [place] [address] Patient Name: DANIA LUCIO MR #: [id number] : 1945 Age/Sex: 74/F Req #: [id number] Adm Physician: Ordered by: BAO GOODMAN DO Report #: [id number] Location: ER Room/Bed: Procedure: [id number] CT/CT CERVICAL SPINE WO Exam Date: 04/09/20 [...] DO HAND 3+ VIEWS LEFT 2020-04-09 16:29:00 [place] [address] Patient Name: DANIA LUCIO #: [id number] : 1945 Age/Sex: 74/F Req #: [id number] Adm Physician: Ordered by: BAO GOODMAN DO Report #: [id number] Location: ER Room/Bed: Procedure: [id number] DX/HAND 3+ VIEWS LEFT Exam Date: 04/09/20 [...] GOODMAN DO ELBOW RIGHT COMPLETE 2020-04-09 16:29:00 [place] [address] Patient Name: DANIA LUCIO MR #: [id number] : 1945 Age/Sex: 74/F Req #: [id number] Adm Physician: Ordered by: BAO GOODMAN DO Report #: [id number] Location: ER Room/Bed: Procedure: DX/ELBOW RIGHT COMPLETE Exam Date: 04/09/20 Exam [...] 4:31 PM Dictated By: PASCALE ROSE MD 1631 Transcribed By: DONNA on 04/09/20 1631 COPY TO: BAO GOODMAN DO KNEE LEFT THREE VIEWS 2020-04-09 16:28:00 [place] [address] Patient Name: DANIA LUCIO MR #: [id number] : 1945 Age/Sex: 74/F Req #: [id number] Adm Physician: Ordered by: BAO GOODMAN DO Report #: [id number] Location: ER Room/Bed: Procedure: DX/KNEE LEFT THREE VIEWS Exam Date: 04/09/20 [...] GOODMAN DO CT BRAIN WO 2020-04-09 16:27:00 [place] [address] Patient Name: DANIA LUCIO MR #: [id number] : 1945 Age/Sex: 74/F Req #: [id number] Adm Physician: Ordered by: BAO GOODMAN DO Report #: [id number] Location: ER Room/Bed: Procedure: [id number] CT/CT BRAIN WO Exam Date: 04/09/20 Exam [...] (test code = PTT) 20.0 s 22.9-35.8 [facility]AMNIS0929-37-10 14:18:00* Test Item Value Reference Range Interpretation Comments INR (test code = INR) 0.93 1 0.85-1.17 [facility]uzDZXCKHBIKF9639-98-50 14:18:00* Test Item Value Reference Range Interpretation Comments PT (test code = PT) 12.3 s 12.0-14.7 [facility] UagnobqVVVLIJAHXE1934-75-75 14:18:0032.8[facility] 2018-12-18 14:18:0014.6[facility] VusgxqjWCSZXLNHDK1472-53-86 14:18:008.2[facility] TmnecgzCCHHHGKXDF0991-91-95 14:18:01212Meawdqgn BrrgoxgDQZJORPKLF3231-39-77 14:18:0090.4[facility] ShuashsYHLULMVRNF4137-07-72 14:18:00* Test Item Value Reference Range Interpretation Comments MCH (test code = MCH) 29.7 pg 27.0-31.0 [facility] YexbleoLHLXLKRWNB8581-80-40 14:18:0014.3[facility] 2018-12-18 14:18:0043.5[facility] CsgipwkZNPUKFYGOF9015-48-42 14:18:0013.2[facility] BqoybxnJIZKRYQDNX0161-51-43 14:18:004.81[facility] YuempfuYGDAESPWII6882-50-11 14:18:0077.5[facility] UpeiuorNWXBYFKXRW4633-37-51 14:18:000.4[facility] [place] TPORSGKXBI2382-28-38 14:18:000.7[facility] TmzemxmBXWOHCOYMJ5635-18-91 14:18:002.2 [facility] SsmaaooQMSDOWZXQF0057-02-07 14:18:0010.2[facility] 2018-12-18 14:18:000.1[facility] ScjspxmUYCLZEAWKP9619-76-70 14:18:0016.9[facility] YwyihiwUDBMUTRIWH6331-06-42 14:18:005.1[facility] YgbtezhDFLMBQRCWC9621-39-86 14:18:000.1[facility] UdagsypBMAYFCJTOJ8286-38-84 23:07:009.9[facility] SPECIAL JFYNTRNSA2692-68-61 10:10:006.3[facility] HermannCHEM PUESZ6142-35-07 19:51:003.4[facility] HermannCHEM HAMMS4718-23-70 19:51:00* Test Item Value Reference Range Interpretation Comments A/G Ratio (test code = A/G Ratio) 1.1 1 0.7-1.6 [facility] RXYQZ9921-91-59 19:51:003.5[facility]annCHEM PANEL 2018-12-11 19:51:00* Test Item Value Reference Range Interpretation Comments B/C Ratio (test code = B/C Ratio) 23 1 6-25 [facility]ann[facility] LIWZO7503-19-04 19:51:009.9[facility]annCHEM PANEL 2018-12-11 19:51:0080[facility]annCHEM WVNCO5475-18-65 19:51:000.3[facility]annCHEM WOWJM4814-98-73 19:51:93515Sttwgtuq HermannCHEM TQBEB2235-16-67 19:51:0035[facility]annCHEM YEHJP1894-53-42 19:51:003.8[facility]annCHEM HQVTK5164-33-28 19:51:0011[facility]annCHEM LGWIW9240-14-59 19:51:0025 [facility]ann[facility] KDRRF2265-28-79 19:51:82794Crrvrgbs HermannCHEM PANEL 2018-12-11 19:51:007.3[facility]annCHEM UPVCX1452-00-88 19:51:009.2[facility]annCHEM ITLZE7764-35-58 19:51:14053Yhnodkoj HermannCHEM HHISC3541-42-06 19:51:003.9[facility]annCHEM MTWXC7273-75-79 19:51:000.75[facility]annCHEM DJJGG4924-33-23 19:51:0017[facility]annCHEM UEHRE1299-25-42 19:51:28667 [facility]annCHE[facility] DWOSQ3512-40-29 19:51:002.6[facility]annHEMATOLOGY 2018-12-11 19:51:57710Rlcvkqqn JuauonlAHTHFUMDMY3568-74-29 19:51:008.0[facility] EabhwnrNLQVVNCTGG2539-80-52 19:51:0014.3[facility] LplzkqcCYCHMQJNDF6152-18-14 19:51:0033.5[facility] HiflfovXFPNZUQDQB8554-91-40 19:51:00* Test Item Value Reference Range Interpretation Comments MCH (test code = MCH) 30.1 pg 27.0-31.0 [facility] JcayynrCPEALPSMFX7045-83-38 19:51:004.49[facility] 2018-12-11 19:51:0013.5[facility] BjeyjyiAHUBRNOGZP7218-20-74 19:51:0011.7[facility] OumpqhwXFHTCDMEUE1274-74-34 19:51:0089.9[facility] MaaufwmAOMHOJQOZZ4938-00-66 19:51:0040.3[facility] VjgxmkfKDTHZFWCVV4511-89-89 19:51:0022.5[facility] ODYZOSXWHQ6481-07-57 19:51:006.9[facility] VkqohryIRDLLDGDMX5703-69-63 19:51:000.4 [facility] CpffbneNUTKGHSZWS3797-54-33 19:51:002.6[facility]ann[facility] 2018-12-11 19:51:008.2[facility] KwrxhfpFSFDAQRXDH5231-70-94 19:51:000.3[facility] WxytplwMBAOOEMPAI7779-54-24 19:51:000.1[facility] YsfjxzlPBOXXWDONR0069-38-72 19:51:000.8[facility] NeqvnyiJJGTELVZZA0750-18-91 19:51:0069.9[facility] ONYSDRXEJO7249-34-58 19:51:0013[facility] UqwsrdqBDXKRRNGSU0169-07-35 19:51:00 749.0[facility] HermannMAMMOGRAPHY DIGITAL SCR VHXIL4141-72-59 09:48:00 [place] [address] Patient Name: DANIA LUCIO MR #: [id number] : 1945 Age/Sex: 73/F Req #: [id number] [facility] Physician: Ordered by: TASH PASCUAL MD Report #: [id number] Location: MAMMO Room/Bed: Procedure: [id number] MG/MAMMOGRAPHY DIGITAL SCR BILAT Exam Date: 11/20/18 Exam Time: 0933 REPORT STATUS: Sig dao #[id number] - MGSCRBIL #BILATERAL DIGITAL SCREENING MAMMOGRAM WIT H CAD: 11/20/2018 CLINICAL: Routine screening. Comparison is made to nolberto caba dated: 12/11/2016 mammogram - [facility]. Current study contains 4 films. [...] letter of the results. 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4[facility] BmvksqiOYSEAJXJAK1939-77-71 11:04:85035Rvuzfdxi HetblbiTVTRKNBOAF6430-72-21 11:04:008.3[facility] NcxymsuDJNLWQOJZV3759-19-73 11:04:0017.9[facility] YkaznefKZPQBXIIAC8050-47-20 11:04:004.16[facility] [place] AWCECOQZPC7105-44-57 11:04:000.1[facility] TsvhohqJGTMBUJVZY9582-28-56 11:04:001.3 [facility] UxpvsyiAGMTKLYRJB0524-97-26 11:04:0016.3[facility]ann[facility] 2018-11-07 11:04:000.4[facility] YvpyejtSVKUCIJUTL9783-83-22 11:04:00Normal (11/07/18 5:04 AM)[facility] JmiphetTGIFVQDXVO7279-54-78 11:04:00Normal (11/07/18 5:04 AM)[facility] BducmbyMLENHVCHUU2867-36-27 11:04:0090.8[facility]ann[facility]MAT[facility] 2018-11-07 11:04:007.0[facility] BexqogtVMWMZOBMYJ5586-83-57 11:04:002.1[facility] CclbztfSIZGEFEYNV2525-04-17 11:12:007.9[facility] VrqulyhBBZVOSXKSW3420-11-16 11:12:0088.7[facility] StoxnkuAERXRDMBGQ8181-70-26 11:12:0038.1[facility] UHKJMDTJVC8950-46-78 11:12:0012.6[facility] EsjcfsxPBDEBRLYYU6661-77-57 11:12:00* Test Item Value Reference Range Interpretation Comments MCH (test code = MCH) 29.4 pg 27.0-31.0 [facility] RpvqeypJMLOSMAEXI6494-25-43 11:12:0014.2[facility]ann[facility]OLOGY 2018-11-06 11:12:20594Peqnzzbq BuwvvfuSIUFRXZOUO2439-17-66 11:12:0033.1[facility] QezjeqoBYWDKCKFTE7986-45-54 11:12:0020.1[facility] GvgwwfxYKGOPSEHLT8709-06-66 11:12:004.30[facility] HermannCHEM HWRPU6410-51-05 12:12:00<0.05[facility] ZAXGZVMYIIWK4188-80-02 12:12:0011.1[facility] SywfzmcFXFNZAXTOOZG1855-54-92 12:12:0088[facility] JlmrhrzWKGDLLFNSQLY3851-38-84 12:12:0024[facility] OJNMXJFNLOHY5235-92-82 12:12:009.0[facility] HxdvycmVIIXVIEZYKMM5683-27-17 12:12:000.68[facility] UhcxjpoRVNEYHSJLVYX0900-41-77 12:12:06096Xzbxmvov [facility] HGHHSOUKRQTH1774-90-96 12:12:22008Iowrixpk MauznvqJNLNBWGOAKDU7405-85-12 12:12:0013[facility] PstuuhrNXQNPVELDOJI4874-07-47 12:12:87488Bbirzuui [facility] JOZLSXAANCTG8271-66-85 12:12:004.1[facility] AwiutsyRLQBQHRFFL9575-26-74 12:12:00 40.8[facility] BazbvizJOQRPHIMJP3915-43-82 12:12:00* Test Item Value Reference Range Interpretation Comments MCH (test code = MCH) 29.8 pg 27.0-31.0 [facility] AsmptjwUUYYBDJBGB0571-39-92 12:12:0089.3[facility]annHEMATOLOGY 2018-11-05 12:12:0033.4[facility] EbjslnuOVCSRGYBJS3756-76-76 12:12:008.2[facility] SuxdupsFBNBKQLBQN4315-82-42 12:12:93227Miydwhpv TjljzbyHFGVBSBDEK0907-09-41 12:12:0013.9[facility] DggnzbcCPGXHVPTHG9437-07-91 12:12:0011.3[facility] [place] JCEGLZZAFR3262-73-10 12:12:004.57[facility] OlkztwiLQWVXOMNSW3854-96-23 12:12:00 13.6[facility] XhcfephHLGISWXAM5579-82-02 02:05:00<0.1[facility]annCHEMISTRY 2012-08-09 02:05:000.7[facility] IwdurfgVNFZXJBIZ9225-51-26 02:05:96715Mfuzexwb TnmqowxRZTQBFCOL3021-94-44 02:05:001.2[facility] ZzmwvthXESUWUQPG4933-12-07 02:05:00<0.02[facility] FzzqiuqDRHGZUHIY4791-31-95 02:05:0095[facility] MMIJMBGDA1916-37-37 02:05:004.0[facility] NjkxaugEDSBKJIJX2338-01-49 02:05:0014.0 [facility] ZmzylwgFOAYAVPNK3278-76-09 02:05:004.0[facility] HermannCHEMISTRY 2012-08-09 02:05:10881Byqrmjdx AgyzywyUSWPMPHVU6268-22-03 02:05:0025[facility] ZcqglynXFEUGDXGJ4526-98-83 02:05:46354Gdyqatcz HahpyqyDEDERTXAE2652-63-66 02:05:008.6[facility] MjrqkhvBZFTWRYNB5420-34-73 02:05:000.6[facility] QSXBHVYUB9457-29-49 02:05:65867Mdooaorb ZpteagoSMOEHYXEH4512-76-33 02:05:0091 [facility] OhnzkjvBNMNPOAGX6734-52-03 02:05:000.2[facility] HermannCHEMISTRY 2012-08-09 02:05:0012[facility] RszljjpPKYFGNCKX1413-82-04 02:05:001.1[facility] YxyamckOAAATREQW2841-59-63 02:05:0020[facility] TqfjoewMOZVEUEKI8292-28-93 02:05:003.6[facility] ZtznwzxPIYGSMCLL9472-82-66 02:05:0032[facility] WHDOWBUEF8206-47-50 02:05:0019[facility] OnvkadkXQUFYPXNU3722-94-77 02:05:007.6 [facility] NnmylmyMRRNYSUWR1640-05-82 02:05:26750Pdakehzh HermannHEMATOLOGY 2012-08-09 02:05:000.5[facility] MrqoacjBGWPHNHEML2123-42-98 02:05:000.2[facility] XpnhicjLYZDXACPFV6307-66-69 02:05:000.1[facility] EjqwshyPXYRQJXTGS1282-53-28 02:05:006.8[facility] MebnkjqFWGBIDIDSU6228-45-07 02:05:001.3[facility] YHFRAUWFKP0838-77-56 02:05:002.7[facility] HrfthljGBZHQIKQWS7348-49-47 02:05:002.5 [facility] JdelcdwXPIVLIGMQV7812-52-50 02:05:004.5[facility] 2012[facility]09 02:05:0031.7[facility] XhctkhcTZXACRZYMY4700-89-69 02:05:0057.5[facility] TlmuaplWCRVUCDNFQ4717-53-44 02:05:000.90[facility] ImmbavuYLXTBVWACO4855-51-91 02:05:00* Test Item Value Reference Range Interpretation Comments PTT (test code = PTT) 26.1 s 22.9-35.8 [facility] BpyjjcwTIFGAVUIHW3816-50-63 02:05:00* Test Item Value Reference Range Interpretation Comments PT (test code = PT) 12.4 s 12.0-14.7 [facility] SfhinjeMCJQQYPJWL9428-47-21 02:05:87289Ojbgqfrl HermannHEMATOLOGY 2012-08-09 02:05:007.4[facility] XsbpnztGXECYYNEIJ3889-31-71 02:05:0090.2[facility] DtokhjhILLWYRQGCB2336-85-40 02:05:0038.8[facility] HgxwmlhWMPSWTNTQS2766-55-61 02:05:0033.8[facility] IlmrldtKKJHDSJGZH9167-53-09 02:05:00* Test Item Value Reference Range Interpretation Comments MCH (test code = MCH) 30.5 pg 27.0-31.0 [facility] UtqbskzXVRFSAHHRL6838-73-19 02:05:0013.8[facility] 2012-08-09 02:05:004.30[facility] ZvbkmvaCPSQUIBSNG8083-52-23 02:05:0013.1[facility] TklmapuAZGTDZGZII0103-97-23 02:05:007.9[facility] ZcsbyxzJELACPILT2659-11-10 16:45:0013.0[facility] KpywzreJWWZRTNQZ0405-61-93 16:45:009.0[facility] [place] NLRFJERDY6973-62-66 16:45:0026[facility] FqzjjqjZLSXPAUXM0479-09-44 16:45:67488 [facility] YodlucgLXTPUWBCZ4045-14-18 16:45:004.0[facility]annCHEMISTRY 2012-03-22 16:45:000.6[facility] QycwbkvGUCJXLPQH3732-04-31 16:45:08945Cjzfbfeo JrzwglzVZHMOXJOS9530-72-61 16:45:0079[facility] VaeugucFBQBHMMZF2131-58-43 16:45:0012[facility] OvzyblpXGCIATRQJ0930-27-85 10:15:0015.6[facility] HRNXEIALK5812-22-42 10:15:97022Jzsttlna GrrxvhiGWEQCYKLK4791-68-63 10:15:0015 [facility] AgaldeoXEQDRHWLE7314-56-32 10:15:000.7[facility]annCHEMISTRY 2012-03-06 10:15:0023[facility] DmtkgzuAVIXKYLJB9082-33-39 10:15:009.0[facility] ClmrzvoHSSOKKDNY1192-95-48 10:15:77328Nazpskvs AgcrrlsHPUSMBCCP4412-35-31 10:15:004.6[facility] QqjmghsNODTFBILR9515-85-25 10:15:56279Hsmedqtg [place] RJMWHMGPQD9322-75-47 10:15:000.0[facility] XaljiabEAMSZULDUN0778-01-25 10:15:000.0 [facility] DltwwziHEGLMSKCQJ1316-13-65 10:15:003.0[facility]Y 2012-03-06 10:15:0013.9[facility] CeqlpwrOXSKPACTJF5332-65-95 10:15:0083.1[facility] DrjjwxoUCYKYCMYEM1134-02-54 10:15:000.0[facility] UwhqnepKNXWCYZNPE3191-65-74 10:15:001.9[facility] VilrrulBYMJWIDJGQ6903-72-39 10:15:000.4[facility] VGSWOGDEPI8191-84-96 10:15:000.0[facility] RckhwnlQGWZVUCPPS5193-34-89 10:15:00 11.0[facility] BcvfrplXCUUUENRSV6013-32-68 10:15:0013.3[facility]annHE[facility]Y 2012-03-06 10:15:004.35[facility] CnsmemrMFJQXYKXPF7528-70-82 10:15:0013.2[facility] FshpmbqJDYOMIQCBY8322-53-05 10:15:0039.7[facility] CjjixlfZUTFHYUTTF6243-47-89 10:15:0013.2[facility] VexlafjXXBKBSNFQT4733-16-08 10:15:0091.3[facility] [place] NCKCRJNGAX4753-62-53 10:15:0033.2[facility] OlabtmvTFRRTPQQKE0951-17-73 10:15:00* Test Item Value Reference Range Interpretation Comments MCH (test code = MCH) 30.3 pg 27.0-31.0 [facility] BkqyazmJSJNJSNREJ5234-84-49 10:15:60842Pcfkcuuy HermannHEMATOLOGY 2012-03-06 10:15:007.9[facility] AmzcsjrSJQSIOHDC0647-08-70 10:20:004.5[facility] UqpaduxPWGTZOKMA3671-76-12 10:20:88858Taqxnnvo ZfxjgufZJSZYDTVG7812-34-76 10:20:55217Mahidgpv EhbubrxPWWQKEPZT6493-23-07 10:20:0014[facility] TRPOYQBAV1459-22-82 10:20:0023[facility] JhsmqqkXKLNPVOHC3948-39-37 10:20:009.0 [facility] DxtfunxOBARTMMAZ6594-12-17 10:20:0016.5[facility]annCHEMISTRY 2012-03-05 10:20:61414Wtkgflsu UofcisaZOKGVXRJE0389-30-69 10:20:000.8[facility] CngmrwtVKJGHWWXAI2620-70-10 10:20:007.9[facility] LxeifioJDCFGJTGUO4747-64-22 10:20:0090.6[facility] OwzhewzAEPIRPBEKU6582-58-05 10:20:00* Test Item Value Reference Range Interpretation Comments MCH (test code = MCH) 30.9 pg 27.0-31.0 [facility] OuhurtmFVKEPUBTMG6864-92-11 10:20:0034.1[facility]annHE[facility]Y 2012-03-05 10:20:0013.4[facility] BzwrhdeRLYSBXHKNM4826-62-86 10:20:87729Hedubxro UlovfvmITLZQYMWJC6251-47-94 10:20:0012.9[facility] YzzxdmtLETVPTKJVM9064-83-77 10:20:0037.9[facility] ArfzdctMODXGFNRXF4656-87-66 10:20:0012.5[facility] XLOBLZKKEV1455-38-64 10:20:004.18[facility] ClhoorhSEYWDNYNYS3354-46-38 10:20:00 2.0[facility] YxlsqhmIVDXIZURKK4113-93-18 10:20:000.0[facility]annHEMATOLOGY 2012-03-05 10:20:000.5[facility] BzgugucREWDCQPVAN0423-82-19 10:20:000.1[facility] VxhiahnVCXYDUFOCI8652-64-25 10:20:000.0[facility] DaefjupFVNGBQKFAS0885-74-13 10:20:009.9[facility] OwaynrmFWWMUPAIXT4973-75-10 10:20:000.1[facility] QWBQAQUUVE3058-41-21 10:20:003.7[facility] ZclmsgoKXBXSBZVSL8572-74-99 10:20:00 16.3[facility] ZbjtwysXSIJEFENVU5806-49-42 10:20:0079.8[facility]annCHEMISTRY 2012-03-03 10:25:0015.4[facility] NymqxqfUPNHIAVNM9655-08-27 10:25:0013[facility] RebjbztIIZWKTEAK5793-94-60 10:25:0025[facility] UayedjaJPXTGWVQQ5500-26-92 10:25:008.8[facility] PdtyhswROOVLQIIB8263-03-37 10:25:48117Adnrgbvf [place] GYJGYRIEU7624-01-34 10:25:38054Oeiysexw WubzuxeEFOQZSXDM9992-22-84 10:25:000.6 [facility] MtiyefhJPWLALYUI7235-28-21 10:25:004.4[facility]annCHEMISTRY 2012-03-03 10:25:03829Hajofebu DonowgtSYDKZDFOPM8350-54-83 10:25:000.5[facility] BqzkykrTAEHLBVRSB5105-84-17 10:25:000.0[facility] BoyopehTESMAPSCMH4566-06-66 10:25:000.0[facility] CnpdubeHTBOYUTWBI9087-94-40 10:25:0011.4[facility] VEFBWIUTIG9730-71-33 10:25:000.3[facility] TzlvbibPOLSNCLGPX9952-02-07 10:25:000.0 [facility] MxcjnrfPXVWRYYRMO1593-12-33 10:25:0082.1[facility]annHEMATOLOGY 2012-03-03 10:25:003.7[facility] VjfvfylREZQYYCLHM6672-78-31 10:25:001.9[facility] YuhcdhqGQYJZOFSCC3503-38-92 10:25:0013.9[facility] OsabiozOKTQUEJPPL9080-43-62 10:25:0013.5[facility] GvsfzsyITJYAMNZAL0585-52-65 10:25:35113Pidsqdfk [place] SGWJBAWPMD9607-92-14 10:25:0033.8[facility] RqxgpnwJHMRGAICMZ6258-51-25 10:25:00 7.9[facility] PlbkkvlPCIKXLUVNU7264-24-70 10:25:0012.2[facility]annHEMATOLOGY 2012-03-03 10:25:003.96[facility] XsoegcwREOWKSLCVC1443-73-69 10:25:0091.2[facility] EfggczgDBEMVYSAJI0738-37-77 10:25:0036.1[facility] WauvzfkZWQROOZSTG8358-70-82 10:25:0013.9[facility] VyjnhagWZLTLWMJHY0410-08-80 10:25:00* Test Item Value Reference Range Interpretation Comments MCH (test code = MCH) 30.8 pg 27.0-31.0 N [facility] FszwxivAWFYGEEMLV0755-76-65 09:41:003.0[facility]HE[facility]OLOGY 2012-03-02 09:41:00Slight *ABN*(03/02/2012 04:41:00) [facility] 2012-03-02 09:41:001+ *ABN*(03/02/2012 04:41:00) [facility] 2012-03-02 09:41:00Normal (03/02/2012 04:41:00) [facility] 2012-03-02 09:41:000.0[facility] MmcdxqbYOGTWESBAP9088-50-13 09:41:00See Note (03/02/2012 04:41:00) [facility] XekpaytBYXVGPTYLU0303-59-42 09:41:001.0[facility] JravvglMYEGIWQOI4135-48-00 22:21:003.6[facility] NrabsasULESJQLGO8702-50-02 22:21:0025[facility] RlmleuzHOUXZJKCY4985-91-96 22:21:0097[facility] [place] LMNNFVIYT3116-61-11 22:21:000.4[facility] WjraahnEQVJZOWQD9618-90-27 22:21:008.1 [facility] DxkzyxgZOGERIRNB7482-61-60 22:21:0014[facility]annCHEMISTRY 2012-02-28 22:21:000.8[facility] HipdvqfVZHTNRSSR7021-56-13 22:21:0020[facility] IngcqjcBCZDVYIWF5177-37-41 22:21:004.5[facility] ZvexbykRETUTEQSF4927-92-87 22:21:001.3[facility] [place] [address] Patient Name: DANIA LUCIO MR #: [id number] : 1945 Age/Sex: 72/F Req #: [id number] Adm Physician: Ordered by: EMILY REDDY MD Report #: [id number] Location: MRI Room/Bed: Procedure: MRI/MRI ABDOMEN WOW [...]
[2020-04-22] MEDS ORDERED: MORPHINE SULFATE 2 MG/ML SYR 1ML IV PRN (17:15)
--- OUTSIDE RECORDS SUMMARY | 2020-04-22 17:27 | XMS REPORT | Clinical Summary ---
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
--- OUTSIDE RECORDS SUMMARY | 2020-04-22 17:28 | XMS REPORT | Continuity of Care Document ---
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 Sheriff [id number] Handler Name Role Phone [facility] [employer] Unavailable Un available Problems Problem Status Onset Date Classification Date Reported Comments Source UNK Active 0 10/28/2019 [facility] R05 Active 0 05/13/2019 [facility] LANMARX PROTOCOL Active 04/04/2019 [facility] R13.10 DYSPHAGIA, UNSPECIFIED, K21.9 G Active 01/13/2019 [facility] CHRONIC 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 Active 12/13/2018 [facility] BRONCHITIS Active 12/11/2018 [facility] ASTHMA WITH BRONCHITIS AND STATUS ASTHMA Active 12/11/2018 [facility] ASTHMA EXACERBATION Active 11/04/2018 [facility] 241.9 Active 07/24/2013 [facility] ABD/BACK PAIN Active 08/08/2012 [facility] THYROID NODULE Active 04/08/2012 [facility] CHRONIC COUGH/PE/SOB *PE PROTOCOL* STAT STAT * Active 03/22/2012 [facility] SHORTNESS OF BREATH Active 02/28/2012 [facility] PNEUMONIA Active 02/28/2012 [facility] Acute interstitial pneumonia A ctive Problem 04/2012 [facility] HT - Hypertension Active Problem 08/10/2012 [facility] Acute interstitial pneumonia (disorder) Active Problem 10/31/2019 [facility] Hypertensive disorder, systemic arterial (disorder) Active Problem 10/31/2019 [facility] Abnormal heart beat (finding) Resolved Problem [facility] Arthritis (disorder) Resolved Problem 10/31/2019 [facility] Asthma (disorder) Resolved Problem 10/31/2019 [facility] Cough (finding) Active Problem 10/31/2019 [facility] Pneumonia (disorder) Resolved Problem 10/31/2019 [facility] NONTOX NODUL GOITER NOS Active [facility] PAIN [facility] [place] COUGH Active [facility] UNSPECIFIED ASTHMA WITH (ACUTE) EXACERBA Active [facility] UNSPECIFIED ASTHMA WITH STATUS ASTHMATIC Active [facility] CHRONIC 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 Active [facility] DYSPHAGIA, UNSPECIFIED Active [facility] GASTRO-ESOPHAGEAL REFLUX DISEASE WITHOUT Active [facility] PNEUMONIA, ORGANISM NOS Active [facility] COUGH Active [facility] SHORTNESS OF BREATH Active [facility] Medications Medication Details Route Status Patient Instructions Ordering Provider Order Date Source Naloxone 0.1 mg, Route: IVP, Q 2MIN, Dosing Weight 68.182, kg, PRN Narcotic Reversal, Start date: 06/23/19 11:50:00 CDT, Duration: 4 doses or times, Stop date: Limited # of times Inactive 06/23/2019 [facility] Flumazenil 0.2 mg, Route: IVP, ONCE, Dosing Weight 68.182, kg, PRN Benzodiazepine Reversal, Start date: 06/23/19 11:50:00 CDT, Initial dose Inactive 06/23/2019 [facility] Sodium Chloride 0.9% IV 1000 mL 1,000 mL, Rate: 75 ml/hr, Infuse over: 13.3 hr, Route: IV, Dosing Weight 71.364 kg, Total Volume: 1,000, Start date: 06/23/19 10:06:00 CDT, Duration: 30 day, Stop date: 07/23/19 10:05:00 [employer] HISTORY PROFESSOR, 1.78, m2 Inactiv e 06/23/2019 [facility] Mupirocin 20 MG/ML Topical Cream TOP, TID, 0 Refill(s) Active 06/09/2019 [facility] Ventolin HFA 90 mcg/inh inhalation aerosol with adapte r 2 puff, INHALER, Q6H, PRN wheezing, coughing, or shortness of breath, # 8 gm, 1 Refill(s) Active 06/09/2019 [facility] Advair Diskus 250 mcg-50 mcg inhalation powder 1 puff, INHALATION, BID, # 1 ea, 3 Refill(s) No Longer Active 06/09/2019 [facility] Amitriptyline 10 mg, PO, Bedti me, 0 Refill(s) Active 06/09/2019 [facility] 72 HR Scopolamine 0.0139 MG/HR Transdermal Patch 1 patch, Route: TOP, Drug Form: ERFILM, Dosing Weight 69.545, kg, ONCE, Apply behind ear. Avoid use in elderly., Start date: 12/18/18 13:55:00 CDT, Stop date: 12/18/18 13:55:00 CDT Inactive 12/18/2018 [facility] Naloxone 0.1 mg, Route: SUB-Q, Q6H, Dosing Weight 69.545, kg, PRN Itching, Start date: 12/18/18 13:55:00 CDT, Duration: 30 day, Stop date: 01/17/19 13:54:00 CDT No Longer Active 12/18/2018 [facility] Ondansetron 4 mg, Route: IVP, ONCE, Dosing Weight 69.545, kg, PRN Nausea & Vomiting, Start date: 12/18/18 13:55:00 CDT No Longer Active 12/18/2018 [facility] Promethazine 6.25 mg, Route: I VPB, ONCE, Dosing Weight 69.545, kg, PRN Nausea & Vomiting, Start date: 12/18/18 13:55:00 CDT No Longer Active 12/18/2018 [facility] Diphenhydramine 12.5 mg, Route : IVP, Drug form: INJ, Q6H, Dosing Weight 69.545, kg, PRN Itching, Start date: 12/18/18 13:55:00 CDT, Duration: 30 day, Stop date: 01/17/19 13:54:00 CDT No Longer Active 12/18/2018 [facility] Meperidine 12.5 mg, Route: IVP , Q30Min, Dosing Weight 69.545, kg, PRN Other -See Comment, For shivering, Start date: 12/18/18 13:55:00 CDT, Duration: 2 doses or times, Stop date: Limited # of times No Longer Active 12/18/2018 [facility] Albuterol 0.83 MG/ML Inhalant Solution 2.49 mg, Route: NEB, Q20Min, Dosing Weight 69.545, kg, PRN Wheezing, Priority: STAT, Start date: 12/18/18 13:55:00 CDT, Duration: 30 day, Stop date: 01/17/19 13:54:00 CDT No Longer Active 12/18/2018 [facility] Flumazenil 0.2 mg, Route: IVP, PRN, Dosing Weight 69.545, kg, PRN Benzodiazepine Reversal, Initial dose, Start date: 12/18/18 13:55:00 CDT, Duration: 30 day, Stop date: 01/17/19 13:54:00 CDT No Longer Active 12/18/2018 [facility] Oxycodone 10 mg, Route: Dr hi SOUZA form: LIQ, Q4H, Dosing Weight 69.545, kg, PRN Pain Score 7-10, Start date: 12/18/18 13:55:00 CDT, Duration: 30 day, Stop date: 01/17/19 13:54:00 CDT No Longer Active 12/18/2018 [facility] Hydromorphone 0.5 mg, Route: I DATA MANAGER, Q5Min, Dosing Weight 69.545, kg, PRN Pain Score 7-10, Start date: 12/18/18 13:55:00 CDT, Duration: 4 doses or times, Stop date: Limited # of times No Longer Active 12/18/2018 [facility] Fentanyl 50 microgram, Route: IVP, Q5Min, Dosing Weight 69.545, kg, PRN Pain Score 7-10, Priority: Routine, Start date: 12/18/18 13:55:00 CDT, Duration: 2 doses or times, Stop date: Limited # of times No Longer Active 12/18/2018 [facility] Acetaminophen 1,000 mg, Route: IVPB, Drug form: INJ, ONCE, Dosing Weight 69.545, kg, PRN Pain Score 1-3, Start date: 12/18/18 13:55:00 CDT Inactive 12/18/2018 [facility] neostigmine (ANES) Route: IV, Drug form: INJ, ONCE, Stop date: 12/18/18 12:49:00 CDT Inactive 12/18/2018 [facility] glycopyrrolate (ANES) Route: I V, Drug form: INJ, ONCE, Stop date: 12/18/18 12:49:00 CDT Inactive 12/18/2018 [facility] Oxymetazoline hydrochloride 0.5 MG/ML Na sravan [place] [Afrin] 2 spray, Route: NASAL, Q2H, PRN Bleeding , Start date: 12/18/18 12:37:00 CDT, Duration: 3 day, Stop date: 12/21/18 12:36:00 CDT No Longer Active 12/18/2018 [facility] Acetaminophen 325 MG / Hydrocodone Favian trate 5 MG Oral Tablet 1 tab, Route: PO, Dosing Weight 69.545, kg, Q4H, PRN Pain Score 1-3, Start date: 12/18/18 12:37:00 CDT, Duration: 30 day, Stop date: 01/17/19 12:36:00 CDT No Longer Active 12/18/2018 [facility] Morphine 2 mg, Route: IVP, Q3H , Dosing Weight 69.545, kg, PRN Pain Score 1-3, Start date: 12/18/18 12:37:00 CDT, Duration: 30 day, Stop date: 01/17/19 12:36:00 CDT No Longer Active 12/18/2018 [facility] dexamethasone (ANES) Route: IV , Drug form: INJ, ONCE, Stop date: 12/18/18 12:08:00 CDT Inactive 12/18/2018 [facility] rocuronium (ANES) Route: IV, D rug form: INJ, ONCE, Stop date: 12/18/18 12:08:00 CDT Inactive 12/18/2018 [facility] lidocaine (ANES) Route: IV, Dr ug form: INJ, ONCE, Stop date: 12/18/18 11:53:00 CDT Inactive 12/18/2018 [facility] propofol (ANES) Route: IV, Harvey g form: INJ, ONCE, Stop date: 12/18/18 11:53:00 CDT Inactive 12/18/2018 [facility] fentaNYL (ANES) Route: IV, Harvey g form: INJ, ONCE, Stop date: 12/18/18 11:53:00 CDT Inactive 12/18/2018 [facility] ondansetron (ANES) Route: IV, Drug form: INJ, ONCE, Stop date: 12/18/18 11:53:00 CDT Inactive 12/18/2018 [facility] ceFAZolin (ANES) Route: IV, Dr ug form: INJ, ONCE, Stop date: 12/18/18 11:53:00 CDT Inactive 12/18/2018 [facility] midazolam (ANES) Route: IV, Dr ug form: SOLN, ONCE, Stop date: 12/18/18 11:28:00 CDT Inactive 12/18/2018 [facility] Lactated Ringers Injection IV (ANES) 1000 mL Route: IV, Total Volume: 1,000, Start date: 12/18/18 10:53:00 CDT, Stop date: 12/18/18 11:53:00 CDT Inactive 12/18/2018 [facility] Cefazolin 2 gm, Route: IVPB, O NCALL, Dosing Weight 69.545, kg, Start date: 12/18/18 10:00:00 CDT, Duration: 1 doses or times, ABX Indication: Surgical Prophylaxis No Longer Active 12/18/2018 [facility] Dexamethasone 8 mg, Route: IV, ONCALL, Dosing Weight 69.545, kg, Start date: 12/18/18 10:00:00 CDT, Duration: 30 day, Stop date: 01/17/19 9:59:00 CDT Inactive 12/18/2018 [facility] Calcium Chloride 0.0014 MEQ/ML / Potassi um Chloride 0.004 MEQ/ML / Sodium Chloride 0.103 MEQ/ML / Sodium Lactate 0.028 MEQ/ML Injectable Solution 1,000 mL, Rate: 25 ml/hr, Infuse over: 4 0 hr, Route: IV, Dosing Weight 69.545 kg, Total Volume: 1,000, Start date: 12/18/18 9:52:00 CDT, Duration: 30 day, Stop date: 01/17/19 9:51:00 CDT, 1.76, m2 Inactive 12/18/2018 [facility] Oxymetazoline hydrochloride 0.5 MG/ML Na sravan [place] [Afrin] 2 spray, Route: NASAL, PRE OP, PRN Nasal Congestion, Start date: 12/18/18 9:51:00 CDT, Duration: 3 day, Stop date: 12/21/18 9:50:00 CDT No Longer Active 12/18/2018 [facility] Epinephrine 0.01 MG/ML / Lidocaine [place] chloride 10 MG/ML Injectable Solution Notes: (Same as: Xylocaine w/Epinephrine ) No Longer Active 12/18/2018 [facility] montelukast 10 MG Oral Tablet [Singulair] 10 mg = 1 tab, PO, Bedtime, # 30 tab, 0 Refill(s) Active 12/13/2018 [facility] predniSONE 20 mg oral tablet 2 0 mg = 1 tab, PO, Daily, X 7 day, # 7 tab, 0 Refill(s) Active 12/13/2018 [facility] levothyroxine 25 mcg (0.025 mg) oral tablet 25 microgram = 1 tab, PO, Q630AM, 0 Refill(s) Active 12/13/2018 [facility] Codeine Phosphate 2 MG/ML / Guaifenesin 20 MG/ML Oral Solution 5 mL, PO, Q4H, PRN cough, X 8 day, # 120 mL, 0 Refill(s) Active 12/13/2018 [facility] Azelastine hydrochloride 0.137 MG/ACTUAT Metered Dose Nasal [place] 137 microgram =, INHALER, BID, PRN Conge stion | 1-2 sprays, # 1 ea, 0 Refill(s) Active 12/13/2018 [facility] Codeine Phosphate 2 MG/ML / Guaifenesin 20 MG/ML Oral Solution Notes: (Same As: Robitussin AC) Inactive 12/13/2018 [facility] Fluticasone propionate 0.05 MG/ACTUAT Me tered Dose Nasal [place] [Flonase] Notes: (Same as: Flonase) No Longer Active 12/12/2018 [facility] Nevis Saline Nasal No-Drip [place] 0.65% gel Notes: (Same as: [place], Deep Sea Nasal [place]). No Longer Active 12/12/2018 [facility] Thyroxine Notes: Take 1 hour b efore or 2 hours after meal; Enteral feeds may interefere with the absorption of this medication. (Same as:Levothroid) No Longer Active 12/12/2018 [facility] Protonix Notes: Tablet should not be chewed or crushed. (Same as: Protonix) No Longer Active 12/12/2018 [facility] Enoxaparin Notes: (Same as: Lo venox) No Longer Active 12/12/2018 [facility] Glucagon 1 mg, Route: IM, Drug form: PDR/INJ, PRN, Dosing Weight 70.455, kg, PRN Blood Glucose Results, Start date: 12/12/18 0:28:00 CDT, Duration: 30 day, Stop date: 01/11/19 0:27:00 CDT No Longer Active 12/12/2018 [facility] Dextrose 50% Syringe 25 gm, 50 mL, Route: IVP, Drug Form: INJ, Dosing Weight 70.455, kg, PRN, PRN Blood Glucose Results, Start date: 12/12/18 0:28:00 CDT, Duration: 30 day, Stop date: 01/11/19 0:27:00 CDT No Longer Active 12/12/2018 [facility] methylPREDNISolone SODium SUCCinate Notes: (Same as:Solu-MEDROL, A-Methapred) N o Longer Active 12/12/2018 [facility] montelukast Notes: (Same as:Si ngulair) No Longer Active 12/12/2018 [facility] Mucinex Notes: (Same as: Guaif enesin LA, Humibid [place], Mucinex) "Do Not Crush" Take medication with plenty of water. No Longer Active 12/12/2018 [facility] Docusate Notes: (Same as: Cola ce) (Do Not Crush) No Longer Active 12/11/2018 [facility] benzonatate 200 mg oral capsule 200 mg = 1 cap, PO, TID, # 30 cap, 0 Refill(s) Active 12/11/2018 [facility] omeprazole 40 mg oral delayed release capsule 40 mg = 1 cap, PO, Daily, # 30 cap, 0 Refill(s) Active 12/11/2018 [facility] Zosyn Notes: (Same as: Zosyn) Dosing based on Piperacillin component MEDICATION WASTE Product Size: 3375 mg Product Wasted: ___ mg No Longer Active 12/11/2018 [facility] RN- PLs Update Height, Weight & Allergies in Care4 RN- PLs Update Height, Weight & Allergies in Care4, Reminder, Drug form: MISC, Route: MISC, Q2H, 12/11/18 14:38:00 CDT, Duration: 1 day, Stop date: 12/12/18 14:00:00 CDT Inactive 12/11/2018 [facility] Albuterol 0.833 MG/ML / Ipratropium Brom sanjay 0.167 MG/ML Inhalant Solution Notes: (Same as: Duoneb) No Longer Active 12/11/2018 [facility] Albuterol 0.83 MG/ML Inhalant Solution Notes: SEE RT DOCUMENTATION (Same as: Proventil) No Longer Active 12/11/2018 [facility] Glucagon 1 mg, Route: IM, Drug form: PDR/INJ, PRN, Dosing Weight 71.96, kg, PRN Blood Glucose Results, Start date: 12/11/18 13:18:00 CDT, Duration: 30 day, Stop date: 01/10/19 13:17:00 CDT No Longer Active 12/11/2018 [facility] Dextrose 50% Syringe 25 gm, 50 mL, Route: IVP, Drug Form: INJ, Dosing Weight 71.96, kg, PRN, PRN Blood Glucose Results, Start date: 12/11/18 13:18:00 CDT, Duration: 30 day, Stop date: 01/10/19 13:17:00 CDT No Longer Active 12/11/2018 [facility] Simvastatin Notes: (Same as: Lashell ocor) Inactive 11/09/2018 [facility] Loratadine 10 mg, Route: PO, D aily, Dosing Weight 71.96, kg, Start date: 11/08/18 9:00:00 AFRICAN HISTORY PROFESSOR, Duration: 30 day, Stop date: 12/07/18 9:00:00 CDT Inactive 11/08/2018 [facility] Amlodipine Notes: (Same as: No rvasc) Inactive 11/08/2018 [facility] cetirizine Notes: (Same As: Thom rtec) Inactive 11/08/2018 [facility] Thyroxine Notes: Take 1 hour b efore or 2 hours after meal; Enteral feeds may interefere with the absorption of this medication. (Same as:Levothroid) Inactive 11/08/2018 [facility] predniSONE 10 mg oral tablet S ee Special Instructions, PO, Daily, 12 day regimen: Days 1-4 - 30 mg (3 tabs) daily Days 5-8 - 20 mg (2 tabs) daily Days 9-12 - 10 mg (1 tab) daily, X 12 day, # 24 tab, 0 Refill(s) Active 11/08/2018 [facility] Amoxicillin 875 MG / Clavulanate 125 MG Oral Tablet [Augmentin 875-mg] 1 tab, PO, [id number], # 20 tab, 0 Refill(s) Active 11/08/2018 [facility] Fluticasone propionate 0.05 MG/ACTUAT Me tered Dose Nasal [place] [Flonase] 100 microgram = 2 spray, Each Affected N ostril, BID, # 10 mL, 0 Refill(s) Active 11/08/2018 [facility] Solu-Medrol Notes: (Same as:So ronnie-MEDROL, A-Methapred) Inactive 11/08/2018 [facility] Amoxicillin 875 MG / Clavulanate 125 MG Oral Tablet [Augmentin 875-mg] Notes: With food. (Same as: Augmentin 87 5) No Longer Active 11/08/2018 [facility] Ibuprofen Notes: (Same as: Mot rin) "Do Not Crush" Take with food. No Longer Active 11/07/2018 [facility] Ambien Notes: (Same As: Ambien) No Longer Active 11/07/2018 [facility] Famotidine 20 MG Oral Tablet [Pepcid] Notes: (Same as: Pepcid) No Longer Active 11/06/2018 [facility] Fluticasone propionate 0.05 MG/ACTUAT Me tered Dose Nasal [place] [Flonase] Notes: (Same as: Flonase) No Longer Active 11/05/2018 [facility] Budesonide 0.25 MG/ML Inhalant Solution [Pulmicort] Notes: (Same As: Pulmicort) No Longer Active 11/05/2018 [facility] Glucagon 1 mg, Route: IM, Drug form: PDR/INJ, PRN, Dosing Weight 71.96, kg, PRN Blood Glucose Results, Start date: 11/04/18 16:03:00 AFRICAN HISTORY PROFESSOR, Duration: 30 day, Stop date: 12/04/18 17:02:00 CDT No Longer Active 11/04/2018 [facility] Dextrose 50% Syringe 12.5 gm, 25 mL, Route: IVP, Drug Form: INJ, Dosing Weight 71.96, kg, PRN, PRN Blood Glucose Results, Start date: 11/04/18 16:03:00 AFRICAN HISTORY PROFESSOR, Duration: 30 day, Stop date: 12/04/18 17:02:00 CDT No Longer Active 11/04/2018 [facility] Solu-Medrol Notes: (Same as:So ronnie-MEDROL, A-Methapred) No Longer Active 11/04/2018 [facility] Loratadine 10 mg, PO, Daily, 0 Refill(s) Active 11/04/2018 [facility] Ciprofloxacin 500 MG Oral Tablet [Cipro] 500 mg = 1 tab, PO, Q12H, # 20 tab, 0 Refill(s) No Longer Active 11/04/2018 [facility] Please update height, weight, allergies on profile Please update height, weight, allergies on profile, ATTN:RN, Drug form: MISC, Route: MISC, Q15Min, 11/04/18 15:45:00 AFRICAN HISTORY PROFESSOR, Duration: 4 hr, Stop date: 11/04/18 19:30:00 AFRICAN HISTORY PROFESSOR Inactive 11/04/2018 [facility] Albuterol 0.417 MG/ML Inhalant Solution Notes: SEE RT DOCUMENTATION (Same as: Proventil) No Longer Active 11/04/2018 [facility] Vasotec Notes: (Same as: Vasot ec-IV) No Longer Active 11/04/2018 [facility] cefepime Notes: (Same As: Stanislav alvarenga) MEDICATION WASTE Product Size: 1000 mg Product Wasted: ___ mg No Longer Active 11/04/2018 [facility] Albuterol 0.833 MG/ML / Ipratropium Brom sanjay 0.167 MG/ML Inhalant Solution [DuoNeb] Notes: (Same as: Duoneb) No Longer Active 11/04/2018 [facility] Codeine Phosphate 2 MG/ML / Guaifenesin 20 MG/ML Oral Solution Notes: (Same As: Robitussin AC) No Longer Active 11/04/2018 [facility] Zofran Notes: (Same as: Zofran ) MEDICATION WASTE Product Size: 4 mg Product Wasted: ___ mg No Longer Active 11/04/2018 [facility] Flexeril 10 mg oral tablet 10 mg, PO, TID, PRN, 30 tab, Muscle Spasm, Substitution Allowed PO Active Goll a 08/09/2012 [facility] [place] 5/325 oral tablet 1-2 ta b, PO, Q4-6H, PRN, 15 tab, Pain, Substitution Allowed, Maintenance PO Active Goll a 08/09/2012 [facility] Flexeril 10 mg, Route: PO, ONC E, Dosing Weight 69.545, kg, Priority: STAT, Start date: 08/08/12 20:05:00, Stop date: 08/08/12 20:05:00 PO No Longer Active [facility] 08/09 [facility] morphine Sulfate 2 mg, 1 mL, R oute: IVP, Drug form: INJ, ONCE, Dosing Weight 69.545, kg, Priority: STAT, Start date: 08/08/12 19:14:00, Stop date: 08/08/12 19:14:00 IVP No Longer Active [facility] 08/09/2012 [facility] ondansetron 4 mg, 2 mL, Route: IVP, Drug form: INJ, ONCE, Dosing Weight 69.545, kg, Priority: STAT, Start date: 08/08/12 19:14:00, Stop date: 08/08/12 19:14:00 IVP No Longer Active [facility] 08/09/2012 [facility] Saline Flush 0.9% 5 mL, Route: IVP, Drug Form: INJ, Dosing Weight 69.545, kg, PRN, PRN Line Flush, Start date: 08/08/12 19:14:00, Duration: 24 hr, Stop date: 08/09/12 19:13:00 IVP No Longer Active [facility] 08/09/2012 [facility] Sodium Chloride 0.9% (Bolus) IV 500 mL, 500 ml/hr, Route: IV, Drug Form: INJ, Dosing Weight 69.545, kg, ONCE, Bolus at 1,000 ml/hr, STAT, Start date: 08/08/12 19:14:00, Stop date: 08/08/12 19:14:00 IV No Longer Active Ryan 08/09/2012 [facility] ProAir HFA 90 mcg/inh inhalation aerosol with adapter 2 puff, INHALATION, Q6H, PRN, 9 gm, 1, 1, for wheezing, Substitution Allowed, Soft Stop, AERO INHALATION Active [facility] 03/06/2012 [facility] Prilosec 20 mg oral delayed release capsule 20 mg, 1 cap, PO, Daily, 30 cap, Substitution Allowed PO Active [facility]pt [facility] 03/06/2012 [facility] predniSONE 10 mg oral tablet 1 0 mg, 1 tab, PO, Daily, 10 tab, Substitution Allowed, TAB PO Active Gupt a 03/06/2012 [facility] Mucinex 600 mg oral tablet, extended release 600 mg, 1 tab, PO, Daily, 10 tab, Substitution Allowed, ERTAB PO Active [facility] 03/06/2012 [facility] methylPREDNISolone 20 mg, 0.5 mL, Route: IV, Drug form: INJ, [id number], Start date: 03/01/12 10:00:00, Duration: 30 day, Stop date: 03/30/12 22:00:00 IV No Longer Active [facility] 03/01/2012 [facility] Tessalon Perles 200 mg, 2 cap, Route: PO, Drug form: CAP, Q8H, Start date: 03/01/12 8:00:00, Duration: 30 day, Stop date: 03/31/12 0:00:00 PO No Longer Active [facility] 03/01/2012 [facility] methylPREDNISolone 40 mg, 1 mL , Route: IV, Drug form: INJ, ONCE, Start date: 03/01/12 2:28:00, Stop date: 03/01/12 2:28:00 IV No Longer Active [facility] 03/01 [facility] azithromycin 500 mg, Route: IV PB, [id number], Start date: 02/29/12 21:00:00, Duration: 30 day, Stop date: 03/29/12 21:00:00 IVPB No Longer Active Boccardo 03/01/2012 [facility] enoxaparin 40 mg, 0.4 mL, Rout e: SUB-Q, Drug form: INJ, [id number], Start date: 02/29/12 21:00:00, Duration: 30 day, Stop date: 03/29/12 21:00:00 SUB-Q No Longer Active [facility] 03/01/2012 [facility] ceftriaxone 1 gm, Route: IVPB, Drug form: PDR/INJ, [id number], Start date: 02/29/12 18:00:00, Duration: 30 day, Stop date: 03/29/12 18:00:00 IVPB No Longer Active [facility]occardo 02/29/2012 [facility] pneumococcal 23-valent vaccine 0.5 ml, Route: IM, Drug Form: INJ, Start date: 02/29/12 9:00:00, Stop date: 02/29/12 9:00:00 Inactive SYSTEM 02/29/2012 [facility] levothyroxine 25 microgram, Ro navajo: PO, Drug form: TAB, [id number], Start date: 02/29/12 9:00:00, Duration: 30 day, Stop date: 03/30/12 6:30:00 PO No Longer Active [facility]occardo 02/29/2012 [facility] simvastatin 10 mg, 1 tab, Rout e: PO, Drug form: TAB, QAM, Start date: 02/29/12 9:00:00, Duration: 30 day, Stop date: 03/29/12 9:00:00 PO No Longer Active [facility]oc[facility] 02/29/2012 [facility] amLODipine 5 mg, 1 tab, Route: PO, Drug form: TAB, Daily, Start date: 02/29/12 9:00:00, Duration: 30 day, Stop date: 03/29/12 9:00:00 PO No Longer Active [facility]occardo 02/29/2012 [facility] Tussionex [employer] oral suspension, extended releas e 5 ml, Route: PO, Drug Form: SUSPER, Q12H, PRN Cough/Congestion, Start date: 02/29/12 8:36:00, Duration: 30 day, Stop date: 03/30/12 8:35:00 PO No Longer Active [facility]occardo 02/29/2012 [facility] albuterol 0.083% inhalation solution 2.49 mg, 3 mL, Route: NEB, Drug form: SOLN, RQ6H, Priority: Routine, Start date: 02/29/12 2:00:00, Duration: 30 day, Stop date: 03/29/12 20:00:00 NEB No Longer Active [facility]occardo 02/29/2012 [facility] ipratropium 0.5 mg, 2.5 mL, Ro navajo: NEB, Drug form: SOLN, RQ6H, Priority: Routine, Start date: 02/29/12 2:00:00, Duration: 30 day, Stop date: 03/29/12 20:00:00 NEB No Longer Active [facility]occardo 02/29/2012 [facility] DuoNeb inhalation solution 3 m L, Route: NEB, Drug Form: SOLN, RQ6H, Start date: 02/29/12 2:00:00, Duration: 30 day, Stop date: 03/29/12 20:00:00 NEB No Longer Active Boccardo 02/29/2012 [facility] ondansetron 4 mg, 2 mL, Route: IVP, Drug form: INJ, Q6H, PRN Nausea & Vomiting, Start date: 02/28/12 21:39:00, Duration: 30 day, Stop date: 03/29/12 21:38:00 IVP No Longer Active [facility]occardo 02/29/2012 [facility] acetaminophen 650 mg, 2 tab, R oute: PO, Drug form: TAB, Q4H, PRN Pain/Fever, Start date: 02/28/12 21:39:00, Duration: 30 day, Stop date: 03/29/12 21:38:00 PO No Longer Active Boccardo 02/29/2012 [facility] Saline Flush 0.9% 5 ml, Route: IVP, Drug Form: INJ, PRN, PRN Line Flush, Start date: 02/28/12 21:39:00, Duration: 30 day, Stop date: 03/29/12 21:38:00 IVP No Longer Active Boccardo 02/29/2012 [facility] guaifenesin 100 mg, 5 mL, Rout e: PO, Drug form: LIQ, Q4H, PRN Cough/Congestion, Start date: 02/28/12 21:37:00, Duration: 30 day, Stop date: 03/29/12 21:36:00 PO No Longer Active Boccardo 02/29/2012 [facility] codeine-guaifenesin 10 mg-100 mg/5 mL oral syrup 5 mL, Route: PO, Drug Form: LIQ, Q4H, PRN Cough, Start date: 02/28/12 21:37:00, Duration: 30 day, Stop date: 03/29/12 21:36:00 PO No Longer Active Boccardo 02/29/2012 [facility] Sodium Chloride 0.9% (Bolus) IV 500 mL 500 mL, Rate: 500 ml/hr, Infuse over: 1 hr, Route: IV, Dosing Weight 64.091 kg, Total Volume: 500, Bolus Dose, Priority: STAT, Start date: 02/28/12 20:41:00, Duration: 1 doses or times, Stop date: 02/28/12 21:40:00 IV No Longer Active Steiner 02/29/2012 [facility] acetaminophen 650 mg, Route: P O, Drug form: TAB, ONCE, Priority: STAT, Start date: 02/28/12 20:39:00, Stop date: 02/28/12 20:39:00 PO No Longer Active Steiner 02/28 [facility] TL-Hist DM oral liquid 5 mL, P O, Q6H, PRN, as needed for cough and congestion, Substitution Allowed, Maintenance PO Active 02/29/2012 [facility] levofloxacin 500 mg oral tablet 500 mg, 1 tab, PO, Daily, Substitution Allowed PO Active 02/29/2012 [facility] Lamisil 250 mg oral tablet 250 mg, 1 tab, PO, Daily, Substitution Allowed PO Active 02/29/2012 [facility] simvastatin 10 mg, PO, QAM, Cramer bstitution Allowed PO Active Boccardo 02/29/2012 [facility] levothyroxine 25 mcg (0.025 mg) oral tablet 25 microgram, 1 tab, PO, Daily, Substitution Allowed PO Active Boccardo 02/29/2012 [facility] amLODipine 5 mg oral tablet 5 mg, 1 tab, PO, Daily, Substitution Allowed PO Active Boccardo 02/29/2012 [facility] NS (Bolus) IV 1,000 mL 1,000 m L, Rate: 1,000 ml/hr, Infuse over: 1 hr, Route: IV, Dosing Weight 64.091 kg, Total Volume: 1,000, Priority: STAT, Start date: 02/28/12 18:28:00, Duration: 1 doses or times, Stop date: 02/28/12 19:27:00, Bolus DoseBolus Dose IV No Longer Active Steiner 02/28/2012 [facility] azithromycin 500 mg, 250 mL, R oute: IVPB, Drug form: PDR/INJ, ONCE, Priority: STAT, Start date: 02/28/12 18:26:00, Stop date: 02/28/12 18:26:00 IVPB No Longer Active Steiner 02/28/2012 [facility] albuterol 0.083% inhalation solution 2.49 mg, Route: NEB, Drug form: SOLN, ONCE, Priority: STAT, Start date: 02/28/12 18:26:00, Stop date: 02/28/12 18:26:00 NEB No Longer Active Steiner 02/28/2012 [facility] ipratropium 0.02% inhalation solution 0.5 mg, Route: NEB, ONCE, Priority: STAT, Start date: 02/28/12 18:26:00, Stop date: 02/28/12 18:26:00 NEB No Longer Active Steiner 02/28/2012 [facility] Rocephin 1 gm, Route: IVPB, ON CE, Priority: STAT, Start date: 02/28/12 18:26:00, Stop date: 02/28/12 18:26:00 IVPB No Longer Active Steiner 02/28/2012 [facility] Allergies, Adverse Reactions, Alerts Substance Category Reaction Severity Reaction type Status Date Reported Comments Source No Known Medication Allergies Assertion Drug aller gy [facility] Immunizations Immunization Date Given Site Status Last Updated Comments Source influenza virus vaccine, inactivated 11/08/2018 Left deltoid completed Isabel [facility] pneumococcal 13-valent vaccine 11/08/2018 Right deltoid completed Isabel [facility] pneumococcal 23-valent vaccine 02/29/2012 completed Elodia seo [facility] pneumococcal 23-valent vaccine 02/29/2012 Left deltoid completed Arroyo Marilyn [facility] Results Order Name Results Value Reference Range Date Interpretation Comments Source HEMATOLOGY PTT 20.0 22.9 - 35.8 12/18/2018 Result Comment: no clot, respun and rera n 12/18/2018 10:58 bp [facility] INR 0.93 0.85 - 1.17 12/18/2018 [facility] PT 12.3 12.0 - 14.7 12/18/2018 [facility] MCHC 32.8 32.0 - 36.0 12/18/2018 [facility] RDW 14.6 11.5 - 14.5 12/18/2018 [facility] MPV 8.2 7.4 - 10.4 12/18/2018 [facility] Platelet 302 133 - 450 12/18/2018 [facility] MCV 90.4 80.0 - 98.0 12/18/2018 [facility] MCH 29.7 27.0 - 31.0 12/18/2018 [facility] Hgb 14.3 12.0 - 16.0 12/18/2018 [facility] Hct 43.5 36.0 - 48.0 12/18/2018 [facility] WBC 13.2 3.7 - 10.4 12/18/2018 [facility] RBC 4.81 4.20 - 5.40 12/18/2018 [facility] Segs 77.5 45.0 - 75.0 12/18/2018 [facility] Basophils 0.4 0.0 - 1.0 12/18/2018 [facility] Monocytes # 0.7 0.0 - 0.8 12/18/2018 [facility] Lymphocytes # 2.2 1.0 - 5.5 12/18/2018 [facility] Neutrophils # 10.2 1.5 - 8.1 12/18/2018 [facility] Basophils # 0.1 0.0 - 0.2 12/18/2018 [facility] Lymphocytes 16.9 20.0 - 40.0 12/18/2018 [facility] HEMATOLOGY Monocytes 5.1 2.0 - 12.0 12/18/2018 [facility] HEMATOLOGY Eosinophils 0.1 0.0 - 4.0 12/18/2018 [facility] IMMUNOLOGY Aspergillus fumigatus IgG 9.9 0.0 - 1.9 12/12/2018 Result Comment: Results for this test ar e for Investigational Purposes Only
by the assay's protocol officer. The performance
characteristics of this product have not been establish ed.
Results should not be used as a diagnostic procedure
without confirmation of the diagnosis by another medically
established diagnostic product or procedure.
Performed At: [facility]
[address] [place], [place] [id number]
Vikram Prado MD Ph:[phone] [facility] SPECIAL CHEMISTRY Hgb A1C 6.3 <=5.6 % 12/12/2018 [facility] CHEM PANEL Phosphorus 3.4 2.5 - 4.5 12/11/2018 [facility] CHEM PANEL A/G Ratio 1.1 0.7 - 1.6 12/11/2018 [facility] CHEM PANEL Globulin 3.5 2.7 - 4.2 12/11/2018 [facility] CHEM PANEL B/C Ratio 23 6 - 25 12/11/2018 [facility] CHEM PANEL AGAP 9.9 10.0 - 20.0 12/11/2018 [facility] PANEL eGFR 80 12/11/2018 Result Comment: The [...] PANEL ALT 35 0 - 65 12/11/2018 [facility] CHEM PANEL Albumin Lvl 3.8 3.5 - 5.0 12/11/2018 [facility] CHEM PANEL AST 11 0 - 37 12/11/2018 [facility] CHEM PANEL CO2 25 24 - 32 12/11/2018 [facility] CHEM PANEL Chloride Lvl 107 95 - 109 12/11/2018 [facility] CHEM PANEL Total Protein 7.3 6.4 - 8.4 12/11/2018 [facility] CHEM PANEL Calcium Lvl 9.2 8.5 - 10.5 12/11/2018 [facility] CHEM PANEL Sodium Lvl 138 135 - 145 12/11/2018 [facility] CHEM PANEL Potassium Lvl 3.9 3.5 - 5.1 12/11/2018 [facility] CHEM PANEL Creatinine Lvl 0.75 0.50 - 1.40 12/11/2018 [facility] CHEM PANEL BUN 17 7 - 22 12/11/2018 [facility] CHEM PANEL Glucose Lvl 214 70 - 99 12/11/2018 [facility] CHEM PANEL Magnesium Lvl 2.6 1.8 - 2.4 12/11/2018 [facility] HEMATOLOGY Platelet 359 133 - 450 12/11/2018 [facility] HEMATOLOGY MPV 8.0 7.4 - 10.4 12/11/2018 [facility] HEMATOLOGY RDW 14.3 11.5 - 14.5 12/11/2018 [facility] HEMATOLOGY MCHC 33.5 32.0 - 36.0 12/11/2018 [facility] HEMATOLOGY MCH 30.1 27.0 - 31.0 12/11/2018 [facility] HEMATOLOGY RBC 4.49 4.20 - 5.40 12/11/2018 [facility] HEMATOLOGY Hgb 13.5 12.0 - 16.0 12/11/2018 [facility] HEMATOLOGY WBC 11.7 3.7 - 10.4 12/11/2018 [facility] HEMATOLOGY MCV 89.9 80.0 - 98.0 12/11/2018 [facility] HEMATOLOGY Hct 40.3 36.0 - 48.0 12/11/2018 [facility] HEMATOLOGY Lymphocytes 22.5 20.0 - 40.0 12/11/2018 [facility] HEMATOLOGY Monocytes 6.9 2.0 - 12.0 12/11/2018 [facility] HEMATOLOGY Basophils 0.4 0.0 - 1.0 12/11/2018 [facility] HEMATOLOGY Lymphocytes # 2.6 1.0 - 5.5 12/11/2018 [facility] HEMATOLOGY Neutrophils # 8.2 1.5 - 8.1 12/11/2018 [facility] HEMATOLOGY Eosinophils 0.3 0.0 - 4.0 12/11/2018 [facility] HEMATOLOGY Basophils # 0.1 0.0 - 0.2 12/11/2018 [facility] HEMATOLOGY Monocytes # 0.8 0.0 - 0.8 12/11/2018 [facility] HEMATOLOGY Segs 69.9 45.0 - 75.0 12/11/2018 [facility] HEMATOLOGY Sed Rate 13 0 - 20 12/11/2018 [facility] IMMUNOLOGY IgE Lvl 749.0 10.0 - 100.0 12/11/2018 [facility] Hgb 12.4 12.0 - 16.0 11/07/2018 [facility] Hct 37.4 36.0 - 48.0 11/07/2018 [facility] MCV 89.9 80.0 - 98.0 11/07/2018 [facility] MCH 29.8 27.0 - 31.0 11/07/2018 [facility] MCHC 33.2 32.0 - 36.0 11/07/2018 [facility] RDW 14.4 11.5 - 14.5 11/07/2018 [facility] Platelet 329 133 - 450 11/07/2018 [facility] MPV 8.3 7.4 - 10.4 11/07/2018 [facility] WBC 17.9 3.7 - 10.4 11/07/2018 [facility] RBC 4.16 4.20 - 5.40 11/07/2018 [facility] Basophils 0.1 0.0 - 1.0 11/07/2018 [facility] Lymphocytes # 1.3 1.0 - 5.5 11/07/2018 [facility] Neutrophils # 16.3 1.5 - 8.1 11/07/2018 [facility] Monocytes # 0.4 0.0 - 0.8 11/07/2018 [facility] HEMATOLOGY RBC Morph Bonnie l (11/07/18 5:04 AM) 11/07/2018 [facility] HEMATOLOGY Plt Morph Bonnie l (11/07/18 5:04 AM) 11/07/2018 [facility] HEMATOLOGY Segs 90.8 45.0 - 75.0 11/07/2018 [facility] Lymphocytes 7.0 20.0 - 40.0 11/07/2018 [facility] Monocytes 2.1 2.0 - 12.0 11/07/2018 [facility] MPV 7.9 7.4 - 10.4 11/06/2018 [facility] MCV 88.7 80.0 - 98.0 11/06/2018 [facility] Hct 38.1 36.0 - 48.0 11/06/2018 [facility] Hgb 12.6 12.0 - 16.0 11/06/2018 [facility] MCH 29.4 27.0 - 31.0 11/06/2018 [facility] RDW 14.2 11.5 - 14.5 11/06/2018 [facility] Platelet 324 133 - 450 11/06/2018 [facility] MCHC 33.1 32.0 - 36.0 11/06/2018 [facility] WBC 20.1 3.7 - 10.4 11/06/2018 [facility] RBC 4.30 4.20 - 5.40 11/06/2018 [facility] Gram Stain Report Gram Stain Perf ormed By: [facility] 11/05/2018 [facility] Culture: Respiratory w/Gram Stain N ormal Respiratory Lilian Isolated 11/05/2018 [facility] CHEM PANEL Procalcitonin Lvl <0.05 0.00 - 0.10 11/05/2018 [facility] ELECTROLYTES AGAP 11.1 10.0 - 20.0 11/05/2018 [facility] ELECTROLYTES eGFR 88 11/05/2018 Result [...] should be multiplied by the estimated BMI. [facility] ELECTROLYTES CO2 24 24 - 32 11/05/2018 [facility] ELECTROLYTES Calcium Lvl 9.0 8.5 - 10.5 11/05/2018 [facility] ELECTROLYTES Creatinine Lvl 0.6 8 0.50 - 1.40 11/05/2018 [facility] ELECTROLYTES Sodium Lvl 140 135 - 145 11/05/2018 [facility] ELECTROLYTES Glucose Lvl 140 70 - 99 11/05/2018 [facility] ELECTROLYTES BUN 13 7 - 22 11/05/2018 [facility] ELECTROLYTES Chloride Lvl 109 95 - 109 11/05/2018 [facility] ELECTROLYTES Potassium Lvl 4.1 3.5 - 5.1 11/05/2018 [facility] HEMATOLOGY Hct 40.8 36.0 - 48.0 11/05/2018 [facility] HEMATOLOGY MCH 29.8 27.0 - 31.0 11/05/2018 [facility] HEMATOLOGY MCV 89.3 80.0 - 98.0 11/05/2018 [facility] MCHC 33.4 32.0 - 36.0 11/05/2018 [facility] HEMATOLOGY MPV 8.2 7.4 - 10.4 11/05/2018 [facility] HEMATOLOGY Platelet 324 133 - 450 11/05/2018 [facility] HEMATOLOGY RDW 13.9 11.5 - 14.5 11/05/2018 [facility] HEMATOLOGY WBC 11.3 3.7 - 10.4 11/05/2018 [facility] RBC 4.57 4.20 - 5.40 11/05/2018 [facility] Hgb 13.6 12.0 - 16.0 11/05/2018 [facility] CHEMISTRY Bili Direct <0.1 0.0 - 0.3 08/09/2012 Normal [facility] CHEMISTRY CK MB Index 0.7 0.0 - 2.5 08/09/2012 Normal [facility] CHEMISTRY Total CK 172 12 - 191 08/09/2012 Normal [facility] CHEMISTRY CK MB 1.2 0.5 - 3.6 08/09/2012 Normal [facility] CHEMISTRY Troponin-I <0.02 0.00 - 0.40 08/09/2012 Normal [facility] CHEMISTRY eGFR 95 08/09/2012 NA [...] should be multiplied by the estimated BMI. [facility] CHEMISTRY Albumin Lvl 4.0 3.5 - 5.0 08/09/2012 Normal [facility] CHEMISTRY AGAP 14.0 10.0 - 20.0 08/09/2012 Normal [facility] CHEMISTRY Potassium Lvl 4.0 3.5 - 5.1 08/09/2012 Normal [facility] CHEMISTRY Sodium Lvl 142 135 - 145 08/09/2012 Normal [facility] CHEMISTRY CO2 25 24 - 32 08/09/2012 Normal [facility] CHEMISTRY Chloride Lvl 107 95 - 109 08/09/2012 Normal [facility] CHEMISTRY Calcium Lvl 8.6 8.5 - 10.5 08/09/2012 Normal [facility] CHEMISTRY Creatinine Lvl 0.6 0.5 - 1.4 08/09/2012 Normal [facility] CHEMISTRY Glucose Lvl 104 70 - 99 08/09/2012 [place] <sup>2</sup>Interpretive Data: Adult ref erence range values reflect the clinical guidelines
of the [place] [employer]. [facility] CHEMISTRY Alk Phos 91 39 - 136 08/09/2012 Normal [facility] CHEMISTRY Bili Total 0.2 0.2 - 1.3 08/09/2012 Normal [facility] CHEMISTRY BUN 12 7 - 22 08/09/2012 Normal [facility] CHEMISTRY A/G Ratio 1.1 0.7 - 1.6 08/09/2012 Normal [facility] CHEMISTRY B/C Ratio 20 6 - 25 08/09/2012 Normal [facility] CHEMISTRY Globulin 3.6 2.0 - 4.0 08/09/2012 Normal [facility] CHEMISTRY ALT 32 0 - 65 08/09/2012 Normal [facility] CHEMISTRY AST 19 0 - 37 08/09/2012 Normal [facility] CHEMISTRY Total Protein 7.6 6.4 - 8.4 08/09/2012 Normal [facility] CHEMISTRY Lipase Lvl 248 73 - 393 08/09/2012 Normal [facility] HEMATOLOGY Monocytes # 0.5 0.0 - 0.8 08/09/2012 Normal [facility] HEMATOLOGY Eosinophils # 0.2 0.0 - 0.5 08/09/2012 Normal [facility] HEMATOLOGY Basophils # 0.1 0.0 - 0.2 08/09/2012 Normal [facility] HEMATOLOGY Monocytes 6.8 2.0 - 12.0 08/09/2012 Normal [facility] HEMATOLOGY Basophils 1.3 0.0 - 1.0 08/09/2012 [place] [facility] HEMATOLOGY Eosinophils 2.7 0.0 - 4.0 08/09/2012 Normal [facility] HEMATOLOGY Lymphocytes # 2.5 1.0 - 5.5 08/09/2012 Normal [facility] HEMATOLOGY Segs-Bands # 4.5 1.5 - 8.1 08/09/2012 Normal [facility] HEMATOLOGY Lymphocytes 31.7 20.0 - 40.0 08/09/2012 Normal [facility] HEMATOLOGY Segs 57.5 45.0 - 75.0 08/09/2012 Normal [facility] HEMATOLOGY INR 0.90 0.85 - 1.17 08/09/2012 Normal <sup>3</sup>Interpretive Data: RECOMMEND ED RANGES FOR PROTIME INR:
2.0-3.0 for most medical and surgical thromboembolic states.
2.5-3.5 for artificial heart valves and recurrent embolism.

INR SHOULD BE USED ONLY FOR PATIENTS ON STABLE ANTICOAGULANT THERAPY. [facility] HEMATOLOGY PTT 26.1 22.9 - 35.8 08/09/2012 Normal <sup>4</sup>Interpretive Data: Heparin T herapeutic Range: 57 - 92 Seconds [facility] HEMATOLOGY PT 12.4 12.0 - 14.7 08/09/2012 Normal [facility] HEMATOLOGY Platelet 337 133 - 450 08/09/2012 Normal [facility] HEMATOLOGY MPV 7.4 7.4 - 10.4 08/09/2012 Normal [facility] HEMATOLOGY MCV 90.2 81.0 - 99.0 08/09/2012 Normal [facility] HEMATOLOGY Hct 38.8 36.0 - 48.0 08/09/2012 Normal [facility] HEMATOLOGY MCHC 33.8 32.0 - 36.0 08/09/2012 Normal [facility] HEMATOLOGY MCH 30.5 27.0 - 31.0 08/09/2012 Normal [facility] HEMATOLOGY RDW 13.8 11.5 - 14.5 08/09/2012 Normal [facility] HEMATOLOGY RBC 4.30 4.20 - 5.40 08/09/2012 Normal [facility] HEMATOLOGY Hgb 13.1 12.0 - 16.0 08/09/2012 Normal [facility] HEMATOLOGY WBC 7.9 3.7 - 10.4 08/09/2012 Normal [facility] CHEMISTRY AGAP 13.0 10.0 - 20.0 03/22/2012 Normal [facility] CHEMISTRY Calcium Lvl 9.0 8.5 - 10.5 03/22/2012 Normal [facility] CHEMISTRY CO2 26 24 - 32 03/22/2012 Normal [facility] CHEMISTRY Chloride Lvl 106 95 - 109 03/22/2012 Normal [facility] CHEMISTRY Potassium Lvl 4.0 3.5 - 5.1 03/22/2012 Normal [facility] CHEMISTRY Creatinine Lvl 0.6 0.5 - 1.4 03/22/2012 Normal [facility] CHEMISTRY Sodium Lvl 141 135 - 145 03/22/2012 Normal [facility] CHEMISTRY Glucose Lvl 79 70 - 99 03/22/2012 Normal <sup>1</sup>Interpretive Data: Adult ref erence range values reflect the clinical guidelines
of the [place] [employer]. [facility] CHEMISTRY BUN 12 7 - 22 03/22/2012 Normal [facility] CHEMISTRY AGAP 15.6 10.0 - 20.0 03/06/2012 Normal [facility] CHEMISTRY Glucose Lvl 122 70 - 99 03/06/2012 [place] <sup>1</sup>Interpretive Data: Adult ref erence range values reflect the clinical guidelines
of the [place] [employer]. [facility] CHEMISTRY BUN 15 7 - 22 03/06/2012 Normal [facility] CHEMISTRY Creatinine Lvl 0.7 0.5 - 1.4 03/06/2012 Normal [facility] CHEMISTRY CO2 23 24 - 32 03/06/2012 LOW [facility] CHEMISTRY Calcium Lvl 9.0 8.5 - 10.5 03/06/2012 Normal [facility] CHEMISTRY Sodium Lvl 138 135 - 145 03/06/2012 Normal [facility] CHEMISTRY Potassium Lvl 4.6 3.5 - 5.1 03/06/2012 Normal [facility] CHEMISTRY Chloride Lvl 104 95 - 109 03/06/2012 Normal [facility] HEMATOLOGY Basophils # 0.0 0.0 [...] HEMATOLOGY WBC 13.3 3.7 - 10.4 03/06/2012 [facility] HEMATOLOGY RBC 4.35 4.20 - [...] AGAP 16.5 10.0 - 20.0 03/05/2012 Normal [facility] CHEMISTRY Glucose Lvl 125 70 - 99 03/05/2012 [place] <sup>2</sup>Interpretive Data: Adult ref erence range values reflect the clinical guidelines
of the [place] [employer]. [facility] CHEMISTRY Creatinine Lvl 0.8 0.5 - 1.4 03/05/2012 Normal [facility] HEMATOLOGY MPV 7.9 7.4 - 10.4 03/05/2012 Normal [facility] HEMATOLOGY MCV 90.6 81.0 - 99.0 03/05/2012 Normal [facility] HEMATOLOGY MCH 30.9 27.0 - 31.0 03/05/2012 Normal [facility] HEMATOLOGY MCHC 34.1 32.0 - 36.0 03/05/2012 Normal [facility] HEMATOLOGY RDW 13.4 11.5 - 14.5 03/05/2012 Normal [facility] HEMATOLOGY Platelet 414 133 - 450 03/05/2012 Normal [facility] HEMATOLOGY Hgb 12.9 12.0 - 16.0 03/05/2012 Normal [facility] HEMATOLOGY Hct 37.9 36.0 - 48.0 03/05/2012 Normal [facility] HEMATOLOGY WBC 12.5 3.7 - 10.4 03/05/2012 [facility] HEMATOLOGY RBC 4.18 4.20 - 5.40 03/05/2012 LOW [facility] HEMATOLOGY Lymphocytes # 2.0 1.0 - 5.5 03/05/2012 Normal [facility] HEMATOLOGY Eosinophils # 0.0 0.0 - 0.5 03/05/2012 Normal [facility] HEMATOLOGY Monocytes # 0.5 0.0 - 0.8 03/05/2012 Normal [facility] HEMATOLOGY Basophils 0.1 0.0 - 1.0 03/05/2012 Normal [facility] HEMATOLOGY Basophils # 0.0 0.0 - 0.2 03/05/2012 Normal [facility] HEMATOLOGY Segs-Bands # 9.9 1.5 - 8.1 03/05/2012 [facility] HEMATOLOGY Eosinophils 0.1 0.0 - 4.0 03/05/2012 Normal [facility] HEMATOLOGY Monocytes 3.7 2.0 - 12.0 03/05/2012 Normal [facility] HEMATOLOGY Lymphocytes 16.3 20.0 - 40.0 03/05/2012 LOW [facility] HEMATOLOGY Segs 79.8 45.0 - 75.0 03/05/2012 [facility] CHEMISTRY AGAP 15.4 10.0 - 20.0 03/03/2012 Normal [facility] CHEMISTRY BUN 13 7 - 22 03/03/2012 Normal [facility] CHEMISTRY CO2 25 24 - 32 03/03/2012 Normal [facility] CHEMISTRY Calcium Lvl 8.8 8.5 - 10.5 03/03/2012 Normal [facility] CHEMISTRY Glucose Lvl 107 70 - 99 03/03/2012 [facility] <sup>3</sup>Interpretive Data: Adult ref erence range values reflect the clinical guidelines
of the [place] [employer]. [facility] CHEMISTRY Sodium Lvl 143 [...] Platelet 402 133 - 450 03/03/2012 Normal [facility] HEMATOLOGY MCHC 33.8 32.0 - 36.0 03/03/2012 Normal [facility] HEMATOLOGY MPV 7.9 7.4 - 10.4 03/03/2012 Normal [facility] HEMATOLOGY Hgb 12.2 12.0 - 16.0 03/03/2012 Normal [facility] HEMATOLOGY RBC 3.96 4.20 - 5.40 03/03/2012 LOW [facility] HEMATOLOGY MCV 91.2 81.0 - 99.0 03/03/2012 Normal [facility] HEMATOLOGY Hct 36.1 36.0 - 48.0 03/03/2012 Normal [facility] HEMATOLOGY WBC 13.9 3.7 - 10.4 03/03/2012 [place] [facility] HEMATOLOGY MCH 30.8 27.0 - 31.0 03/03/2012 Normal [facility] HEMATOLOGY Bands 3.0 0.0 - 11.0 03/02/2012 Normal [facility] HEMATOLOGY Elliptocyte Sligh t *ABN* (03/02/2012 04:41:00) None S een 03/02/2012 ABN [facility] HEMATOLOGY Anisocyte 1+ *ABN* (03/02/2012 04:41:00) None S een 03/02/2012 ABN [facility] HEMATOLOGY Plt Morph Bonnie l (03/02/2012 04:41:00) 03/02/2012 Normal [facility] HEMATOLOGY Atypical Lymphs 0.0 <=0.0 03/02/2012 Normal [facility] HEMATOLOGY RBC Morph See N ote (03/02/2012 04:41:00) 03/02/2012 Normal [facility] HEMATOLOGY Metamyelocytes 1.0 0.0 - 1.0 03/02/2012 Normal [facility] Microbiology Culture: Blood 02/28/2012 [facility] Microbiology Culture: Blood 02/28/2012 [facility] CHEMISTRY Albumin Lvl 3.6 3.5 - 5.0 02/28/2012 Normal [facility] CHEMISTRY ALT 25 0 - 65 02/28/2012 Normal [facility] CHEMISTRY Alk Phos 97 39 - 136 02/28/2012 Normal [facility] CHEMISTRY Bili Total 0.4 0.2 - 1.3 02/28/2012 Normal [facility] CHEMISTRY Total Protein 8.1 6.4 - 8.4 02/28/2012 Normal [facility] CHEMISTRY AST 14 0 - 37 02/28/2012 Normal [facility] CHEMISTRY A/G Ratio 0.8 0.7 - 1.6 02/28/2012 Normal [facility] CHEMISTRY B/C Ratio 20 6 - 25 02/28/2012 Normal [facility] CHEMISTRY Globulin 4.5 2.0 - 4.0 02/28/2012 [place] [facility] CHEMISTRY Lactic Acid Lvl 1.3 0.5 - 2.2 02/28/2012 Normal [facility] Pathology Reports No Data Provided [...] Blount MD On 10/28/2019 14:56:36; [id number] 10/28/2019 [facility] Chest 2 views DX PROCEDURE: CH EST TWO VIEW INDICATION: Cough, reflux, hiatal hernia COMPARISON: 12/11/2018 FINDINGS: No consolidation is present. The pleura, cardiac silhouette and bony thorax are normal. No vascular congestion is present. Aortic arch is prominent. IMPRESSION: No acute cardiopulmonary process. SL: TINO 05/13/2019 [facility] Sinus wo contrast CT Clinical [...] left lateral nasal bone. SL: LORRIE 04/08/2019 [facility] [facility] Patient Name : DANIA LUCIO : 1945; Age: 73 years y/o Female MR: [id number] Barium swallow DX COMPARISON: CT chest 12/12/2018, [...] contrast passage on the recumbent views. SL: [id number] Thank you for allowing [facility] to participate in the care of your patient. 02/25/2019 [facility] Chest wo contrast CT Clinical [...] without contrast within nor mal limits. SL: [id number] 12/12/2018 [facility] Sinus wo contrast CT CT [...] IMPRESSION: Moderate sinus disease. SL: VADIM 12/12/2018 [facility] Chest 2 views DX Patient Name: DANIA LUCIO : 1945; Age: 73 years y/o Female MR: [id number] * CHEST, 2 views HISTORY: Bilateral wheezing, [...] 2. Status post cholecystectomy. SL: TIO 12/11/2018 [facility] Thyroid US EXAM: THYROID ULTRA [...] or sonographic follow-up at this time. REFERENCE: [place] BR et al. 2015 [place] [employer] Management Guidelines for Adult Patients with Thyroid Nodules and Differentiated Thyroid Cancer. Thyroid. 2016; 26(1):1-133. SL: [id number] 11/07/2018 [facility] Sinus paranasal series DX Para [...] Mild right maxillary sinusitis. SL: TINO 11/06/2018 [facility] Chest 1view DX Clinical Indica tion: Absent of breath sounds - pnuemonia; Comparison: 03/04/2012 FINDINGS: AP chest radiographs shows normal lung volumes with left basilar platelike atelectasis. There is no effusion or pneumothorax. The heart size and pulmonary vasculature are normal. The trachea is midline. There are no clinically significant osseous abnormalities noted. IMPRESSION: 1. Left basilar platelike atelectasis. SL: [id number] 11/04/2018 [facility] Thyroid US HISTORY: Goiter. Thyroid [...] lower pole, stable from 04/08/2012. SL:13 07/28/2013 [facility] Consultation Notes No Data Provided for This Section Discharge Summaries No Data Provided for This Section History and Physicals No Data Provided for This Section Vital Signs Vital Sign Value Date Comments Source Respitory Rate 19 06/23/2019 [facility] Systolic (mm Hg) 134 06/23/2019 [facility] Diastolic (mm Hg) 56 06/23/2019 [facility] Respitory Rate 19 06/23/2019 [facility] Systolic (mm Hg) 142 06/23/2019 [facility] Diastolic (mm Hg) 62 06/23/2019 [facility] Respitory Rate 16 06/23/2019 [facility] Systolic (mm Hg) 143 06/23/2019 [facility] Diastolic (mm Hg) 59 06/23/2019 [facility] Height 154.94 cm 06/23/2019 [facility] Weight 68.182 06/23/2019 [facility] BMI Calculated 28.4 06/23/2019 [facility] Systolic (mm Hg) 133 12/18/2018 [facility] Diastolic (mm Hg) 57 12/18/2018 [facility] Systolic (mm Hg) 125 12/18/2018 [facility] Diastolic (mm Hg) 55 12/18/2018 [facility] Systolic (mm Hg) 137 12/18/2018 [facility] Diastolic (mm Hg) 52 12/18/2018 [facility] Respitory Rate 18 12/18/2018 [facility] Respitory Rate 16 12/18/2018 [facility] Respitory Rate 17 12/18/2018 [facility] Temperature Oral (F) 97.9 F 12/18/2018 [facility] Heart Rate 68 12/18/2018 [facility] Height 154.94 cm 12/18/2018 [facility] BMI Calculated 28.97 12/18/2018 [facility] Weight 69.545 12/18/2018 [facility] Heart Rate 94 12/13/2018 [facility] Systolic (mm Hg) 143 12/13/2018 [facility] Diastolic (mm Hg) 61 12/13/2018 [facility] Temperature Oral (F) 97.2 F 12/13/2018 [facility] Systolic (mm Hg) 153 12/13/2018 [facility] Diastolic (mm Hg) 71 12/13/2018 [facility] Respitory Rate 20 12/13/2018 [facility] Heart Rate 85 12/13/2018 [facility] Temperature Oral (F) 98.1 F 12/13/2018 [facility] Temperature Oral (F) 97.8 F 12/13/2018 [facility] Systolic (mm Hg) 136 12/13/2018 [facility] Diastolic (mm Hg) 67 12/13/2018 [facility] Heart Rate 80 12/13/2018 [facility] Respitory Rate 20 12/13/2018 [facility] Respitory Rate 20 12/13/2018 [facility] Height 154.94 cm 12/11/2018 [facility] Weight 70.455 12/11/2018 [facility] BMI Calculated 29.35 12/11/2018 [facility] Systolic (mm Hg) 124 11/08/2018 [facility] Diastolic (mm Hg) 61 11/08/2018 [facility] Heart Rate 91 11/08/2018 [facility] Temperature Oral (F) 98.2 F 11/08/2018 [facility] Respitory Rate 12 11/08/2018 [facility] Temperature Oral (F) 97.8 F 11/08/2018 [facility] Heart Rate 69 11/08/2018 [facility] Systolic (mm Hg) 156 11/08/2018 [facility] Diastolic (mm Hg) 79 11/08/2018 [facility] Respitory Rate 16 11/08/2018 [facility] Respitory Rate 16 11/08/2018 [facility] Temperature Oral (F) 98.0 F 11/08/2018 [facility] Heart Rate 71 11/08/2018 [facility] Systolic (mm Hg) 147 11/08/2018 [facility] Diastolic (mm Hg) 73 11/08/2018 [facility] BMI Calculated 29.98 11/04/2018 [facility] Height 154.94 cm 11/04/2018 [facility] Weight 71.96 11/04/2018 [facility] Height 154.94 cm 08/09/2012 [facility] Weight 69.545 08/09/2012 [facility] Heart Rate 80 03/06/2012 [facility] Systolic (mm Hg) 145 03/06/2012 [facility] Respitory Rate 16 03/06/2012 [facility] Temperature Oral (F) 97.8 F 03/06/2012 [facility] Diastolic (mm Hg) 65 03/06/2012 [facility] Diastolic (mm Hg) 69 03/06/2012 [facility] Respitory Rate 16 03/06/2012 [facility] Systolic (mm Hg) 109 03/06/2012 [facility] Heart Rate 78 03/06/2012 [facility] Temperature Oral (F) 98.5 F 03/06/2012 [facility] Systolic (mm Hg) 126 03/06/2012 [facility] Respitory Rate 18 03/06/2012 [facility] Diastolic (mm Hg) 65 03/06/2012 [facility] Heart Rate 77 03/06/2012 [facility] Temperature Oral (F) 97.9 F 03/06/2012 [facility] Weight 64.091 02/28/2012 [facility] Height 154.94 cm 02/28/2012 [facility] Encounters Location Location Details Encounter Type Encounter Number Reason For Visit Attending Provider ADM Date DC Date Status Source [facility] Inpatient [id number] PNEUMONIA TASH PASCUAL 02/28/2012 03/06/2012 Active [facility] Outpatient [id number] CHRONIC COUGH/PE/ SOB *PE PROTOCOL* STAT STAT* ALBERTO GRACIELA 03/22/2012 03/22/2012 Active [facility] Outpatient [id number] THYROID NODULE ALBERTO OWENS 04/08/2012 04/08/2012 Active [facility] Outpatient [id number] PAIN ALBERTO OWENS 05/03/2012 05/03/2012 Active [facility] Emergency [id number] HUMERA SEN 08/08/2012 08/08/2012 Discharged [facility] Inpatient [id number] Tashjess Oneill 11/04/2018 11/08/2018 [facility] Inpatient [id number] Alberto Owens 12/11/2018 12/13/2018 [facility] Day Surgery [id number] Raysa Quoc 12/18/2018 12/18/2018 [facility] Outpatient [id number] Alberto Owens 02/25/2019 02/26/2019 [facility] Outpatient [id number] Raysa Kumari 04/08/2019 04/09/2019 [facility] Outpatient [id number] Alberto Owens 05/13/2019 05/14/2019 [facility] Bedded Outpatient [id number] Alberto Owens 06/23/2019 06/23/2019 [facility] Outpatient [id number] Alberto Owens 10/28/2019 10/29/2019 [facility] Outpatient [id number] THYROID NODULE ALBERTO OWENS Cancel [facility] Outpatient [id number] 241.9 ALBERTO OWENS Active [facility] Procedures Procedure Code Date Perfomer Comments Source Colonoscopy [id number] [employer] st Cholecystectomy [id number] [facility] Assessment and Plan Assessment and Plan [...] ml INJ 40 mg 0.4 mL, SUB-Q, [id number] fluticasone 0.05 mg/inh 16gm SPR nasal 2 [...] next week if cleared 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 DIAGNOSES and PROBLEMS: Active Problems (2) Acute [...] PO BID 12/12/18 enoxaparin 40 mg SUB-Q [id number] 12/12/18 fluticasone nasal (Flonase 0.05 mg/inh nasal [...] Q8H 25 ml/hr 12/12/18 sodium chloride nasal (Nevis Sali ne Nasal No-Drip [place] 0.65% gel) 1 spray NASAL QID Unscheduled [...] PO BID 12/12/18 enoxaparin 40 mg SUB-Q [id number] 12/12/18 fluticasone nasal (Flonase 0.05 mg/inh nasal [...] Q8H 25 ml/hr 12/12/18 sodium chloride nasal (Nevis Sali ne Nasal No-Drip [place] 0.65% gel) 1 spray NASAL QID Unscheduled [...] Rate 13 IgE Lvl 749.0 H 12/13/2018 [facility] Extracted from:Title: Clinical Document Author: Nargis Patton MD Date: 11/07/18 Pulmonary and Critical Care Progress Note [facility] Sujective/overnight events: Chart reviewed. Patient [...] 0.9% IV 100 mL 1 gm IVPB [id number] 25 ml/hr 11/05/18 fluticasone nasal (Flonase 0.05 [...] but not dysphagia. no reflux symptom. 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 didnt think she had pulmonary [...] flex scope place atraumatically. nml nasal anatomy. 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 glottis wnl no pooling no erythema [...] 0.9% IV 100 mL 1 gm IVPB [id number] 25 ml/hr 11/05/18 famotidine (Pepcid 20 mg [...] is start multiple medications, the have tried [id number] medications tried antibiotics p.o., tried steroids without [...] (mini-bag Plus) 100 mL 1 gm, IVPB, [id number] influenza virus vaccine (inactivated) trivalent high dose [...] [facility] 11/08/2018 [facility] Plan of Care No Data [...] Cessation Counseling No entered on: 06/23/19 06/23/2019 [facility] Family History No Data Provided for This Section Advance Directives No Data Provided for This Section Functional Status No Data Provided for This Section
--- OUTSIDE RECORDS SUMMARY | 2020-04-22 17:29 | XMS REPORT | Continuity of Care Document ---
Author Author [facility] t Organization Formerly [facility] Address [address] [place] [address] Phone Unavailable Care Team Providers Care Tour Director Name Role Phone MD TASH PASCUAL PCP SHIVA, WILLIAM Attphys Unavailable [place], Jaden Attphys Shruti Kumari Attphys BOCCARDO, TSAH Attphys Unavailable Boccardo-Shiva, Tash Attphys EMILY REDDY Attphys Unavailable SHIVA, WILLIAM Admphys Unavailable [place], Jaden Admphys Shruti Kumari Admphys Boccardo-Shiva, Tash Admphys Payers Payer Name Policy Type Policy Number Effective Date Expiration Date [facility] Medicare A & B [id number] 2019 00:00:00 [facility] [id number] 2019 00:00:00 [facility] Problems Condition Name Condition Details Condition Category Status Onset Date Resolution Date Last Treatment Date Treating Clinician Comments Source SIVAN BRENNANK Active 10/28/2019 [facility] Active 2019-10-28 00:00:00 2019-10-28 09:45:00 Chon Chirinos R05 R05 Active 05/13/2019 [facility] Diagnosis Active 2019-05-13 13:23:00 2019-05-22 07:03:00 M reese Chirinos LANMARX PROTOCOL LANM ARX PROTOCOL Active 04/04/2019 [facility] Diagnosis Active 2019-04-04 00:00:00 2019-04-08 14:25:00 [facility] R13.10 DYSPHAGIA, UNSPECIFIED, K21.9 G R13.10 DYSPHAGIA, UNSPECIFIED, K21.9 G Active 01/13/2019 [facility] Diagnosis Ac tive 2019-01-13 00:00:00 2019-02-25 13:23:00 M reese Chirinos CHRONIC 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 SAW CLEANER NANCIE 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 Active 12/13/2018 [facility] Diagnosis Active 2018-12-13 00:00:00 2019-01-15 15:34:00 [facility] BRONCHITIS BRON CHITIS Active 12/11/2018 [facility] Diagnosis Active 2018-12-11 00:00:00 2018-12-11 10:19:00 [facility] ASTHMA WITH BRONCHITIS AND STATUS ASTHMA ASTHMA WITH BRONCHITIS AND STATUS ASTHMA Active 12/11/2018 [facility] Diagnosis A ctive 2018-12-11 00:00:00 2018-12-12 15:27:00 M reese Chirinos ASTHMA EXACERBATION ASTH MA EXACERBATION Active 11/04/2018 [facility] Diagnosis Active 2018-11-04 00:00:00 2018-11-19 22:15:00 [facility] Acute pancreatitis Acute pancreatitis Disease Active 2018-06-10 00:00:0 0 Geraldo Martinez Diarrhea Diarrhea Disease Active 2018-05-29 00:00:00 Geraldo Martinez Bronchitis Bronchitis Disease Active 2018-05-27 00:00:00 Geraldo Martinez 241.9 241. 9 Active 07/24/2013 [facility] Diagnosis Active 2013-07-24 00:00:00 2013-07-28 13:43:00 [facility] ABD/BACK PAIN ABD/ BACK PAIN Active 08/08/2012 [facility] Diagnosis Active 2012-08-08 09:00:00 2012-08-08 20:09:00 [facility] THYROID NODULE THYR OID NODULE Active 04/08/2012 [facility] Diagnosis Active 2012-04-08 00:00:00 2012-06-03 15:25:00 [facility] CHRONIC COUGH/PE/SOB *PE PROTOCOL* STAT STAT* CHRONIC COUGH/PE/SOB *PE PROTOCOL* STAT STAT* Active 03/22/2012 [facility] Active 2012-03-22 00:00:00 2012-06-03 15:25:00 Norberto Chirinos SHORTNESS OF BREATH SHOR TNESS OF BREATH Active 02/28/2012 [facility] Active 2012-02-28 15:30:00 2012-02-28 20:06:00 [facility] PNEUMONIA PNEU MONIA Active 02/28/2012 [facility] Active 2012-02-28 15:30:00 2012-05-07 16:38:00 Norberto Chirinos Fracture of olecranon process of ulna Problem Active [facility] Abnormal heart beat (finding) Abnormal heart beat (finding) Resolved Problem 10/31/2019 [facility] Problem Resolved 2019-10-31 00:11:53 [facility] Arthritis (disorder) Arth ritis (disorder) Resolved Problem 10/31/2019 [facility] Problem Resolved 2019-10-31 00:11: 53 [facility] Asthma (disorder) Asth ma (disorder) Resolved Problem 10/31/2019 [facility] Problem Resolved 2019-10-31 00:11:53 [facility] Pneumonia (disorder) Pneu monia (disorder) Resolved Problem 10/31/2019 [facility] Problem Resolved 2019-10-31 00:11: 53 [facility] Acute interstitial pneumonia A cute interstitial pneumonia Active Problem 08/10/2012 [facility] Problem Active 2012-08-10 10:55:37 [facility] HT - Hypertension HT - Hypertension Active Problem 08/10/2012 [facility] Problem Active 2012-08-10 10:55:37 [facility] Acute interstitial pneumonia (disorder) Acute interstitial pneumonia (disorder) Active Problem 10/31/2019 [facility] Problem Active 2019-10-31 00:11:53 Sofía Chirinos Hypertensive disorder, systemic arterial (disorder) Hypertensive disorder, systemic arterial (disorder) Active Problem 10/31/2019 [facility] Active 2019-10-31 00:11:53 Norberto Chirinos Cough (finding) Coug h (finding) Active Problem 10/31/2019 [facility] Active 2019-10-31 00:11:53 [facility] NONTOX NODUL GOITER NOS NONT OX NODUL GOITER NOS Active [facility] Active 2013-07-28 13:43:00 [facility] PAIN PAIN Active [facility] Active [...] H Active [facility] Active 2012-06-03 15:25:00 [facility] Sabael SHORTNESS OF BREATH SHOR TNESS OF BREATH Active [facility] Active 2012-06-03 15:25:00 Ri maryjaydon Valienteann Allergies, Adverse Reactions, Alerts Allergy Name Allergy Type Status Severity Reaction(s) Onset Date Inacti ve Date Treating Clinician Comments Source No Known Medication Allergies No Known Medication Allergies Active [facility] Family History Family Member Diagnosis Comments Start Date Stop Date Source Natural father Hypertension Geraldo Martinez Natural mother Arthritis [place] [facility] Natural mother Asthma [facility] Natural mother Hyperlipidemia [place] [facility] Natural mother Hypertension Geraldo Martinez Social History Social Habit Start Date Stop Date Quantity Comments Source Sex Assigned At Patience todd Martinez Social History 2019-06-23 15:11:40 2019-06-23 15:11:40 [facility] Alcohol intake 2018-11-11 00:00:00 2018-11-11 00:00:00 Current [...] as needed for M ild Pain (1-3) [facility] Naloxone 2019-06-23 16:50:00 No 0.1 mg, Route: [...] Duration: 30 day, Stop date: 07/23/19 10:05:00 [employer], 1.78, m2 Norberto Chirinos Mupirocin 20 MG/ML [...] 30 day, Stop date: 01/17/19 13:54:00 CDT Ri cesar [place] Ondansetron 2018-12-18 18:55:00 No 4 mg, Route: IVP, ONCE, Dosing Weight 69.545, kg, PRN Nausea & Vomiting, Start date: 12/18/18 13:55:00 CDT [facility] Promethazine 2018-12-18 18:55:00 No 6.25 mg, Route: IVPB, ONCE, Dosing Weight 69.545, kg, PRN Nausea & Vomiting, Start date: 12/18/18 13:55:00 CDT [facility] Diphenhydramine 2018-12-18 18:55:00 No 12.5 mg, Route: IVP, Drug form: INJ, Q6H, Dosing Weight 69.545, kg, PRN Itching, Start date: 12/18/18 13:55:00 CDT, Duration: 30 day, Stop date: 01/17/19 13:54:00 CDT [facility] Meperidine 2018-12-18 18:55:00 No 12.5 mg, Route: IVP, Q30Min, Dosing Weight 69.545, kg, PRN Other -See Comment, For shivering, Start date: 12/18/18 13:55:00 CDT, Duration: 2 doses or times, Stop date: Limited # of times [facility] Albuterol 0.83 MG/ML Inhalant Solution 2018-12-18 18:55:00 No 2.49 mg, Route: NEB, Q20Min, Dosing Weight 69.545, kg, PRN Wheezing, Priority: STAT, Start date: 12/18/18 13:55:00 CDT, Duration: 30 day, Stop date: 01/17/19 13:54:00 CDT [facility] Flumazenil 2018-12-18 18:55:00 No 0.2 mg, Route: IVP, PRN, Dosing Weight 69.545, kg, PRN Benzodiazepine Reversal, Initial dose, Start date: 12/18/18 13:55:00 CDT, Duration: 30 day, Stop date: 01/17/19 13:54:00 CDT [facility] Oxycodone 2018-12-18 18:55:00 No 10 mg, Route: NG, Drug form: LIQ, Q4H, Dosing Weight 69.545, kg, PRN Pain Score 7-10, Start date: 12/18/18 13:55:00 CDT, Duration: 30 day, Stop date: 01/17/19 13:54:00 CDT [facility] Hydromorphone 2018-12-18 18:55:00 No 0.5 mg, Route: IVP, Q5Min, Dosing Weight 69.545, kg, PRN Pain Score 7-10, Start date: 12/18/18 13:55:00 CDT, Duration: 4 doses or times, Stop date: Limited # of times [facility] Fentanyl 2018-12-18 18:55:00 No 50 microgram, Route: IVP, Q5Min, Dosing Weight 69.545, kg, PRN Pain Score 7-10, Priority: Routine, Start date: 12/18/18 13:55:00 CDT, Duration: 2 doses or times, Stop date: Limited # of times [facility] Acetaminophen 2018-12-18 18:55:00 No 1,000 mg, Route: IVPB, Drug form: INJ, ONCE, Dosing Weight 69.545, kg, PRN Pain Score 1-3, Start date: 12/18/18 13:55:00 CDT [facility] neostigmine (ANES) 2018-12-18 17:49:00 No Route: IV, Drug form: INJ, ONCE, Stop date: 12/18/18 12:49:00 [facility]ES[facility] 2018-12-18 17:49:00 No Route: IV, Drug form: INJ, ONCE, Stop date: 12/18/18 12:49:00 CDT [facility] Oxymetazoline hydrochloride 0.5 MG/ML Nasal [place] [Afrin] 2018-12-18 17:37:00 No 2 spray, Route : NASAL, Q2H, PRN Bleeding, Start date: 12/18/18 12:37:00 CDT, Duration: 3 day, Stop date: 12/21/18 12:36:00 CDT [facility] Acetaminophen 325 MG / Hydrocodone Bitartrate 5 MG Oral Tabl et 2018-12-18 17:37:00 No 1 tab, Rou te: PO, Dosing Weight 69.545, kg, Q4H, PRN Pain Score 1-3, Start date: 12/18/18 12:37:00 CDT, Duration: 30 day, Stop date: 01/17/19 12:36:00 CDT [facility] Morphine 2018-12-18 17:37:00 No 2 mg, Route: IVP, Q3H, Dosing Weight 69.545, kg, PRN Pain Score 1-3, Start date: 12/18/18 12:37:00 CDT, Duration: 30 day, Stop date: 01/17/19 12:36:00 [facility]T [facility] dexamethasone (HUGOS) 2018-12-18 17:08:00 No Route: IV, Drug form: INJ, ONCE, Stop date: 12/18/18 12:08:00 CDT [facility] rocuronium (HUGOS) 2018-12-18 17:08:00 No Route: IV, Drug form: INJ, ONCE, Stop date: 12/18/18 12:08:00 CDT [facility] lidocaine (HUGOS) 2018-12-18 16:53:00 No Route: IV, Drug form: INJ, ONCE, Stop date: 12/18/18 11:53:00 CDT [facility] propofol (HUGOS) 2018-12-18 16:53:00 No Route: IV, Drug form: INJ, ONCE, Stop date: 12/18/18 11:53:00 CDT [facility] fentaNYL (HUGOS) 2018-12-18 16:53:00 No Route: IV, Drug form: INJ, ONCE, Stop date: 12/18/18 11:53:00 CDT [facility] ondansetron (ANES) 2018-12-18 16:53:00 No Route: IV, Drug form: INJ, ONCE, Stop date: 12/18/18 11:53:00 CDT [facility] ceFAZolin (ANES) 2018-12-18 16:53:00 No Route: IV, Drug form: INJ, ONCE, Stop date: 12/18/18 11:53:00 CDT [facility] midazolam (ANES) 2018-12-18 16:28:00 No Route: IV, Drug form: SOLN, ONCE, Stop date: 12/18/18 11:28:00 CDT [facility] Lactated Ringers Injection IV (HUGOS) 1000 mL 2018-12-18 15:53:00 No Route: IV, Total Volume: 1,000, Start date: 12/18/18 10:53:00 CDT, Stop date: 12/18/18 11:53:00 CDT [facility] Cefazolin 2018-12-18 15:00:00 No 2 gm, Route: IVPB, ONCALL, Dosing Weight 69.545, kg, Start date: 12/18/18 10:00:00 CDT, Duration: 1 doses or times, ABX Indication: Surgical Prophylaxis [facility] Dexamethasone 2018-12-18 15:00:00 No 8 mg, Route: IV, ONCALL, Dosing Weight 69.545, kg, Start date: 12/18/18 10:00:00 CDT, Duration: 30 day, Stop date: 01/17/19 9:59:00 CDT [facility] Calcium Chloride 0.0014 MEQ/ML / Potassi um Chloride 0.004 MEQ/ML / Sodium Chloride 0.103 MEQ/ML / Sodium Lactate 0.028 MEQ/ML Injectable Solution 2018-12-18 14:52:00 No 1,000 mL, Rate: 25 ml/hr, Infuse over: 40 hr, Route: IV, Dosing Weight 69.545 kg, Total Volume: 1,000, Start date: 12/18/18 9:52:00 CDT, Duration: 30 day, Stop date: 01/17/19 9:51:00 CDT, 1.76, m2 [facility] Oxymetazoline hydrochloride 0.5 MG/ML Nasal [place] [Afrin] 2018-12-18 14:51:00 No 2 spray, Route [...] Azelastine hydrochloride 0.137 MG/ACTUAT Metered Dose Nasal [place] 2018-12-13 20:12:00 Yes 137 microg charu =, INHALER, BID, PRN Congestion | 1-2 sprays, # 1 ea, 0 Refill(s) Norberto macario Codeine Phosphate 2 MG/ML / Guaifenesin 20 MG/ML Oral Soluti on 2018-12-13 14:03:00 No Notes: (Same As: Jesse Orozco) Norberto Chirinos Fluticasone propionate 0.05 MG/ACTUAT Metered Dose Nasal Spr ay [Flonase] 2018-12-12 14:07:00 No Notes: (Same as: Liu phillips) Norberto Chirinos [place] Saline Nasal No-Drip [place] 0.65% gel 2018-12-12 14:00:00 No Notes: (Same as: [place], [place] Nasal [place]). Norberto Chirinos Thyroxine 2018-12-12 13:00:00 No Notes: Take 1 hour before or 2 hours after meal; Enteral feeds may interefere with the absorption of this medication. (Same as:Levothroid) Jameel Chirinos Protonix 2018-12-12 12:30:00 No Notes: Tablet should not be chewed or crushed. (Same as: Protonix) [facility] Enoxaparin 2018-12-12 06:00:00 No Notes: (S demetrius as: Lovenox) [facility] Glucagon 2018-12-12 05:28:00 No 1 mg, Route: IM, Drug form: PDR/INJ, PRN, Dosing Weight 70.455, kg, PRN Blood Glucose Results, Start date: 12/12/18 0:28:00 CDT, Duration: 30 day, Stop date: 01/11/19 0:27:00 CDT [facility] Dextrose 50% Syringe 2018-12-12 05:28:00 No 25 gm, 50 mL, Route: IVP, Drug Form: INJ, Dosing Weight 70.455, kg, PRN, PRN Blood Glucose Results, Start date: 12/12/18 0:28:00 CDT, Duration: 30 day, Stop date: 01/11/19 0:27:00 CDT [facility] methylPREDNISolone SODium SUCCinate 2018-12-12 02:00:00 No Notes: (Same as:Solu-MEDROL, A-Methapred) Chikaor iasanto Chirinos montelukast 2018-12-12 02:00:00 No Notes: ( Same as:Singulair) [facility] Sabael Mucinex 2018-12-12 02:00:00 No Notes: (Same as: Guaifenesin [place], Humibid [place], Mucinex) "Do Not Crush" Take medication with plenty of water. [facility] Docusate 2018-12-11 22:00:00 No Notes: (Same as: Colace) (Do Not Crush) [facility]ael benzonatate 200 mg oral capsule 2018-12-11 20:14:00 [...] Norberto Chirinos Albuterol 0.833 MG/ML / Ipratropium [place] 0.167 MG/ML Inha lant Solution 2018-12-11 19:00:00 [...] Weight 71.96, kg, Start date: 11/08/18 9:00:00 [employer], Duration: 30 day, Stop date: 12/07/18 9:00:00 [...] 875-mg] 2018-11-08 13:42:00 Yes 1 tab, PO, [id number] , # 20 tab, 0 Refill(s) Norberto [...] Blood Glucose Results, Start date: 11/04/18 16:03:00 [employer], Duration: 30 day, Stop date: 12/04/18 17:02:00 CDT Norberto Chirinos Dextrose 50% Syringe 2018-11-04 22:03:00 No 12.5 gm, 25 mL, Route: IVP, Drug Form: INJ, Dosing Weight 71.96, kg, PRN, PRN Blood Glucose Results, Start date: 11/04/18 16:03:00 [employer], Duration: 30 day, Stop date: 12/04/18 17:02:00 [...] form: MISC, Route: MISC, Q15Min, 11/04/18 15:45:00 [employer], Duration: 4 hr, Stop date: 11/04/18 19:30:00 [employer] 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 [facility] Her macario Albuterol 0.417 MG/ML Inhalant Solution 2018-11-04 19:00:00 No Notes: SEE RT DOCUMENTATION (Same as: Proventil) [facility] Vasotec 2018-11-04 18:00:00 No Notes: (Same as: Vasotec-IV) [facility] cefepime 2018-11-04 17:00:00 No Notes: (Same As: Maxipime) MEDICATION WASTE Product Size: 1000 mg Product Wasted: ___ mg [facility] Albuterol 0.833 MG/ML / Ipratropium Brom sanjay 0.167 MG/ML Inhalant Solution [DuoNeb] 2018-11-04 16:32:00 No Notes: (S demetrius as: Duoneb) [facility] Codeine Phosphate 2 MG/ML / Guaifenesin 20 MG/ML Oral Soluti on 2018-11-04 16:32:00 No Notes: (Same As: Jesse Orozco) [facility] Zofran 2018-11-04 16:32:00 No Notes: (Same as: Zofran) MEDICATION WASTE Product Size: 4 mg Product Wasted: ___ mg [facility]ael Flexeril 10 mg oral tablet 2012-08-09 02:59:49 Yes Prade ep Ryan 10 mg, PO, TID, PRN, 30 tab, Muscle Spasm, Substitution Allowed [facility] [place] 5/325 oral tablet 2012-08-09 02:59:41 Yes Norm Ryan 1-2 tab, PO, Q4-6H, PRN, 15 tab, Pain, Substitution Allowed, [facility] Flexeril 2012-08-09 02:05:00 No Norm Ryan 10 mg, Route: PO, ONCE, Dosing Weight 69.545, kg, Priority: STAT, Start date: 08/08/12 20:05:00, Stop date: 08/08/12 20:05:00 [facility] morphine Sulfate 2012-08-09 01:14:00 No Norm Ryan 2 mg, 1 mL, Route: IVP, Drug form: INJ, ONCE, Dosing Weight 69.545, kg, Priority: STAT, Start date: 08/08/12 19:14:00, Stop date: 08/08/12 19:14:00 [facility] ondansetron 2012-08-09 01:14:00 No Norm Ryan 4 mg, 2 mL, Route: IVP, Drug form: INJ, ONCE, Dosing Weight 69.545, kg, Priority: STAT, Start date: 08/08/12 19:14:00, Stop date: 08/08/12 19:14:00 [facility] Saline Flush 0.9% 2012-08-09 01:14:00 No Norm Ryan 5 mL, Route: IVP, Drug Form: INJ, Dosing Weight 69.545, kg, PRN, PRN Line Flush, Start date: 08/08/12 19:14:00, Duration: 24 hr, Stop date: 08/09/12 19:13:00 [facility] Sodium Chloride 0.9% (Bolus) IV 2012-08-09 01:14:00 No Norm Ryan 500 mL, 500 ml/hr, Route: IV, Drug Form: INJ, Dosing Weight 69.545, kg, ONCE, Bolus at 1,000 ml/hr, STAT, Start date: 08/08/12 19:14:00, Stop date: 08/08/12 19:14:00 [facility] ProAir HFA 90 mcg/inh inhalation aerosol with adapter 2012-03-06 15:53:47 Yes Jaden [place] 2 puff, INHALA TION, Q6H, PRN, 9 gm, 1, 1, for wheezing, Substitution Allowed, Soft Stop, AERO Me morial [facility] Prilosec 20 mg oral delayed release capsule 2012-03-06 15: 53:17 Yes Jaden [place] 20 mg, 1 cap, PO, Daily, 30 cap, Substit ution Allowed [facility] predniSONE 10 mg oral tablet 2012-03-06 15:52:58 Yes [place] 10 mg, 1 tab, PO, Daily, 10 tab, Substitution Allowed, TAB [facility] Mucinex 600 mg oral tablet, extended release 2012-03-06 15 :52:37 Yes Jaden [place] 600 mg, 1 tab, PO, Daily, 10 tab, Substi tution Allowed, ERTAB [facility] methylPREDNISolone 2012-03-01 15:00:00 No Floyd Ricardo rebecca Steiner 20 mg, 0.5 mL, Route: IV, Drug form: INJ, [id number], Start date: 03/01/12 10:00:00, Duration: 30 day, Stop date: 03/30/12 22:00:00 [facility] Tessalon Perles 2012-03-01 13:00:00 No Floyd Chandulal Steiner 200 mg, 2 cap, Route: PO, Drug form: CAP, Q8H, Start date: 03/01/12 8:00:00, Duration: 30 day, Stop date: 03/31/12 0:00:00 [facility] 2012-03-01 07:28:00 No Floyd Ricardo rebecca Steiner 40 mg, 1 mL, Route: IV, Drug form: INJ, ONCE, Start date: 03/01/12 2:28:00, Stop date: 03/01/12 2:28:00 [facility] azithromycin 2012-03-01 02:00:00 No Tash Boccardo 500 mg, Route: IVPB, [id number], Start date: 02/29/12 21:00:00, Duration: 30 day, Stop date: 03/29/12 21:00:00 [facility] enoxaparin 2012-03-01 02:00:00 No Floyd Chandulal Linares l 40 mg, 0.4 mL, Route: SUB-Q, Drug form: INJ, [id number], Start date: 02/29/12 21:00:00, Duration: 30 day, Stop date: 03/29/12 21:00:00 [facility] ceftriaxone 2012-02-29 23:00:00 No Tash Boccardo 1 gm, Route: IVPB, Drug form: PDR/INJ, [id number], Start date: 02/29/12 18:00:00, Duration: 30 day, Stop date: 03/29/12 18:00:00 [facility] pneumococcal 23-valent vaccine 2012-02-29 14:00:00 No S YSTEM SYSTEM 0.5 ml, Route: IM, Drug Form: INJ, Start date: 02/29/12 9:00:00, Stop date: 02/29/12 9:00:00 [facility] levothyroxine 2012-02-29 14:00:00 No Tash Boccardo 25 microgram, Route: PO, Drug form: TAB, [id number], Start date: 02/29/12 9:00:00, Duration: 30 day, Stop date: 03/30/12 6:30:00 [facility] 2012-02-29 14:00:00 No Tash Boccardo 10 mg, 1 tab, Route: PO, Drug form: TAB, QAM, Start date: 02/29/12 9:00:00, Duration: 30 day, Stop date: 03/29/12 9:00:00 [facility] amLODipine 2012-02-29 14:00:00 No Tash Boccardo 5 mg, 1 tab, Route: PO, Drug form: TAB, Daily, Start date: 02/29/12 9:00:00, Duration: 30 day, Stop date: 03/29/12 9:00:00 [facility] Tussionex [employer] oral suspension, extended release 2012-02-29 13:36:00 No Tash Boccardo 5 ml, Route: PO, Drug Form: SUSPER, Q12H, PRN Cough/Congestion, Start date: 02/29/12 8:36:00, Duration: 30 day, Stop date: 03/30/12 8:35:00 [facility] albuterol 0.083% inhalation solution 2012-02-29 07:00:00 No Tash Boccardo 2.49 mg, 3 mL, Route : NEB, Drug form: SOLN, RQ6H, Priority: Routine, Start date: 02/29/12 2:00:00, Duration: 30 day, Stop date: 03/29/12 20:00:00 [facility] ipratropium 2012-02-29 07:00:00 No Tash Boccardo 0.5 mg, 2.5 mL, Route: NEB, Drug form: SOLN, RQ6H, Priority: Routine, Start date: 02/29/12 2:00:00, Duration: 30 day, Stop date: 03/29/12 20:00:00 [facility] DuoNeb inhalation solution 2012-02-29 07:00:00 No Criss a Boccardo 3 mL, Route: NEB, Drug Form: SOLN, RQ6H, Start date: 02/29/12 2:00:00, Duration: 30 day, Stop date: 03/29/12 20:00:00 [facility] ondansetron 2012-02-29 02:39:00 No Tash Boccardo 4 mg, 2 mL, Route: IVP, Drug form: INJ, Q6H, PRN Nausea & Vomiting, Start date: 02/28/12 21:39:00, Duration: 30 day, Stop date: 03/29/12 21:38:00 [facility] acetaminophen 2012-02-29 02:39:00 No Tash Boccardo 650 mg, 2 tab, Route: PO, Drug form: TAB, Q4H, PRN Pain/Fever, Start date: 02/28/12 21:39:00, Duration: 30 day, Stop date: 03/29/12 21:38:00 [facility] Saline Flush 0.9% 2012-02-29 02:39:00 No Tash Boccard o 5 ml, Route: IVP, Drug Form: INJ, PRN, PRN Line Flush, Start date: 02/28/12 21:39:00, Duration: 30 day, Stop date: 03/29/12 21:38:00 [facility] guaifenesin 2012-02-29 02:37:00 No Tash Boccardo 100 mg, 5 mL, Route: PO, Drug form: LIQ, Q4H, PRN Cough/Congestion, Start date: 02/28/12 21:37:00, Duration: 30 day, Stop date: 03/29/12 21:36:00 [facility] codeine-guaifenesin 10 mg-100 mg/5 mL oral syrup 2012-02-03 8 02:37:00 No Tash Boccardo 5 mL, Route: PO, Drug Form: LIQ, Q4H, PRN Cough, Start date: 02/28/12 21:37:00, Duration: 30 day, Stop date: 03/29/12 21:36:00 [facility] Sodium Chloride 0.9% (Bolus) IV 500 mL 2012-02-29 01:41:00 No Koby A Steiner 500 mL, Rate: 50 0 ml/hr, Infuse over: 1 hr, Route: IV, Dosing Weight 64.091 kg, Total Volume: 500, Bolus Dose, Priority: STAT, Start date: 02/28/12 20:41:00, Duration: 1 doses or times, Stop date: 02/28/12 21:40:00 [facility] acetaminophen 2012-02-29 01:39:00 No Koby A Steiner 650 mg, Route: PO, Drug form: TAB, ONCE, Priority: STAT, Start date: 02/28/12 20:39:00, Stop date: 02/28/12 20:39:00 [facility] TL-Hist DM oral liquid 2012-02-29 00:39:15 Yes 5 mL, PO, Q6H, PRN, as needed for cough and congestion, Substitution Allowed, Maintenance [facility] levofloxacin 500 mg oral tablet 2012-02-29 00:39:12 Yes 500 mg, 1 tab, PO, Daily, Substitution Allowed [facility] Lamisil 250 mg oral tablet 2012-02-29 00:39:07 Yes 250 mg, 1 tab, PO, Daily, Substitution Allowed [facility] simvastatin 2012-02-29 00:39:04 Yes Tash Boccardo 10 mg, PO, QAM, Substitution Allowed [facility] levothyroxine 25 mcg (0.025 mg) oral tablet 2012-02-29 00: 38:59 Yes Tash Boccardo 25 microgram, 1 tab, PO, Daily, Substitu tion Allowed [facility] amLODipine 5 mg oral tablet 2012-02-29 00:38:54 Yes Silv ia Boccardo 5 mg, 1 tab, PO, Daily, Substitution Allowed [facility] NS (Bolus) IV 1,000 mL 2012-02-28 23:28:00 No Koby A Steiner 1,000 mL, Rate: 1,000 ml/hr, Infuse over: 1 hr, Route: IV, Dosing Weight 64.091 kg, Total Volume: 1,000, Priority: STAT, Start date: 02/28/12 18:28:00, Duration: 1 doses or times, Stop date: 02/28/12 19:27:00, Bolus DoseBolus Dose [facility] azithromycin 2012-02-28 23:26:00 No Koby A Steiner 500 mg, 250 mL, Route: IVPB, Drug form: PDR/INJ, ONCE, Priority: STAT, Start date: 02/28/12 18:26:00, Stop date: 02/28/12 18:26:00 M [facility] albuterol 0.083% inhalation solution 2012-02-28 23:26:00 No Koby A Steiner 2.49 mg, Route: NEB, Drug form: SOLN, ONCE, Priority: STAT, Start date: 02/28/12 18:26:00, Stop date: 02/28/12 18:26:00 [facility] ipratropium 0.02% inhalation solution 2012-02-28 23:26:00 No Koby A Steiner 0.5 mg, Route: N EB, ONCE, Priority: STAT, Start date: 02/28/12 18:26:00, Stop date: 02/28/12 18:26:00 [facility] Rocephin 2012-02-28 23:26:00 No Koby A Steiner 1 gm, Route: IVPB, ONCE, Priority: STAT, Start date: 02/28/12 18:26:00, Stop date: 02/28/12 18:26:00 [facility] Acetaminophen With Codeine (Tylenol With Codeine #3 Ta blet) 1 Each TABLET Acetaminophen With Codeine (Tylenol With Codeine #3 Tablet) 1 Each TABLET Yes 300 Every 6 Hours [facility] Naproxen Naproxen Yes 500 Twice A Day [facility] Immunizations Ordered Immunization Name Filled Immunization Name Date Status Comments Source FLUCELVAX QUAD PF 2018-06-12 00:00:00 Completed Geraldo Martinez Vital Signs Vital Name Observation Time Observation Value Comments Source Body Temperature 2020-04-10 16:14:00 97.8 [degF] [facility] Weight 2020-04-09 20:45:00 146 [lb_av] [facility] BMI (Body Mass Index) 2020-04-09 20:45:00 27.6 kg/m2 [facility] Respitory Rate 2019-06-23 17:10:00 [facility] Systolic (mm Hg) 2019-06-23 17:10:00 Ankit rial Sabael Diastolic (mm Hg) 2019-06-23 17:10:00 [facility] Respitory Rate 2019-06-23 16:55:00 [facility] Systolic (mm Hg) 2019-06-23 16:55:00 Ankit rial Sabael Diastolic (mm Hg) 2019-06-23 16:55:00 [facility] Respitory Rate 2019-06-23 16:40:00 [facility] Systolic (mm Hg) 2019-06-23 16:40:00 Ankit rial Taran Diastolic (mm Hg) 2019-06-23 16:40:00 [facility] Height 2019-06-23 15:06:00 154.94 cm [facility] Weight 2019-06-23 15:06:00 [facility] BMI Calculated 2019-06-23 15:06:00 [facility] Systolic (mm Hg) 2018-12-18 20:30:00 Ankit rial Taran Diastolic (mm Hg) 2018-12-18 20:30:00 [facility] Systolic (mm Hg) 2018-12-18 20:15:00 Ankit rial Taran Diastolic (mm Hg) 2018-12-18 20:15:00 [facility] Systolic (mm Hg) 2018-12-18 20:00:00 Ankit rial Sabael Diastolic (mm Hg) 2018-12-18 20:00:00 [facility] Respitory Rate 2018-12-18 18:15:00 [facility] Respitory Rate 2018-12-18 18:00:00 [facility] Respitory Rate 2018-12-18 17:48:00 [facility] Temperature Oral (F) 2018-12-18 14:37:00 97.9 F [facility] Heart Rate 2018-12-18 14:37:00 [facility] Height 2018-12-18 14:11:00 154.94 cm [facility] BMI Calculated 2018-12-18 14:11:00 [facility] Weight 2018-12-18 14:11:00 [facility] Heart Rate 2018-12-13 20:39:00 [facility] Systolic (mm Hg) 2018-12-13 20:39:00 Ankit rial Taran Diastolic (mm Hg) 2018-12-13 20:39:00 [facility] Temperature Oral (F) 2018-12-13 20:39:00 97.2 F [facility] Systolic (mm Hg) 2018-12-13 16:19:00 Ankit rial Taran Diastolic (mm Hg) 2018-12-13 16:19:00 [facility] Respitory Rate 2018-12-13 16:19:00 [facility] Heart Rate 2018-12-13 16:19:00 [facility] Temperature Oral (F) 2018-12-13 16:19:00 98.1 F [facility] Temperature Oral (F) 2018-12-13 12:15:00 97.8 F [facility] Systolic (mm Hg) 2018-12-13 12:15:00 Ankit rial Sabael Diastolic (mm Hg) 2018-12-13 12:15:00 [facility] Heart Rate 2018-12-13 12:15:00 [facility] Respitory Rate 2018-12-13 12:15:00 [facility] Respitory Rate 2018-12-13 09:01:00 [facility] Height 2018-12-11 19:46:00 154.94 cm [facility] Weight 2018-12-11 19:46:00 [facility] BMI Calculated 2018-12-11 19:46:00 [facility] Systolic (mm Hg) 2018-11-08 17:16:00 Ankit rial Sabael Diastolic (mm Hg) 2018-11-08 17:16:00 [facility] Heart Rate 2018-11-08 17:16:00 [facility] Temperature Oral (F) 2018-11-08 17:16:00 98.2 F [facility] Respitory Rate 2018-11-08 14:14:00 [facility] Temperature Oral (F) 2018-11-08 13:35:00 97.8 F [facility] Heart Rate 2018-11-08 13:35:00 [facility] Systolic (mm Hg) 2018-11-08 13:35:00 Ankit rial Taran Diastolic (mm Hg) 2018-11-08 13:35:00 [facility] Respitory Rate 2018-11-08 13:35:00 [facility] Respitory Rate 2018-11-08 10:45:00 [facility] Temperature Oral (F) 2018-11-08 10:45:00 98.0 F [facility] Heart Rate 2018-11-08 10:45:00 [facility] Systolic (mm Hg) 2018-11-08 10:45:00 Ankit rial Sabael Diastolic (mm Hg) 2018-11-08 10:45:00 [facility] BMI Calculated 2018-11-04 21:39:00 [facility] Height 2018-11-04 21:39:00 154.94 cm [facility] Weight 2018-11-04 21:39:00 [facility] Height 2012-08-09 00:05:00 154.94 cm [facility] Weight 2012-08-09 00:05:00 [facility] Heart Rate 2012-03-06 16:08:00 [facility] Systolic (mm Hg) 2012-03-06 16:08:00 Ankit [facility] Taran Respitory Rate 2012-03-06 16:08:00 [facility] Temperature Oral (F) 2012-03-06 16:08:00 97.8 F [facility] Diastolic (mm Hg) 2012-03-06 16:08:00 [facility] Diastolic (mm Hg) 2012-03-06 12:20:00 [facility] Respitory Rate 2012-03-06 12:20:00 [facility] Systolic (mm Hg) 2012-03-06 12:20:00 Ankit rial [facility] Heart Rate 2012-03-06 12:20:00 [facility] Temperature Oral (F) 2012-03-06 12:20:00 98.5 F [facility] Systolic (mm Hg) 2012-03-06 09:00:00 Ankit rial [facility] Respitory Rate 2012-03-06 09:00:00 [facility] Diastolic (mm Hg) 2012-03-06 09:00:00 [facility] Heart Rate 2012-03-06 09:00:00 [facility] Temperature Oral (F) 2012-03-06 09:00:00 97.9 F [facility] Weight 2012-02-28 21:05:00 [facility] Height 2012-02-28 21:05:00 154.94 cm [facility] Procedures Procedure Date / Time Performed Performing Clinician Margie moreno Computed tomography of cervical spine without contrast 00:00:00 [facility] Computed tomography of brain without radiopaque contrast 2020-04 00:00:00 [facility] Colonoscopy [facility] Cholecystectomy [facility] Plan of Care Planned Activity Planned Date Details Comments Source Future Scheduled Test 2020-05-04 00:00:00 INFLUENZA VACCINE [code = INFLUENZA VACCINE] [facility] Scheduled Test 2011 00:00:00 65+ PNEUMOCOCCAL V ACCINE (1 of 2 - PCV13) [code = 65+ PNEUMOCOCCAL VACCINE (1 of 2 - PCV13)] [facility] Scheduled Test 1996 00:00:00 BREAST CANCER SCRE ENING [code = BREAST CANCER SCREENING] [facility] Scheduled Test 1996 00:00:00 COLONOSCOPY SCREEN ING [code = COLONOSCOPY SCREENING] [facility] Scheduled Test 1996 00:00:00 SHINGLES VACCINES (#1) [code = SHINGLES VACCINES (#1)] [facility] Instructions Fractures - Elbow [facility] Encounters Start Date/Time End Date/Time Encounter Type Admission Type Attendi [facility] Facility Care Department Encounter ID Source 2019-04-07 09:54:46 Outpatient MHSE MHSE [id number] [facility] 2020-04-09 17:54:00 2020-04-10 18:50:00 Discharged Inpatient (obs) 1 WILLIAM SHANNON [facility] [id number] [facility] 2019-10-28 09:38:00 2019-10-28 23:59:00 Outpatient Vianney London [facility] [id number] 2019-10-28 09:38:00 2019-10-28 09:38:00 Outpatient MHSE PUL [id number] [facility] 2019-06-23 09:24:00 2019-06-23 12:35:00 Outpatient LondonVianney p MHSE MHSE [id number] 2019-06-23 09:24:00 2019-06-23 09:24:00 Outpatient MHSE PUL [id number] [facility] 2019-05-13 13:23:00 2019-05-13 23:59:00 Outpatient [place] p MHSE MHSE [id number] 2019-05-13 13:23:00 2019-05-13 13:23:00 Outpatient MHSE PUL [id number] [facility] 2019-04-08 14:25:00 2019-04-08 23:59:00 Outpatient Raysa Vilchis MHSE MHSE [id number] 2019-02-25 13:13:00 2019-02-25 23:59:00 Outpatient LondonV[place]ney guzmán p MHSE MHSE [id number] 2019-02-25 13:13:00 2019-02-25 13:13:00 Outpatient MHSE PUL [id number] [facility] 2018-12-18 08:24:00 2018-12-18 16:15:00 Outpatient Raysa Vilchis MHSE MHSE [id number] 2018-12-18 08:24:00 2018-12-18 08:24:00 Outpatient MHSE MHSE [id number] [facility] 2018-12-11 14:24:00 2018-12-13 16:07:00 Outpatient Vianney London MHSE MHSE [id number] 2018-11-04 15:26:00 2018-11-08 13:20:00 Outpatient Tash Fox MHSE MHSE [id number] 2013-07-28 13:43:00 2013-07-28 23:59:00 Outpatient MHIE MHIE [id number] [facility] Results Test Description Test Time Test Comments Results Result Comments Source SHOULDER RIGHT COMPLETE 2020-04-10 17:19:00 [place] [address] Patient Name: DANIA LUCIO MR #: [id number] : 1945 Age/Sex: 74/F Req #: [id number] Adm Physician: WILLIAM SHANNON MD Ordered by: ANDRAE MARIEE DO Report #: [id number] Location: MED/SURG2 Room/Bed: 207 Procedure: [id number] DX/SHOULDER RIGHT COMPLETE Exam Date: 04/10/20 Exam [...] By: DONNA on 04/10/201719 COPY TO: ANDRAE MAIREE DO CT CERVICAL SPINE WO 2020-04-09 16:30:00 [place] [address] Patient Name: DANIA LUCIO MR #: [id number] : 1945 Age/Sex: 74/F Req #: [id number] Adm Physician: Ordered by: BAO GOODMAN DO Report #: [id number] Location: ER Room/Bed: Procedure: [id number] CT/CT CERVICAL SPINE WO Exam Date: 04/09/20 [...] DO HAND 3+ VIEWS LEFT 2020-04-09 16:29:00 [place] [address] Patient Name: DANIA LUCIO #: [id number] : 1945 Age/Sex: 74/F Req #: [id number] Adm Physician: Ordered by: BAO GOODMAN DO Report #: [id number] Location: ER Room/Bed: Procedure: [id number] DX/HAND 3+ VIEWS LEFT Exam Date: 04/09/20 [...] GOODMAN DO ELBOW RIGHT COMPLETE 2020-04-09 16:29:00 [place] [address] Patient Name: DANIA LUCIO MR #: [id number] : 1945 Age/Sex: 74/F Req #: [id number] Adm Physician: Ordered by: BAO GOODMAN DO Report #: [id number] Location: ER Room/Bed: Procedure: DX/ELBOW RIGHT COMPLETE [...] DO KNEE LEFT THREE VIEWS 2020-04-09 16:28:00 [place] [address] Patient Name: DANIA LUCIO MR #: [id number] : 1945 Age/Sex: 74/F Req #: [id number] Adm Physician: Ordered by: BAO GOODMAN DO Report #: [id number] Location: ER Room/Bed: Procedure: DX/KNEE LEFT THREE [...] GOODMAN DO CT BRAIN WO 2020-04-09 16:27:00 [place] [address] Patient Name: DANIA LUCIO MR #: [id number] : 1945 Age/Sex: 74/F Req #: [id number] Adm Physician: Ordered by: BAO GOODMAN DO Report #: [id number] Location: ER Room/Bed: Procedure: [id number] CT/CT BRAIN WO Exam Date: 04/09/20 Exam [...] (test code = PTT) 20.0 s 22.9-35.8 [facility]FT[facility]PGQ4268-32-59 14:18:00* Test Item Value Reference Range Interpretation Comments INR (test code = INR) 0.93 1 0.85-1.17 [facility]fjsgytNTZQPMVZCG5249-11-97 14:18:00* Test Item Value Reference Range Interpretation Comments PT (test code = PT) 12.3 s 12.0-14.7 [facility] NpwpumvSGUOJDFBCW7761-57-88 14:18:0032.8[facility] 2018-12-18 14:18:0014.6[facility] DtbwqrmEKMPXUOCTT2394-06-25 14:18:008.2[facility] MdrcoytNFYJJQRUUN9351-02-20 14:18:18010Dcguumrt JeqpkwfCOBURAFLPT2671-90-61 14:18:0090.4[facility] SmbwdliIQBTNUDSSY5187-20-78 14:18:00* Test Item Value Reference Range Interpretation Comments MCH (test code = MCH) 29.7 pg 27.0-31.0 [facility] GmebfvcCTFBAWDWXA7093-57-82 14:18:0014.3[facility] 2018-12-18 14:18:0043.5[facility] XrtxpavFZWHBTDMXE2511-25-69 14:18:0013.2[facility] NffzjsrFMUJJNBRAV6030-93-69 14:18:004.81[facility] LeoqftwVXJDNKHXUE1186-71-42 14:18:0077.5[facility] PfjjdniRWQGFBRZFA5032-04-25 14:18:000.4[facility] GNHBXYSZIV2771-67-30 14:18:000.7[facility] PigziyaHSRCKYAQQM5051-87-83 14:18:002.2 [facility] HeerlgwLFXIOEHPUI5695-66-14 14:18:0010.2[facility]ann[facility]OLOGY 2018-12-18 14:18:000.1[facility] SjfogheCDJWPYQBWM9309-20-25 14:18:0016.9[facility] BrubowzBDQXMVFING7313-16-86 14:18:005.1[facility] MjhuedbORLYVUICYV5276-44-81 14:18:000.1[facility] HnlalsjVUBBGGLOGR9876-66-93 23:07:009.9[facility] SPECIAL YSQLDWGWU6281-99-56 10:10:006.3[facility] HermannCHEM ZZARL9540-18-86 19:51:003.4[facility] HermannCHEM GSYLJ8046-63-55 19:51:00* Test Item Value Reference Range Interpretation Comments A/G Ratio (test code = A/G Ratio) 1.1 1 0.7-1.6 [facility]ann[facility] BDLAX9234-75-38 19:51:003.5[facility]annCHEM PANEL 2018-12-11 19:51:00* Test Item Value Reference Range Interpretation Comments B/C Ratio (test code = B/C Ratio) 23 1 6-25 [facility]ann[facility] BVMOK8480-00-96 19:51:009.9[facility]annCHEM PANEL 2018-12-11 19:51:0080[facility] HermannCHEM CFUJJ1597-10-70 19:51:000.3[facility]annCHEM WTRTC1466-65-87 19:51:69718Mwquujbh HermannCHEM HMKKH3531-20-28 19:51:0035[facility]annCHEM AQZCZ1605-21-61 19:51:003.8[facility] HermannCHEM YQWDQ4042-03-91 19:51:0011[facility]annCHEM ZCQTA5108-88-77 19:51:0025 [facility]annCHE[facility] CYYAL3707-72-26 19:51:99586Zsinxuhn HermannCHEM PANEL 2018-12-11 19:51:007.3[facility] HermannCHEM WKLWK1440-96-69 19:51:009.2[facility] HermannCHEM AKUKP2153-76-22 19:51:81660Vvaaafrl HermannCHEM THDWL0997-09-64 19:51:003.9[facility] HermannCHEM KXPJM0213-76-43 19:51:000.75[facility]annCHEM NQOTM7824-90-80 19:51:0017[facility] HermannCHEM ZVTJD9472-23-51 19:51:30451 [facility]annCHE[facility] EZUAH6410-98-58 19:51:002.6[facility]annHEMATOLOGY 2018-12-11 19:51:76689Omykgvvm PzouzeoAKQSMVCJYE2006-51-62 19:51:008.0[facility] YdhklasHYNDHTQELH4221-27-26 19:51:0014.3[facility] XdvirhjFYGEZNESRS2348-78-25 19:51:0033.5[facility] LzbrmwnNUFJGSLIDQ3769-93-44 19:51:00* Test Item Value Reference Range Interpretation Comments MCH (test code = MCH) 30.1 pg 27.0-31.0 [facility] CtwomgiCGZBTQXVFR5391-75-00 19:51:004.49[facility]ann[facility]MATOLOGY 2018-12-11 19:51:0013.5[facility] BzqxfyeSYRWORVQPK2413-75-08 19:51:0011.7[facility] SoxhhmjUFYGUDWNIJ5257-93-08 19:51:0089.9[facility] FjjqraqDEWGKGQGYA8540-72-56 19:51:0040.3[facility] XfuxovbVJGBZKPDTJ4272-06-81 19:51:0022.5[facility] FFWHZDNKEG1900-55-26 19:51:006.9[facility] CfihfflJRJIGOFCYM4141-71-21 19:51:000.4 [facility] DcclijrPFLDGCUMYP2525-46-44 19:51:002.6[facility]annHEMATOLOGY 2018-12-11 19:51:008.2[facility] ZaodjqzJZGSBRVJDU8235-08-20 19:51:000.3[facility] KvtrhgoYECASRBRXB3213-95-81 19:51:000.1[facility] FdjgqlwBTYRPHRMPA9381-22-48 19:51:000.8[facility] QsesgnaRRWLATJKMO4175-18-97 19:51:0069.9[facility] KFQUMRBRLC3137-34-09 19:51:0013[facility] VljfuniZJWHRBKOZH9129-69-33 19:51:00 749.0[facility] HermannMAMMOGRAPHY DIGITAL SCR QAVGR5459-07-62 09:48:00 [place] [address] Patient Name: DANIA LUCIO MR #: [id number] : 1945 Age/Sex: 73/F Req #: [id number] [facility] Physician: Ordered by: TASH PASCUAL MD Report #: [id number] Location: MAMMO Room/Bed: Procedure: [id number] MG/MAMMOGRAPHY DIGITAL SCR BILAT Exam Date: 11/20/18 Exam Time: 0933 REPORT STATUS: Sig dao #[id number] - MGSCRBIL #BILATERAL DIGITAL SCREENING MAMMOGRAM WIT H CAD: 11/20/2018 CLINICAL: Routine screening. Comparison is made to nolberto caba dated: 12/11/2016 mammogram - [facility]. Current study contains 4 films. There are [...] letter of the results. 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 APODACA)(Chon), [facility] let ter sent: Compared to Prior B9 Mammogram BI-RADS: 2 Benign Dictated By: PORTER ROSS DO 1326 T ranscribed By: JENN on 11/28/18 1326 COPY TO: TASH PASCUAL MD CWHDWDILXT5880-13-83 11:04:0012.4[facility] SudroyxONZVRCLZML8875-35-46 11:04:00 37.4[facility] SthnfxoKSBVXAQSJC8058-43-17 11:04:0089.9[facility]ann[facility]MATOLOGY 2018-11-07 11:04:00* Test Item Value Reference Range Interpretation Comments MCH (test code = MCH) 29.8 pg 27.0-31.0 [facility] OluastvIGIBWUGZKR9008-08-77 11:04:0033.2[facility]annHEMATOLOGY 2018-11-07 11:04:0014.4[facility] FooeujlPFUVMOPYVO1973-64-03 11:04:17198Ekxmbwff QuziefrMKELUPOMTZ6241-05-51 11:04:008.3[facility] InujdeeZCKOMASVSM7933-32-57 11:04:0017.9[facility] RvnkakxDHXPBWUNKV1563-48-59 11:04:004.16[facility] DMWAHQDNZH7967-32-96 11:04:000.1[facility] AcohzpsGCQFMRCEIO1360-29-99 11:04:001.3 Memorial JdnwcfzUJISAGPGQH9481-87-24 11:04:0016.3[facility]annHEMATOLOGY 2018-11-07 11:04:000.4[facility] SyebfitHNRXOLZSLU6240-99-12 11:04:00Normal (11/07/18 5:04 AM)[facility] CtehjmoJJXVCGTWHI2580-74-26 11:04:00Normal (11/07/18 5:04 AM)[facility] UdccdzyUKBZZCYALE0551-38-50 11:04:0090.8[facility]annHEMATOLOGY 2018-11-07 11:04:007.0[facility] GiwgmnyJTGXJVSQRO1090-73-20 11:04:002.1[facility] ZoeoqdlPSAGVSLUTR5567-38-22 11:12:007.9[facility] TwigeloHSMDOLHZGU3496-24-03 11:12:0088.7[facility] IparyreKQEOHSRUOJ3885-20-86 11:12:0038.1[facility] FTMYOKHZQZ4580-97-58 11:12:0012.6[facility] BmvezlzINZTXUITTI5125-62-99 11:12:00* Test Item Value Reference Range Interpretation Comments MCH (test code = MCH) 29.4 pg 27.0-31.0 [facility] NtcpbtkHGQVAOUZPQ9137-16-36 11:12:0014.2[facility]annHEMATOLOGY 2018-11-06 11:12:96198Mbzbalat XldrpghZWHWJZFSRT8254-13-91 11:12:0033.1[facility] RfcmbndACUZMKWGYI4152-55-94 11:12:0020.1[facility] ZezlsdwRYLZQXSJBG2047-52-32 11:12:004.30[facility] HermannCHEM MZLLV2715-95-88 12:12:00<0.05[facility] IZTTHRNLUMSK9447-92-11 12:12:0011.1[facility] MxdukbgWMHHODOTUIOR7774-04-74 12:12:0088[facility] QckmfrhCAUEOXZULWRW5817-94-39 12:12:0024[facility] AQWVPDOCUWDO6039-38-30 12:12:009.0[facility] XimcvuyMGKOVLWFPIPM6723-12-28 12:12:000.68[facility] VsyrcylDSXUDSQALSIF2700-17-41 12:12:44536Zdboghpy Taran XZUABPDQCNNH6150-65-78 12:12:17729Bmwbumft SdjoasgKQNKTSZWKZPB7987-62-52 12:12:0013[facility] FohchaiKMAMWEKEZROA8925-81-93 12:12:75997Fazzgrhf Taran VNSYHHKQIGYY3578-64-65 12:12:004.1[facility] LyzeiwpXFVDABOBKZ9364-12-90 12:12:00 40.8[facility] QyqphttWGHKZQZFVM3005-51-02 12:12:00* Test Item Value Reference Range Interpretation Comments MCH (test code = MCH) 29.8 pg 27.0-31.0 [facility] RulnknqHKWWNSATRB8584-37-21 12:12:0089.3[facility]annHEMATOLOGY 2018-11-05 12:12:0033.4[facility] CsbbsqtMPAOIWIHLB4007-28-59 12:12:008.2[facility] HylzhypZMTGENFVTA8544-24-63 12:12:81244Kjrpkagd RfttkwqEXPVOLCFTW4881-87-84 12:12:0013.9[facility] XfkjldpETRUETXJGU9147-68-48 12:12:0011.3[facility] WFXZMNFIOH2265-10-39 12:12:004.57[facility] DbzsvrjQWOZZRPKMI1673-84-03 12:12:00 13.6[facility] QrclisuTNUFOWFMG3820-61-11 02:05:00<0.1[facility] HermannCHEMISTRY 2012-08-09 02:05:000.7[facility] OxjnybgEGWWCSQYZ8137-64-40 02:05:13979Uluihiwu SispqjrZKFTKUGUI0884-16-62 02:05:001.2[facility] GduekxsFTMXKZWZB5262-86-79 02:05:00<0.02[facility] IukrauhSBIZLMNOK5176-34-39 02:05:0095[facility] NDIEYNGYZ2060-67-96 02:05:004.0[facility] YfagfskQCICVTXIB3397-70-85 02:05:0014.0 [facility] UqajdamGOPVCYMKE4899-61-58 02:05:004.0[facility] HermannCHEMISTRY 2012-08-09 02:05:12558Hcgxcgcy XncgzjsTXRKSXCEB3059-98-67 02:05:0025[facility] RyhbuokKGKMZDTPI1849-66-83 02:05:80797Vcjerums VuguwqkQTWZFSVSW9142-02-10 02:05:008.6[facility] BfjfevwTORONKUQF8769-35-02 02:05:000.6[facility] PIWADXYGG1397-42-99 02:05:88816Axrhuygl BcticnzTIQSXADNL9481-01-51 02:05:0091 Memorial NrvpjbnEBRFOAALB8745-77-19 02:05:000.2[facility] HermannCHEMISTRY 2012-08-09 02:05:0012[facility] XbhzyelEVCFRTQGU5946-60-57 02:05:001.1[facility] UqcbegoRUVQZYYHZ8093-21-93 02:05:0020[facility] AsfntipTAUDPLOMI6015-03-04 02:05:003.6[facility] HufhylbICMVLIZXU5445-23-82 02:05:0032[facility] BXULYSEVG3392-52-30 02:05:0019[facility] KdavgndKQPANPEHC9664-00-67 02:05:007.6 [facility] LtndccaSZZACNFJD1943-30-13 02:05:34444Geasyffk HermannHEMATOLOGY 2012-08-09 02:05:000.5[facility] EhpyfixZGXWUHWTLX8414-44-12 02:05:000.2[facility] WvfmwlpVWWXRJKIDZ9051-54-24 02:05:000.1[facility] LspwbmuUKKIDKHTOY1803-16-46 02:05:006.8[facility] TwlrvpnRLJXVRMDNV1794-96-86 02:05:001.3[facility]ael JGVKQNJVLU6371-22-37 02:05:002.7[facility] PnuzvlpFVWFGTSJEV8958-11-52 02:05:002.5 [facility] CgonozyMIZVBGGIUQ9263-24-81 02:05:004.5[facility] HermannHEMATOLOGY 2012-08-09 02:05:0031.7[facility] PketyjrTIIHZWYIQB0689-62-18 02:05:0057.5[facility] KjnpjatSJKZKJEPUZ6535-92-07 02:05:000.90[facility] OvlwbpxCAIFOWNAFU2187-72-24 02:05:00* Test Item Value Reference Range Interpretation Comments PTT (test code = PTT) 26.1 s 22.9-35.8 N [facility] LqgkxcrLGQZXHNTOJ1144-62-62 02:05:00* Test Item Value Reference Range Interpretation Comments PT (test code = PT) 12.4 s 12.0-14.7 N [facility] ArcxwbnGAWNAHXUQR8749-14-44 02:05:99756Tjzhevet HermannHEMATOLOGY 2012-08-09 02:05:007.4[facility] XdgccvzXPEZBXXLJY0764-07-64 02:05:0090.2[facility] ArloyhnBIWOZRSICV7041-41-04 02:05:0038.8[facility] DivruqrJCDQFOAVYK0818-46-25 02:05:0033.8[facility] FqobtarGQYPCVKXIK0014-30-68 02:05:00* Test Item Value Reference Range Interpretation Comments MCH (test code = MCH) 30.5 pg 27.0-31.0 N [facility] ZkuyuulTACELZFYZF4928-91-91 02:05:0013.8[facility] HermannHEMATOLOGY 2012-08-09 02:05:004.30[facility] BlbcanyHYVTQNCEWR4331-94-54 02:05:0013.1[facility] InfpnhpMCPCRQMMYD0819-60-78 02:05:007.9[facility] KflxzaiIFUUUNCHR7075-80-41 16:45:0013.0[facility] MklhfzzAJRQXAKVD5182-44-13 16:45:009.0[facility] EQNZIORNE7119-59-71 16:45:0026[facility] McbmgepVYJFHUBUU2259-08-51 16:45:93884 [facility] NcugzugLAZDIPXSD9832-61-81 16:45:004.0[facility] HermannCHEMISTRY 2012-03-22 16:45:000.6[facility] ZqgvlviIEFGVAODY6354-65-02 16:45:92539Nftzfzkz NmxbecuYXCIYOXBO5067-26-85 16:45:0079[facility] QirndkaEYLTBWQGK8907-32-62 16:45:0012[facility] PniwnwzCCONQUIIM2415-76-64 10:15:0015.6[facility] Taran TRVOYTQQV1250-20-80 10:15:81928Jffvcooh IzloemjJQJHMVXYG8904-77-97 10:15:0015 [facility] GznidykTUJYIFTOL5967-56-82 10:15:000.7[facility] HermannCHEMISTRY 2012-03-06 10:15:0023[facility] NdwwhqkGVUVJAVLG8620-26-47 10:15:009.0[facility] SudtqdzKXSUDEPNL2326-00-34 10:15:72521Vinfuoej UmzyhfgUTHLQAJEP2925-66-24 10:15:004.6[facility] VcqohhwCEOUXXYIV4936-28-09 10:15:55044Rpnmdqsn Sabael GKAOAPQQCW4499-91-56 10:15:000.0[facility] YneedhzZXHRLFWXUT8196-21-60 10:15:000.0 [facility] YbsqkekXFWMEYVERN0599-62-40 10:15:003.0[facility] HermannHEMATOLOGY 2012-03-06 10:15:0013.9[facility] IekykcqRJOPMDFADZ1244-85-29 10:15:0083.1[facility] UlpvyyqBLQYRIRGBZ6401-95-82 10:15:000.0[facility] WaocqltWEDAEEMXYF5100-93-81 10:15:001.9[facility] XdawgbvXGYFGVEOZW3019-18-38 10:15:000.4[facility] Taran QRWOTLIVLI3703-76-05 10:15:000.0[facility] SbtxlecHFORLJCENM0404-78-48 10:15:00 11.0[facility] YllfpndTILMLGRASP7740-53-84 10:15:0013.3[facility] HermannHEMATOLOGY 2012-03-06 10:15:004.35[facility] PexyleqUDQBANBELA5919-54-29 10:15:0013.2[facility] RqadrsvMVXPYTWPVC3895-52-75 10:15:0039.7[facility] XhdqlbfTAAJBVKDUB0202-41-98 10:15:0013.2[facility] RrgntwnIYDXLBXTYS0537-50-67 10:15:0091.3[facility]ael QFBIFHXLVM5862-31-25 10:15:0033.2[facility] MkclspiGJTPKNMZRV6409-53-24 10:15:00* Test Item Value Reference Range Interpretation Comments MCH (test code = MCH) 30.3 pg 27.0-31.0 N [facility] JzpvdxlGQXDAJNNZE8042-37-13 10:15:02528Qhzufjkx HermannHEMATOLOGY 2012-03-06 10:15:007.9[facility] AqpbaymZZYDMEILQ2215-67-53 10:20:004.5[facility] TabxogsJGPMTENHB7008-15-69 10:20:64595Jmbkyvvc MfebkapDFZFRXWGE4559-22-69 10:20:75597Caccomqn EpmrvasTPPMSJARD2907-07-37 10:20:0014[facility]an RQNGOPMYT3232-98-90 10:20:0023[facility] JwyamvsXDWFGXVTW0212-61-31 10:20:009.0 [facility] YpdvgqyOZKNFZBGG1953-09-96 10:20:0016.5[facility] HermannCHEMISTRY 2012-03-05 10:20:80140Qnmbzzvx TjwigruVGKGUIAOZ8011-42-94 10:20:000.8[facility] TrhigsjSMKTZGBOPB8748-52-48 10:20:007.9[facility] GzvghlyHTAEIUTXVI9219-94-90 10:20:0090.6[facility] DkeplesXCCHDCOSSA5104-50-64 10:20:00* Test Item Value Reference Range Interpretation Comments MCH (test code = MCH) 30.9 pg 27.0-31.0 N [facility] TrjntggGMINHSQRRT4691-14-58 10:20:0034.1[facility] 2012-[facility]05 10:20:0013.4[facility] TbvryojVQMNKROXUI2262-21-06 10:20:67234Scqorvpo AmbxgcvTBWDNOLZQH4864-59-35 10:20:0012.9[facility] ZyiivyqIZHXYOOVIU8895-91-11 10:20:0037.9[facility] MmxwikqECEPDAGWQP4171-09-88 10:20:0012.5[facility] KDIIJZOBTW6032-89-33 10:20:004.18[facility] YiyvmxeISFPLUIGVE2676-22-02 10:20:00 2.0[facility] RlhvilcDZSWJMEKZQ9146-96-55 10:20:000.0[facility] 2012-03-05 10:20:000.5[facility] KczyvcqAIDXMWXDJU7088-57-36 10:20:000.1[facility] OivaqfzQSTMJAIIUN7739-90-56 10:20:000.0[facility] OmjbtcdRXMOVABGNX4516-93-91 10:20:009.9[facility] MscvggzOLVWHCYHPX8747-39-96 10:20:000.1[facility] LQAKKXKAQL6966-26-30 10:20:003.7[facility] RlarrtdYMKNEJAQOY4349-35-88 10:20:00 16.3[facility] FivsuafZQNJHKRELE6025-45-22 10:20:0079.8[facility]annCHE[facility]STRY 2012-03-03 10:25:0015.4[facility] ThvvljaKTGGMQYPK9027-20-40 10:25:0013[facility] TdbjhkcRKBTNCJOB7172-56-19 10:25:0025[facility] EoyzqhdVFQUXDEZD0863-45-41 10:25:008.8[facility] KvdrgcrPVFEELEZL8657-26-54 10:25:77055Sjcjlteu Sabael UCEYKTAHF6638-34-07 10:25:11737Zkaccbom PnateejROCIVPWCL7546-11-77 10:25:000.6 [facility] RqifizfIIMKHCXOJ2574-60-37 10:25:004.4[facility]annCHEMISTRY 2012-03-03 10:25:63648Uhqjtgit PiqvqkmUMRDDROXAG1431-35-38 10:25:000.5[facility] DyibdsrUZYYGCOYFP1655-86-80 10:25:000.0[facility] CmowjgtYRAVDCMRXB5148-95-66 10:25:000.0[facility] RoyyizfTSHEVGLNJG1304-10-89 10:25:0011.4[facility] CQHDVRKYQL5422-61-26 10:25:000.3[facility] OlxeehwNQGPYEILTG0562-46-23 10:25:000.0 [facility] NtjqztmEMJADUBZLI3261-75-40 10:25:0082.1[facility]ann[facility]OLOGY 2012-03-03 10:25:003.7[facility] RoqcxtdGDQFPAXVTF5967-51-45 10:25:001.9[facility] TrhmynzGLSARJMZAK4052-12-05 10:25:0013.9[facility] RbyendmLHBMARFIEN8011-70-22 10:25:0013.5[facility] HduefhsLULLQENFVX3324-88-20 10:25:08277Jmcykjon Taran HVAGNOPUPW4681-87-65 10:25:0033.8[facility] XozmcosKMLWSAGXDH1402-03-10 10:25:00 7.9[facility] QomebgsJNCHKQWLQX9518-13-30 10:25:0012.2[facility]ann[facility]OLOGY 2012-03-03 10:25:003.96[facility] KykilipBRJBFSOOEJ6607-58-46 10:25:0091.2[facility] ParmdrwLHAVTFWYJG0518-86-13 10:25:0036.1[facility] RwzdgkuIWFZTGSMRB3057-50-83 10:25:0013.9[facility] RjxsanbAJTCABBSSO6443-09-34 10:25:00* Test Item Value Reference Range Interpretation Comments MCH (test code = MCH) 30.8 pg 27.0-31.0 N [facility] PprmrxeUPQIVVXWPO3283-38-24 09:41:003.0[facility] 2012-03-02 09:41:00Slight *ABN*(03/02/2012 04:41:00) [facility] 2012-03-02 09:41:001+ *ABN*(03/02/2012 04:41:00) [facility] 2012-03-02 09:41:00Normal (03/02/2012 04:41:00) [facility] 2012-03-02 09:41:000.0[facility] IobmcicNMHGKBBJIA9369-73-47 09:41:00See Note (03/02/2012 04:41:00) [facility] GkjuhgsHPRPVVZVXH1873-31-97 09:41:001.0[facility] HzqkyxmVRSDPIAUO4889-23-65 22:21:003.6[facility] CibfovbVXROLKQUY5239-47-31 22:21:0025[facility] AkjtnkiYZBOVHDVV3968-46-34 22:21:0097[facility] Sabael CMJYFNPAT8514-72-76 22:21:000.4[facility] CexlwguMQQNZYPTC3198-12-16 22:21:008.1 [facility] MpfnoskEQUNQKCRG7977-70-93 22:21:0014[facility]annCHEMISTRY 2012-02-28 22:21:000.8[facility] WiwhtqpQQIJJYLYB4283-80-57 22:21:0020[facility] WcvewjhOSBYPBKDD8529-58-64 22:21:004.5[facility] XmtxwfeODFSNQGSX9092-25-05 22:21:001.3[facility] W[facility] [place] [address] Patient Name: DANIA LUCIO MR #: [id number] : 1945 Age/Sex: 72/F Req #: [id number] Adm Physician: Ordered by: EMILY REDDY MD Report #: [id number] Location: MRI Room/Bed: Procedure: MRI/MRI ABDOMEN WOW [...]
[2020-04-22 17:31] LABS: BASOPHILS # (AUTO) 0.1 (0.0-0.1); EOSINOPHILS # (AUTO) 0.2 (0.0-0.4); EOSINOPHILS % 2.8 % (0.0-6.0); HEMATOCRIT 41.7 % (34.2-44.1); HEMOGLOBIN 13.5 g/dL (12.0-16.0); LYMPHOCYTES # (AUTO) 2.5 (1.0-3.2); LYMPHOCYTES % 35.3 % (18.0-39.1); MEAN CORPUSCULAR HGB CONC 32.4 g/dL (31-35); MEAN CORPUSCULAR VOLUME 89.5 fL (81-99); MONOCYTES # (AUTO) 0.5 (0.2-0.8); MONOCYTES % 7.2 % (4.4-11.3); NEUTROPHILS # (AUTO) 3.8 (2.1-6.9); NEUTROPHILS % 53.6 % (38.7-80.0); PLATELET COUNT 296 x10e3/uL (140-360); RED BLOOD COUNT 4.66 x10e6/uL (3.6-5.1); RED CELL DISTRIBUTION WIDTH 12.8 % (11.7-14.4)
[2020-04-22 17:45] LABS: ALANINE AMINOTRANSFERASE 22 IU/L (0-55); ALBUMIN/GLOBULIN RATIO 1.1 (0.8-2.0); ALKALINE PHOSPHATASE 92 IU/L (40-150); ANION GAP 16.8 mmol/L (8-16); BLOOD UREA NITROGEN 13 mg/dL (7-26); BUN/CREATININE RATIO 19 (6-25); CALCIUM 9.5 mg/dL (8.4-10.2); CARBON DIOXIDE 23 mmol/L (22-29); CHLORIDE 106 mmol/L (98-107); CREATININE, SERUM 0.69 mg/dL (0.57-1.11); EST GLOMERULAR FILTRATION RATE > 60 ML/MIN (60-); GLUCOSE 161 mg/dL (74-118); POTASSIUM 3.8 mmol/L (3.5-5.1); SODIUM 142 mmol/L (136-145)
[2020-04-22] MEDS: MORPHINE SULFATE INJ 4 MG/ML INJ 1ML IV PRN ×2 (18:08→23:45)
[2020-04-22] MEDS: SODIUM CHLORIDE 0.9% 1000ML 1,000 ML IV SCH ×2 (18:08→23:45)
[2020-04-22] MEDS: ONDANSETRON HCL INJ 2MG/ML 2ML 2 MG/ML VIAL IV PRN ×2 (18:08→23:45)
--- NOTE | 2020-04-22 18:22 | NUR ---
Patients dress and sling placed in a belongings bag and placed on bedside table.
--- NOTE | 2020-04-22 18:47 | Diagnostic Imaging Report ---
EXAMINATION: CHEST SINGLE (PORTABLE) COMPARISON: None INDICATION: Right wrist surgery ^pre-op ^20200422 ^1759 DISCUSSION: Frontal view of the chest obtained at 1759 hours. HEART AND MEDIASTINUM: The heart is normal in size. The aorta is mildly tortuous LINES: None. There is a linear radiodensity superimposed over the right clavicular head. LUNGS/PLEURA: The lungs are well inflated and clear. No pneumonia or pulmonary edema. No pleural effusion or pneumothorax. BONES AND SOFT TISSUES: No focal osseous lesion. The soft tissues are normal. IMPRESSION: No acute cardiopulmonary disease. Linear radiodensity over the right clavicular head may be outside the patient. Signed by: Dr. Jason Shi MD on 04/22/2020 6:43 PM
--- NOTE | 2020-04-22 19:15 | NUR ---
Bedside shift report given to Nona.
--- NOTE | 2020-04-22 19:36 | NUR ---
ORTHOPEDIC CONSULTATION 74 year old right hand dominant female presents to the ED after a mechanical fall with right elbow and shoulder pain. She denies any numbness, paresthesias or loss of distal motor function. Complains of pain only in right elbow. Denies pain in any other extremity. Was seen in my office this week and pain has worsened. PMdHx: Denies Allergies; Denies SurgHx: Tear duct eye Surgery, Wrist Surgery, Cholecystectomy FamHx: Non-contributory SocHx: Denies Tob, EtOh, & Drugs AVSS Right Upper Extremity Splinted, clean, dry and intact Motor: + AIN, PIN, Radial, Median, Ulnar Sensation grossly intact to light touch Pulses + Radial, good capillary refill Compartments soft Digits extremely swollen Xrays: Right Elbow: Olecranon avulsion fracture of Triceps 74 yo F with Right Olecranon Avulsion Fracture, -NWB RUE -Analgesics PRN -Rest, Ice & Elevation -Continue splint -Plan for Right Triceps Tendon Repair -NPO except meds -Hold anticoagulation -IVF while NPO Thank you for the consultation Sofia Ferrari,
[2020-04-22] MEDS ORDERED: HEPARIN SOD (PORCINE) 5,000 UNIT/ML VIAL SC ONE ×2 (19:45→23:15)
[2020-04-22 19:55] LABS: INR 0.92; PARTIAL THROMBOPLASTIN TIME 25.6 seconds (23.8-35.5); PROTHROMBIN TIME 12.8 seconds (11.9-14.5)
[2020-04-22 22:30] VITALS: BP 137/68
--- NOTE | 2020-04-22 22:40 | NUR ---
PATIENT RECEIVED FROM ER. PATIENT IS AAOX3. RESP EVEN AND UNLABORED. RIGHT ARM IN SLING WITH DRESSING AND LESLEE WRAP NOTED. ORIENTED TO ROOM. EDUCATED PT ABOUT FALL PRECAUTIONS. PT VERBALIZED UNDERSTANDING. CALL LIGHT WITH IN EASY REACH. INSTRUCTED PT TO USE CALL LIGHT FOR ALL THE NEEDS. BED IS LOW AND LOCKED. SIDE RAILS X2. BED ALARM IS ON. PT DENIES NEEDS AT THIS TIME. CONTINUE TO MONITOR CLOSELY
[2020-04-22 23:00] VITALS: BP 137/68
--- NOTE | 2020-04-22 23:15 | NUR ---
OBTAINED CONSENT FORM
[2020-04-23] VITALS (10 sets, daily range): BP systolic 127–146; BP diastolic 54–76
[2020-04-23] MEDS ORDERED: HYDROCODONE/APAP 5MG-325MG TAB PO PRN (01:00)
[2020-04-23] MEDS ORDERED: MELATONIN 5 MG TABLET PO PRN (01:00)
[2020-04-23] MEDS ORDERED: ACETAMINOPHEN 325 MG TAB PO PRN (01:00)
[2020-04-23] MEDS ORDERED: MORPHINE SULFATE INJ 4 MG/ML INJ 1ML IV PRN (01:30)
--- NOTE | 2020-04-23 03:02 | History and Physical ---
CHIEF COMPLAINT: Mechanical fall leading to an ulnar fracture. HISTORY OF PRESENT ILLNESS: A 75-year-old female reports that she had a mechanical fall about 2 weeks ago, landing on the right elbow and wrist. She reports that she tripped on a trash can and fell to the ground. The patient presented to the [facility] for further evaluation and management. Imaging studies consistent with an acute olecranon process of the ulna fracture of the right elbow. The patient was sent home with a sling and is scheduled for surgery tomorrow. The patient was seen and evaluated at bedside on the medical floor. She is currently doing well with no other issues at this time. REVIEW OF SYSTEMS: Pertinent positives: Mechanical fall. The rest of 14-point review of systems are reviewed with the patient and are negative. ALLERGIES: NO KNOWN DRUG ALLERGIES. HOME MEDICATIONS: 1. Tylenol. 2. Tramadol. 3. Naproxen. PAST MEDICAL HISTORY: Osteoarthritis. PAST SURGICAL HISTORY: Varicose veins, gallstones, tubal ligation, wrist surgery in the past. FAMILY HISTORY: Hypertension and diabetes. SOCIAL HISTORY: No drugs. No alcohol. Does not smoke. Good social support. PHYSICAL EXAMINATION: VITAL SIGNS: Temperature is 97.9, pulse 80, respiratory rate is 19, blood pressure 137/68, pulse ox 98% on room air. GENERAL: Not in acute distress. Alert and oriented x3. Cooperative on examination. HEENT: Head; normocephalic, atraumatic. Eyes; pupils are equal, round, and reactive to light bilaterally. Extraocular movements intact bilaterally. Throat; no evidence of erythema or exudates in the posterior pharynx. Has poor dentition. NECK: Supple. Good range of motion. PULMONARY: Clear to auscultation bilaterally. No wheezing, no rales, no rhonchi, no crackles appreciated. CARDIOVASCULAR: Positive S1 and S2. No murmurs, rubs, or gallops appreciated. ABDOMEN: Soft, nondistended, and nontender to palpation. Bowel sounds present. MUSCULOSKELETAL: Strength is 5/5 throughout. No evidence of any muscle deficits on examination. No weakness appreciated. NEUROLOGIC: Cranial nerve II through XII grossly intact. No evidence of any neurological deficits on exam. SKIN: Intact. Warm to touch. Good cap refill. PSYCHIATRIC: Normal affect and mood. EXTREMITIES: She has a right upper extremity sling due to acute right olecranon ulnar fracture. LABORATORY FINDINGS: Show white count 7, hemoglobin 13, hematocrit is 41, platelets of 296. Chemistry; sodium 142, potassium 3.8, chloride 106, bicarb 20, anion gap is 16, BUN 13, creatinine 0.69. LFTs are normal. Albumin is 4. Coagulation normal. SEROLOGY: Coronavirus not detected. IMAGING STUDIES: Chest x-ray shows no acute cardiopulmonary disease. Linear radiodensity over the right clavicular hair may be offset the patient. IMPRESSION: 1. Acute right olecranon ulnar fracture secondary to mechanical fall. 2. Pain secondary to fracture. PLAN: At this time, she will be n.p.o. after midnight. IV fluids, pain control. Orthopedics has been consulted. She is scheduled for surgery in the morning. Resume same home medications. Anticoagulation after surgery. Get a.m. labs. MD RAVINDRA Joshi/PADMAJA /[id number]
[2020-04-23 05:16] LABS: CLARITY,URINE CLEAR (CLEAR); COLOR,URINE YELLOW (YELLOW)
[2020-04-23 05:17] LABS: BILIRUBIN,URINE NEGATIVE (NEGATIVE); KETONES,URINE NEGATIVE (NEGATIVE); LEUKOCYTE ESTERASE ,URINE NEGATIVE (NEGATIVE); NITRITE,URINE NEGATIVE (NEGATIVE); PROTEIN,URINE DIPSTICK NEGATIVE (NEGATIVE); URINE UROBILINOGEN 0.2 mg/dL (0.2 - 1)
[2020-04-23 05:22] LABS: BACTERIA,URINE FEW /HPF; EPITHELIAL CELLS,URINE FEW /LPF; MUCUS,URINE RARE (RARE); RBC,URINE 0-5 /HPF (0-5); WBC,URINE (MAN) 0-5 /HPF (0-5)
--- NOTE | 2020-04-23 07:05 | NUR ---
RCD PT AT BED PT IS ALERT AND ORIENTED RESTING ON BED IV PATENT PT NPO FOR PROCEDURE FLUSH BED LOW AND LOCKED CALL LIGHT IN REACH
[2020-04-23] MEDS: ONDANSETRON HCL INJ 2MG/ML 2ML 2 MG/ML VIAL IV PRN ×2 (08:38→15:45)
[2020-04-23] MEDS: MORPHINE SULFATE 2 MG/ML SYR 1ML IV PRN ×3 (08:38→20:59)
[2020-04-23] MEDS ORDERED: BACITRACIN ZINC 15 GM OINT ONE (10:01)
[2020-04-23] MEDS ORDERED: BUPIVACAINE HCL 0.5% INJ 30 ML VIAL INJ ONE (10:01)
--- NOTE | 2020-04-23 10:08 | NUR ---
PT WENT TO PROCEDURE IN SAFE CONDITION
--- NOTE | 2020-04-23 12:09 | NUR ---
PREOPERATIVE DIAGNOSES: Rights Triceps Avulsion Fracture POSTOPERATIVE DIAGNOSES: Rights Triceps Avulsion Fracture PROCEDURE PERFORMED:Right Triceps Repair ANESTHESIA: General. SURGEON: Sofia Ferrari DO FITNESS CONSULTANT: LARA Phan ESTIMATED BLOOD LOSS:5cc. COMPLICATIONS: None. COMPONENTS: 4 1.8 [employer] Q Fix Anchors TOURNIQUET TIME: 64 minutes BRIEF HISTORY:75 year old patient who had a mechanical fall and sustained an avulsion of her right triceps. PROCEDURE: The patient was taken to the operative suite, placed on the operative field.Anesthesia provided general endotracheal anesthesia. Once adequately sedated, the patient was placedin supine position. Care was ensured that she was well positioned, adequately secured and padded. A tourniquet was applied and theoperativeupper extremity was then prepped and draped in the usual sterile fashion. Using an esmarch and tourniquet, the extremity was exsanguinated. A direct posterior approach was used to dissect the subcutaneous tissue exposing the triceps and posterior olecranaon. The fracture hematoma was irrigated and the triceps was reduced. Through the use of 2 Qfix anchors, sutures were placed in modified Krackow position through the triceps and secured proximally. the distal portion of the triceps was secured with two more anchors and sutures. The area was thoroughly irrigated. The subcutaneous tissue was closed with vicryl as well and the skin was closed with Monocryl. 10 cc of .5% Marcaine was injected. Steristrips were applied and the incision was covered with xeroform, 4x4s, ABD and Webril.. The extremity was placed in a posterior slab splint in extension. DISPOSITION: The patient tolerated well and transferred to PostAnesthesia Care Unit in stablecondition.
[2020-04-23] MEDS ORDERED: HYDROMORPHONE 2MG/ML 2 MG/ML ML ONE (13:14)
--- NOTE | 2020-04-23 13:27 | NUR ---
[employer] worker provided pastoral support of through encourgment , scripture and prayer. pt expressed favio and peace chaplain Estrellita
--- NOTE | 2020-04-23 13:40 | NUR ---
RCD PT FROM OR BY BED PT IS ALERT AND ORIENTED VITALS CHECKED NO SIGNS OF BLEEDING ON THE SURGICAL SITE BED LOW AND LOCKED CALL LIGHT IN REACH
[2020-04-23] MEDS: SODIUM CHLORIDE 0.9% 1000ML 1,000 ML IV SCH (14:35)
[2020-04-23] MEDS ORDERED: FENTANYL CITRATE/PF 100MCG/2 ML INJ ONE (15:20)
[2020-04-23] MEDS ORDERED: MIDAZOLAM HCL 2 MG/2 ML VIAL ONE (15:20)
[2020-04-23] MEDS: CEFAZOLIN SOD 1 GM/NS 50ML 50 ML IV SCH (17:52)
--- NOTE | 2020-04-23 19:18 | NUR ---
PT RESTING ON BED BED SIDE REPORT GIVEN TO ONCOMING NURSE
--- NOTE | 2020-04-23 19:20 | NUR ---
Patient received lying in bed. AAO x 4. Patient had no complaints of pain. Respirations even and non-labored. Dressing to right arm CDI. Fall precautions implemented. Patient instructed to call for assistance when needed. Call light within reach.
[2020-04-23] MEDS ORDERED: PROPOFOL IV EMULSION 10 MG/ML 20 ML VIAL ONE (21:37)
[2020-04-23] MEDS ORDERED: LIDOCAINE HCL 2% LOCAL INJ 5 ML SDV VIAL INJ ONE (21:37)
[2020-04-23] MEDS ORDERED: SEVOFLURANE INHAL SOLN 250 ML PEN BTL ONE (21:37)
[2020-04-23] MEDS ORDERED: ONDANSETRON HCL INJ 2MG/ML 2ML 2 MG/ML VIAL ONE (21:37)
[2020-04-23] MEDS ORDERED: KETOROLAC TROMETHAMINE 30 MG/ML VIAL ONE (21:37)
[2020-04-23] MEDS ORDERED: CEFAZOLIN SOD 1 GM VIAL ONE (21:37)
[2020-04-23] MEDS ORDERED: DEXAMETHASONE SOD PHOS INJ 4 MG/ML VIAL ONE (21:37)
[2020-04-24] VITALS: BP 127/57
[2020-04-24] MEDS: KETOROLAC TROMETHAMINE 30 MG/ML VIAL IV SCH ×2 (01:24→09:45)
[2020-04-24] MEDS: CEFAZOLIN SOD 1 GM/NS 50ML 50 ML IV SCH ×2 (01:24→10:31)
--- NOTE | 2020-04-24 01:41 | Progress Note ---
DATE: 04/23/2020 Medicine Progress Note SUBJECTIVE: The patient underwent surgery of her right elbow today by Orthopedics. She was scheduled to go home, but she reports that she has significant pain and refuses to go home. The patient will be kept overnight. PHYSICAL EXAMINATION: VITAL SIGNS: Temperature is 97.9, pulse 91, respiratory rate is 19, blood pressure 146/69, and pulse ox 97% on room air. GENERAL: Not in acute distress. Alert and oriented x3. Cooperative on examination. HEENT: Head is normocephalic and atraumatic. Eyes; pupils are reactive to light bilaterally. Extraocular movements are intact bilaterally. Throat, no evidence of any erythema. NECK: Supple. Good range of motion. MUSCULOSKELETAL: No weakness appreciated. NEUROLOGIC: Cranial nerves II through XII grossly intact. No evidence of any neurological deficits on exam. SKIN: Intact, warm to touch. Good cap refill. PSYCHIATRIC: Normal affect and mood. EXTREMITIES: No edema. Right elbow ORIF. LABORATORY DATA: White count 7, hemoglobin 13, hematocrit 41, and platelets of 296. Chemistries are stable. IMAGING STUDIES: Chest x-ray was stable noted. IMPRESSION: 1. Acute olecranon ulnar fractures, now status post fixation performed on 04/23/2020, by Ortho. 2. Pain, secondary to acute fracture. PLAN: At this time, the patient had her surgery performed. She was scheduled to be discharged by Orthopedics with the patient reports having severe pain. The pain medications will be sent to her pharmacy. Get morning labs. We will monitor overnight. Once her pain is better controlled, she can be discharged. MD RAVINDRA Joshi/PADMAJA /[id number]
[2020-04-24 04:00] VITALS: BP 115/62
[2020-04-24 05:58] LABS: BASOPHILS # (AUTO) 0.1 (0.0-0.1); BASOPHILS % 0.6 % (0.0-1.0); EOSINOPHILS % 0.3 % (0.0-6.0); HEMATOCRIT 37.5 % (34.2-44.1); LYMPHOCYTES # (AUTO) 2.1 (1.0-3.2); LYMPHOCYTES % 14.7 % (18.0-39.1); MEAN CORPUSCULAR HEMOGLOBIN 28.8 pg (28-32); MEAN CORPUSCULAR VOLUME 89.9 fL (81-99); MONOCYTES # (AUTO) 0.8 (0.2-0.8); MONOCYTES % 5.8 % (4.4-11.3); NEUTROPHILS # (AUTO) 11.1 (2.1-6.9); NEUTROPHILS % 78.2 % (38.7-80.0); PLATELET COUNT 296 x10e3/uL (140-360); RED BLOOD COUNT 4.17 x10e6/uL (3.6-5.1); RED CELL DISTRIBUTION WIDTH 12.6 % (11.7-14.4)
[2020-04-24 06:30] LABS: ANION GAP 14.7 mmol/L (8-16); BLOOD UREA NITROGEN 11 mg/dL (7-26); BUN/CREATININE RATIO 17 (6-25); CALCIUM 8.8 mg/dL (8.4-10.2); CARBON DIOXIDE 22 mmol/L (22-29); CHLORIDE 107 mmol/L (98-107); CREATININE, SERUM 0.63 mg/dL (0.57-1.11); EST GLOMERULAR FILTRATION RATE > 60 ML/MIN (60-); GLUCOSE 106 mg/dL (74-118); POTASSIUM 3.7 mmol/L (3.5-5.1); SODIUM 140 mmol/L (136-145)
--- NOTE | 2020-04-24 06:52 | NUR ---
Patient resting comfortably. Walking rounds done. Bed-side report given to oncoming nurse regarding patient's status.
[2020-04-24 07:58] VITALS: BP 133/56
[2020-04-24 08:00] VITALS: BP 133/56
[2020-04-24] MEDS ORDERED: CYCLOBENZAPRINE HCL 10 MG TAB PO PRN (10:30)
[2020-04-24 11:30] VITALS: BP 137/59
--- NOTE | 2020-04-24 14:58 | Discharge Summary ---
FINAL DISCHARGE DIAGNOSES: 1. Acute olecranon ulnar fracture, status post open reduction and internal fixation performed on 04/23/2020, by Orthopedics. 2. Steroid induced leukocytosis, the patient was given dexamethasone intraoperatively. CONSULTANTS: Orthopedics. PHYSICAL EXAMINATION: VITAL SIGNS: Temperature is 97.9, pulse 84, respiratory rate is 19, blood pressure 137/59, pulse ox 98% on room air. LABORATORY FINDINGS: Show white count is 7, hemoglobin 12, hematocrit 37.5, platelets of 296. Chemistry; sodium 140, potassium 3.7, chloride 107, bicarb 20, anion gap of 14, BUN 11, creatinine is 0.63, glucose is 106, calcium is 8.8. LFTs within normal range. Albumin is 4. Urinalysis negative. Serology; delaney virus not detected. IMAGING STUDIES: Chest x-ray no acute cardiopulmonary disease. Linear radiodensity over the right clavicular head may be outside the patient this is before surgery. HOSPITAL COURSE: A 75-year-old female, came in after two weeks ago where she fell down and landed on her right elbow. She was scheduled to have surgery, which was performed on 04/23/2020, by Orthopedics. The patient underwent status post Acute olecranon ulnar fracture with status post open reduction and internal fixation performed on 04/23/2020. The patient did well postoperatively with only complaints of pain. Her pain improved and she was monitored overnight. Following day, the patient reports her pain is very minimal. She has pain medications sent to her pharmacy. She has been cleared for discharge by Orthopedics. Mild elevation of the WBC is all secondary to steroids that were given in the OR. The patient in fact is afebrile with no complaints. She has no other issues at this time. The patient was cleared for discharge by Orthopedics. On the day of discharge, vital signs were stable; labs reviewed and stable. The patient was seen and evaluated and examined thoroughly on the day of discharge. No other complaints. The patient verbalized understanding and agrees to plan of care to follow up accordingly as an outpatient with the primary care physician in 1 week and Orthopedics in 10-14 days. MEDICATIONS: See med reconciliation form. DISPOSITION: Home. CONDITION: Stable. DIET: Heart healthy. In the event of any worsening symptoms, the patient was advised to come back to the ED for further evaluation. Discharge summary took greater than 35 minutes. MD RAVINDRA Joshi/PADMAJA /[id number]
[2020-04-24 15:58] VITALS: BP 119/84
[2020-04-24] MEDS ORDERED: ENOXAPARIN SOD INJ 40 MG/0.4 ML SYR SC SCH (17:00)
== END 2020-04-24 17:14 | disposition home or self-care (01) ==
LOC: ER 17:04 → ERHOLD 17:14 → MED/SURG2 22:15
PROVIDERS: ADMIT Internal Medicine; ATTEND Internal Medicine
DX: S52.021A Displaced fracture of olecranon process without intraarticular extension of right ulna, initial encounter for closed fracture (principal); D72.828 Other elevated white blood cell count; T38.0X5A Adverse effect of glucocorticoids and synthetic analogues, initial encounter; W18.09XA Striking against other object with subsequent fall, initial encounter; G89.11 Acute pain due to trauma; Z11.59 Encounter for screening for other viral diseases
CPT/HCPCS: 24675; 36415 ×2; 71045; 80048; 80053; 81001; 85025 ×2; 85610; 85730; 86850; 86900; 97116 ×2; 97162; 97530; 99284; G0378 ×3; J0690 ×2; J1100; J1170; J1644; J1885; J2001; J2270 ×2; J2405 ×2; J2704; J7030 ×2; U0002; C1713

== ENCOUNTER → 2020-06-02 | Outpatient (RCR) | payer MEDICARE, BC | LOC: OT 10:08 | PROVIDERS: ATTEND Orthopaedic Surgery | DX: M25.521 Pain in right elbow (principal) ==

== ENCOUNTER 2020-07-02 13:00 | Outpatient (RCR) | payer MEDICARE, BC | END 2020-07-03 | LOC: OT 13:00 | PROVIDERS: ATTEND Orthopaedic Surgery | DX: S46.311A Strain of muscle, fascia and tendon of triceps, right arm, initial encounter (principal) ==

== ENCOUNTER 2020-07-23 09:44 | Outpatient (RCR) | payer MEDICARE, BC | END 2020-08-02 | LOC: OT 09:44 | PROVIDERS: ATTEND Orthopaedic Surgery | DX: S46.311A Strain of muscle, fascia and tendon of triceps, right arm, initial encounter (principal) ==

== ENCOUNTER 2020-08-05 14:03 | Outpatient (RCR) | payer MEDICARE, BC | END 2020-09-02 | LOC: OT 14:03 | PROVIDERS: ATTEND Orthopaedic Surgery | DX: S46.311A Strain of muscle, fascia and tendon of triceps, right arm, initial encounter (principal) ==

== ENCOUNTER → 2021-10-04 | Outpatient (CLI) | payer MEDICARE, BC | LOC: RAD 14:09 | PROVIDERS: ATTEND Internal Medicine | DX: R05.9 Cough, unspecified (principal) | CPT/HCPCS: 71046 ==

== ENCOUNTER → 2021-12-06 | Outpatient (CLI) | payer MEDICARE, BC | LOC: CT 15:08 | PROVIDERS: ATTEND Internal Medicine | DX: R51.9 Headache, unspecified (principal); M54.2 Cervicalgia | CPT/HCPCS: 70450; 72125 ==

== ENCOUNTER → 2022-06-15 | Outpatient (CLI) | payer MEDICARE, BC | LOC: RAD 12:57 | PROVIDERS: ATTEND Internal Medicine | DX: R05.9 Cough, unspecified (principal) | CPT/HCPCS: 71046 ==

== ENCOUNTER → 2022-12-11 | Outpatient (CLI) | payer MEDICARE, BC | LOC: RAD 13:55 | PROVIDERS: ATTEND Internal Medicine | DX: M25.551 Pain in right hip (principal); M54.50 Low back pain, unspecified | CPT/HCPCS: 72110 ==

== ENCOUNTER → 2023-03-12 | Outpatient (CLI) | payer MEDICARE, BC | LOC: RAD 14:05 | PROVIDERS: ATTEND Internal Medicine | DX: M50.322 Other cervical disc degeneration at C5-C6 level (principal); M50.323 Other cervical disc degeneration at C6-C7 level | CPT/HCPCS: 72050 ==

== ENCOUNTER 2024-06-15 22:11 | Emergency (ER) | payer BC, MEDICARE ==
[~2024-06-15] VITALS: Ht 154.9 cm; Wt 66.2 kg
[2024-06-15 22:23] VITALS: TEMP 98.1
[2024-06-15] MEDS ORDERED: KETOROLAC TROMETHAMINE 60 MG/2 ML VIAL ONE (22:36)
[2024-06-15] MEDS: KETOROLAC TROMETHAMINE 30 MG/ML VIAL IM STA (22:37)
[2024-06-16 00:30] VITALS: PULSE 87; RESP 19
[2024-06-16] MEDS: Morphine 4mg INJECTION 4 MG/ML INJ IM STA (00:57)
[2024-06-16] MEDS ORDERED: PREDNISONE20 MG PO (01:10)
[2024-06-16] MEDS ORDERED: ULTRAM 50MG50 MG PO (01:10)
[2024-06-16 01:31] VITALS: BP 144/82; PULSE 84; RESP 18; TEMP 98.2; O2SAT 96
== END 2024-06-16 01:27 | disposition home or self-care (01) ==
LOC: ER 22:18
DX: M54.12 Radiculopathy, cervical region (principal); M25.511 Pain in right shoulder; M19.09 Primary osteoarthritis, other specified site; I10 Essential (primary) hypertension; E11.9 Type 2 diabetes mellitus without complications
CPT/HCPCS: 72125; 73030; 99283; J1885; J2270

== ENCOUNTER → 2024-07-21 | Outpatient (REF) | payer MEDICARE ==
[~2024-07-21] MED LIST changes: +PREDNISONE20 MG PO; +ULTRAM 50MG50 MG PO
== END ==
LOC: MRI 09:25
PROVIDERS: ATTEND Internal Medicine
DX: M54.12 Radiculopathy, cervical region (principal)
CPT/HCPCS: 72141

== ENCOUNTER 2024-09-08 13:49 | Emergency (ER) | payer BC, MEDICARE ==
[~2024-09-08] VITALS: Ht 154.9 cm; Wt 73.7 kg
[~2024-09-08 13:49] MED LIST changes: +BENZONATATE100 MG PO; +MEDROL4 M2 PO; +ONDANSETRON ODT4 MG PO; +PROAIR DIGIHAL90 MCG INH; +TAMIFLU6 MG/1 ML PO; +TAMIFLU75 MG PO; +VENTOLIN HFA18 GM INH
[2024-09-08] MEDS ORDERED: FAMOTIDINE 20 MG/2 ML VIAL IV ONE (14:15)
[2024-09-08] MEDS ORDERED: ASPIRIN 81 MG CHEW TAB PO ONE (14:15)
[2024-09-08] MEDS: ACETAMINOPHEN 325 MG TAB PO ONE (14:34)
[2024-09-08 16:05] VITALS: PULSE 92; RESP 18; TEMP 97.8; O2SAT 95
== END 2024-09-08 16:36 | disposition home or self-care (01) ==
LOC: FSED 13:57
DX: S29.011A Strain of muscle and tendon of front wall of thorax, initial encounter (principal); S16.1XXA Strain of muscle, fascia and tendon at neck level, initial encounter; V43.53XA Car driver injured in collision with pick-up truck in traffic accident, initial encounter; Y92.488 Other paved roadways as the place of occurrence of the external cause; I10 Essential (primary) hypertension; R94.31 Abnormal electrocardiogram [ECG] [EKG]
CPT/HCPCS: 71250; 72125; 80053; 82553; 84484; 85025; 85379; 93005; 94760; 99284

== ENCOUNTER → 2024-10-29 | Outpatient (REF) | payer MEDICARE | LOC: US 12:27 | PROVIDERS: ATTEND Otolaryngology | DX: E04.2 Nontoxic multinodular goiter (principal) | CPT/HCPCS: 76536 ==

== ENCOUNTER → 2024-11-20 | Outpatient (REF) | payer MEDICARE | LOC: DX 11:45 | PROVIDERS: ATTEND Internal Medicine | DX: M81.0 Age-related osteoporosis without current pathological fracture (principal) | CPT/HCPCS: 77080 ==

== ENCOUNTER → 2025-05-15 | Outpatient (REF) | payer MEDICARE | LOC: US 13:42 | PROVIDERS: ATTEND Otolaryngology | DX: E04.2 Nontoxic multinodular goiter (principal) | CPT/HCPCS: 76536 ==

== ENCOUNTER → 2025-06-05 | Outpatient (REF) | payer MEDICARE | LOC: US 09:41 | PROVIDERS: ATTEND Otolaryngology | DX: E04.2 Nontoxic multinodular goiter (principal) | CPT/HCPCS: 10005; 88172; 88173; 88305 ==